=== PATIENT | female | born 1975 | race Caucasian/White ===

== ENCOUNTER 2019-08-05 13:04 | Outpatient (REF) | payer MEDICAID, SELFPAY ==
[2019-08-05 22:02] LABS: Abs Immature Grans 0.01 k/cumm (0.0-0.09); Absolute Basophil Count 0.03 k/cumm (0.0-0.2); Absolute Eosinophil Count 0.08 k/cumm (0.0-0.7); Absolute Lymphocyte Count 3.02 k/cumm (1.2-3.4); Absolute Monocyte Count 0.44 k/cumm (0.11-0.7); Absolute Neutrophil Count 3.52 k/cumm (1.2-6.7); Basophils % 0.4; Eosinophils % 1.1; HCT 37.8 % (36.0-46.0); HGB 12.7 g/dL (12.0-15.5); Immature Grans % 0.1; Lymphocytes % 42.5; Mean Corp. HGB Concentration 33.6 g/dL (32.0-36.0); Mean Corpuscular Hemoglobin 29.3 pg (27.0-33.0); Mean Corpuscular Volume 87.3 fL (80-95); Mean Platelet Volume 11.6 fL (8.0-11.0); Monocytes % 6.2; Neutrophils % 49.7; Platelet Count 279 x1000/uL (130-400); RBC 4.33 m/cumm (4.00-5.20); RBC Distribution Width 12.8 % (11.7-14.6)
[2019-08-05 22:22] LABS: Iron 58 ug/dL (50-175); Total Iron Binding Capacity 323 ug/dL (250-450); Transferrin Sat 18 % (15-50)
[2019-08-05 22:36] LABS: Hemoglobin A1C 5.9 % (4.5-6.2)
[2019-08-05 22:41] LABS: ALT 33 U/L (14-59); AST 15 U/L (15-37); Albumin 3.9 g/dL (3.4-5.0); Alkaline Phosphatase 77 U/L (46-116); Anion Gap 11.2 mmol/L (3-11); BUN 8 mg/dL (7-18); Bilirubin, Total 0.3 mg/dL (0.2-1.0); CO2 26.8 mmol/L (21.0-32.0); CREATININE 0.75 mg/dL (0.55-1.02); Calcium 8.8 mg/dL (8.5-10.1); Calculated LDL 95 mg/dL; Chloride 104 mmol/L (98-107); Cholesterol 178 mg/dL (50-200); Glucose 118 mg/dL (70-100); HDL Cholesterol 37 mg/dL (40-60); Magnesium 2.2 mg/dL (1.8-2.4); Potassium 4.2 mmol/L (3.5-5.1); Sodium 142 mmol/L (136-145); TSH 1.34 uIU/mL (0.36-3.74); Total Protein 7.6 g/dL (6.4-8.2); Triglyceride 230 mg/dL (30-150); Vitamin B12 258 pg/mL (193-986)
[2019-08-05 23:03] LABS: FREE T4 1.03 ng/dL (0.76-1.46)
[2019-08-06 22:05] LABS: T3,Free 3.4 pg/ml (2.8-5.3)
== END 2019-08-05 13:24 ==
LOC: NCHCN 13:04
PROVIDERS: PCP Nurse Practitioner Family; Visit Provider Nurse Practitioner Family
DX: R53.83 Other fatigue (principal); R11.2 Nausea with vomiting, unspecified; R06.09 Other forms of dyspnea; R19.8 Other specified symptoms and signs involving the digestive system and abdomen; G47.00 Insomnia, unspecified; G43.909 Migraine, unspecified, not intractable, without status migrainosus; M54.5 Low back pain; E04.1 Nontoxic single thyroid nodule
CPT/HCPCS: 80053; 80061; 82607; 83036; 83540; 83550; 83735; 84439; 84443; 84481; 85025

== ENCOUNTER 2019-08-06 02:05 | Outpatient (CLI) | payer MEDICAID, SELFPAY ==
--- NOTE | 2019-08-06 10:00 | DI.US_ITS ---
EXAM: US THYROID CLINICAL HISTORY: NODULE E04.1 TECHNIQUE: Ultrasound performed using standard protocol. COMPARISON: OB US 2-3 TRIMESTER TRANSABD*P from 07/28/2011 FINDINGS: Thyroid ultrasound was performed according to the usual protocol. Right thyroid lobe measures 44 x 1 0 x 15 millimeters and left thyroid lobe measures 46 x 11 x 19 millimeters. Thyroid parenchyma is fa irly homogeneous. There is a solid mass of the inferior pole of the right thyroid lobe measuring 10 x 11 x 10 millimeters in diameter. This shows increased intralesional vascularity and is of solid ec hogenicity. No additional nodule seen. IMPRESSION: Solitary 11 millimeter nodule lower pole right thyroid lobe. Findings are statistically most likely to represent benign disease but malignancy is not excluded on the basis of this examination. Close u ltrasound follow-up or tissue sampling advised.
== END 2019-08-06 02:25 ==
PROVIDERS: PCP Nurse Practitioner Family; Visit Provider Nurse Practitioner Family
DX: E04.1 Nontoxic single thyroid nodule (principal)
CPT/HCPCS: 76536

== ENCOUNTER 2019-08-07 03:10 | Outpatient (CLI) | payer MEDICAID, SELFPAY ==
--- NOTE | 2019-08-07 07:35 | DI.US_ITS ---
EXAM: US ABDOMEN CLINICAL HISTORY: LUQ ABD PAIN,R10.12, IRREGULAR BOWEL HABITS, R19.8 TECHNIQUE: Ultrasound performed using standard protocol. COMPARISON: ABDOMEN ULTRASOUND from 11/04/2008 OB US 2-3 TRIMESTER TRANSABD*P from 07/28/2011 US THYROID from 08/06/2019 FINDINGS: Patient has reportedly had a prior cholecystectomy. There is no biliary dilatation. Hepatic parenchyma is mildly echogenic and of coarse echotexture. The liver is incompletely seen. Q uestion mild hepatomegaly. There is a 15 millimeter in diameter, poorly visualized, low echogenicity lesion with question industrial design intern al echoes which is grossly well-circumscribed and avascular which lies adjacent to Prince's pouch a nd which may originate in liver or kidney. No other renal or hepatic lesion identified. Left kidney unremarkable. No hydronephrosis. Pancreas appears intact as visualized. Spleen is unremarkable. Aorta and IVC are of normal diameter . IMPRESSION: 1. Coarse hepatic echotexture and increased echogenicity, question hepatic steatosis. Liver incomple tely visualized. Liver may be enlarged. 2. 15 millimeter in diameter, indeterminate right renal or hepatic lesion as described above, renal M R recommended for correlation to determine origin and possible cystic versus solid nature of this les ion. If the patient is not MR compatible, contrast enhanced CT may alternatively be obtained.
== END 2019-08-07 03:30 ==
PROVIDERS: PCP Nurse Practitioner Family; Visit Provider Nurse Practitioner Family
DX: R10.12 Left upper quadrant pain (principal); R19.4 Change in bowel habit; Z90.49 Acquired absence of other specified parts of digestive tract; K76.89 Other specified diseases of liver; N28.89 Other specified disorders of kidney and ureter; R06.00 Dyspnea, unspecified
CPT/HCPCS: 94060; 94150; 94726; 94729; 95070; 76700; 94010; J7674

== ENCOUNTER 2019-08-07 03:30 | Outpatient (CLI) | payer MEDICAID, SELFPAY ==
--- NOTE | 2019-08-07 11:28 | PFT_ITS ---
PULMONARY FUNCTION TEST REPORT DATE OF SERVICE: August 07, 2019 REQUESTING PROVIDER: Yesica Goff APRN Spirometry shows no evidence of obstructive airways disease; no bronchodilator testing was carried out. Lung volumes show no evidence of restriction. Diffusion capacity is suboptimal patient effort, though it appears to be normal, it is hard to sand analyst based on poor effort. Airways resistance normal. IMPRESSION: Overall normal pulmonary function study. Poor effort for diffusion capacity maneuver. Clinical correlation recommended. /[facility] D/ +++++++++++++++++++++++++ METHACHOLINE CHALLENGE TEST DATE OF SERVICE: August 07, 2019 After normal spirometry, methacholine challenge testing was carried out up to a methacholine concentration of 16 mg/mL at which point the patient had a 22% drop in FEV1 and had good recovery after bronchodilator administration. IMPRESSION: Positive methacholine challenge test. Clinical correlation recommended. /[facility] D/
[2019-08-07] MEDS: Methacholine 100 MG VIAL IH (15:03)
[2019-08-07] MEDS: Albuterol HFA 18 GM 200 PUFF INH IH (15:03)
[2019-08-07] MEDS: Inhaler, Assist Device 1 EACH MC (15:03)
== END 2019-08-07 03:50 ==
PROVIDERS: PCP Nurse Practitioner Family; Visit Provider Nurse Practitioner Family
DX: R06.00 Dyspnea, unspecified (principal)
CPT/HCPCS: 94060; 94150; 94726; 94729; 95070; 94010; J7674

== ENCOUNTER 2019-08-14 01:19 | Outpatient (CLI) | payer MEDICAID, SELFPAY ==
[2019-08-14] MEDS: Normal Saline Flush 10 ML SYR IVP (14:22)
[2019-08-14] MEDS: Gadoterate meglumine 20 ML VIAL 16 ML IVP (14:23)
--- NOTE | 2019-08-14 14:40 | DI.MRI_ITS ---
EXAM: MR ABDOMEN WO/W CLINICAL HISTORY: RENAL MASS, N28.89. TECHNIQUE: Multiplanar multisequence MRI was performed. Post gadolinium fat-suppressed T1 axial seq uences were also performed. COMPARISON: ABDOMEN ULTRASOUND from 11/04/2008 US ABDOMEN from 08/07/2019 FINDINGS: The lesion on ultrasound corresponds to an ovoid purely cystic lesion that lies at the border of the liver capsule and measures 12 by 9 millimeters. There is no internal enhancement. The findings are co nsistent with a simple cyst. No additional liver cysts are seen. There is a 5 millimeter cyst at the lower pole of left kidney. The pancreas, adrenals and spleen appear normal. There is no biliary dila tation. IMPRESSION: 12 millimeter simple cyst at the liver capsule near the superior pole of the right kidney.
== END 2019-08-14 01:39 ==
PROVIDERS: PCP Nurse Practitioner Family; Visit Provider Nurse Practitioner Family
DX: N28.89 Other specified disorders of kidney and ureter (principal); K76.89 Other specified diseases of liver; N28.1 Cyst of kidney, acquired
CPT/HCPCS: 74183

== ENCOUNTER 2019-08-20 16:21 | Emergency (ER) | payer MEDICAID, SELFPAY ==
[2019-08-20 16:26] VITALS: BP 138/104; PULSE 91; RESP 16; TEMP 37.2; O2SAT 96
--- NOTE | 2019-08-20 16:47 | ED.GENADUL_ITS ---
Discharge Plan Disposition Patient Disposition: HOME Discharge Details Chief Complaint: Abd Prob Clinical Impression: Abdominal pain Primary Care Provider: Yesica Goff ED Provider: Herson Magdaleno Home Meds and New Rx's Prescriptions: Continued melatonin 5 mg capsule 5 mg PO HS PRNRF: 0 trazodone 50 mg tablet 50 mg PO QHS PRNRF: 0 sennosides [senna] 8.6 MG tablet 1 tab PO .QHS PRNRF: 0 acyclovir 400 MG tablet 400 mg PO BID RF: 0 Discharge Instructions Instructions: Abdominal Pain (ED) Additional Instructions: Please contact your primary care physician to arrange follow-up. Please follow- up tomorrow for repeat exam. Return to the ER for any worsening or new concerning symptoms. Referrals: Yesica Goff [Primary Care Provider] - Discharge Data Discharge Date/Time-TO BE ENTERED AT DEPARTURE: 08/20/19 18:20 Medical Decision Making 1650: 43-year-old female here with upper abdominal pain greater than left and tender in her right upper abdomen with no peritoneal findings. Patient concerned that cyst seen on recent MR of the abdomen is causing her pain. Abdominal ultrasound performed 08/07/2019 interpreted by radiology: IMPRESSION: 1. Coarse hepatic echotexture and increased echogenicity, question hepatic steatosis. Liver incompletely visualized. Liver may be enlarged. 2. 15 millimeter in diameter, indeterminate right renal or hepatic lesion as described above, renal MR recommended for correlation to determine origin and possible cystic versus solid nature of this lesion. If the patient is not MR compatible, contrast enhanced CT may alternatively be obtained. Abdominal MRI performed 08/14/2019 interpreted by radiology: IMPRESSION: 12 millimeter simple cyst at the liver capsule near the superior pole of the right kidney. -- Labs reviewed and nondiagnostic. Results reviewed with patient. Patient was reassured. Plan for outpatient followup with PCP. Disposition decision was made weighing the risks and benefits of hospitalization versus outpatient treatment, the risk for further decompensation, and the patient's wishes. The patient was stable and requested discharge. Prior to discharge, my usual and customary return precautions were reviewed with the patient - this included follow-up instructions and reason to return to the emergency department if condition worsens, does not improve as expected, or other new concerns arise. HPI General Mode of arrival: ambulatory . Date/Time Provider Initiated Documentation: 08/20/19 16:32 . Limitations to Documentation: no limitations . Information obtained by: patient . HPI Narrative: 43-year-old female here with upper abdominal pain, localized to upper abdomen, right greater than left. Pain has been persistent x months. Pain is moderate intensity. Tylenol not helping. No associated vomiting. No fever. Patient notes that she had recent MR of abdomen that revealed a cyst and she is concerned that this is causing her pain. Related Data Home Medications Medication Instructions Recorded Confirmed acyclovir 400 mg PO BID 01/01/18 09/02/19 sennosides [senna] 1 tab PO .QHS PRN 01/01/18 09/02/19 melatonin 5 mg capsule 5 mg PO HS PRN cap 08/18/19 09/02/19 trazodone 50 mg tablet 50 mg PO QHS PRN 08/18/19 09/02/19 Allergies Allergy/AdvReac Type Severity Reaction Status Date / Time No Known Drug Allergies Allergy Unverified 09/02/19 06:29 General Stated Complaint: Abd Prob WARD: 3 Review of Systems All systems reviewed & are unremarkable except as noted in HPI and below Constitutional Constitutional: Denies fever(s) Gastrointestinal Gastrointestinal: Reports as per HPI, Denies melena, Denies coffee ground emesis and Denies vomiting PFSH Medical History (Updated 09/02/19 @ 08:09 by Jacque Everett MD) Anxiety (Chronic) History of bladder stone (Acute) Hx of vaginal delivery (Acute) Migraine (Chronic) Steatosis of liver (Acute) pt. reports cyst in liver Surgical History (Updated 09/05/19 @ 06:45 by Deandra Prince RN) H/O esophagogastroduodenoscopy (Chronic ~08/2019) S/P laparoscopic cholecystectomy (Acute) pt. denies Social History Smoking/Tobacco Use Status: Never Alcohol Intake: never Drug use: Never Substance use type: does not use Do you feel safe at home: Yes Do you feel safe in your relationship?: Yes Exam Const General: cooperative and no acute distress HENMT Mouth: moist mucous membranes Eyes Conjunctivae: normal conjunctivae Sclera: normal sclerae Resp Auscultation: clear to auscultation bilaterally, no rales, no rhonchi and no wheezes Cardio Jugular venous pressure: no JVD Rate: regular rate and not tachycardic Rhythm: regular rhythm GI Palpation: soft, not firm, no guarding, no masses, not rigid and nontender Skin General skin exam: no rashes or lesions noted Neuro General: alert, awake and tone normal Extrem General: no edema Psych Appearance: grossly normal Mental Status: mental status grossly normal Course Vital Signs Vital signs: Vital Signs Temperature 37.2 C 08/20/19 16:26 Pulse 91 H 08/20/19 16:26 Respiratory Rate 16 08/20/19 16:26 Blood Pressure 138/104 H 08/20/19 16:26 Pulse Oximetry 96 08/20/19 16:26 Temperature 37.2 C 08/20/19 16:26 Temperature Source Skin 08/20/19 16:26 Pulse 91 H 08/20/19 16:26 Respiratory Rate 16 08/20/19 16:26 Respiratory Effort Non-Labored 08/20/19 16:26 Blood Pressure 138/104 H 08/20/19 16:26 Blood Pressure Position Sitting 08/20/19 16:26 Pulse Oximetry 96 08/20/19 16:26 Oxygen Delivery Method Room Air 08/20/19 16:26 Oxygen Flow Rate 0 08/20/19 16:26 Pain Level 10 08/20/19 16:26
[2019-08-20] MEDS: Normal Saline Flush 10 ML SYR IVP (16:59)
[2019-08-20 17:02] LABS: Abs Immature Grans 0.02 k/cumm (0.0-0.09); Absolute Basophil Count 0.03 k/cumm (0.0-0.2); Absolute Eosinophil Count 0.13 k/cumm (0.0-0.7); Absolute Lymphocyte Count 3.92 k/cumm (1.2-3.4); Absolute Monocyte Count 0.46 k/cumm (0.11-0.7); Basophils % 0.4; Eosinophils % 1.5; HCT 36.7 % (36.0-46.0); HGB 12.3 g/dL (12.0-15.5); Immature Grans % 0.2; Lymphocytes % 46.3; Mean Corp. HGB Concentration 33.5 g/dL (32.0-36.0); Mean Corpuscular Hemoglobin 28.9 pg (27.0-33.0); Mean Corpuscular Volume 86.4 fL (80-95); Monocytes % 5.4; Neutrophils % 46.2; Platelet Count 248 x1000/uL (130-400); RBC 4.25 m/cumm (4.00-5.20); RBC Distribution Width 12.3 % (11.7-14.6); White Blood Cell Count 8.46 k/cumm (4.4-10.8)
[2019-08-20 17:17] LABS: ALT 29 U/L (14-59); AST 16 U/L (15-37); Albumin 3.9 g/dL (3.4-5.0); Alkaline Phosphatase 69 U/L (46-116); Anion Gap 6.9 mmol/L (3-11); BUN 8 mg/dL (7-18); Bilirubin, Total 0.2 mg/dL (0.2-1.0); CO2 28.1 mmol/L (21.0-32.0); CREATININE 0.75 mg/dL (0.55-1.02); Calcium 8.7 mg/dL (8.5-10.1); Chloride 104 mmol/L (98-107); Glucose 121 mg/dL (74-106); Lipase 116 U/L (73-393); Potassium 3.6 mmol/L (3.5-5.1); Sodium 139 mmol/L (136-145); Total Protein 7.7 g/dL (6.4-8.2)
[2019-08-20 17:18] LABS: Troponin I < 0.05 ng/Ml (<0.06)
[2019-08-20] MEDS: Famotidine 20 MG TAB PO (18:11)
[2019-08-20 18:30] VITALS: BP 117/43; PULSE 85; RESP 20; TEMP 37; O2SAT 95
== END 2019-08-20 18:20 | disposition home or self-care (01) ==
PROVIDERS: Emergency Provider Student in an Organized Health Care Education/Training Program; PCP Nurse Practitioner Family
DX: R10.11 Right upper quadrant pain (principal); K76.89 Other specified diseases of liver
CPT/HCPCS: 36415; 80053; 83690; 99283; 84484; 85025

== ENCOUNTER 2019-08-26 00:26 | Outpatient (CLI) | payer MEDICAID, SELFPAY ==
--- NOTE | 2019-08-26 16:57 | DI.MAMMO_ITS ---
EXAM: MAMMO SCREENING CLINICAL HISTORY: SCREENING Z12.31, FAMILY HX Z80.3 TECHNIQUE: Mammograms were interpreted according to the usual protocol including computer analysis w [employer] system, tomosynthesis and C-view imaging. FINDINGS: The breasts are of moderate density with fairly symmetrical distribution of fibroglandular tissue. N o dominant mass or clumped microcalcification identified in either breast. There are a couple of sma ll umbilicated nodules in the right breast consistent with intramammary lymph nodes. Today's examina tion is a baseline examination. IMPRESSION: No specific evidence of malignancy at this time. Routine screening examinations are suggested at year ly intervals in this age group according to the ACS/ACR guidelines. Category 1, breast density catego ry B. BI-RADS Cat 1 - Negative Breast Density - Category B - Scattered areas of fibroglandular density
== END 2019-08-26 00:46 ==
PROVIDERS: PCP Nurse Practitioner Family; Visit Provider Nurse Practitioner Family
DX: Z12.31 Encounter for screening mammogram for malignant neoplasm of breast (principal); Z80.3 Family history of malignant neoplasm of breast
CPT/HCPCS: 77063; 77067

== ENCOUNTER 2019-09-02 06:08 | Day surgery (SDC) | payer MEDICAID, SELFPAY ==
[2019-09-02 06:33] VITALS: BP 141/103; PULSE 90; RESP 20; TEMP 36.8; O2SAT 97
[2019-09-02] MEDS: Lactated Ringers 1,000 ML 80 ML IV (06:45)
--- NOTE | 2019-09-02 07:37 | STOM_PTH ---
PATIENT: Jennifer Nunn LOC: [facility] U#:[id number] AGE/SX: 44/F ROOM: RE09/02/[address]: Jacque Everett MD : 1975 BED: DIS: 09/02/2019 SPEC #: [id number] RECD: 09/02/19 12:48 STATUS: JENNIFER RERose #: [id number] NATA: 09/02/19 07:[address]: Jacque Everett DEPT: Surgical Specimen RECD BY: Juani Antony ENTERED: 09/02/19 12:49 SP TYPE: STOMACH OTHR DR: Yesica Goff Tissues: 1 - BIOPSY BOWEL 2 - STOMACH BIOPSY Procedures: GROSS AND MICRO LEVEL 4 Comments: [id number]
--- NOTE | 2019-09-02 08:08 | W.PM.DSUDISC ---
Discharge Plan Disposition Patient Disposition: HOME Condition: Good Discharge Details Reason For Visit: RUQ PAIN, RECTAL BLEEDING Attending Provider: Jacque Everett Primary Care Provider: Yesica Goff Home Meds and New Rx's Prescriptions: Continued melatonin 5 mg capsule 5 mg PO HS PRNRF: 0 trazodone 50 mg tablet 50 mg PO QHS PRNRF: 0 sennosides [senna] 8.6 MG tablet 1 tab PO .QHS PRNRF: 0 acyclovir 400 MG tablet 400 mg PO BID RF: 0 Discharge Instructions Additional Instructions: Findings: Your upper endoscopy and colonoscopy were normal. Follow up: My office will contact you with routine biopsy results. Please call if you develop: fevers >101.5 Nausea or Vomiting Abdominal pain that is not transient DAY SURGERY UNIT POST COLONOSCOPY INSTRUCTIONS 1. Because there will be medication in your system for the next 24 hours, you may feel a little sleepy. Your coordination will be affected. Therefore: a. Do not drive or operate dangerous equipment for 24 hours. b. Do not drink alcohol beverages for 24 hours (not even beer). c. Plan to go home and rest for the day. 2. Generally there are no restrictions on your activity after a day or so has gone by, but you may feel a bit fatigued for a few days. 3 After you arrive home you may have a light meal and return to a normal diet as you can tolerate it without feeling sick to your stomach. 4. After surgery, you may feel pain or discomfort. This should be only transient, but if it persists please contact your doctor. 5. If there are any questions regarding the findings of your procedure, please feel free to contact your doctor. 6. If you are unable to contact your doctor with a problem, contact the hospital at [phone]. 7. Continue all your regular medications unless directed otherwise. I understand the above instructions and have no questions. Signature of Patient or Responsible Adult Escort Date/Time Name of Responsible Adult Escort Signature of Nurse Date/Time Activity:: Activity as Tolerated Diet:: As Tolerated Discharge Orders Discharge Orders: Discharge Order (Routine); Ordered 09/02/19 Ordered By: Jacque Everett DS: Diagnosis Discharge Diagnosis (1) Normal colonoscopy: Status: Acute
[2019-09-02 08:38] VITALS: BP 118/81; PULSE 78; RESP 18; TEMP 36.6; O2SAT 99
--- NOTE | 2019-09-02 12:24 | ENDO_ITS ---
DATE OF PROCEDURE: September 02, 2019 PREOPERATIVE DIAGNOSIS: 1. Right upper quadrant pain. 2. Rectal bleeding. POSTOPERATIVE DIAGNOSIS: 1. Normal EGD. 2. Normal colonoscopy. PROCEDURE: 1. EGD with duodenal biopsy and gastric antrum biopsy. 2. Colonoscopy. SURGEON: Jacque Everett M.D. ANESTHESIA: General. INDICATIONS: This is a 44-year-old woman who complains of abdominal pain for at least a month. This is present on a daily basis. The pain is generally in the right upper quadrant, although has been r eported in the left upper quadrant as well. Eating does not change her pain. She also had a few epi sodes of rectal bleeding. She tends to have constipation. The patient has had a cholecystectomy. S he had an abdominal ultrasound and MRI that showed a simple liver cyst. PROCEDURE: The patient was placed in the left lateral decubitus position. Propofol was titrated to sedation. The scope was advanced into her esophagus under direct visualization and down into the sto mach and duodenum. There was no duodenitis or ulcers noted. The mucosa had a normal appearance. Ro utine biopsies were performed to evaluate for celiac disease. The stomach itself appeared normal, in cluding on retroflex view of the fundus and lesser curvature. Biopsies were taken from the gastric a ntrum to evaluate for H. pylori. There was no inflammation or ulcers noted. The GE junction showed no masses, Franklin's, inflammation or strictures. The air was suctioned from the stomach and the sco pe withdrawn with no esophageal lesions found. The patient was repositioned. Digital rectal examination revealed no abnormalities. The colonoscop e was advanced to the cecum without difficulty. Her prep was excellent. The ileocecal valve and ap pendiceal orifice were clearly identified. The scope was slowly withdrawn with no abnormalities seen within the ascending, transverse, descending, sigmoid colon or rectum, including on retroflex view. She tolerated the procedure well and was stable to recovery. I will contact her with biopsy results. If normal, we could consider a CT scan of the abdomen and pe lvis and can also consider treatment for irritable bowel syndrome. cc: Yesica Goff N.P.
== END 2019-09-02 09:09 | disposition home or self-care (01) ==
PROVIDERS: PCP Nurse Practitioner Family; Visit Provider Surgery
PROC: (CPT 43239; principal; 2019-09-02 07:30)
DX: K62.5 Hemorrhage of anus and rectum (principal); R10.11 Right upper quadrant pain; K31.89 Other diseases of stomach and duodenum
CPT/HCPCS: 43239; 45378; 88305

== ENCOUNTER 2019-09-22 00:46 | Outpatient (CLI) | payer MEDICAID, SELFPAY ==
[2019-09-22] MEDS: Omnipaque 350 MG/ML 100 ML BTL IJ (15:37)
--- NOTE | 2019-09-22 15:38 | DI.CT_ITS ---
EXAM: CT ABDOMEN PELVIS W CLINICAL HISTORY: Generalized abdominal pain R10.9 TECHNIQUE: Imaging Protocol: Axial computed tomography images with coronal and sagittal reformatted images were created and reviewed CONTRAST MATERIAL: Intravenous: Omnipaque 350 Contrast volume:100 mL contrast route:IV - Oral: Yes COMPARISON: US ABDOMEN from 08/07/2019 FINDINGS: ABDOMEN: Lung Bases: Normal where visualized. Liver: Normal density. There is a 1 cm simple cyst in the posterior aspect of the right lobe of the l iver. No suspicious hepatic masses are seen. The portal, superior mesenteric and splenic veins are patent. Gallbladder and biliary tract: The patient is status post cholecystectomy. There is no biliary ducta l dilatation. Pancreas: Normal density, no abnormal calcifications or inflammatory process. Spleen: Normal. Incidental note is made of a 1.1 cm cyst in the superior aspect of the spleen. Kidneys: Normal size, contour and axis. There is a 2 mm nonobstructing stone in the midpole of the le ft kidney. There is a small cyst in the inferior pole of the left kidney. No suspicious solid elder s are seen. Adrenal glands: No masses seen. Abdominal Aorta: Abdominal portion non-dilated. PELVIS: Bladder: Symmetric distention, no gross wall thickening. Bowel: No obstruction or bowel wall thickening. The appendix is normal in size without evidence of ad jacent mesenteric fat stranding or adjacent fluid collection. Peritoneal cavity: No ascites, collection or mesenteric inflammatory response. Bones: Within normal limits. Reproductive organs: Within normal limits. Lymph nodes: Unremarkable. Impression: 1. No evidence of an acute abdomen or pelvis. 2. Left nephrolithiasis. No hydronephrosis. DATA REPOSITORY: All CT scans at this facility are submitted to the National Radiology Data Registry (NRDR) Dose Index Registry (DIR) with the [employer] (ACR). RADIATION OPTIMIZATION: All CT scans at this facility use at least one of these dose optimization te chniques: automated exposure control; mA and/or kV adjustment per patient size (includes targeted exa ms where dose is matched to clinical indication); or iterative reconstruction.
== END 2019-09-22 01:06 ==
PROVIDERS: PCP Nurse Practitioner Family; Visit Provider Surgery
DX: R10.9 Unspecified abdominal pain (principal); K68.9 Other disorders of retroperitoneum; D73.4 Cyst of spleen; N20.0 Calculus of kidney
CPT/HCPCS: 74177; J3490

== ENCOUNTER 2020-02-24 12:15 | Outpatient (REF) | payer MEDICAID, SELFPAY ==
[2020-02-24 21:35] LABS: FREE T4 1.04 ng/dL (0.76-1.46); TSH 3.04 uIU/mL (0.36-3.74)
[2020-02-25 17:05] LABS: T3,Free 3.8 pg/mL (2.8-5.3)
== END 2020-02-24 12:35 ==
LOC: NCHCN 12:15
PROVIDERS: PCP Nurse Practitioner Family; Visit Provider Nurse Practitioner Family
DX: C73 Malignant neoplasm of thyroid gland (principal)
CPT/HCPCS: 84439; 84443; 84481

== ENCOUNTER 2020-03-15 15:49 | Outpatient (REF) | payer MEDICAID, SELFPAY ==
[2020-03-15 23:12] LABS: FREE T4 1.06 ng/dL (0.76-1.46); TSH 2.53 uIU/mL (0.36-3.74)
== END 2020-03-15 16:09 ==
LOC: NCHCN 15:49
PROVIDERS: PCP Nurse Practitioner Family; Visit Provider Nurse Practitioner Family
DX: C73 Malignant neoplasm of thyroid gland (principal); R73.03 Prediabetes; R53.83 Other fatigue; R51 Headache; R19.8 Other specified symptoms and signs involving the digestive system and abdomen; K76.0 Fatty (change of) liver, not elsewhere classified; G47.00 Insomnia, unspecified; E66.9 Obesity, unspecified
CPT/HCPCS: 83036; 84439; 84443; 84481

== ENCOUNTER 2020-03-17 02:28 | Outpatient (CLI) | payer MEDICAID, SELFPAY ==
--- NOTE | 2020-03-17 | DI.US_ITS ---
EXAM: US THYROID CLINICAL HISTORY: THYROID CANCER C73. TECHNIQUE: Ultrasound thyroid performed using standard protocol. COMPARISON: US US THYROID from 08/06/2019 US US SOFT TISSUE HEAD OR NECK from 03/17/2020 FINDINGS: RIGHT LOBE: Status post right thyroidectomy. No mass or fluid collection in the thyroid bed. LEFT LOBE: Size: 4.1 x 1.3 x 1.7 cm Echogenicity: Normal. Vascularity: Normal. Nodules: None. OTHER FINDINGS: Bilateral anterior cervical lymph nodes. The largest on the right measuring 2 cm in length. The largest on the left measures 1.7 cm in length. No suspicious features are seen. IMPRESSION: Status post right thyroidectomy. Normal sonographic appearance of the left lobe of the thyroid. Sma ll bilateral cervical lymph nodes. DATA REPOSITORY:
== END 2020-03-17 02:48 ==
PROVIDERS: PCP Nurse Practitioner Family; Visit Provider Nurse Practitioner Family
DX: C73 Malignant neoplasm of thyroid gland (principal); R59.0 Localized enlarged lymph nodes; Z90.89 Acquired absence of other organs
CPT/HCPCS: 76536

== ENCOUNTER 2020-06-16 11:40 | Outpatient (REF) | payer MEDICAID, SELFPAY ==
--- NOTE | 2020-06-16 10:30 | PAPFT_PTH ---
PATIENT: Jennifer Nunn LOC: [facility]#:[id number] AGE/SX: 44/F ROOM: RE06/16/[address]: Dionna Gaston : 1975 BED: DIS: 06/16/2020 SPEC #: [id number] RECD: 06/17/20 13:15 STATUS: JENNIFER REQ #: [id number] NATA: 06/16/20 10:[address]: Dionna Gaston DEPT: [facility] Cytology RECD BY: Juani Antony ENTERED: 06/17/20 13:15 SP TYPE: PAPFT OTHR DR: Yesica Goff Tissues: 1 - CX/ENDOCX FOR PAP SMEARS Procedures: PAP THIN PREP/[facility] Screening HPV DNA PROBE Comments: [id number] (CHLAMYDIA/GC)
[2020-06-18 15:16] LABS: Chlamydia Result Negative (Negative); GC Result Negative (Negative)
== END 2020-06-16 12:00 ==
LOC: NCHCN 11:40
PROVIDERS: PCP Nurse Practitioner Family
DX: Z12.4 Encounter for screening for malignant neoplasm of cervix (principal); Z11.51 Encounter for screening for human papillomavirus (HPV); Z11.3 Encounter for screening for infections with a predominantly sexual mode of transmission; R87.5 Abnormal microbiological findings in specimens from female genital organs
CPT/HCPCS: 87491; 87591; 88142; 87624

== ENCOUNTER 2020-06-16 12:08 | Outpatient (REF) | payer MEDICAID, SELFPAY | END 2020-06-16 12:28 | LOC: NCHCN 12:08 | PROVIDERS: PCP Nurse Practitioner Family | DX: N76.0 Acute vaginitis (principal); R73.03 Prediabetes; K76.0 Fatty (change of) liver, not elsewhere classified | CPT/HCPCS: 87480; 87510; 87660 ==

== ENCOUNTER 2020-06-17 03:49 | Outpatient (CLI) | payer MEDICAID, SELFPAY ==
[2020-06-17 10:42] LABS: HCT 36.8 % (36.0-46.0); HGB 12.1 g/dL (11.2-15.7); MCHC 32.9 % (32.0-36.0); MCV 88.2 fL (80-95); MPV 10.8 fL (8.0-11.0); Platelet Count 212 10^3/uL (130-400); RBC 4.17 10^6/uL (3.93-5.22); RDW 11.9 % (11.7-14.6); RDW-SD 38.8 fL
[2020-06-17 11:50] LABS: Ferritin 20 ng/mL (8-252); TSH (W/Ref FT4) 0.09 uIU/mL (0.36-3.74)
[2020-06-17 12:08] LABS: FREE T4 1.65 ng/dL (0.76-1.46)
[2020-06-17 18:12] LABS: Estradiol 106 pg/mL (See Note)
[2020-06-17 18:16] LABS: FSH 4.9 mIU/mL (See Note)
== END 2020-06-17 04:09 ==
PROVIDERS: PCP Nurse Practitioner Family
DX: R73.03 Prediabetes (principal); N76.0 Acute vaginitis; N92.1 Excessive and frequent menstruation with irregular cycle; K76.0 Fatty (change of) liver, not elsewhere classified; R51 Headache
CPT/HCPCS: 36415; 85027; 82670; 82728; 83001; 84439; 84443

== ENCOUNTER 2020-10-14 11:24 | Outpatient (REF) | payer MEDICAID, SELFPAY ==
[2020-10-14 13:27] LABS: Abs Immature Grans 0.02 10^3/uL (0.0-0.06); Absolute Basophil Count 0.03 10^3/uL (0.0-0.2); Absolute Lymphocyte Count 3.37 10^3/uL (1.2-3.4); Absolute Monocyte Count 0.47 10^3/uL (0.1-0.8); Basophils % 0.4; Eosinophils % 1.3; HGB 11.9 g/dL (11.2-15.7); Immature Grans % 0.3; Lymphocytes % 42.7; MCH 28.5 pg (27.0-33.0); MCHC 33.1 % (32.0-36.0); MCV 86.3 fL (80-95); MPV 11.3 fL (8.0-11.0); Neutrophils % 49.3; Nucleated RBC 0 %; Platelet Count 195 10^3/uL (130-400); RBC 4.17 10^6/uL (3.93-5.22); RDW 12.5 % (11.7-14.6); RDW-SD 39.1 fL; WBC 7.89 10^3/uL (4.4-10.8)
[2020-10-14 13:57] LABS: Hemoglobin A1C 5.9 % (<5.7)
[2020-10-14 14:12] LABS: ALT 42 U/L (14-59); AST 19 U/L (15-37); Albumin 3.7 g/dL (3.4-5.0); Alkaline Phosphatase 58 U/L (46-116); BUN 10 mg/dL (7-18); Bilirubin, Total 0.3 mg/dL (0.2-1.0); CREATININE 0.86 mg/dL (0.55-1.02); Calcium 8.7 mg/dL (8.5-10.1); Chloride 102 mmol/L (98-107); Glucose 99 mg/dL (74-106); Potassium 3.8 mmol/L (3.5-5.1); Sodium 137 mmol/L (136-145); TSH (W/Ref FT4) 0.66 uIU/mL (0.36-3.74); Total Protein 7.4 g/dL (6.4-8.2); Vitamin B12 198 pg/mL (193-986)
== END 2020-10-14 11:44 ==
LOC: NCHCN 11:24
PROVIDERS: PCP Nurse Practitioner Family; Visit Provider Nurse Practitioner Family
DX: R42 Dizziness and giddiness (principal); R10.12 Left upper quadrant pain; R19.8 Other specified symptoms and signs involving the digestive system and abdomen; K76.0 Fatty (change of) liver, not elsewhere classified; C73 Malignant neoplasm of thyroid gland; G47.00 Insomnia, unspecified; R53.83 Other fatigue; E66.9 Obesity, unspecified
CPT/HCPCS: 80053; 82607; 83036; 83735; 84443; 85025

== ENCOUNTER 2020-10-19 01:08 | Outpatient (CLI) | payer MEDICAID, SELFPAY ==
--- NOTE | 2020-10-19 | DI.US_ITS ---
EXAM: US ABDOMEN CLINICAL HISTORY: LUQ ABD PAIN, R10.12, STEATOSIS OF LIVER, K76.0 TECHNIQUE: Ultrasound abdomen performed using standard protocol. COMPARISON: US US ABDOMEN from 08/07/[address] ABDOMEN PELVIS W from 09/22/2019 FINDINGS: ABDOMINAL AORTA AND IVC: Visualized portions normal caliber. PANCREAS: Normal where visualized. LIVER: There is diffuse increased echogenicity of the liver consistent with fatty infiltration. The liver measures 16.6 cm in length. Hepatopedal flow in the Portal Vein. GALLBLADDER: Status post cholecystectomy. BILIARY SYSTEM: Common bile duct measures < 7 mm. No intrahepatic biliary ductal dilation. KIDNEYS: Kidneys are symmetric in size. No evidence of renal calculi. No evidence of hydronephrosis. No renal mass or cyst identified. SPLEEN: Not enlarged. There is a in 0.8 x 0.6 cm simple cyst in the spleen. This is identified on th e CT scan of the abdomen and pelvis from 09/22/2019. ASCITES: None seen. IMPRESSION: Hepatic steatosis. DATA REPOSITORY:
== END 2020-10-19 01:28 ==
PROVIDERS: PCP Nurse Practitioner Family; Visit Provider Nurse Practitioner Family
DX: K76.0 Fatty (change of) liver, not elsewhere classified (principal); R10.12 Left upper quadrant pain
CPT/HCPCS: 76700

== ENCOUNTER 2020-10-29 02:30 | Outpatient (CLI) | payer MEDICAID, SELFPAY ==
--- NOTE | 2020-10-29 15:20 | DI.MAMMO_ITS ---
EXAM: MG MAMMO in the lateral diagnostic-left CLINICAL HISTORY: SCREENING, Z12.31, FAMILY H/O BREAST CA,C80.3. TECHNIQUE: Spot-compression 3D view of the area of concern as per screening mammogram 10/19/2020 COMPARISON: Prior mammograms dating back to 2019, the most recent being the recent screening mammogr am 10/19/2020. FINDINGS: The additional spot compression view of the area of concern medial of center in the left breast is so mewhat less concerning. Please note that ultrasound examination of the left breast performed following this mammogram today a lso did not reveal a significant focal ultrasound finding at this location. Scratch IMPRESSION: No radiographic evidence of malignancy. Also negative left breast ultrasound. Appropriate follow-up is keep this patient yearly mammogram schedule, with earlier imaging if a self detected breast changes noted. BI-RADS Category 2 - Benign Findings Breast Density - Category B - Scattered areas of fibroglandular density Breast density Category C or D implies that the patient has dense breast tissue. Dense breast tissue can make it harder to find cancer on a mammogram. Dense breast tissue is also associated with an incr eased risk of breast cancer. This information about the result of the mammogram report was provided to the patient to raise their awareness. Use this report when you speak with the patient about their risks for breast cancer, which includes their family history. At that time, you may recommend additional screening tests (Ultrasoun d or MRI) as these tests may add significant information. A negative radiographic report should not delay biopsy if a dominant or clinically suspicious mass is present. Up to ten percent of cancers are not identified on mammography. A negative report may reinforce clinical impression. Adenosis and dense breasts may obscure an underlying neoplasm. False positive reports average 6 to 10%. Patient will receive a letter notifying them of these results.
== END 2020-10-29 02:50 ==
PROVIDERS: PCP Nurse Practitioner Family; Visit Provider Nurse Practitioner Family
DX: Z12.31 Encounter for screening mammogram for malignant neoplasm of breast (principal); Z80.3 Family history of malignant neoplasm of breast
CPT/HCPCS: 77063; 77067

== ENCOUNTER 2021-01-21 08:44 | Outpatient (RCR) | payer MEDICAID, SELFPAY ==
--- OUTSIDE RECORDS SUMMARY | 2021-01-21 08:47 | XMS_ITS ---
:1975 Author Care Team Providers Name Role Phone MATY PRITCHETT Primary Care Provider [phone] TERESA BOO Referring Provider [phone] [facility] MEDICAL RECORDS OTHER [phone] Allergies Code Code System Name Reaction Severity Status Onset NKDA ? Medications Name Status Start Date Stop Date ? ? acyclovir 400 mg tablet Active ? Not avai lable amitriptyline 10 mg tablet Completed ? 05/22 benzonatate 100 mg capsule Completed ? 05/22 levothyroxine Active ? Not available 25 mcg 1x a day melatonin 5 mg tablet Active ? Not availa ble omeprazole 40 mg capsule,delayed Active ? Not available release ropinirole 1 mg tablet Active ? Not avail able take 2 hours before bedtime sertraline 50 mg tablet Active ? Not avai lable zolpidem 5 mg tablet Completed ? 12/29/2020 take 1-2 PO night of sleep study Problems Name Status Onset Date Source ? Herpesvirus Infection Active 05/22/2018 ? Obesity Active 05/22/2018 ? Hypersomnia Active 05/22/2018 ? Migraine Active 05/22/2018 ? External Hemorrhoids Active 05/22/2018 ? Indigestion Active 05/22/2018 ? Constipation Active 05/22/2018 ? Headache Active 05/22/2018 ? Chest Pain Active 05/22/2018 ? Family History of Breast Cancer Active 05/22/2018 ? Insomnia Active 05/23/2018 ? Snoring Active 05/23/2018 ? 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 Second Degree Atrioventricular Block Active 12/30/2020 ? Procedures Date Name Performed by ? 05/23/2018 Polysomnogram [facility] [address] [place] [address] [place] [address] (Work Place) Results Lab Results None recorded. Past Encounters 12/30/2020 Snoring; Second Degree Atrioventricular Block; Periodic Leg Movements of Sleep Hien Mckeon FOUNDRY MOLDER: [address] [place] [phone], Ph. 12/08/2020 Snoring; Insomnia; Periodic Leg Movement s of Sleep Hien Mckeon FOUNDRY MOLDER: [address] [place] [phone], Ph. Social History Tobacco Smoking Status Never Smoker Vaccine List None recorded. Plan of Care Reminders Provider Appointments None ? ? recorded. Lab None ? ? recorded. Referral None ? ? recorded. Procedures None ? ? recorded. Surgeries None ? ? recorded. Imaging None ? ? recorded. Vitals 12/30/2020 02:30PM Office 30 Height Weight BMI Blood Pressure 160.02 cm 87.91 kg 34.3 kg/m2 132/83 mm[Hg] 12/08/2020 02:30PM Office 30 Height Weight BMI 160.02 cm 76.2 kg 29.8 kg/m2 05/23/2018 01:45PM Office 15 Height Weight BMI Blood Pressure 160.02 cm 76.34 kg 29.8 kg/m2 120/82 mm[Hg]
--- OUTSIDE RECORDS SUMMARY | 2021-01-21 08:48 | XMS_ITS | Encounter Summary ---
:1975 Author Care Team Providers Name Role Phone Yesicanéstor Milesell Primary Care Provider [phone] Aundrea Rosales Referring Provider [phone] [facility] Medical Records OTHER [phone] Reason for Visit None recorded. Assessment and Plan 1. Snoring She has symptoms of loud snori ng and excessive daytime sleepiness. Her recent PSG was negative for any sleep disordered breathing. She had some PLMS as below. Treatment for simple snoring disc ussed to include weight loss, avoid supi ne sleep, elevate HOB, OTC device such as jesusita SnoreRx. I provided greater than 30 minutes in e care of this patient, more than half the time was spent in [id number] counseling. 2. Second degree atrioventricula r block Occasional dropped QRS complex after P-waves seen on recent PSG. Recommend further evaluation as needed by cardiolo gy. I will defer to PCP. Katiana tells me she is seeing Lolis Goff later this month and will address this finding with her. 3. Periodic leg movements of sle ep She is told that her legs and feet move in her sleep. PSG with PLMi 19.7/hr and PLMai 0.5/hr. Given this did not cau se significant arousals it is unlikely to explain her degree of daytime sleepiness (ESS 21/24 today). I did discuss the option or trying ropinirole to see if she notes improvement in her sleep quality and she was interested in this.. She is made aware s ertraline may cause or worsen this as will caffeine and chocolate. Ropinirole 1 mg taken 2 hours before bedtime is sent in. Side effect profile including risk of impulse control disorder was discussed. ? ropinirole 1 mg tablet Discussion Note: None recorded.Patient educational handouts: No information available. Plan of Care Reminders Provider Appointments Office 30 03/01/2021 Jacob Mckeon, 11:30AM MACHINE II ENGRAVER Lab None ? ? recorded. Referral None ? ? recorded. Procedures None ? ? recorded. Surgeries None ? ? recorded. Imaging None ? ? recorded. Medications Name Start Date ? ? acyclovir 400 mg tablet ? BID levothyroxine ? 25 mcg 1x a day melatonin 5 mg tablet ? omeprazole 40 mg capsule,delayed release ? ropinirole 1 mg tablet ? take 2 hours before bedtime sertraline 50 mg tablet ? Medications Administered None recorded. Vitals Height Weight BMI Blood Pressure 5 ft 3 in 193.8 lbs 34.3 kg/m2 132/83 mm[Hg] Results Lab Results None recorded. Allergies Code Code System Name Reaction Severity Onset NKDA ? ? ? Problems Name Status Onset Date Source ? [...] Degree Atrioventricular Block Active 12/30/2020 ? Procedures None recorded. Vaccine List None recorded. Social History Tobacco Smoking Status Never Smoker Alcohol intake None Live alone or with others? with others Animal exposure? Y Notes: 2 cats Are you currently employed? Y Blind or serious difficulty seeing Y Not es: corrective glasses Language Difficulties No Most Recent Tobacco Use Screening 05/23/2018 Hard of hearing or deaf in one or N both ears? Caffeine intake Occasional Notes: 1 soda a d ay Functional Status Blind or serious Yes difficulty seeing? Past Encounters 12/30/2020 Snoring; Second Degree Atrioventricular Block; Periodic Leg Movements of Sleep Hien Mckeon MACHINE II ENGRAVER: [address] [place] [address] [employer] [address] [phone], Ph. 12/08/2020 Snoring; Insomnia; Periodic Leg Movement s of Sleep Hien Mckeon MACHINE II ENGRAVER: [address] [place] [phone], Ph. History of Present Illness Note: <p>Jennifer Nunn has a visit for PSG results.</p><p>
</p><p>Jennifer was seen by me on 12/08/20. She has a history of obesity, insomnia and migraines.</ p><p>She noted symptoms of night sweats, headaches, nocturia, daytime sleepiness (ESS 15) and difficulty falling asleep (2-3 times a week) and maintaining sleep.</p><p>Polysomnogram was completed on {{DATE 12/19/2020}} (BMI 29.76) and I reviewed the results with {{her# him her}}in detail today. Sleep efficiency was {{91# 80}}%, AHI {{0.1# NUMBER}}/hr, RDI {{2.8# NUMBER}}/hr, REM AHI {{0.6# NUMBER}}/hr, REM RDI {{7.4# NUMBER}}/hr, supine AHI {{0# NUMBER}}/hr, right lateral AHI{{0# NUMBER}}/hr, left lateral AHI {{0# NUMBER}}/hr, sp02 slick {{73# NUMBER}}%, {{6# NUMBER}} minutes were spent at a saturation <88%, arousal index {{13# NUMBER}}/hr, PLMi {{19.7# NUMBER}}/hr,PLM arousal index {{0.5# NUMBER}}/hr. EKG showed possible second degree AV block. Recommend cardiology evaluation, consider treatment of PLMS.</p><p>
</p><p>Katiana bright slept all right for the study but had some twisting and turning. She still has above symptoms and no new sleep complaints. She has been working on getting into bed at 9:30 pm and gets up 5 am. Some days she sleeps until 6 am. She has not had as much difficulty falling asleep since getting intobed later. </p><p>
</p><p>
</p><p>ESS today </p><p>
</p>Review of Systems: ROS as noted in the HPI Review of Systems None recorded. Physical Exam ? Notes: <p>General: A&O, well groome d {{over weight obese * morbidly obese normal weight thin}}.
HEAD: no rmocephalic & atraumatic.
EYES: non icteric.
LUNGS: CTA all f ields. Good air movement.
CARDIO: RRR without murmur, gallop or thrill.
NEURO: A&O. Normal gait.
PSYCH: Normal mood and affect.
CUTANEOUS: no overt lesions or rashes</p>
--- OUTSIDE RECORDS SUMMARY | 2021-01-21 08:48 | XMS_ITS | Encounter Summary ---
:1975 Author Care Team Providers Name Role Phone Yesica Goff Primary Care Provider [phone] Aundrea Rosales Referring Provider [phone] [facility] Medical Records OTHER [phone] Reason for Visit Phone Call Visit Assessment and Plan 1. Snoring She has symptoms of loud snori ng, excessive daytime sleepiness (ESS 15), night sweats, morning headaches, nocturia and a Amite score of 2/3 indicating a high likelihood of sleep apnea. I orde red a PSG in 2018 but she never had this completed. I reminded her of the pathophysiology of obstructive sleep apnea and the potential consequences of untreated ARIEL including how it relates to her sympt oms. I ordered a polysomnogram and discu ssed what will take place the night of the sleep study. Dayday is prescribed to take the night of the study. She is made aware she should not drive for at least e ight hours after taking this. I will see her back to review the results as soon as they are available. I provided greater than 30 minutes in th e care of this patient, more than half the time was spent in [id number] counseling. ? sleep study, baseline diag nostic polysomnogram ? zolpidem 5 mg tablet 2. Insomnia Sleep onset and maintenance in somnia. This is likely a result of getting into poor habits and sleeping until as l ate as [id number]. I discussed with her getting to bed at the same time every ni ght and to remove herself from bed when not asleep in 20 minutes then return to bed when feeling sleepy. I recommended she avoid sleeping after her kids go to school and avoid napping because then she should be able to sleep much better at night. An i deal sleep schedule for her would be form about 2130 to 0530 and she will work on [employer]. 3. Periodic leg movements of sle ep She is told that her legs and feet move in her sleep. She may have PLMS contributing to her daytime sleepiness. Will get PSG for further evaluation. She denies any RLS symptoms. Discussion Note: None recorded.Patient educational handouts: No information available. Plan of Care Reminders Provider Appointments Office 30 03/01/2021 Jacob Mckeon, 11:30AM CLINICAL AIDE Lab None ? ? recorded. Referral None [...] Administered None recorded. Vitals Height Weight BMI 5 ft 3 in 168 lbs 29.8 kg/m2 Results Lab Results None recorded. Allergies Code [...] or serious Yes difficulty seeing? Past Encounters 12/08/2020 Snoring; Insomnia; Periodic Leg Movement s of Sleep Hien Mckeon, CLINICAL AIDE: [address] [place] [address] [phone], Ph. History of Present Illness Note: <p>Jennifer Nunn has a phone visit for evaluation of poor sleep. We attempted a Zoom visit but her audio was continuously cutting out to the point we could not hear most of what she said.& lt;/p><p>
</p><p>Jennifer was seen by me on 05/23/18. She has a history of obesity, insomnia and migraines.</p><p>She noted symptoms of night sweats, headaches, nocturia and difficulty falling asleep and maintaining sleep. She had caffeine up until 6 pm. She had recently been started on sertraline and was just starting to sleep better. I ordered a PSG and advised her not to have caffeine after 1 pm. She was lost to follow-up</p><p>
</p ><p>Jennifer tells me she did not have the study because of an insurance issue. She goes to bed between 2030 and 2200 most nights but occasionally as late as 0100 because she has trouble falling asleep so gets put of bed and plays pn her phone or watches a movie. About 2-3 nights a week she h as trouble getting to sleep. She wakes up 1/night to urinate and feels it takes a while to get while to get back to sleep so she watches a movie to try to get back to sleep. She gets up at 0530 to start her day. She then tends to fall asleep on the couch until [id number]. She is told she snores loudly, nocturia 0- 1/night, night sweats and morning headaches.</p><p>She denies nocturnal choking/gasping. </p><p>
</p><p>ESS today 1524</p><p>
</p><p>Amite score 2/3</p>Review of Systems: ROS as noted in the HPI Review of Systems None recorded. Physical Exam ? Notes: <p>N/A</p>
--- NOTE | 2021-01-21 10:30 | HOLTER_ITS ---
APPROVED REPORT Exam Type: HOLTER MONITOR APPLICATION Reason for Test: second degree HB Patient Location: O Conclusion This is a 48-hour monitor ordered for indication of second-degree heart block. Patient was in normal sinus rhythm for the majority of the recording with an average heart rate of 85 bpm. There were rare episodes of individual ectopic beats. There were no episodes of VT or SVT. There were no episodes of atrial fibrillation, no pauses greater than 3 seconds and no evidence of hi gh degree heart block. Patient triggered events were associated with sinus rhythm and sinus tachycardia.
== END 2021-01-28 23:59 | disposition home or self-care (01) ==
LOC: RT 08:44
PROVIDERS: PCP Nurse Practitioner Family; Visit Provider Nurse Practitioner Family
DX: I44.1 Atrioventricular block, second degree (principal)
CPT/HCPCS: 93225; 93226

== ENCOUNTER 2021-02-03 14:39 | Outpatient (CLI) | payer MEDICAID, SELFPAY ==
--- NOTE | 2021-02-03 14:30 | RT.EKG_ITS ---
APPROVED REPORT Exam: Resting ECG Reason for Exam: slow heart rate at night Patient Location: O HR:86 bpm ECG Measurements Heart Rate 86 AXIS MD 141 P 41 QRSd 79 QRS 25 QT 353 T 16 QTc 423 Conclusion Sinus rhythm...normal P axis, V-rate 50- 99 Normal Electrocardiogram
== END 2021-02-03 14:40 | disposition home or self-care (01) ==
LOC: DI.CARD 14:40
PROVIDERS: PCP Nurse Practitioner Family; Visit Provider Internal Medicine Cardiovascular Disease
DX: I44.30 Unspecified atrioventricular block (principal)
CPT/HCPCS: 93010

== ENCOUNTER 2021-04-19 15:57 | Outpatient (REF) | payer MEDICAID, SELFPAY ==
[2021-04-19 15:05] LABS: TSH (W/Ref FT4) 1.71 uIU/mL (0.36-3.74)
== END 2021-04-19 15:58 | disposition home or self-care (01) ==
LOC: NCHCN 15:57
PROVIDERS: PCP Nurse Practitioner Family; Visit Provider Nurse Practitioner Family
DX: C73 Malignant neoplasm of thyroid gland (principal)
CPT/HCPCS: 84443

== ENCOUNTER 2021-08-29 21:40 | Outpatient (REF) | payer MEDICAID, SELFPAY ==
[2021-08-29 22:19] LABS: Abs Immature Grans 0.02 10^3/uL (0.0-0.06); Absolute Basophil Count 0.03 10^3/uL (0.0-0.2); Absolute Eosinophil Count 0.09 10^3/uL (0.0-0.7); Absolute Lymphocyte Count 2.01 10^3/uL (1.2-3.4); Absolute Monocyte Count 0.41 10^3/uL (0.1-0.8); Absolute Neutrophil Count 4.45 10^3/uL (1.2-6.7); Basophils % 0.4; Eosinophils % 1.3; HCT 35.9 % (36.0-46.0); HGB 11.4 g/dL (11.2-15.7); Immature Grans % 0.3; Lymphocytes % 28.7; MCH 27.3 pg (27.0-33.0); MCHC 31.8 % (32.0-36.0); MCV 86.1 fL (80-95); MPV 11.1 fL (8.0-11.0); Monocytes % 5.8; Neutrophils % 63.5; Nucleated RBC 0 %; Platelet Count 213 10^3/uL (130-400); RBC 4.17 10^6/uL (3.93-5.22); RDW 12.6 % (11.7-14.6); RDW-SD 39.6 fL; WBC 7.01 10^3/uL (4.4-10.8)
[2021-08-29 22:31] LABS: Iron 38 ug/dL (50-170); Total Iron Binding Capacity 359 ug/dL (250-450); Transferrin Sat 11 % (15-50)
[2021-08-29 22:57] LABS: ALT 30 U/L (14-59); AST 18 U/L (15-37); Alkaline Phosphatase 72 U/L (46-116); Anion Gap 9.5 mmol/L (3-11); BUN 13 mg/dL (7-18); Bilirubin, Total 0.2 mg/dL (0.2-1.0); CO2 26.5 mmol/L (21.0-32.0); CREATININE 0.8 mg/dL (0.55-1.02); Calcium 8.8 mg/dL (8.5-10.1); Chloride 102 mmol/L (98-107); Ferritin 10 ng/mL (8-252); Glucose 99 mg/dL (74-106); Potassium 3.9 mmol/L (3.5-5.1); Sodium 138 mmol/L (136-145); TSH (W/Ref FT4) 1.62 uIU/mL (0.36-3.74); Total Protein 7.4 g/dL (6.4-8.2); Vitamin B12 687 pg/mL (193-986)
== END 2021-08-29 21:41 | disposition home or self-care (01) ==
LOC: NCHCN 21:40
PROVIDERS: PCP Nurse Practitioner Family; Visit Provider Nurse Practitioner Family
DX: C73 Malignant neoplasm of thyroid gland (principal); R73.03 Prediabetes; E66.9 Obesity, unspecified; K76.0 Fatty (change of) liver, not elsewhere classified
CPT/HCPCS: 80053; 82607; 82728; 83540; 83550; 83735; 84443; 85025

== ENCOUNTER 2021-09-12 08:30 | Outpatient (CLI) | payer MEDICAID, SELFPAY | END 2021-09-12 08:31 | disposition home or self-care (01) | LOC: DI.CARD 08:31 | PROVIDERS: PCP Nurse Practitioner Family; Visit Provider Internal Medicine Cardiovascular Disease | DX: R69 Illness, unspecified (principal) | CPT/HCPCS: 93010 ==

== ENCOUNTER 2021-09-29 15:22 | Outpatient (REF) | payer MEDICAID, SELFPAY ==
[2021-09-29 20:55] LABS: Abs Immature Grans 0.03 10^3/uL (0.0-0.06); Absolute Basophil Count 0.05 10^3/uL (0.0-0.2); Absolute Eosinophil Count 0.16 10^3/uL (0.0-0.7); Absolute Lymphocyte Count 3.81 10^3/uL (1.2-3.4); Absolute Monocyte Count 0.48 10^3/uL (0.1-0.8); Absolute Neutrophil Count 5.02 10^3/uL (1.2-6.7); Basophils % 0.5; Eosinophils % 1.7; HGB 12.7 g/dL (11.2-15.7); Immature Grans % 0.3; Lymphocytes % 39.9; MCH 27.5 pg (27.0-33.0); MCHC 31.8 % (32.0-36.0); MCV 86.8 fL (80-95); MPV 11.8 fL (8.0-11.0); Neutrophils % 52.6; Nucleated RBC 0 %; Platelet Count 270 10^3/uL (130-400); RBC 4.61 10^6/uL (3.93-5.22); RDW 12.9 % (11.7-14.6); RDW-SD 40.5 fL; WBC 9.55 10^3/uL (4.4-10.8)
[2021-09-29 21:20] LABS: ALT 37 U/L (14-59); AST 24 U/L (15-37); Albumin 3.9 g/dL (3.4-5.0); Alkaline Phosphatase 76 U/L (46-116); Anion Gap 9.6 mmol/L (3-11); BUN 12 mg/dL (7-18); Bilirubin, Total 0.3 mg/dL (0.2-1.0); CO2 26.4 mmol/L (21.0-32.0); CREATININE 0.8 mg/dL (0.55-1.02); Calcium 8.5 mg/dL (8.5-10.1); Chloride 102 mmol/L (98-107); Glucose 127 mg/dL (74-106); Potassium 3.9 mmol/L (3.5-5.1); Sodium 138 mmol/L (136-145); Total Protein 7.7 g/dL (6.4-8.2)
== END 2021-09-29 15:23 | disposition home or self-care (01) ==
LOC: NCHCN 15:22
PROVIDERS: PCP Nurse Practitioner Family; Visit Provider Nurse Practitioner Family
DX: R10.84 Generalized abdominal pain (principal)
CPT/HCPCS: 80053; 85025

== ENCOUNTER 2021-10-04 00:57 | Outpatient (CLI) | payer MEDICAID, SELFPAY | END 2021-10-04 01:17 | PROVIDERS: PCP Nurse Practitioner Family; Visit Provider Nurse Practitioner Family ==

== ENCOUNTER 2021-12-22 02:28 | Outpatient (CLI) | payer MEDICAID, SELFPAY ==
--- NOTE | 2021-12-22 | DI.US_ITS ---
Exam(s) US ABDOMEN EXAM: US ABDOMEN CLINICAL HISTORY: LT UPPER QUAD ABD PAIN, R10.12 TECHNIQUE: Ultrasound abdomen performed using standard protocol. COMPARISON: US US ABDOMEN from 10/19/2020 FINDINGS: ABDOMINAL AORTA AND IVC: Visualized portions normal caliber. PANCREAS: Normal where visualized. LIVER: There is diffuse increased echogenicity of the liver. The liver measures 18.4 cm in length. Hepatopedal flow in the Portal Vein. GALLBLADDER:Status post cholecystectomy. BILIARY SYSTEM: Common bile duct measures 8.5 mm. This likely reflects the post cholecystectomy stat e. KIDNEYS: Kidneys are symmetric in size. No evidence of renal calculi. No evidence of hydronephrosis. No renal mass or cyst identified. SPLEEN: Not enlarged. ASCITES: None seen. IMPRESSION: 1. Hepatomegaly and hepatic steatosis. 2. Status post cholecystectomy. DATA REPOSITORY:
== END 2021-12-22 02:48 ==
PROVIDERS: PCP Nurse Practitioner Family; Visit Provider Nurse Practitioner Family
DX: R10.12 Left upper quadrant pain (principal); K76.0 Fatty (change of) liver, not elsewhere classified; R16.0 Hepatomegaly, not elsewhere classified
CPT/HCPCS: 76700

== ENCOUNTER 2022-01-10 02:23 | Outpatient (CLI) | payer MEDICAID, SELFPAY ==
--- NOTE | 2022-01-10 08:00 | DI.MAMMO_ITS ---
Exam(s) MAMMO SCREENING EXAM: MAMMO SCREENING CLINICAL HISTORY: SCREENING, Z12.31; TECHNIQUE: Bilateral full field digital CC and MLO mammographic images were obtained with 3D tomosyn thesis and utilizing computer aided detection (CAD). COMPARISON: Available for comparison. FINDINGS: Masses/Architectural Distortion: The nodule in the upper outer quadrant of the right breast appears s table. No suspicious masses are seen. Microcalcifications: No suspicious pleomorphic-type are seen. Skin Thickening/Nipple Retraction: None. IMPRESSION: 1. No significant interval change with no specific features of malignancy noted. 2. Unless there is more urgent need, screening mammography is recommended, as per [employer] guidelines. BI-RADS Category 1 - Negative Breast Density - Category B - Scattered areas of fibroglandular density Breast density category C or D implies that the patient has dense breast tissue. Dense breast tissue is very common and is not abnormal but dense breast tissue can make it harder to find cancer on a ma mmogram. Also, dense breast tissue may increase their breast cancer risk. This information about the result of the mammogram report was provided to the patient to raise their awareness. Use this report when you speak with the patient about their risks for breast cancer, which includes their family hist ory. At that time, you may recommend for more screening tests (Ultrasound or MRI) as they might be us eful based on their risk. A negative radiographic report should not delay biopsy if a dominant or clinically suspicious mass is present. Up to ten percent of cancers are not identified on mammography. A negative report may reinforce clinical impression. Adenosis and dense breasts may obscure an underlying neoplasm. False positive reports average 6 to 10%. Patient will receive a letter notifying them of these results.
== END 2022-01-10 02:43 ==
PROVIDERS: PCP Nurse Practitioner Family; Visit Provider Nurse Practitioner Family
DX: Z12.31 Encounter for screening mammogram for malignant neoplasm of breast (principal); Z80.3 Family history of malignant neoplasm of breast
CPT/HCPCS: 77063; 77067

== ENCOUNTER 2022-05-29 16:43 | Outpatient (REF) | payer BC, MEDICAID, SELFPAY ==
[2022-05-29 17:51] LABS: Abs Immature Grans 0.03 10^3/uL (0.0-0.06); Absolute Basophil Count 0.05 10^3/uL (0.0-0.2); Absolute Eosinophil Count 0.09 10^3/uL (0.0-0.7); Absolute Lymphocyte Count 3.05 10^3/uL (1.2-3.4); Absolute Monocyte Count 0.43 10^3/uL (0.1-0.8); Absolute Neutrophil Count 4.52 10^3/uL (1.2-6.7); Basophils % 0.6; Eosinophils % 1.1; HCT 38.6 % (36.0-46.0); HGB 12.7 g/dL (11.2-15.7); Immature Grans % 0.4; Lymphocytes % 37.3; MCH 29.3 pg (27.0-33.0); MCHC 32.9 % (32.0-36.0); MCV 89 fL (80-95); Monocytes % 5.3; Neutrophils % 55.3; Platelet Count 212 10^3/uL (130-400); RBC 4.34 10^6/uL (3.93-5.22); RDW 11.9 % (11.7-14.6); RDW-SD 38.7 fL; WBC 8.17 10^3/uL (4.4-10.8)
[2022-05-29 18:09] LABS: Iron 79 ug/dL (50-170); Total Iron Binding Capacity 259 ug/dL (250-450); Transferrin Sat 31 % (15-50)
[2022-05-29 18:31] LABS: ALT 37 U/L (14-59); AST 23 U/L (15-37); Albumin 3.8 g/dL (3.4-5.0); Alkaline Phosphatase 53 U/L (46-116); Anion Gap 10.4 mmol/L (3-11); BUN 11 mg/dL (7-18); Bilirubin, Total 0.3 mg/dL (0.2-1.0); CO2 27.6 mmol/L (21.0-32.0); CREATININE 0.8 mg/dL (0.55-1.02); Calcium 8.9 mg/dL (8.5-10.1); Chloride 103 mmol/L (98-107); Estimated GFR 93.12 (mL/min/1.73m2); Ferritin 55 ng/mL (8-252); Glucose 113 mg/dL (74-106); Magnesium 1.9 mg/dL (1.8-2.4); Sodium 141 mmol/L (136-145); TSH (W/Ref FT4) 0.53 uIU/mL (0.36-3.74); Total Protein 7.5 g/dL (6.4-8.2); Vitamin B12 1062 pg/mL (193-986)
== END 2022-05-29 16:44 | disposition home or self-care (01) ==
LOC: NCHCN 16:43
PROVIDERS: PCP Nurse Practitioner Family; Visit Provider Nurse Practitioner Family
DX: E61.1 Iron deficiency (principal); J31.0 Chronic rhinitis; R73.03 Prediabetes; K76.0 Fatty (change of) liver, not elsewhere classified; R19.8 Other specified symptoms and signs involving the digestive system and abdomen
CPT/HCPCS: 80053; 82607; 82728; 83540; 83550; 83735; 84443; 85025

== ENCOUNTER 2022-11-27 09:24 | Outpatient (REF) | payer BC, MEDICAID, SELFPAY ==
[2022-11-27 14:45] LABS: Abs Immature Grans 0.02 10^3/uL (0.0-0.06); Absolute Basophil Count 0.06 10^3/uL (0.0-0.2); Absolute Eosinophil Count 0.15 10^3/uL (0.0-0.7); Absolute Lymphocyte Count 2.85 10^3/uL (1.2-3.4); Absolute Monocyte Count 0.36 10^3/uL (0.1-0.8); Absolute Neutrophil Count 3.88 10^3/uL (1.2-6.7); Basophils % 0.8; HCT 36.7 % (36.0-46.0); HGB 12.4 g/dL (11.2-15.7); Immature Grans % 0.3; Lymphocytes % 38.9; MCH 29.6 pg (27.0-33.0); MCHC 33.8 % (32.0-36.0); MCV 88 fL (80-95); MPV 11.4 fL (8.0-11.0); Monocytes % 4.9; Neutrophils % 53.1; Platelet Count 247 10^3/uL (130-400); RBC 4.19 10^6/uL (3.93-5.22); RDW-SD 38.5 fL; WBC 7.32 10^3/uL (4.4-10.8)
[2022-11-27 15:03] LABS: Iron 66 ug/dL (50-170); Total Iron Binding Capacity 252 ug/dL (250-450); Transferrin Sat 26 % (15-50)
[2022-11-27 15:09] LABS: Ferritin 65 ng/mL (8-252)
== END 2022-11-27 09:25 | disposition home or self-care (01) ==
LOC: NCHCN 09:24
PROVIDERS: PCP Nurse Practitioner Family; Visit Provider Nurse Practitioner Family
DX: E61.1 Iron deficiency (principal); R73.03 Prediabetes; K76.0 Fatty (change of) liver, not elsewhere classified; R51.9 Headache, unspecified
CPT/HCPCS: 82728; 83540; 83550; 85025

== ENCOUNTER 2023-01-26 00:05 | Outpatient (CLI) | payer BC, MEDICAID, SELFPAY ==
--- NOTE | 2023-01-26 | DI.MAMMO_ITS ---
Exam(s) MAMMO SCREENING EXAM: MAMMO SCREENING CLINICAL HISTORY: SCREENING, Z12.31 TECHNIQUE: Mammograms were interpreted according to the usual protocol including computer analysis w [employer] CAD system, tomosynthesis and C-view imaging. COMPARISON: 2018 through 2021 FINDINGS: The breasts are composed of scattered fibroglandular densities, Breast Density category B. No suspicious masses or suspicious microcalcifications are seen. No skin thickening or abnormal axillary lymph nodes are seen. There has been no significant change from prior exams. IMPRESSION: BI-RADS Category 1, Negative mammogram Yearly screening mammography is recommended. Breast Density - Category B, scattered fibroglandular densities. A negative radiographic report should not delay biopsy if a dominant or clinically suspicious mass is present. Up to ten percent of cancers are not identified on mammography. A negative report may reinforce clinical impression. Adenosis and dense breasts may obscure an underlying neoplasm. False positive reports average 6 to 10%. Patient will receive a letter notifying them of these results.
== END 2023-01-26 00:25 ==
PROVIDERS: PCP Nurse Practitioner Family; Visit Provider Nurse Practitioner Family
DX: Z12.31 Encounter for screening mammogram for malignant neoplasm of breast (principal)
CPT/HCPCS: 77063; 77067

== ENCOUNTER 2023-06-26 17:56 | Outpatient (REF) | payer BC, MEDICAID, SELFPAY ==
[2023-06-26 15:50] LABS: Abs Immature Grans 0.01 10^3/uL (0.0-0.06); Absolute Basophil Count 0.05 10^3/uL (0.0-0.2); Absolute Eosinophil Count 0.22 10^3/uL (0.0-0.7); Absolute Lymphocyte Count 2.56 10^3/uL (1.2-3.4); Absolute Monocyte Count 0.34 10^3/uL (0.1-0.8); Absolute Neutrophil Count 3.32 10^3/uL (1.2-6.7); Basophils % 0.8; Eosinophils % 3.4; HCT 37.2 % (36.0-46.0); HGB 12.6 g/dL (11.2-15.7); Immature Grans % 0.2; Lymphocytes % 39.4; MCH 29.1 pg (27.0-33.0); MCHC 33.9 % (32.0-36.0); MCV 86 fL (80-95); MPV 10.9 fL (8.0-11.0); Monocytes % 5.2; Platelet Count 232 10^3/uL (130-400); RBC 4.33 10^6/uL (3.93-5.22); RDW 11.9 % (11.7-14.6); RDW-SD 37.6 fL
[2023-06-26 16:25] LABS: ALT 20 U/L (14-59); AST 14 U/L (15-37); Albumin 3.8 g/dL (3.4-5.0); Alkaline Phosphatase 55 U/L (46-116); Anion Gap 9.6 mmol/L (3-11); BUN 9 mg/dL (7-18); Bilirubin, Total 0.4 mg/dL (0.2-1.0); CO2 26.4 mmol/L (21.0-32.0); CREATININE 0.8 mg/dL (0.55-1.02); Calcium 9.3 mg/dL (8.5-10.1); Chloride 101 mmol/L (98-107); Estimated GFR 92.54 (mL/min/1.73m2); Glucose 140 mg/dL (74-106); Potassium 4.2 mmol/L (3.5-5.1); Sodium 137 mmol/L (136-145); TSH (W/Ref FT4) 0.02 uIU/mL (0.36-3.74); Total Protein 7.3 g/dL (6.4-8.2); Vitamin B12 674 pg/mL (193-986)
[2023-06-26 16:32] LABS: Hemoglobin A1C 5.8 % (<5.7)
[2023-06-26 16:42] LABS: FREE T4 1.48 ng/dL (0.76-1.46)
== END 2023-06-26 17:57 | disposition home or self-care (01) ==
LOC: NCHCN 17:56
PROVIDERS: PCP Nurse Practitioner Family; Visit Provider Nurse Practitioner Family
DX: R73.03 Prediabetes (principal); R51.9 Headache, unspecified; K30 Functional dyspepsia; K76.0 Fatty (change of) liver, not elsewhere classified; R19.8 Other specified symptoms and signs involving the digestive system and abdomen; E66.9 Obesity, unspecified; C73 Malignant neoplasm of thyroid gland; G47.61 Periodic limb movement disorder; Z79.899 Other long term (current) drug therapy
CPT/HCPCS: 80053; 82607; 83036; 83735; 84439; 84443; 85025

== ENCOUNTER 2023-08-13 18:51 | Outpatient (REF) | payer BC, MEDICAID, SELFPAY ==
[2023-08-13 21:38] LABS: TSH (W/Ref FT4) 0.15 uIU/mL (0.36-3.74)
[2023-08-13 21:57] LABS: FREE T4 1.26 ng/dL (0.76-1.46)
== END 2023-08-13 18:52 | disposition home or self-care (01) ==
LOC: NCHCN 18:51
PROVIDERS: PCP Nurse Practitioner Family; Visit Provider Nurse Practitioner Family
DX: E03.9 Hypothyroidism, unspecified (principal)
CPT/HCPCS: 84439; 84443

== ENCOUNTER → 2024-01-29 04:23 | Outpatient (CLI) | payer BC, MEDICAID, SELFPAY ==
--- NOTE | 2024-01-29 | DI.US_ITS ---
Exam(s) US ABDOMEN LIMITED EXAM: US ABDOMEN LIMITED CLINICAL HISTORY: FATTY LIVER K76.0 STEATOSIS OF LIVER TECHNIQUE: Ultrasound abdomen performed using standard protocol. COMPARISON: No exams were available for comparison FINDINGS: LIVER: Normal size. Normalechogenicity. No focal liver lesions are seen.. GALLBLADDER: Status post cholecystectomy. BILIARY SYSTEM: No intrahepatic or extrahepatic biliary ductal dilation . RIGHT KIDNEY: Normal size. No evidence of renal calculi. No evidence of hydronephrosis. No suspicious renal mass. No cyst identified. PANCREAS: Normal where visualized. ABDOMINAL AORTA AND IVC: Visualized portions normal caliber. ASCITES: None seen. IMPRESSION: Normal sonographic appearance of the right upper quadrant. DATA REPOSITORY:
--- NOTE | 2024-01-29 08:00 | DI.MAMMO_ITS ---
Exam(s) MAMMO SCREENING EXAM: MAMMO SCREENING CLINICAL HISTORY: SCREENING MAMMO FOR BREAST CANCER Z12.31 FAM HX BREAST CANCER Z80.3 TECHNIQUE: Mammograms were interpreted according to the usual protocol including computer analysis w [employer] CAD system, tomosynthesis and C-view imaging. COMPARISON: 2018 through 2022 FINDINGS: The breasts are composed of scattered fibroglandular densities, Breast Density category B. No suspicious masses or suspicious microcalcifications are seen. No skin thickening or abnormal axillary lymph nodes are seen. There has been no significant change from prior exams. IMPRESSION: BI-RADS Category 1, Negative mammogram Yearly screening mammography is recommended. Breast Density - Category B, scattered fibroglandular densities. A negative radiographic report should not delay biopsy if a dominant or clinically suspicious mass is present. Up to ten percent of cancers are not identified on mammography. A negative report may reinforce clinical impression. Adenosis and dense breasts may obscure an underlying neoplasm. False positive reports average 6 to 10%. Patient will receive a letter notifying them of these results.
== END ==
PROVIDERS: PCP Nurse Practitioner Family; Visit Provider Nurse Practitioner Family
DX: Z12.31 Encounter for screening mammogram for malignant neoplasm of breast (principal); Z80.3 Family history of malignant neoplasm of breast
CPT/HCPCS: 77063; 77067; 76705

== ENCOUNTER 2024-07-14 19:36 | Outpatient (REF) | payer MEDICAID, SELFPAY ==
[2024-07-14 17:00] LABS: Abs Immature Grans 0.04 10^3/uL (0.0-0.06); Absolute Basophil Count 0.05 10^3/uL (0.0-0.2); Absolute Eosinophil Count 0.17 10^3/uL (0.0-0.7); Absolute Lymphocyte Count 3.13 10^3/uL (1.2-3.4); Absolute Monocyte Count 0.47 10^3/uL (0.1-0.8); Absolute Neutrophil Count 4.66 10^3/uL (1.2-6.7); Basophils % 0.6 %; HCT 38.5 % (36.0-46.0); HGB 12.6 g/dL (11.2-15.7); Immature Grans % 0.5 %; Lymphocytes % 36.7 %; MCH 29.2 pg (27.0-33.0); MCHC 32.7 % (32.0-36.0); MCV 89 fL (80-95); MPV 11.3 fL (8.0-11.0); Monocytes % 5.5 %; Neutrophils % 54.7 %; Platelet Count 214 10^3/uL (130-400); RBC 4.32 10^6/uL (3.93-5.22); RDW 12.2 % (11.7-14.6); RDW-SD 40.4 fL; WBC 8.52 10^3/uL (4.4-10.8)
[2024-07-14 17:37] LABS: ALT 21 U/L (14-59); AST 15 U/L (15-37); Albumin 3.8 g/dL (3.4-5.0); Alkaline Phosphatase 66 U/L (46-116); Anion Gap 8.9 mmol/L (3-11); BUN 11 mg/dL (7-18); CO2 28.1 mmol/L (21.0-32.0); CREATININE 0.9 mg/dL (0.55-1.02); Calcium 9.1 mg/dL (8.5-10.1); Chloride 105 mmol/L (98-107); Estimated GFR 79.85 (mL/min/1.73m2); Glucose 105 mg/dL (74-106); Magnesium 1.8 mg/dL (1.8-2.4); Sodium 142 mmol/L (136-145); Total Protein 7.4 g/dL (6.4-8.2)
[2024-07-14 17:54] LABS: FREE T4 1.29 ng/dL (0.76-1.46)
[2024-07-14 18:42] LABS: Calculated LDL 92 mg/dL (<100); Cholesterol 179 mg/dL (<200); HDL Cholesterol 51 mg/dL (40-60); Triglyceride 181 mg/dL (<150); Vitamin B12 764 pg/mL (193-986)
[2024-07-14 18:43] LABS: Hemoglobin A1C 5.3 % (<5.7)
--- OUTSIDE RECORDS SUMMARY | 2024-07-14 19:38 | XMS_ITS | Encounter Summary ---
Author Organization [facility] [place] [address] Care Team Providers Care Summer Babysitter Name Role Phone Yesica Goff APRN Primary Care Provider [phone] Reason for Visit * Diagnostic Test (Routine) - Closed Specialty Diagnoses / Procedures Referred By Contlaura t Referred To Contact Radiology Diagnoses Nausea without vomiting LUQ abdominal pain Procedures NM Gastric Emptying Scan Josiah Nickerson MEDICINE AIDE [facility] [place] [address] [place] [address] Referral ID Status Reason Start Date Expiration Date V isits Requested Visits Authorized [id number] Closed Specialty Service Requested 02/11/2021 09/30/2021 1 1 Encounter Details Date Type Department Care Team (Latest Contact Info) Description 02/11/2021 9:05 AM EDT - 02/11/2021 11:59 PM EDT Hospital Encounter [place] [address] Josiah Nickerson MEDICINE AIDE [facility] [place] [address] Discharge Disposition: Home Social History Tobacco Use Types Packs/Day Years Used Date Smoking Tobacco: Never Smokeless Tobacco: Never Alcohol Use Standard Drinks/Week Comments No 0 (1 standard drink = 0.6 oz pur e alcohol) Sex and Gender Information Value Date Recorded Sex Assigned at Female 12/31/2020 10:58 AM EDT Gender Identity Female 12/31/2020 10:58 AM EDT Sexual Orientation Straight 12/31/2020 10 :58 AM EDT documented as of this encounter Medications at Time of Discharge Medication Sig Dispensed Refills Start Date End Date calcium citrate-vitamin D (Calcium Citrate +) 315 mg-5 mcg (200 unit) Tablet Take 2 tablets by mouth 3 times daily (with meals). 04/30/2020 acetaminophen (Tylenol) 325 mg Tablet Take 2 tablets by mouth every 6 hours as needed for Pain. 30 tablet 1 11/07/2019 ibuprofen (Advil;Motrin) 600 mg Tablet Take 1 tablet by mouth every 6 hours as needed for Pain. 30 tablet 12 11/07/2019 famotidine (Pepcid) 20 mg Tablet TAKE ONE TABLET BY MOUTH EVERY DAY 09/23/2019 melatonin 5 mg Tablet TAKE ONE TO TWO TABLETS BY MOUTH AT BEDTIME NEEDED 07/10/2019 omeprazole (PriLOSEC) 40 mg Capsule, Delayed Release(E.C.) TAKE ONE CAPSULE BY MOUTH EVERY DAY 10/07/2019 acyclovir (Zovirax) 400 mg Tablet TAKE ONE TABLET BY MOUTH TWICE A DAY 10/08/2019 traZODone (Desyrel) 50 mg Tablet TAKE 1/2 1 TABLET BY MOUTH AT BEDTIME FOR SLEEP 10/07/2019 sucralfate (Carafate) 1 gram Tablet TAKE ONE TABLET BY MOUTH 30 MINUTES BEFORE EACH MEAL AND AT BEDTIME 08/25/2019 levothyroxine (Synthroid) 137 mcg Tablet Take 1 tablet by mouth daily. 90 tablet 3 04/30/2020 06/21/2021 documented as of this encounter Plan of Treatment Not on file documented as of this encounter Procedures Procedure Name Priority Date/Time Associated Diagnosis Comments NM GASTRIC EMPTYING SCAN Routine 02/11/2021 1:51 PM EDT Nausea without vomiting LUQ abdominal pain documented in this encounter Results * NM Gastric Emptying Scan (02/11/2021 1:51 PM EDT) Anatomical Region Laterality Modality Nuclear Medicine Impressions 02/11/2021 2:09 PM EDT Normal gastric emptying. Thank you for letting us participate in the care of this patient. ??If you are a health care provider and have any questions regarding this report, please contact the number below. ??For patients who have questions please contact the health day care assistant that requested your imaging first. ? Electronically signed by: Arsh Blackmon MD, [facility] ([phone]), at 02/11/2021 2:09 PM Narrative 02/11/2021 2:09 PM EDT EXAMINATION: NM GASTRIC EMPTYING SCAN CLINICAL HISTORY: nausea TECHNIQUE: A standard meal was labeled with 0.5 mCi of Technetium-99m sulfur colloid and ingested. Images of the stomach were obtained in the anterior and posterior projections immediately thereafter and 1, 2, 3 and 4 hours later. COMPARISON: None FINDINGS: Activity fills the stomach on the initial images obtained immediately after ingesting the meal. Small bowel is visible at one hour. There is minimal activity present in the stomach at 4 hours. Quantitative analysis: 2 hours: 42 percent remains in the stomach (normal less than 60%) 4 hours: 9 percent remains in the stomach (normal less than 10% at four hours) Procedure Note Arsh Blackmon MD - 02/11/2021 EXAMINATION: NM GASTRIC EMPTYING SCAN CLINICAL HISTORY: nausea TECHNIQUE: A standard meal was labeled with 0.5 mCi of Technetium-99msulfur colloid and ingested. Images of the stomach were obtained in the anteriorand posterior projections immediately thereafter and 1, 2, 3 and 4 hourslater. COMPARISON: None FINDINGS: Activity fills the stomach on the initial images obtained immediatelyafter ingesting the meal. Small bowel is visible at one hour. There is minimal activity present in the stomach at 4 hours. Quantitative analysis: 2 hours: 42 percent remains in the stomach (normal less than 60%) 4 hours: 9 percent remains in the stomach (normal less than 10% at fourhours) IMPRESSION Normal gastric emptying. Thank you for letting us participate in the care of this patient. If youare a health care provider and have any questions regarding this report,please contact the number below. For patients who have questions please contactthe health day care assistant that requested your imaging first. Electronically signed by: Arsh Blackmon MD, [facility]([phone]), at 02/11/2021 2:09 PM Josiah Nickerson APRN IMG NM ORDERABLES documented in this encounter Visit Diagnoses Not on filedocumented in this encounter Care Teams Summer Babysitter Relationship Specialty Start Date End Date Yesica Goff APRN [address] [place] [address] PCP - General Family Medicine 09/19/19 documented as of this encounter
--- OUTSIDE RECORDS SUMMARY | 2024-07-14 19:38 | XMS_ITS | Encounter Summary ---
Author Organization [facility] [place] [address] Care Team Providers Care Clinical Rehabilitation Specialist Name Role Phone Yesica Goff APRN Primary Care Provider [phone] Reason for Referral * Diagnostic Test (Routine) - Closed Specialty Diagnoses / Procedures Referred By Contac t Referred To Contact Radiology Diagnoses Chronic abdominal pain Constipation, unspecified constipation type Abdominal bloating Abdominal distention Nausea without vomiting Hepatic steatosis LUQ abdominal pain Procedures CT Abdomen & Pelvis w Contrast Josiah Nickerson APRN [facility] [place] [address] [facility] [place] [address] Referral ID Status Reason Start Date Expiration Date V isits Requested Visits Authorized [id number] Closed Specialty Service Requested 12/15/2020 06/17/2022 1 1 Reason for Visit * Diagnostic Test (Routine) - Closed Specialty Diagnoses / Procedures Referred By Contac t Referred To Contact Radiology Diagnoses Chronic abdominal pain Constipation, unspecified constipation type Abdominal bloating Abdominal distention Nausea without vomiting Hepatic steatosis LUQ abdominal pain Procedures CT Abdomen & Pelvis w Contrast Josiah Nickerson APRN [facility] [place] [address] [facility] [place] [address] Referral ID Status Reason Start Date Expiration Date V isits Requested Visits Authorized [id number] Closed Specialty Service Requested 12/15/2020 06/17/2022 1 1 Encounter Details Date Type Department Care Team (Latest Contact Info) Description 01/26/2021 9:10 AM EDT - 01/26/2021 11:59 PM EDT Hospital Encounter CT Scan at [facility] [place] [address] Josiah Nickerson, BAND BIAS MACHINE OPERATOR [facility] DR [place] [address] Chronic abdominal pain; Constipation, unspecified constipation type; Abdominal bloating; Abdominal distention; Nausea without vomiting; Hepatic steatosis; LUQ abdominal pain Discharge Disposition: Home Social History Tobacco Use [...] Procedure Name Priority Date/Time Associated Diagnosis Comments CT ABDOMEN AND PELVIS W CONTRAST Routine 01/26/2021 11:56 AM EDT Chronic abdominal pain Constipation, unspecified constipation type Abdominal bloating Abdominal distention Nausea without vomiting Hepatic steatosis LUQ abdominal pain documented in this encounter Results * CT Abdomen & Pelvis w Contrast (01/26/2021 11:56 AM EDT) Anatomical Region Laterality Modality Abdomen, Pelvis Computed Tomogra phy Impressions 01/26/2021 12:29 PM EDT 1. ??No acute abdominopelvic pathology detected. 2. ??Liver steatosis. Thank you for letting us participate in the care of this patient. ??If you are a health care provider and have any questions regarding this report, please contact the number below. ??For patients who have questions please contact the health patient care director that requested your imaging first. ? Electronically signed by: Jerardo Barrera MD, [facility] ([phone]), at 01/26/2021 12:29 PM Narrative 01/26/2021 12:29 PM EDT EXAMINATION: CT ABDOMEN AND PELVIS W CONTRAST CLINICAL HISTORY: Abdominal distension; Nausea/vomiting; LUQ abdominal pain TECHNIQUE: Helical CT of the abdomen and pelvis was performed following the intravenous administration of contrast. . Oral contrast was administered. COMPARISON: None FINDINGS: Lower chest: Normal. Liver: Diffusely decreased attenuation consistent with steatosis. No focal observations. Bile ducts: Nondilated. Gallbladder: Removed. Pancreas: Normal attenuation without ductal dilatation. Spleen: Normal. Adrenals: Normal. Kidneys: Normal. Urinary Bladder: Normal. Vasculature: No aneurysm. Lymph Nodes: No enlarged lymph nodes. Bowel: Nondilated, no wall thickening. Normal appendix. Peritoneum and mesentery: No ascites, free air, or loculated fluid collection. No mesenteric inflammation. Abdominal wall: Normal. Reproductive organs: Normal. Osseous structures: No suspicious lesions. Procedure Note Jerardo Barrera MD - 01/26/2021 EXAMINATION: CT ABDOMEN AND PELVIS W CONTRAST CLINICAL HISTORY: Abdominal distension; Nausea/vomiting; LUQ abdominalpain TECHNIQUE: Helical CT of the abdomen and pelvis was performed followingthe intravenous administration of contrast. . Oral contrast wasadministered. COMPARISON: None FINDINGS: Lower chest: Normal. Liver: Diffusely decreased attenuation consistent with steatosis. Nofocal observations. Bile ducts: Nondilated. Gallbladder: Removed. Pancreas: Normal attenuation without ductal dilatation. Spleen: Normal. Adrenals: Normal. Kidneys: Normal. Urinary Bladder: Normal. Vasculature: No aneurysm. Lymph Nodes: No enlarged lymph nodes. Bowel: Nondilated, no wall thickening. Normal appendix. Peritoneum and mesentery: No ascites, free air, or loculated fluidcollection. No mesenteric inflammation. Abdominal wall: Normal. Reproductive organs: Normal. Osseous structures: No suspicious lesions. IMPRESSION 1. No acute abdominopelvic pathology detected. 2. Liver steatosis. Thank you for letting us participate in the care of this patient. If youare a health care provider and have any questions regarding this report,please contact the number below. For patients who have questions please contactthe health patient care director that requested your imaging first. Electronically signed by: Jerardo Barrera MD, [facility]([phone]), at 01/26/2021 12:29 PM Josiah Nickerson APRN [facility] CT ORDERABLES documented in this encounter Visit Diagnoses Diagnosis Chronic abdominal pain Abdominal pain, unspecified site Constipation, unspecified constipation type Abdominal bloating Flatulence, eructation, and gas pain Abdominal distention Flatulence, eructation, and gas pain Nausea without vomiting Hepatic steatosis Other chronic nonalcoholic liver disease LUQ abdominal pain Abdominal pain, left upper quadrant documented in this encounter Administered Medications Inactive Administered Medications - up to 3 most recent administrations Medication Order MAR Action Action Date Dose Rate Site iohexoL (Omnipaque) (350 mg/mL) injection solution 0-200 mL 0-200 mL, Intravenous, ONCE PRN, 1 dose, Starting on Sun01/26/21 at 1150, Until Sun01/26/21 at 1151, Per Protocol, Warning Vesicant/Irritant Medication , Radiology Contrast, Routine Given 01/26/2021 11:51 AM EDT 110 mLs iohexoL (Omnipaque) (350 mg/mL) injection solution 0-50 mL 0-50 mL, Oral, ONCE PRN, 1 dose, Starting on Sun01/26/21 at 1150, Until Sun01/26/21 at 1151, Per Protocol, Warning Vesicant/Irritant Medication , Radiology Contrast, Routine Given 01/26/2021 11:51 AM EDT 50 mLs documented in this encounter Care Teams Clinical Rehabilitation Specialist Relationship Specialty Start Date End Date Yesica Goff APRN [address] [place] [address] PCP - General Family Medicine 09/19/19 documented as of this encounter
--- OUTSIDE RECORDS SUMMARY | 2024-07-14 19:38 | XMS_ITS | Encounter Summary ---
[place] [address] Care Team Providers Care Cord Maker Name Role Phone Yesica Goff APRN Primary Care Provider [phone] Encounter Details Date Type Department Care Team (Late st Contact Info) Description 01/15/2021 Telephone [place] [address] Lis Rosas Social History Tobacco Use Types Packs/Day Years [...] AM EDT documented as of this encounter Miscellaneous Notes * Telephone Encounter - Lis Rosas - 01/15/2021 9:07 AM EDT ANORECTAL MANOMETRY CLINICAL SAFETY CHECKLIST 01/15/2021 [facility] [address] [place] [id number] : 1975 REFERRING PROVIDER: Susie REAGAN PRIMARY CARE PROVIDER: Yesica Goff APRN PRIMARY SYMPTOM (PROCEDURE INDICATION): constipation SAFETY QUESTIONS ANAL OR RECTAL SURGERY WITHIN SIX MONTHS? no *SEVERE ACTIVE* ULCERATIVE COLITIS OR CROHN'S DISEASE DETERMINED BY THE RMD? no IF YES TO ANY OF THE ABOVE PRE-PROCEDURE QUESTIONS, please inform the patient that the test cannot be scheduled due to safety concerns about testing, and the patient should speak with their provider to consider alternative testing. The utility mechanic should also contact the provider's office directly tonotify them that we are unable to schedule due to a contraindication to testing. Then, delete the remainder of this checklist and close out the referral. QUESTIONS FOR THE PATIENT BLOOD THINNERS SUCH PLAVIX, COUMADIN, PRADAXA? no (pt does not have to stop any blood thinners for this procedure) DOES THE PATIENT USE A WHEELCHAIR? no VERBAL PATIENT INSTRUCTIONS The written instructions are very important for the patient to review and contain specific dietary and medication instructions prior to testing. These instructions will give the patient the most accurate test result. The patient should speak with their referring provider or our office if they have any questions. APPOINTMENT NOTES TEMPLATE ARM, symptom: constipation, RMD: MERARY Alves, PCP: Yesica Goff APRN, wheelchair: No (At exit, the RMD for appointment notes is the GI provider who saw the patient) documented in this encounter Plan of Treatment Not on file documented as of this encounter Visit Diagnoses Not on filedocumented in this encounter Care Teams Cord Maker Relationship Specialty Start Date End Date Yesica Goff APRN [address] [place] [address] PCP - General Family Medicine 09/19/19 documented as of this encounter
--- OUTSIDE RECORDS SUMMARY | 2024-07-14 19:38 | XMS_ITS | Encounter Summary ---
Author Organization [facility] [place] [address] Care Team Providers Care Die Holder Name Role Phone Yesica Goff APRN Primary Care Provider [phone] Reason for Visit * Diagnostic Test (Routine) - Closed Specialty Diagnoses / Procedures Referred By Boyd t Referred To Contact Radiology Diagnoses Nausea without vomiting LUQ abdominal pain Procedures NM Gastric Emptying Scan Josiah Nickerson TOOL AND EQUIPMENT RENTAL CLERK [facility] [place] [address] [place] [address] Referral ID Status Reason Start Date Expiration Date V isits Requested Visits Authorized [id number] Closed Specialty Service Requested 02/11/2021 09/30/2021 1 1 Encounter Details Date Type Department Care Team (Latest Contact Info) Description 02/11/2021 9:04 AM EDT Hospital Encounter [place] [address] Josiah Nickerson [facility] [place] [address] Discharge Disposition: Home Social History [...] who have questions please contact the health complex care nurse that requested your imaging first. ? Electronically signed by: Arsh Blackmon MD, [facility] ([phone]), at 02/11/2021 2:09 PM Narrative 02/11/2021 2:09 [...] patients who have questions please contactthe health complex care nurse that requested your imaging first. Josiah Nickerson APRN IMG NM ORDERABLES documented in this encounter Visit Diagnoses Not on filedocumented in this encounter Care Teams Die Holder Relationship Specialty Start Date End Date Yesica Goff APRN [address] [place] [address] PCP - General Family Medicine 09/19/19 documented as of this encounter
--- OUTSIDE RECORDS SUMMARY | 2024-07-14 19:38 | XMS_ITS | Encounter Summary ---
[place] [address] Care Team Providers Care Power Marketer Name Role Phone Yesica Goff APRN Primary Care Provider [phone] Encounter Details Date Type Department Care Team (Latest Contact Info) Description 01/26/2021 8:55 AM EDT Laboratory Appointment Lab [address] [place] [id number] Chronic abdominal pain; Constipation, unspecified constipation type; Abdominal bloating; Abdominal distention; Nausea without vomiting; Hepatic steatosis; LUQ abdominal pain Social History Tobacco Use Types Packs/Day Years [...] AM EDT documented as of this encounter Plan of Treatment Not on file documented as of this encounter Procedures Procedure Name Priority Date/Time Associated Diagnosis Comments HC THYROID STIMULATING HORMONE, SERUM Routine 01/26/2021 9:00 AM EDT Chronic abdominal pain Constipation, unspecified constipation type Abdominal bloating Abdominal distention Nausea without vomiting Hepatic steatosis LUQ abdominal pain HC TISSUE TRANSGLUTAMINASE AB Routine 01/26/2021 9:00 AM EDT Chronic abdominal pain Constipation, unspecified constipation type Abdominal bloating Abdominal distention Nausea without vomiting Hepatic steatosis LUQ abdominal pain HC IGA, SERUM Routine 01/26/2021 9:00 AM EDT Chronic abdominal pain Constipation, unspecified constipation type Abdominal bloating Abdominal distention Nausea without vomiting Hepatic steatosis LUQ abdominal pain HC IGG, SERUM Routine 01/26/2021 9:00 AM EDT Chronic abdominal pain Constipation, unspecified constipation type Abdominal bloating Abdominal distention Nausea without vomiting Hepatic steatosis LUQ abdominal pain HC CORTISOL, BLOOD Routine 01/26/2021 9: 00 AM EDT Chronic abdominal pain Constipation, unspecified constipation type Abdominal bloating Abdominal distention Nausea without vomiting Hepatic steatosis LUQ abdominal pain COMPREHENSIVE METABOLIC PANEL Routine 01/26/2021 9:00 AM EDT Chronic abdominal pain Constipation, unspecified constipation type Abdominal bloating Abdominal distention Nausea without vomiting Hepatic steatosis LUQ abdominal pain documented in this encounter Results * IgA (01/26/2021 9:00 AM EDT) IgA 242 70 - 400 mg/dL [facility] Blood specimen (specimen) 01/26/2021 9:00 AM EDT 01/26/2021 9:06 AM EDT Narrative Resulting Agency Comment Spec In Lab Josiah Nickerson APRN CHEMISTRY ORDERABLE S [facility] [place] [address] * IgG (01/26/2021 9:00 AM EDT) Immunoglobulin G 1,227 700 - 1,600 mg/dL [facility] Comment: Pediatric Reference Intervals obtained from the Caliper Reference Interval project. http://www.sickkids.ca/caliperproject/index.html Blood specimen (specimen) 01/26/2021 9:00 AM EDT 01/26/2021 9:06 AM EDT Narrative Resulting Agency Comment Spec In Lab Josiah D Krishan DIAMOND SETTER CHEMISTRY ORDERABLE S Performing Organization Address [facility]/ZIP Co de Phone Number [facility] [place] [address] * Tissue transglutaminase, IgA (01/26/2021 9:00 AM EDT) Pathologist [facility] TTG IgA Ab 0.4 0.1 - 10.0 u/ml [facility] Comment: Negative = <7 U/mL Equivocal = 7-10 U/mL Positive = >10 U/mL Blood specimen (specimen) 01/26/2021 9:00 AM EDT 01/26/2021 2:59 PM EDT Narrative Resulting Agency Comment Spec In Lab Josiah Nickerson APRN IMMUNOLOGY ORDERABL ES Performing Organization Address [facility] Co de Phone Number [facility] [place] [address] * TSH [place] (01/26/2021 9:00 AM EDT) [facility] Thyroid Stimulating Hormone 3.80 0.27 - 4.20 mcIU/mL [facility] Blood specimen (specimen) 01/26/2021 9:00 AM EDT 01/26/2021 9:06 AM EDT Narrative Resulting Agency Comment Spec In Lab Josiah Nickerson APRN CHEMISTRY ORDERABLE S Performing Organization Address [facility] Co de Phone Number [facility] [place] [address] * (ABNORMAL) Comprehensive metabolic panel (non-fasting) (01/26/2021 9:00 AM EDT) Pathologist [facility] Glucose 121 65 - 199 mg/dL [facility] Comment:Diabetes: >=200 mg/d L plus symptoms Blood Urea Nitrogen 11 8 - 18 mg/dL [facility] Creatinine 0.82 0.70 - 1.20 mg/dL [facility] Sodium 138 135 - 145 mmol/L [facility] Potassium 4.1 3.5 - 5.0 mmol/L [facility] Comment: Please note: ??Patients with WBC >100,000 may have falsely elevated Potassium levels. ??For accurate Potassium quantification in these patients send serum separator tube (gold top) for subsequent determinations. ??Contact the Clinical Chemistry Laboratory if there are any questions. Chloride 103 98 - 107 mmol/L [facility] Carbon Dioxide 26 22 - 31 mmol/L [facility] Anion Gap 9 5 - 15 mmol/L [facility] Calcium 8.9 8.5 - 10.5 mg/dL [facility] Protein, Total 7.0 6.1 - 8.0 gm/dL [facility] Albumin 4.2 3.2 - 5.2 gm/dL [facility] Aspartate Aminotransferase 26 0 - 30 unit/L [facility] Alanine Aminotransferase 34(H) 0 - 30 unit/L [facility] Alkaline Phosphatase 79 35 - 105 unit/L [facility] Bilirubin, Total 0.2 0.2 - 1.3 mg/dL [facility] Est Glomerular Filtration Rate 88 >=60 mL/min/1. 73 m?? [facility] Comment: This patient? s estimated glomerular filtration rate (eGFR) is between 88 mL/min/1.73 m2 (patients with less muscle mass) and 102 mL/min/1.73 m2 (patients with more muscle mass) as determined by the CKD-EPI equation. Assessment of eGFR is not appropriate when creatinine concentrations are rapidly changing. For clinical decisions where creatinine clearance will affect therapy, a 24-hour urine creatinine clearance may be advised. Assignment of CKD stage 1 - 5 for patients with an eGFR near the transition point between stages may be based on clinical assessment of muscle mass and symptoms in addition to eGFR. Blood specimen (specimen) 01/26/2021 9:00 AM EDT 01/26/2021 9:06 AM EDT Narrative Resulting Agency Comment Spec In Lab Josiah Nickerson APRN CHEMISTRY ORDERABLE S [facility] [place] [address] * Cortisol (01/26/2021 9:00 AM EDT) Cortisol 9.8 mcg/dL [facility] Comment: Reference ranges: ??AM (6-10am): ??4.8-19.5 mcg/dL ??PM (4-8pm) : ??2.5-11.9 mcg/dL Blood specimen (specimen) 01/26/2021 9:00 AM EDT 01/26/2021 9:06 AM EDT Narrative Resulting Agency Comment Spec In Lab Josiah Nickerson APRN CHEMISTRY ORDERABLE S Performing Organization Address City/State/[facility] Co de Phone Number [facility] [place] [address] documented in this encounter Visit Diagnoses Diagnosis Chronic abdominal pain Abdominal pain, unspecified site Constipation, unspecified constipation type Abdominal bloating Flatulence, eructation, and gas pain Abdominal distention Flatulence, eructation, and gas pain Nausea without vomiting Hepatic steatosis Other chronic nonalcoholic liver disease LUQ abdominal pain Abdominal pain, left upper quadrant documented in this encounter Care Teams Power Marketer Relationship Specialty Start Date End Date Yesica Goff APRN [address] [place] [address] PCP - General Family Medicine 09/19/19 documented as of this encounter
--- OUTSIDE RECORDS SUMMARY | 2024-07-14 19:38 | XMS_ITS | Encounter Summary ---
Author Organization [facility] Address [facility] [place] [address] Care Team Providers Care Mds Rn Name Role Phone Yesica Goff APRN Primary Care Provider [phone] Encounter Details Date Type Department Care Team (Late st Contact Info) Description 01/05/2021 4:00 PM EDT - 01/05/2021 5:15 PM EDT Surgery [place] [address] Rashawn Springer MD [facility] [place] [address] COLONOSCOPY, DIAGNOSTIC (WRVU 3.26) Social History Tobacco Use Types Packs/Day Years [...] AM EDT documented as of this encounter Last Filed Vital Signs Vital Sign Reading Time Taken Comments Blood Pressure 128/79 01/05/2021 4:31 PM EDT Pulse 72 01/05/2021 4:29 PM EDT Temperature 36.9 ??C (98.4 ??F) 01/05/2021 2:54 PM ED T Respiratory Rate 16 01/05/2021 4:31 PM EDT Oxygen Saturation 96% 01/05/2021 4:31 PM EDT Inhaled Oxygen Concentration - - Weight - - Height - - Body Mass Index - - documented in this encounter Medications at Time of Discharge [...] 04/30/2020 06/21/2021 documented as of this encounter H&P Notes * Rashawn Springer MD - 01/05/2021 3:22 PM EDT Patient Name: Jennifer Nunn Patient Age: 45 y.o. Birthdate: 1975 Admit date: 01/05/2021 Attending Physician: Can Nicholson MD Gastroenterology and Hepatology Pre-Procedure History and Physical Exam Procedure: Colonoscopy: and EGD Indication: Abdominal pain Patient Active Problem List Diagnosis Code ??? Risk of chromosome anomaly affecting care of mother, antepartum Z36.0 ??? HSV (herpes simplex virus) anogenital infection A60.9 ??? Bladder stones N21.0 ??? Thyroid cancer C73 ??? Chronic abdominal pain R10.9, G89.29 ??? Constipation K59.00 ??? Abdominal bloating R14.0 ??? Abdominal distention R14.0 ??? Nausea without vomiting R11.0 ??? Hepatic steatosis K76.0 ??? LUQ abdominal pain R10.12 EXAM: HEENT: Airway examined, oropharynx clear Mallampati Score: II (soft palate, uvula, fauces visible) LUNGS: Clear to auscultation HEART: Regular rate and rhythm, normal S1, S2 ABDOMEN: Normal bowel sounds, soft, non tender, non distended, A/P Proceed with the planned endoscopic procedure. ASA 2 - Patient with mild systemic disease with no functional limitations Sedation Plan: moderate (conscious sedation) Risks and benefits of the procedure explained to the patient. Consent signed. documented in this encounter Plan of Treatment Not on file documented as of this encounter Procedures Procedure Name Priority Date/Time Associated Diagnosis Comments SPECIMEN TO PATHOLOGY Routine 01/05/2021 4:25 PM EDT SPECIMEN TO PATHOLOGY Routine 01/05/2021 4:25 PM EDT SURGICAL PATHOLOGY REPORT Routine 01/05/2021 3:58 PM EDT Upper Gi Endoscopy, Biopsy ([id number]) 01/05/2021 3:35 PM EDT Chronic abdominal pain Constipation, unspecified constipation type Abdominal bloating Abdominal distention Nausea without vomiting Hepatic steatosis LUQ abdominal pain Colonoscopy, Diagnostic (39976) 01/05/2021 3:35 PM EDT Chronic abdominal pain Constipation, unspecified constipation type Abdominal bloating Abdominal distention Nausea without vomiting Hepatic steatosis LUQ abdominal pain COLONOSCOPY Routine 01/05/2021 3:24 PM EDT UPPER GI ENDOSCOPY Routine 01/05/2021 3: 23 PM EDT documented in this encounter Results * Specimen to Pathology (01/05/2021 4:25 PM EDT) AP Specimen 01/05/2021 4:25 PM EDT 01/05/2021 4:25 PM EDT Narrative [facility] - 01/05/2021 4:25 PM EDT Specimen requisition ordered. ??Separate Pathology report to follow Can Nicholson MD PATHOLOGY/CYTOLOGY O KANU Performing Organization Address [facility] [place] [address] * Specimen to Pathology (01/05/2021 4:25 PM EDT) AP Specimen 01/05/2021 4:25 PM EDT 01/05/2021 4:25 PM EDT Narrative [facility] - 01/05/2021 4:25 PM EDT Specimen requisition ordered. ??Separate Pathology report to follow Can Nicholson MD PATHOLOGY/CYTOLOGY Nathaniel BOBBY Performing Organization Address [facility] [place] [address] * Surgical Pathology Report (01/05/2021 3:58 PM EDT) Pathologist [facility] Final Diagnosis [id number] ? Location: 4T; [facility]; A The signing pathologist has (i) examined the relevant preparation(s) for the specimen(s) and (ii) rendered or confirmed the diagnosis(es). . ?Surgical Pathology DIAGNOSIS A - Duodenum, ??biopsy: - ??Duodenal mucosa, negative for diagnostic abnormality ??. B - Stomach, ??biopsy: - ??Gastric antrum-type and body/fundic-typ e mucosa, negative for diagnostic abnormality. Electronically signed by: ?Marcello Rocha MD Verified: ??01/10/2021 16:35 ??Pathologist Performed at: ??[place] [place], [place], [place] SPECIMEN(S) SUBMITTED A - duodenum biopsies r/o celiac, biopsy (Multiple) B - gastric biopsies r/o H.Pylori, biopsy (Multiple) CLINICAL INFORMATION 45-year-old female history of abdominal pain SPECIMEN PROCESSING A - Labeled/Fixativ e: Duodenum biopsies rule out celiac, formalin. Quantity/Size: Multiple, 0.2-0.3 cm. Tissue Description: Soft, rizo-pink tissues. Sections/Proces sing: Submitted en toto ??in 1 cassette labeled A1. B - Labeled/Fixativ e: Gastric biopsies rule out H. pylori, formalin. Quantity/Size: Four, 0.3 cm. Tissue Description: Soft, rizo-pink tissues. Sections/Proces sing: Submitted en toto ??in 1 cassette labeled B1. ??pps 01/10/2021 4:35 PM EDT [facility] GI Biopsy 01/05/2021 3:58 PM EDT 01/05/2021 3:58 PM EDT GI Biopsy 01/05/2021 3:58 PM EDT 01/05/2021 3:58 PM EDT Rashawn Springer MD PATHOLOGY/CYTOLOGY O RDERABLES [facility] [place] [address] * COLONOSCOPY (01/05/2021 3:24 PM EDT) COLONOSCOPY [facility] Procedure Date: 01/05/2021 3:24 PM ? Patient Name: Jennifer Nunn ? Date of : 1975 ? Age: 45 ? Order #: [id number] ? Instrument Name: [id number] ? Procedure: ? Colonoscopy Indications: ? Generalized abdominal pain Providers: ? Rashawn Springer, Yordan Santos, ? Merline Ibrahim, Portable Canteen Operator Referring MD: ?Yesica Goff Medicines: ? Midazolam 2 mg IV, Fentanyl 100 ? micrograms IV Complications: ? No immediate complications. Procedure: ? Pre-Anesthesia Assessment: ? - See the other procedure note for ? documentation of the pre-procedure ? assessment. ? The procedure, indications, benefits, ? risks and alternatives were explained ? to the patient. Specifically ? discussed were potential ? complications including, but not ? limited to, bleeding, perforation, ? infection, missing a cancer, and ? adverse medication reactions. The ? patient was placed in the left ? lateral decubitus position, and a ? digital rectal exam was performed. ? The Colonoscope was inserted in the ? anus and under direct visualization, ? advanced to the terminal ileum, with ? identification of the appendiceal ? orifice and IC valve. Careful ? inspection was made as the ? colonoscope was withdrawn. The ? quality of the bowel preparation was ? evaluated using the BBPS ([place] ? Bowel Preparation Scale) with scores ? of: Right Colon = 1 (portion of ? mucosa seen, but other areas not well ? seen due to staining, residual stool ? and/or opaque liquid), Transverse ? Colon = 1 (portion of mucosa seen, ? but other areas not well seen due to ? staining, residual stool and/or ? opaque liquid) and Left Colon = 2 ? (minor amount of residual staining, ? small fragments of stool and/or ? opaque liquid, but mucosa seen well). ? The total BBPS score equals 4. ? Withdrawal time was 6 minutes. ? Findings: ? The terminal ileum appeared normal. ? The colon (entire examined portion) appeared normal. ? Unable to retroflex due to narrow rectal vault - ? careful forward views. ? Moderate Sedation: ? I was present during the intraservice time as ? documented by the sedation RN. Impression: ?- The examined portion of the ileum ? was normal. ? - The entire examined colon is normal. ? - Suboptimal prep - this procedure ? was inadequate for polyp detection ? but no evidence of lesion that would ? cause pain such as large cancer or ? colitis. ? - No specimens collected. Recommendation: ?- Discharge patient to home. ? - Patient has a contact number ? available for emergencies. The signs ? and symptoms of potential delayed ? complications were discussed with the ? patient. Return to normal activities ? tomorrow. Written discharge ? instructions were provided to the ? patient. ? - Consider repeat colonoscopy with ? extended prep for polyp detection ? versus alternate colon cancer ? screening modality if clinically ? warranted ? - Follow-up with Josiah Nickerson APRN ? Attending Participation: ? I personally performed the entire procedure. ? Rashawn Springer Rashawn Springer, 01/05/2021 4:29:15 PM Number of Addenda: 0 Note Initiated On: 01/05/2021 3:24 PM PROVATION 01/05/2021 3:24 PM EDT Yesica Goff APRN GENERAL SURGICAL ORDERABLES [employer]OVATION * UPPER GI ENDOSCOPY (01/05/2021 3:23 PM EDT) [facility] UPPER GI ENDOSCOPY [facility] Endoscopy ___ Procedure Date: 01/05/2021 3:23 PM ? Patient Name: Jennifer Nunn ? N: [id number] ? Date of : 1975 ? Age: 45 ? Order #: [id number] ? Instrument Name: [id number] ? ___ Procedure: ? Upper GI endoscopy Indications: ? nausea Providers: ? Rashawn Springer, Yordan Santos, ? Merline Ibrahim, Portable Canteen Operator Referring MD: ?Yesica Goff Medicines: ? Fentanyl 150 micrograms IV, Midazolam ? 4 mg IV Complications: ? No immediate complications. ___ Procedure: ? Pre-Anesthesia Assessment: ? - See the other procedure note for ? documentation of the pre-procedure ? assessment. ? The procedure, indications, benefits, ? risks and alternatives were explained ? to the patient. Specifically ? discussed were potential ? complications including, but not ? limited to, bleeding, perforation, ? infection, missing a cancer, and ? adverse medication reactions. The ? Endoscope was introduced through the ? and advanced to the. The patient ? tolerated the procedure well. The ? upper GI endoscopy was accomplished ? without difficulty. The patient ? tolerated the procedure well. ? Findings: ? Esophagogastric landmarks were identified: the Z-line ? was found at 35 cm and the gastroesophageal junction ? was found at 35 cm from the incisors. ? The examined esophagus was normal. ? The entire examined stomach was normal. Biopsies were ? taken with a cold forceps for histology. ? The examined duodenum was normal. Biopsies were taken ? with a cold forceps for histology. ? Moderate Sedation: ? I was present during the intraservice time as ? documented by the sedation RN. Impression: ?- Esophagogastric landmarks ? identified. ? - Normal esophagus. ? - Normal stomach. Biopsied. ? - Normal examined duodenum. Biopsied. Recommendation: ?Colonoscopy next ? Attending Participation: ? I personally performed the entire procedure. ? Rashawn Springer Rashawn Springer, 01/05/2021 3:58:12 PM Number of Addenda: 0 Note Initiated On: 01/05/2021 3:23 PM PROVATION 01/05/2021 3:23 PM EDT Yesica Goff APRN GENERAL SURGICAL ORDERABLES Performing Organization Address City/State/[facility] Co de Phone Number PROVATION documented in this encounter Visit Diagnoses Diagnosis Chronic abdominal pain Abdominal pain, unspecified site Constipation Unspecified constipation Abdominal bloating Flatulence, eructation, and gas pain Abdominal distention Flatulence, eructation, and gas pain Nausea without vomiting Hepatic steatosis Other chronic nonalcoholic liver disease LUQ abdominal pain Abdominal pain, left upper quadrant Chronic abdominal pain Abdominal pain, unspecified site Constipation, unspecified constipation type Abdominal bloating Flatulence, eructation, and gas pain Abdominal distention Flatulence, eructation, and gas pain Nausea without vomiting Hepatic steatosis Other chronic nonalcoholic liver disease LUQ abdominal pain Abdominal pain, left upper quadrant documented in this encounter Admitting Diagnoses Diagnosis Chronic abdominal pain Abdominal pain, unspecified site Constipation Unspecified constipation Abdominal bloating Flatulence, eructation, and gas pain Abdominal distention Flatulence, eructation, and gas pain Nausea without vomiting Hepatic steatosis Other chronic nonalcoholic liver disease LUQ abdominal pain Abdominal pain, left upper quadrant documented in this encounter Administered Medications Inactive Administered Medications - up to 3 most recent administrations Medication Order MAR Action Action Date Dose Rate Site fentaNYL (pf) (50 mcg/mL) multi-dose injection ONCE PRN, Starting on Sun01/05/21 at 1539, Until Sun01/05/21 at 191, Intra-Operative (Intra-Procedure), Routine Given 01/05/2021 4:14 PM EDT 50 mcg Given 01/05/2021 4:01 PM EDT 50 mcg Given 01/05/2021 3:48 PM EDT 25 mcg lactated ringers infusion 100 mL/hr, Intravenous, CONTINUOUS, Starting on Sun01/05/21 at 1515, Until Sun01/05/21 at 191, Endoscopy (Day of Procedure) midazolam (pf) (Versed) (1 mg/mL) multi-dose injection ONCE PRN, Starting on Sun01/05/21 at 1539, Until Sun01/05/21 at 191, Intra-Operative (Intra-Procedure), Routine Given 01/05/2021 4:14 PM EDT 1 mg Given 01/05/2021 4:00 PM EDT 1 mg Given 01/05/2021 3:53 PM EDT 0.5 mg documented in this encounter Active and Recently Administered Medications Times are shown in EDT. Continuous Medication Order 01/03/2021 01/04/2021 01/05/2021 lactated ringers infusion 100 mL/hr, Intravenous, CONTINUOUS, Starting on Sun01/05/21 at 1515, Until Sun01/05/21 at 191, Endoscopy (Day of Procedure) 1515 (Due) PRN Medication Order 01/03/2021 01/04/2021 01/05/2021 fentaNYL (pf) (50 mcg/mL) multi-dose injection (CANCELED) ONCE PRN, Starting on Sun01/05/21 at 1539, Until Sun01/05/21 at 191, Intra-Operative (Intra-Procedure), Routine 1539 (Given - Provid er: Yordan Santos RN)1542 (Given - Provider: Yordan aSntos RN)1547 (Given - Provider: Yordan Santos RN)1548 (Given - Provider: Yordan Santos RN)1601 (Given - Provider: Yordan Santos RN)1614 (Given - Provider: Yordan Santos RN) midazolam (pf) (Versed) (1 mg/mL) multi-dose injection (CANCELED) ONCE PRN, Starting on Sun01/05/21 at 1539, Until Sun01/05/21 at 1919, Intra-Operative (Intra-Procedure), Routine 1539 (Given - Provid er: Yordan Santos RN)1541 (Given - Provider: Yordan Santos RN)1547 (Given - Provider: Yordan Santos RN)1550 (Given - Provider: Yordan Santos RN)1553 (Given - Provider: Yordan Santos RN)1600 (Given - Provider: Yordan Santos RN)1614 (Given - Provider: Yordan Santos RN) documented in this encounter Care Teams Mds Rn Relationship Specialty Start Date End Date Yesica Goff APRN [address] [place] [address] PCP - General Family Medicine 09/19/19 documented as of this encounter
--- OUTSIDE RECORDS SUMMARY | 2024-07-14 19:38 | XMS_ITS | Encounter Summary ---
Author Organization [facility] [place] [address] Care Team Providers Care Application Software Developer Name Role Phone Yesica Goff APRN Primary Care Provider [phone] [phone] Reason for Visit * Diagnostic Test (Routine) - Closed Specialty Diagnoses / Procedures Referred By Contlaura t Referred To Contact Radiology Diagnoses Nausea without vomiting LUQ abdominal pain Procedures NM Gastric Emptying Scan Josiah Nickerson [facility] [place] [address] [place] [address] Referral ID Status Reason Start Date Expiration Date V isits Requested Visits Authorized [id number] Closed Specialty Service Requested 02/11/2021 09/30/2021 1 1 Encounter Details Date Type Department Care Team (Latest Contact Info) Description 02/11/2021 9:05 AM EDT - 02/11/2021 11:59 PM EDT Hospital Encounter [place] [address] Josiah Nickerson [facility] [address] [place] [address] Discharge Disposition: Home Social History [...] who have questions please contact the health assisted living care manager that requested your imaging first. ? Narrative 02/11/2021 2:09 PM EDT EXAMINATION: NM [...] patients who have questions please contactthe health assisted living care manager that requested your imaging first. Josiah Nickerson APRN IMG NM ORDERABLES documented in this encounter Visit Diagnoses Not on filedocumented in this encounter Care Teams Application Software Developer Relationship Specialty Start Date End Date Yesica Goff APRN [address] [place] [address] PCP - General Family Medicine 09/19/19 documented as of this encounter
--- OUTSIDE RECORDS SUMMARY | 2024-07-14 19:38 | XMS_ITS | Encounter Summary ---
Author Organization [facility] [place] [address] Care Team Providers Care Rough Planer Tender Name Role Phone Yesica Goff APRN Primary Care Provider [phone] [phone] Encounter Details Date Type Department Care Team (Late st Contact Info) Description 09/12/2021 Telephone [place] [phone] Sury Salazar Social History Tobacco Use Types Packs/Day Years [...] encounter Miscellaneous Notes * Telephone Encounter - Sury Salazar - 09/26/2021 3:01 PM EST Left third message for patient to contact the office for scheduling. The patient is due for a 6 mo (overdue) gif with TOOL DESIGN DRAFTSPERSON Krishan following testing. GI will schedule the patient for a gif if she contacts the office. * Telephone Encounter - Sury Salazar - 09/14/2021 11:52 AM EST Left second message for patient to contact the office for scheduling. The patient is due for a 6 mo(overdue) gif with MODE Nickerson following testing. * Telephone Encounter - Sury Salazar - 09/12/2021 1:36 PM EST Left message for patient to contact the office for scheduling. The patient is due for a 6 mo (overdue) gif with MODE Nickerson following testing. documented in this encounter Plan of Treatment Not on file documented as of this encounter Visit Diagnoses Not on filedocumented in this encounter Care Teams Rough Planer Tender Relationship Specialty Start Date End Date Yesica Goff APRN [address] [place] [address] PCP - General Family Medicine 09/19/19 documented as of this encounter
--- OUTSIDE RECORDS SUMMARY | 2024-07-14 19:38 | XMS_ITS | Encounter Summary ---
[facility] [place] [address] Care Team Providers Care Bag Valver Name Role Phone Yesica Goff APRN Primary Care Provider [phone] [phone] Reason for Visit * Diagnostic Test (Routine) - Closed Specialty Diagnoses / Procedures Referred By Boyd t Referred To Contact Radiology Diagnoses Nausea without vomiting LUQ abdominal pain Procedures NM Gastric Emptying Scan Josiah Nickerson AIRPORT RAMP ATTENDANT [facility] [place] [address] [place] [address] Referral ID Status Reason Start Date Expiration Date V isits Requested Visits Authorized [id number] Closed Specialty Service Requested 02/11/2021 09/30/2021 1 1 Encounter Details Date Type Department Care Team (Latest Contact Info) Description 02/11/2021 9:04 AM EDT Hospital En[place] [address] Josiah Nickerson [facility] [place] [address] Discharge Disposition: Home Social History [...] who have questions please contact the health careers counsellor that requested your imaging first. ? Narrative [...] patients who have questions please contactthe health careers counsellor that requested your imaging first. Josiah Nickerson APRN IMG NM ORDERABLES documented in this encounter Visit Diagnoses Not on filedocumented in this encounter Care Teams Bag Valver Relationship Specialty Start Date End Date Yesica Goff APRN [address] [place] [address] PCP - General Family Medicine 09/19/19 documented as of this encounter
--- OUTSIDE RECORDS SUMMARY | 2024-07-14 19:38 | XMS_ITS | Encounter Summary ---
Author Organization [facility] [place] [address] Care Team Providers Care Online Content Coordinator Name Role Phone Yesica Goff APRN Primary Care Provider [phone] [phone] Reason for Visit * Reason Onset Date Comments Reminder Appointment 12/15/2020 Encounter Details Date Type Department Care Team (Late st Contact Info) Description 12/15/2020 Telephone [place] [phone] Jade Coker MD [facility] [place] [address] Reminder Appointment Social History Tobacco Use Types Packs/Day Years [...] encounter Miscellaneous Notes * Telephone Encounter - Lesly Ruelas CMA - 12/15/2020 8:29 AM EDT Called patient to review medications and allergies for their upcoming gastroenterology Type of Appointment: Telehealth appointment. Reach Patient during MA Check: Yes Notes for the provider: Notes for the nurse: documented in this encounter Plan of Treatment Not on file documented as of this encounter Visit Diagnoses Not on filedocumented in this encounter Care Teams Online Content Coordinator Relationship Specialty Start Date End Date Yesica Goff APRN [address] [place] [address] PCP - General Family Medicine 09/19/19 documented as of this encounter
--- OUTSIDE RECORDS SUMMARY | 2024-07-14 19:38 | XMS_ITS | Encounter Summary ---
Author Organization [facility] [place] [address] Care Team Providers Care School Bus Driver Name Role Phone Yesica Goff APRN Primary Care Provider [phone] [phone] Reason for Referral * Diagnostic Test (Routine) - Closed Specialty Diagnoses / Procedures Referred By Contlaura t Referred To Contact Radiology Diagnoses Nausea without vomiting LUQ abdominal pain Procedures NM Gastric Emptying Scan Josiah Nickerson APRN [facility] [place] [address] [place] [address] Referral ID Status Reason Start Date Expiration Date V isits Requested Visits Authorized [id number] Closed Specialty Service Requested 02/11/2021 09/30/2021 1 1 Encounter Details Date Type Department Care Team (Late st Contact Info) Description 12/31/2020 Orders Only [place] [phone] Josiah Nickerson APRN [facility] [place] [address] Nausea without vomiting; LUQ abdominal pain Social History Tobacco Use [...] on file documented as of this encounter Results * XR Fluoro Small Bowel Only (03/25/2021 10:39 AM EDT) Anatomical Region Laterality Modality Abdomen N/A Radio Fluoroscop y Impressions 03/25/2021 10:44 AM EDT Normal small bowel follow through. I have personally reviewed the image(s) and the resident's interpretation and agree with the findings, Jerardo Barrera MD at 03/25/2021 10:44 AM Thank you for letting us participate in the care of this patient. ??If you are a health care provider and have any questions regarding this report, please contact the number below. ??For patients who have questions please contact the health caretaker resort that requested your imaging first. ? Electronically signed by: Jerardo Barrera MD, [facility] ([phone]), at 03/25/2021 10:44 AM Narrative 03/25/2021 10:44 AM EDT EXAMINATION: XR FLUORO SMALL BOWEL ONLY CLINICAL HISTORY: nausea. SBFT ordered specifically to evaluate small intestinal transit time to cecum TECHNIQUE: Single contrast small bowel follow through was performed and overhead and fluoroscopic spot films were obtained. Fluoro time: 0 COMPARISON: None FINDINGS: The small bowel is normal in course and caliber, and the terminal ileum was well visualized in the right lower quadrant. Normal small bowel fold pattern. Normal peristalsis. No stricture was identified. Transit time to the colon was 50 minutes. Procedure Note Jerardo Barrera MD - 03/25/2021 EXAMINATION: XR FLUORO SMALL BOWEL ONLY CLINICAL HISTORY: nausea. SBFT ordered specifically to evaluate smallintestinal transit time to cecum TECHNIQUE: Single contrast small bowel follow through was performed and overheadand fluoroscopic spot films were obtained. Fluoro time: 0 COMPARISON: None FINDINGS: The small bowel is normal in course and caliber, and the terminal ileumwas well visualized in the right lower quadrant. Normal small bowel fold pattern. Normal peristalsis. No stricture was identified. Transit time to the colon was 50 minutes. IMPRESSION Normal small bowel follow through. I have personally reviewed the image(s) and the resident's interpretationand agree with the findings, Jerardo Barrera MD at 03/25/2021 10:44 AM Thank you for letting us participate in the care of this patient. If youare a health care provider and have any questions regarding this report,please contact the number below. For patients who have questions please contactthe health caretaker resort that requested your imaging first. Electronically signed by: Jerardo Barrera MD, [facility]([phone]), at 03/25/2021 10:44 AM Josiah Nickerson RECYCLING COLLECTIONS DRIVER IMG FLUORO ORDERABL ES * NM Gastric Emptying Scan (02/11/2021 1:51 PM EDT) Anatomical Region Laterality Modality Nuclear Medicine Impressions 02/11/2021 2:09 PM EDT Normal gastric emptying. Thank you for letting us participate in the care of this patient. ??If you are a health care provider and have any questions regarding this report, please contact the number below. ??For patients who have questions please contact the health caretaker resort that requested your imaging first. ? Electronically signed by: Arsh Blackmon MD, [facility] ([phone]), at 02/11/2021 2:09 PM Narrative 02/11/2021 2:09 [...] patients who have questions please contactthe health caretaker resort that requested your imaging first. Electronically signed by: Arsh Blackmon MD, [facility]([phone]), at 02/11/2021 2:09 PM Josiah Nickerson APRN [facility] ORDERABLES documented in this encounter Visit Diagnoses Diagnosis Nausea without vomiting LUQ abdominal pain Abdominal pain, left upper quadrant Nausea without vomiting LUQ abdominal pain Abdominal pain, left upper quadrant Nausea without vomiting LUQ abdominal pain Abdominal pain, left upper quadrant documented in this encounter Care Teams School Bus Driver Relationship Specialty Start Date End Date Yesica Goff, LEONARD [address] [place] [address] PCP - General Family Medicine 09/19/19 documented as of this encounter
--- OUTSIDE RECORDS SUMMARY | 2024-07-14 19:38 | XMS_ITS | Encounter Summary ---
Author Organization [facility] Address [facility] [place] [address] Care Team Providers Care Manager Of Marketing Name Role Phone Yesica Goff APRN Primary Care Provider [phone] [phone] Encounter Details Date Type Department Care Team (Latest Contact Info) Description 03/25/2021 9:27 AM EDT - 03/25/2021 11:59 PM EDT Hospital Encounter XRay at [address] [place] [address] Josiah Nickerson APRN [facility] [place] [address] Nausea without vomiting; LUQ abdominal pain Discharge Disposition: Home Social [...] Procedure Name Priority Date/Time Associated Diagnosis Comments XR FLUORO SMALL BOWEL ONLY Routine 03/25/2021 10:39 AM EDT Nausea without vomiting LUQ abdominal pain documented in this encounter Results * XR Fluoro Small [...] who have questions please contact the health care assistant that requested your imaging first. ? Electronically signed by: Jerardo Barrera MD, [facility] ([phone]), at 03/25/2021 10:44 AM Narrative 03/25/2021 10:44 [...] patients who have questions please contactthe health care assistant that requested your imaging first. Electronically signed by: Jerardo Barrera MD, [facility]([phone]), at 03/25/2021 10:44 AM Josiah Nickerson APRN IMG FLUORO ORDERABL ES documented in this encounter Visit Diagnoses Diagnosis Nausea without vomiting LUQ abdominal pain Abdominal pain, left upper quadrant documented in this encounter Administered Medications Inactive Administered Medications - up to 3 most recent administrations Medication Order MAR Action Action Date Dose Rate Site barium sulfate (Ezpaque) 60% (w/v) oral liquid 355 mL 355 mL, Oral, ONCE, 1 dose, On Sun03/25/21 at 1000, Routine Given 03/25/2021 10:00 AM EDT 355 mLs documented in this encounter Care Teams Manager Of Marketing Relationship Specialty Start Date End Date Yesica Goff APRN [address] [place] [address] PCP - General Family Medicine 09/19/19 documented as of this encounter
--- OUTSIDE RECORDS SUMMARY | 2024-07-14 19:38 | XMS_ITS | Encounter Summary ---
[facility] [place] [address] Care Team Providers Care Inclusion Special Education Teacher Name Role Phone Yesica Goff APRN Primary Care Provider [phone] [phone] Reason for Referral * Diagnostic Test (Routine) - Closed Specialty Diagnoses / Procedures Referred By Contac t Referred To Contact Radiology Diagnoses Nausea without vomiting LUQ abdominal pain Procedures NM Gastric Emptying Scan Josiah Nickerson APRN [facility] [place] [address] [place] [address] Referral ID Status Reason Start Date Expiration Date V isits Requested Visits Authorized [id number] Closed Specialty Service Requested 02/11/2021 09/30/2021 1 1 Reason for Visit * Diagnostic Test (Routine) - Closed Specialty Diagnoses / Procedures Referred By Contac t Referred To Contact Radiology Diagnoses Nausea without vomiting LUQ abdominal pain Procedures NM Gastric Emptying Scan Josiah Nickerson APRN [facility] [place] [address] [place] [address] Referral ID Status Reason Start Date Expiration Date V isits Requested Visits Authorized [id number] Closed Specialty Service Requested 02/11/2021 09/30/2021 1 1 Encounter Details Date Type Department Care Team (Latest Contact Info) Description 02/11/2021 9:03 AM EDT Hospital Encounter [facility] [place] [address] [facility] [place] [address] Nausea without vomiting; LUQ abdominal pain Discharge [...] who have questions please contact the health wound care specialist that requested your imaging first. ? Narrative [...] patients who have questions please contactthe health wound care specialist that requested your imaging first. Josiah Nickerson RESIDENT SERVICES SUPERVISOR IMG NM ORDERABLES documented in this encounter Visit Diagnoses Diagnosis Nausea without vomiting LUQ abdominal pain Abdominal pain, left upper quadrant documented in this encounter Administered Medications Inactive Administered Medications - up to 3 most recent administrations Medication Order MAR Action Action Date Dose Rate Site technetium (Tc-99m) sulfur colloid injection 0-18 mCi 0-18 mCi, Oral, ONCE PRN, 1 dose, Starting on Sun02/11/21 at 0933, Until Sun02/11/21 at 0933, Per Protocol, Radiology Contrast, Routine Given 02/11/2021 9:33 AM EDT 0.5 mCi documented in this encounter Care Teams Inclusion Special Education Teacher Relationship Specialty Start Date End Date Yesica Goff APRN [address] [place] [address] PCP - General Family Medicine 09/19/19 documented as of this encounter
--- OUTSIDE RECORDS SUMMARY | 2024-07-14 19:38 | XMS_ITS | Encounter Summary ---
[place] [address] Care Team Providers Care Manufacturing Worker Name Role Phone Yesica Goff APRN Primary Care Provider [phone] [phone] Encounter Details Date Type Department Care Team (Late st Contact Info) Description 12/31/2020 Telephone [place] [address] Radha Ascencio, CCMA Social History Tobacco Use Types Packs/Day Years [...] encounter Miscellaneous Notes * Telephone Encounter - Radha Ascencio - 12/31/2020 10:51 AM EDT Jennifer Nunn [id number] Diagnosis/Indication: abdominal pain, nausea, constipation, bloating/distention 1. Do you take any blood thinners or have you been diagnosed with a bleeding disorder that increases your risk of bleeding with procedures? No 2. Do you have a Pacemaker or Defibrillator device? No 3. Are you a diabetic? No 4. Do you have any Allergies to Eggs, Latex or Medications? No 5. Do you take any Oral Iron Supplements (Including multi-vitamins)? Yes (Multivitamin) 6. Do you have a history of three or more abdominal surgeries? No 7. Have you had a problem with sedation or anesthesia? No 8. Do you use a c-pap machine or oxygen tank? Neither 9. Do you take prescription narcotic pain medications, including suboxone or methodone? No 10. Do you have a preference regarding the gender of your provider? No Preference 11. Is there any other information you would like to us to note for the provider and nursing team who will perform your case? No 12. Say to patient: You must have a responsible democrat who will drive you to your procedure, stay oncampus for the entire duration of your procedure, and drive you home from your procedure? *Please Verify the height and weight, and adjust if height and/or weight have changed* Estimated body mass index is 33.29 kg/m?? as calculated from the following: Height as of 12/22/20: 157.5 cm (5' 2). Weight as of 12/22/20: 82.6 kg (182 lb). *Delete if not needed* Height: 5'2 Weight: 182 BMI: 33.29 Age:45 y.o. documented in this encounter Plan of Treatment Not on file documented as of this encounter Visit Diagnoses Not on filedocumented in this encounter Care Teams Manufacturing Worker Relationship Specialty Start Date End Date Yesica Goff APRN [address] [place] [address] PCP - General Family Medicine 09/19/19 documented as of this encounter
--- OUTSIDE RECORDS SUMMARY | 2024-07-14 19:38 | XMS_ITS | Encounter Summary ---
Author Organization [facility] Address [facility] [place] [address] Care Team Providers Care Patient Services Assistant Name Role Phone Yesica Goff APRN Primary Care Provider +1 -[phone] Reason for Visit * Reason Comments Medication Refill Encounter Details Date Type Department Care Team (Late st Contact Info) Description 06/21/2021 Refill [place] [address] Blair Thornton MD [facility] [place] [address] Hypothyroidism, unspecified type; History of thyroid cancer Social History Tobacco Use Types Packs/Day Years [...] encounter Miscellaneous Notes * Telephone Encounter - Asad Song MD - 06/21/2021 8:11 AM EDT Mckenna Patient had TSH above target in December. Unclear if dose of levothyroxine was adjusted, it doesn't look like it was. Please check with her on this. If not, she will need dose increase to 150 mcg, I ordered this. She will then need TSH and Thyroglobulin drawn about 2-3 months later (ordered). She should call to arrange a followup visit. thanks documented in this encounter Plan of Treatment Not on file documented as of this encounter Visit Diagnoses Diagnosis Hypothyroidism, unspecified type History of thyroid cancer Personal history of malignant neoplasm of thyroid documented in this encounter Care Teams Patient Services Assistant Relationship Specialty Start Date End Date Yesica Goff APRN [address] [place] [address] PCP - General Family Medicine 09/19/19 documented as of this encounter
--- OUTSIDE RECORDS SUMMARY | 2024-07-14 19:38 | XMS_ITS | Clinical Summary ---
Author Organization [facility] Address [facility] [place] [address] Care Team Providers Care Priming Mixture Carrier Name Role Phone Yesica Goff APRN Primary Care Provider [phone] [phone] Allergies No known active allergies Medications Medication Sig Dispensed Refills Start Date End Date Status famotidine (Pepcid) 20 mg Tablet TAKE ONE TABLET BY MOUTH EVERY DAY 09/23/2019 Active melatonin 5 mg Tablet TAKE ONE TO TWO TABLETS BY MOUTH AT BEDTIME NEEDED 07/10/2019 Active omeprazole (PriLOSEC) 40 mg Capsule, Delayed Release(E.C.) TAKE ONE CAPSULE BY MOUTH EVERY DAY 10/07/2019 Active acyclovir (Zovirax) 400 mg Tablet TAKE ONE TABLET BY MOUTH TWICE A DAY 10/08/2019 Active traZODone (Desyrel) 50 mg Tablet TAKE 1/2 1 TABLET BY MOUTH AT BEDTIME FOR SLEEP 10/07/2019 Active sucralfate (Carafate) 1 gram Tablet TAKE ONE TABLET BY MOUTH 30 MINUTES BEFORE EACH MEAL AND AT BEDTIME 08/25/2019 Active acetaminophen (Tylenol) 325 mg Tablet Take 2 tablets by mouth every 6 hours as needed for Pain. 30 tablet 1 11/07/2019 Active Additional Information Patient not taking.Reported on 07/29/2020 ibuprofen (Advil;Motrin) 600 mg Tablet Take 1 tablet by mouth every 6 hours as needed for Pain. 30 tablet 12 11/07/2019 Active Additional Information Patient not taking.Reported on 07/29/2020 calcium citrate-vitamin D (Calcium Citrate +) 315 mg-5 mcg (200 unit) Tablet Take 2 tablets by mouth 3 times daily (with meals). 04/30/2020 Active levothyroxine (Synthroid) 150 mcg Tablet Take 1 tablet by mouth daily. 90 tablet 1 06/21/2021 Active Active Problems Problem Noted Date Diagnosed Date Chronic abdominal pain 12/15/2020 Overview (12/15/2020): Added automatically from request for surgery [id number] Constipation 12/15/2020 Overview (12/15/2020): Added automatically from request for surgery [id number] Abdominal bloating 12/15/2020 Overview (12/15/2020): Added automatically from request for surgery [id number] Abdominal distention 12/15/2020 Overview (12/15/2020): Added automatically from request for surgery [id number] Nausea without vomiting 12/15/2020 Overview (12/15/2020): Added automatically from request for surgery [id number] Hepatic steatosis 12/15/2020 Overview (12/15/2020): Added automatically from request for surgery [id number] LUQ abdominal pain 12/15/2020 Overview (12/15/2020): Added automatically from request for surgery [id number] Thyroid cancer 12/18/2019 Risk of chromosome ano kwan affecting care of mother, antepartum 03/08/2011 Overview (06/30/2012): Serum screening risk 1:204. Assessment & Plan (03/08/2011 1:34 PM EDT): Abnormal serum screening for aneuploidy increased the patient's age related risk from 1:405 to 1:204. The patient was counseled as to her risk of aneuploidy and the possibility of definitive diagnosis by amniocentesis. The limitations of serum screening and ultrasound in predicting aneuploidy, and risk of loss due to amniocentesis were also discussed. Given the normal morphology scan today, the patient's risk of carrying a trisomic fetus may be reduced by 50%. The couple has chosen to defer amniocentesis. No follow-up examinations are indicated. HSV (herpes simplex virus) anogenital infection 03/08/2011 Overview (06/30/2012): Last [id number] Bladder stones 03/08/2011 Overview (06/30/2012): Required surgical removal. Assessment & Plan (03/08/2011 1:32 PM EDT): Required surgical removal. Family History Medical History Relation Comments Celiac Disease Neg Hx Colorectal Cancer Neg Hx Esophageal Cancer Neg Hx Inflammatory Bowel Disease Neg Hx Social History Tobacco Use Types Packs/Day Years Used Date Smoking Tobacco: Never Smokeless Tobacco: Never Alcohol Use Standard Drinks/Week Comments No 0 (1 standard drink = 0.6 oz pur e alcohol) Sex and Gender Information Value Date Recorded Sex Assigned at Female 12/31/2020 10:58 AM EDT Gender Identity Female 12/31/2020 10:58 AM EDT Sexual Orientation Straight 12/31/2020 10 :58 AM EDT Last Filed Vital Signs Vital Sign Reading Time Taken Comments Blood Pressure 128/79 01/05/2021 4:31 PM EDT Pulse 72 01/05/2021 4:29 PM EDT Temperature 36.9 ??C (98.4 ??F) 01/05/2021 2:54 PM ED T Respiratory Rate 16 01/05/2021 4:31 PM EDT Oxygen Saturation 96% 01/05/2021 4:31 PM EDT Inhaled Oxygen Concentration - - Weight 82.6 kg (182 lb) 12/22/2020 10:54 AM EDT Height 157.5 cm (5' 2) 12/22/2020 10:54 AM EDT Body Mass Index 33.29 12/22/2020 10:54 AM EDT Plan of Treatment Health Maintenance Due Date Last Done Comments CT Colonography 1977 FIT DNA 1977 FIT 1975 Sigmoidoscopy 1975 HIV screen 1995 Hepatitis C Screening 1995 Hepatitis B vaccine (0-59 yrs) (1) 1996 Tetanus/Diphtheria/Pertussis Vaccines (1 - Tdap) 1996 HPV test 2007 PAP Smear 2007 Breast Cancer Share Decision Needed 2017 Breast Cancer screening 2017 Covid-19 Vaccine ( season) 2024 Influenza (Flu) vaccine (1 o f 1 - Influenza standard series) 06/01/2024 Colonoscopy 01/05/2031 01/05/2021, 01/05/2021 Colorectal Cancer Screening 01/05/2031 Sigmoidoscopy (10 year) with FIT yearly 01/05/2031 0 01/05/2021, 01/05/2021 Diabetes Screening (HgbA1C or Glucose) Discontinued Procedures Procedure Name Priority Date/Time Associated Diagnosis Comments COMPREHENSIVE METABOLIC PANEL Routine 01/26/2021 9:00 AM EDT Chronic abdominal pain Constipation, unspecified constipation type Abdominal bloating Abdominal distention Nausea without vomiting Hepatic steatosis LUQ abdominal pain COLONOSCOPY Routine 01/05/2021 3:24 PM EDT from Last 3 Months or Most Recently Relevant to Health Maintenance Results * (ABNORMAL) Comprehensive metabolic panel (non-fasting) (01/26/2021 9:00 AM EDT) Glucose 121 65 - 199 mg/dL [facility] Comment:Diabetes: >=200 mg/d L plus symptoms Blood Urea Nitrogen 11 8 - 18 mg/dL [facility] Creatinine 0.82 0.70 - 1.20 mg/dL [facility] Sodium 138 135 - 145 mmol/L [facility] Potassium 4.1 3.5 - 5.0 mmol/L [facility] Comment: Please note: ??Patients with WBC >100,000 may have falsely elevated Potassium levels. ??For accurate Potassium quantification in these patients send serum separator tube (gold top) for subsequent determinations. ??Contact the Clinical Chemistry Laboratory if there are any questions. Chloride 103 98 - 107 mmol/L [facility] Carbon Dioxide 26 22 - 31 mmol/L [facility] Anion Gap 9 5 - 15 mmol/L [facility] Calcium 8.9 8.5 - 10.5 mg/dL [facility] Protein, Total 7.0 6.1 - 8.0 gm/dL [facility] Albumin 4.2 3.2 - 5.2 gm/dL [facility] Aspartate Aminotransferase 26 0 - 30 unit/L [facility] Alanine Aminotransferase 34(H) 0 - 30 unit/L [facility] Alkaline Phosphatase 79 35 - 105 unit/L [facility] Bilirubin, Total 0.2 0.2 - 1.3 mg/dL [facility] Est Glomerular Filtration Rate 88 >=60 mL/min/1. 73 m?? [facility] Comment: This patient? s [...] APRN CHEMISTRY ORDERABLE S Performing Organization Address City/State/[facility] Co de Phone Number [facility] [place] [address] * COLONOSCOPY (01/05/2021 3:24 PM EDT) COLONOSCOPY [facility] Endoscopy Procedure Date: 01/05/2021 3:24 PM ? Patient Name: Jennifer Nunn ? Date of : 1975 ? Age: 45 ? Order #: [id number] ? Instrument Name: [id number] ? Procedure: ? Colonoscopy Indications: ? Generalized abdominal pain Providers: ? Rashawn Springer, Yordan Santos, ? Merline Ibrahim, Technical Operations Specialist Referring MD: ?Yesica Goff Medicines: ? Midazolam [...] preparation was ? evaluated using the BBPS ([place] ? Bowel Preparation Scale) with scores ? [...] the entire procedure. ? Rashawn Springer Rashawn Ramirez Gian, 01/05/2021 4:29:15 PM Number of Addenda: 0 Note Initiated On: 01/05/2021 3:24 PM PROVATION 01/05/2021 3:24 PM EDT Yesica Goff APRN GENERAL SURGICAL ORDERABLES PROVATION from Last 3 Months or Most Recently Relevant to Health Maintenance Advance Directives Documents on File Type Date Recorded Patient Camera Technician Expl anation Advance Directives and Livin g Will 11/07/2019 1:16 PM * Attempt Cardiopulmonary Resuscitation - Inpatient (Latest Code Status on File) Date Activated Date Inactivated Comments 04/30/2020 12:37 PM 04/30/2020 5:58 PM Question Answer Comments Code Status decision made by: Patient Care Teams Priming Mixture Carrier Relationship Specialty Start Date End Date Yesica Goff APRN [address] [place] [address] PCP - General Family Medicine 09/19/19
--- OUTSIDE RECORDS SUMMARY | 2024-07-14 19:38 | XMS_ITS | Encounter Summary ---
Author Organization [facility] [place] [address] Care Team Providers Care Circular Head Saw Operator Name Role Phone Yesica Goff APRN Primary Care Provider [phone] Encounter Details Date Type Department Care Team (Late st Contact Info) Description 12/31/2020 [place] [address] Romero Gao Social History Tobacco Use Types Packs/Day Years [...] encounter Miscellaneous Notes * Telephone Encounter - Romero Gao - 12/31/2020 10:30 AM EDT [facility] 12/31/[address] [place] [id number] : 1975 REFERRING PROVIDER: Josiah Nickerson PRIMARY CARE PROVIDER: Yesica Goff APRN PRIMARY SYMPTOM (PROCEDURE INDICATION): nausea/vomiting SAFETY QUESTIONS FOR THE PATIENT IS THE PATIENT'S PRIMARY INSURANCE CARRIER [place] MEDICAID, [employer], CIGNA, AETNA, OR [place]? YES (if so, test is not covered; notify RMD and cancel referral) documented in this encounter Plan of Treatment Not on file documented as of this encounter Visit Diagnoses Not on filedocumented in this encounter Care Teams Circular Head Saw Operator Relationship Specialty Start Date End Date Yesica Goff APRN [address] [place] [address] PCP - General Family Medicine 09/19/19 documented as of this encounter
--- OUTSIDE RECORDS SUMMARY | 2024-07-14 19:38 | XMS_ITS | Encounter Summary ---
Author Organization [facility] Address [facility] [place] [address] Care Team Providers Care Supervisor Gelatin Plant Name Role Phone Yesica Goff APRN Primary Care Provider [phone] Encounter Details Date Type Department Care Team (Latest Contact Info) Description 01/05/2021 2:04 PM EDT - 01/05/2021 5:19 PM EDT Hospital Encounter [place] [address] Can Nicholson MD [facility] [place] [address] Chronic abdominal pain; Constipation; Abdominal bloating; Abdominal distention; Nausea without vomiting; [...] 3:58 PM EDT Upper Gi Endoscopy, Biopsy ([id number]) 01/05/2021 3:35 PM EDT Chronic abdominal pain Constipation, unspecified constipation type Abdominal bloating Abdominal distention Nausea without vomiting Hepatic steatosis LUQ abdominal pain Colonoscopy, Diagnostic ([id number]) 01/05/2021 3:35 PM EDT Chronic abdominal pain Constipation, unspecified constipation type Abdominal bloating Abdominal distention Nausea without vomiting Hepatic steatosis LUQ abdominal pain COLONOSCOPY Routine 01/05/2021 3:24 PM EDT UPPER GI ENDOSCOPY Routine 01/05/2021 3: 23 PM EDT documented in this encounter Results * Specimen to Pathology (01/05/2021 4:25 PM EDT) AP Specimen 01/05/2021 4:25 PM EDT 01/05/2021 4:25 PM EDT Narrative [facility] - 01/05/2021 4:25 PM EDT Specimen requisition ordered. ??Separate Pathology report to follow Can Nicholson MD PATHOLOGY/CYTOLOGY O KANU Performing Organization Address [facility] [place] [address] * Specimen to Pathology (01/05/2021 4:25 PM EDT) AP Specimen 01/05/2021 4:25 PM EDT 01/05/2021 4:25 PM EDT Narrative [facility] - 01/05/2021 4:25 PM EDT Specimen requisition ordered. ??Separate Pathology report to follow Can Nicholson MD PATHOLOGY/CYTOLOGY Nathaniel BOBBY Performing Organization Address [facility] de Phone Number [facility] [place] [place] [address] * Surgical Pathology Report (01/05/2021 3:58 PM EDT) Pathologist [facility] Final Diagnosis [id number] ? Location: 4; [facility]; The signing pathologist has (i) examined the relevant preparation(s) for the specimen(s) and (ii) rendered or confirmed the diagnosis(es). . ?Surgical Pathology DIAGNOSIS A - Duodenum, ??biopsy: - ??Duodenal mucosa, negative for diagnostic abnormality ??. B - Stomach, ??biopsy: - ??Gastric antrum-type and body/fundic-typ e mucosa, negative for diagnostic abnormality. Electronically signed by: ?Marcello Rocha MD Verified: ??01/10/2021 16:35 ??Pathologist Performed at: ??-[facility] [place], [place], [place] SPECIMEN(S) SUBMITTED A - duodenum biopsies [...] labeled B1. ??pps 01/10/2021 4:35 PM EDT [facility] GI Biopsy 01/05/2021 3:58 PM EDT 01/05/2021 3:58 PM EDT GI Biopsy 01/05/2021 3:58 PM EDT 01/05/2021 3:58 PM EDT Rashawn Springer MD PATHOLOGY/CYTOLOGY O RDERABLES [facility] [place] [address] * COLONOSCOPY (01/05/2021 3:24 PM EDT) COLONOSCOPY [facility] Endoscopy Procedure Date: 01/05/2021 3:24 PM ? Patient Name: Jennifer Nunn ? Date of : 1975 ? Age: 45 ? Order #: [id number] ? Instrument Name: [id number] ? Procedure: ? Colonoscopy Indications: ? Generalized abdominal pain Providers: ? Yordan Riggins, ? Merline Ibrahim, Global Regulatory Affairs Manager Referring MD: ?Yesica Goff Medicines: ? Midazolam [...] preparation was ? evaluated using the BBPS ([place] ? Bowel Preparation Scale) with scores ? [...] UPPER GI ENDOSCOPY (01/05/2021 3:23 PM EDT) UPPER GI ENDOSCOPY [facility] Endoscopy ___ Procedure Date: 01/05/2021 3:23 PM ? Patient Name: Jennifer Nunn ? N: [id number] ? Date of : 1975 ? Age: 45 ? Order #: [id number] ? Instrument Name: [id number] ? ___ Procedure: ? Upper GI endoscopy Indications: ? nausea Providers: ? Rashawn Springer, Yordan Santos, ? Merline Ibrahim, Global Regulatory Affairs Manager Referring MD: ?Yesica Goff Medicines: ? Fentanyl [...] PROVATION 01/05/2021 3:23 PM EDT Yesica Goff MICA MACHINE OPERATOR GENERAL SURGICAL ORDERABLES PROVATION documented in this encounter Visit Diagnoses [...] MAR Action Action Date Dose Rate Site lactated ringers infusion 100 mL/hr, Intravenous, CONTINUOUS, Starting on Sun01/05/21 at 1515, Until Sun01/05/21 at 191, Endoscopy (Day of Procedure) documented in this encounter Active and Recently Administered Medications Times are shown in EDT. Continuous Medication Order 01/03/2021 01/04/2021 01/05/2021 lactated ringers infusion 100 mL/hr, Intravenous, CONTINUOUS, Starting on Sun01/05/21 at 1515, Until Sun01/05/21 at 1919, Endoscopy (Day of Procedure) 1515 (Due) PRN Medication Order 01/03/2021 01/04/2021 01/05/2021 fentaNYL (pf) (50 mcg/mL) multi-dose injection (CANCELED) ONCE PRN, Starting on Sun01/05/21 at 1539, Until Sun01/05/21 at 1919, Intra-Operative (Intra-Procedure), Routine 1539 (Given - Provid er: Yordan Santos RN)1542 (Given - Provider: Yordan Santos RN)1547 (Given - Provider: Yordan Santos RN)1548 [...] RN) documented in this encounter Care Teams Supervisor Gelatin Plant Relationship Specialty Start Date End Date Yesica Goff APRN [address] [place] [address] PCP - General Family Medicine 09/19/19 documented as of this encounter
--- OUTSIDE RECORDS SUMMARY | 2024-07-14 19:38 | XMS_ITS | Encounter Summary ---
Author Organization [facility] Address [facility] [place] [address] Care Team Providers Care Bead Filler Name Role Phone Yesica Goff APRN Primary Care Provider [phone] Reason for Visit * Consultation (Routine) - Closed Specialty Diagnoses / Procedures Referred By Boyd t Referred To Contact Gastroenterology Diagnoses Chronic abdominal pain Constipation, unspecified constipation type Abdominal bloating Abdominal distention Nausea without vomiting Hepatic steatosis LUQ abdominal pain ARM/smartpill for constipation and nausea Procedures ANORECTAL MANOMETRY PRG GI TRANSIT & PRESSURE MEASUREMENT WIRELESS CAPSULE W/INTERP ARM/smartpill for constipation and nausea Josiah Nickerson, [facility] [place] [address] [facility] [address] [place] [address] Referral ID Status Reason Start Date Expiration Date V isits Requested Visits Authorized [id number] Closed Consult, Test & Treat 12/15/2020 12/15/2021 1 1 Encounter Details Date Type Department Care Team (Latest Contact Info) Description 01/17/2021 2:00 PM EDT Procedure [place] [address] Constipation, unspecified constipation type Social History Tobacco Use Types Packs/Day Years [...] AM EDT documented as of this encounter Progress Notes * Katie Mensah RN - 01/17/2021 2:00 PM EDT A description of the anal manometry procedure was provided to the patient. All questions were answered and the patient verbalized understanding. After performing a digital rectal exam, the HRAM probe was placed in the rectum without difficulty and the procedure was performed. After removal of the probe, an anorectal balloon expulsion catheterwas placed in the rectum for continuation of the study and then removed. The patient tolerated the procedure well. * Junior Dennis MD - 01/17/2021 2:00 PM EDT Re: Jennifer Huynh Contract Attorney Reg No:[id number] : 1975 Date of Service: 01/17/21 ANORECTAL MANOMETRY w/BALLOON EXPULSION Referring provider:Josiah Nickerson Dear: Dr. Nickerson We had the pleasure of performing a high resolution anorectal manometry on your patient in the GI Motility Laboratory at [facility]. CLINICAL HISTORY AND INDICATION As you know, she is a 45 y.o. female with complaints of constipation RESULTS Resting sphincter length (>=25mmHg high pressure zone): 4.1 cm Resting sphincter pressure (NL Value: Males 70-100, Females 70-90) : 78 mmHg Max squeeze pressure (NL Value: Males 240-300, Females 160-200) : 133 mmHg Squeeze duration: poor (sustaining at least 50% of the difference between maximum squeeze and resting pressures for fewer than 5 seconds). Rectoanal inhibitory reflex: present at 60 ccs balloon distention Response to coughing: normal (cough elicits a pressure greater than or equal to double the resting pressure). Response to simulated defecation on push #1: normal Type of Dyssynergia: none Response to simulated defecation on push #2: normal Type of Dyssynergia: none Response to simulated defecation on push #3: normal Type of Dyssynergia: none Response to simulated defecation with 30 cc of air into the balloon: normal Type of Dyssynergia: none Summary Type of Dyssynergia by Manometry: none Percent of Sphincter Relaxation on Best Attempt: 37% Rectal Sensation: Threshold (NL Value: 30-70): 140mL Urgency (NL Value: 80-130): 160mL Maximum tolerated (NL Value: 130-200): 200mL Balloon expulsion test: 60 seconds in seated position IMPRESSION Consider MRI defecography to clarify whether dyssynergic defecation is present, if symptoms suggestthis diagnosis. If dyssynergia is confirmed on MRI defecography, then would consider a referral to physical therapy for biofeedback. Signed: Junior Dennis MD, [facility], [facility] [place] [address] V: [phone] F: [phone] CC/EC: Yesica Goff APRN [address] [place] [address] documented in this encounter Plan of Treatment Scheduled Referrals Name Type Priority Associated Diagnoses Order Schedule Referral to Gastroenterology Outpatient Referral Routine Chronic abdominal pain Constipation, unspecified constipation type Abdominal bloating Abdominal distention Nausea without vomiting Hepatic steatosis LUQ abdominal pain Ordered: 12/15/2020 documented as of this encounter Visit Diagnoses Diagnosis Constipation, unspecified constipation type documented in this encounter Care Teams Bead Filler Relationship Specialty Start Date End Date Yesica Goff APRN [address] [place] [address] PCP - General Family Medicine 09/19/19 documented as of this encounter
--- OUTSIDE RECORDS SUMMARY | 2024-07-14 19:38 | XMS_ITS | Encounter Summary ---
[place] [address] Care Team Providers Care Dry Color Tester Name Role Phone Yesica Goff APRN Primary Care Provider +1 [phone] Encounter Details Date Type Department Care Team (Latest Contact Info) Description 02/01/2021 9:30 AM EDT Procedure visit [place] [address] Jay Krause PA [address] [place] [id number] Chronic abdominal pain; Constipation, unspecified constipation type; [...] AM EDT documented as of this encounter Procedure Notes * Jay Krause PA - 02/01/2021 9:30 AM EDTAssociated Order(s): FIBROSCAN Procedure(s): FIBROSCAN Pre-Procedure Diagnose(s): Chronic abdominal pain; Constipation, unspecified constipation type; Abdominal bloating; Abdominal distention; Nausea without vomiting; Hepatic steatosis; LUQ abdominal pain [facility] Liver Fibrosis Assessment Report Indication: Fatty liver Performed by: MERARY Encarnacion Procedure: Vibration Controlled Transient Elastography (VCTE) or Fibroscan [place] Protocol: Patient's identity, procedure and site were verified, confirmatory pause performed. Discussed procedure including risks and potential complications. Questions answered. Patient verbalizes understanding and wishes to proceed with Fibroscan assessment. Patient was placed in the supine position with right arm in maximum abduction to allow optimal exposure of right lateral abdomen. Patient was briefly assessed. Testing was performed in the mid-axillary location. 50Hz Shear Wave pulses were applied and the resulting Shear Wave and Propagation Speed was detected with a 3.5MHz ultrasonic signal, using the Fibroscan probe. Skin to liver capsule distance and liver parenchyma were accessed during the entire examination with the Fibroscan probe. Patient was instructed to breathe normally and abstain from sudden movements during the procedure. At least ten Sheer Waves were produced; individual measurements of each Shear Wave were calculated. Patient tolerated the procedure well with no complications. Fibroscan Results: Median kPa: 4.5 Mean IQR: 11% (goal is <30 %) Number of valid measurements: 10 (at least 10 required) Number of invalid measurements: 0 Predicted fibrosis stage: F0-F1 CAP (dB/m): 367 Estimated steatosis grade: 3/3 % hepatocytes affected: > 66% Interpretation: Based on this Fibroscan result, history, clinical examination and review of laboratory and radiological data, this patient likely has stage 0-1 liver fibrosis and grade 3 steatosis affecting greater than 66% of hepatocytes. documented in this encounter Plan of Treatment Not on file documented as of this encounter Procedures Procedure Name Priority Date/Time Associated Diagnosis Comments [id number] Routine 02/01/2021 9:30 AM EDT Chronic abdominal pain Constipation, unspecified constipation type Abdominal bloating Abdominal distention Nausea without vomiting Hepatic steatosis LUQ abdominal pain documented in this encounter Results * [id number] (02/01/2021 9:30 AM EDT) Narrative Jay Krause PA - 02/01/2021 9:30 AM EDT Jay Krause PA ? 02/01/2021 ??9:47 AM [facility] Liver Fibrosis Assessment Report Indication: ?? Fatty liver Performed by: ??MERARY Encarnacion Procedure: Vibration Controlled Transient Elastography (VCTE) or Fibroscan [place] Protocol: Patient's identity, procedure and site were verified, confirmatory pause performed. Discussed procedure including risks and potential complications. Questions answered. Patient verbalizes understanding and wishes to proceed with Fibroscan assessment. Patient was placed in the supine position with right arm in maximum abduction to allow optimal exposure of right lateral abdomen. Patient was briefly assessed. Testing was performed in the mid-axillary location. 50Hz Shear Wave pulses were applied and the resulting Shear Wave and Propagation Speed was detected with a 3.5MHz ultrasonic signal, using the Fibroscan probe. Skin to liver capsule distance and liver parenchyma were accessed during the entire examination with the Fibroscan probe. Patient was instructed to breathe normally and abstain from sudden movements during the procedure. At least ten Sheer Waves were produced; individual measurements of each Shear Wave were calculated. Patient tolerated the procedure well with no complications. Fibroscan Results: Median kPa: 4.5 Mean IQR: 11% (goal is <30 %) Number of valid measurements: 10 (at least 10 required) Number of invalid measurements: 0 Predicted fibrosis stage: F0-F1 CAP (dB/m): 367 Estimated steatosis grade: 3/3 % hepatocytes affected: > 66% Interpretation: Based on this Fibroscan result, history, clinical examination and review of laboratory and radiological data, this patient likely has stage 0-1 liver fibrosis and grade 3 steatosis affecting greater than 66% of hepatocytes. Josiah Nickerson APRN PROCEDURE/MINOR KALPESH GICAL ORDERABLES documented in this encounter Visit Diagnoses Diagnosis Chronic abdominal pain Abdominal pain, unspecified site Constipation, unspecified constipation type Abdominal bloating Flatulence, eructation, and gas pain Abdominal distention Flatulence, eructation, and gas pain Nausea without vomiting Hepatic steatosis Other chronic nonalcoholic liver disease LUQ abdominal pain Abdominal pain, left upper quadrant documented in this encounter Care Teams Dry Color Tester Relationship Specialty Start Date End Date Yesica Goff APRN [address] [place] [address] PCP - General Family Medicine 09/19/19 documented as of this encounter
--- OUTSIDE RECORDS SUMMARY | 2024-07-14 19:39 | XMS_ITS | Encounter Summary ---
[facility] [place] [place] [address] Care Team Providers Care Unit Director Name Role Phone Yesica Goff APRN Primary Care Provider [phone] [phone] Encounter Details Date Type Department Care Team (Late st Contact Info) Description 03/16/2020 Telephone [place] [id number] Cristal Luke RN Social History Tobacco Use Types Packs/Day Years [...] encounter Miscellaneous Notes * Telephone Encounter - Cristal Purcell RN - 03/16/2020 10:26 AM EDT Images from the original note were not included. I received a call from Jennifer. She reports she has two lumps at her surgical site on the right and now on the left side as well. She reports she has two new lumps down below. She reports it is painful to turn her head sided to side. She is experiencing difficulty with swallowing- she needs to take little bites and drink with swallowing to get food to pass. She saw her primary care provider yesterday who noted her swollen neck and lumps. Jennifer said her PCP is going to get an ultrasound of her neck and will send the results to Dr. Baldwin. She als advised Jennifer to contact Dr. Baldwin's office to share this information. I let Jennifer know that I would share this with Dr. Baldwin and with Lona Snowden. Below is the last phone note from Dr. Baldwin to Jennifer. Amina Baldwin MD Physician General Surgery Telephone Encounter Signed Encounter Date: 11/26/2019 I called Ms. eJnnifer Huynh today to discuss the results of her pathology. Specifically, this demonstrated ?? Specimen ?Procedure: ??Right lobectomy Tumor ?Tumor Focality: ?? Unifocal ?Tumor Site: ?? 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 1.3 cm ?Extrathyroidal Extension: ?? Not identified ?Angioinvasion (vascular invasion): ?Not identified ?Lymphatic Invasion: ?? Not identified ?Perineural Invasion: ?? Not identified ?Margins: ??Involved by carcinoma ? Site(s) of Involvement: ?? One inked-cauterized margin (A8, A9) Lymph Nodes ?Number of Lymph Nodes Involved: ?? 0 ?Number of Lymph Nodes Examined: ?1 ?Jada Levels Examined:? Level Pathologic Stage Classification (pTNM, AJCC 8th Edition) ?Primary Tumor (pT): ?? pT1b ?Regional Lymph Nodes (pN): ?? She is doing well. Her voice sounds normal. We discussed the positive margin and the fact that tumor board may ultimately recommend a completion thyroidectomy because of this. I also referred her to endocrinology in hopes of coordinating her follow up on 12/17. ??1:43 PM documented in this encounter Plan of Treatment Not on file documented as of this encounter Visit Diagnoses Not on filedocumented in this encounter Care Teams Unit Director Relationship Specialty Start Date End Date Yesica Goff APRN [address] [place] [address] PCP - General Family Medicine 09/19/19 documented as of this encounter
--- OUTSIDE RECORDS SUMMARY | 2024-07-14 19:39 | XMS_ITS | Encounter Summary ---
Author Organization [facility] Address [facility] [place] [address] Care Team Providers Care Video Tape Duplicator Name Role Phone Unknown Primary Care Provider Unavailabl e Reason for Visit * Reason Comments Positive Screen For Down Syndrome Encounter Details Date Type Department Care Team (Late st Contact Info) Description 03/08/2011 10:30 AM EDT Office Visit [address] [address] Erica Edmonds MD [facility] DR OBSTETRICS & [place] [address] Risk of chromosome anomaly affecting care of mother, antepartum; HSV (herpes simplex virus) anogenital infection; Bladder stones Discharge Disposition: Home Social History Tobacco Use Types Packs/Day Years Used Date Smoking Tobacco: Never Alcohol Use Standard Drinks/Week Comments No 0 (1 standard drink = 0.6 oz pur e alcohol) Comments Yes Sex and Gender Information Value Date Recorded Sex Assigned at Female 12/31/2020 10:58 AM EDT Gender Identity Female 12/31/2020 10:58 AM EDT Sexual Orientation Straight 12/31/2020 10 :58 AM EDT documented as of this encounter Progress Notes * Erica Edmonds MD - 03/08/2011 1:34 PM EDT Diagnosis/Maternal Medicine Consult Note Jennifer Nunn is a 35 y.o. year old female with an Estimated Date of Delivery: 08/08/11who is at 18w1d weeks gestation. She is referred at the request of Ale Arcos CNM for consultationsecondary to abnormal screening for Down Syndrome. She was seen today for maternal- medicine consultation, ultrasound evaluation and genetic counseling with Noman Elmore MS. Review of Systems Constitutional:feels well Movement: normal Contractions: none Leaking: None Patient Active Problem List Diagnoses Date Noted ??? Risk of chromosome anomaly affecting care of mother, antepartum [V28.89AC] 03/08/2011 ??? HSV (herpes simplex virus) anogenital infection [054.9BH] 03/08/2011 ??? Bladder stones [594.1G] 03/08/2011 No past medical history on file. No past surgical history on file. No family history on file. Social History Occupational History ??? Not on file. Social History Main Topics ??? Smoking status: Never Smoker ??? Smokeless tobacco: Not on file ??? Alcohol Use: No ??? Drug Use: No ??? Sexually Active: OB History Grav Para Term Abortions TAB SAB Ect Mult Living 4 3 3 3 # Outc Date GA Lbr Jorge L/2nd Wgt Sex Del Anes PTL Lv 1 TRM 09/02 41w0d M Yes 2 TRM 10/06 40w6d M Yes 3 TRM 08/08 40w3d M Yes 4 CUR Current outpatient prescriptions Medication Sig Dispense Refill ? ? vitamin 27 & [id number] 60 mg (Iron)-1 mg tablet Take 1 tablet by mouth daily. No Known Allergies Record Review Regular Care Ultrasound from Today Growth appropriate for gestational age Amniotic fluid volume normal Placenta anterior Presentation other Transverse Additional findings: No structural anomalies found. Physical Exam Last Set of Vitals: LMP 11/01/2010 General: alert, well appearing, in no apparent distress Abdomen: abdomen is soft without significant tenderness, masses, organomegaly or guarding. Neurologic:alert, oriented, normal speech, no focal findings or movement disorder noted Psychiatric: Affect is Appropriate. Uterine Size: S=D Assessment and Recommendations: 35 y.o. year old female at 18w1d weeks gestation referred for evaluation secondary to abnormal serum screening for Down syndrome. Please refer to my problem list below which describes the counseling performed today. Bladder stones - ERICA EDMONDS MD 03/08/11 01:32 PM Signed Required surgical removal. Risk of chromosome anomaly affecting care of mother, antepartum - ERICA EDMONDS MD 03/08/1101:34 PM Signed Abnormal serum screening for aneuploidy increased the [...] defer amniocentesis. No follow-up examinations are indicated. I appreciate the opportunity to be involved in this patients care, and am available if further questions should arise. ERICA EDMONDS MD, MS Professor Obstetrics & Gynecology and [facility]iology [facility] 03/08/2011 documented in this encounter Miscellaneous Notes * Miscellaneous - Radha Hartley - 05/15/2011 2:12 PM EDT * Assessment & Plan Note - Erica Edmonds MD - 03/08/2011 1:34 PM EDT Associated Problem(s): Risk of chromosome anomaly affecting care of mother, antepartum Abnormal serum screening for aneuploidy increased the [...] defer amniocentesis. No follow-up examinations are indicated. * Assessment & Plan Note - Erica Edmonds MD - 03/08/2011 1:32 PM EDT Associated Problem(s): Bladder stones Required surgical removal. documented in this encounter Plan of Treatment Not on file documented as of this encounter Visit Diagnoses Diagnosis Risk of chromosome anomaly affecting care of mother, antepartum Other specified screening HSV (herpes simplex virus) anogenital infection Herpes simplex without mention of complication Bladder stones Other calculus in bladder documented in this encounter Care Teams Video Tape Duplicator Relationship Specialty Start Date End Date Unknown None PCP - General 08/23/10 03/15/11 documented as of this encounter
--- OUTSIDE RECORDS SUMMARY | 2024-07-14 19:39 | XMS_ITS | Encounter Summary ---
Author Organization [facility] [place] [address] Care Team Providers Care Computer Discovery Teacher Name Role Phone Yesica Goff APRN Primary Care Provider +1 [phone] Encounter Details Date Type Department Care Team (Late st Contact Info) Description 12/16/2019 Telephone [place] [phone] Leeann Mcghee Social History Tobacco Use Types Packs/Day Years [...] encounter Miscellaneous Notes * Telephone Encounter - Leeann Mcghee - 12/16/2019 10:[address] Baldwin and MODE Snowden contacted patient regarding her post-operative check scheduled for November due to COVID-19. Patient did not answer her phone. A voicemail was left advising her that we were canceling our clinic. Asked that patient call our office if she is having any post-surgical complications or issues. Noted patient is scheduled to see Dr. Song on and asked that she complete labs for MODE Snowden/Dr. Baldwin. If there are any concerns with her lab values she would be called. documented in this encounter Plan of Treatment Not on file documented as of this encounter Visit Diagnoses Not on filedocumented in this encounter Care Teams Computer Discovery Teacher Relationship Specialty Start Date End Date Yesica Goff APRN [address] [place] [address] PCP - General Family Medicine 09/19/19 documented as of this encounter
--- OUTSIDE RECORDS SUMMARY | 2024-07-14 19:39 | XMS_ITS | Encounter Summary ---
Author Organization [facility] [address] Care Team Providers Care Amphibian Crewmember Name Role Phone Yesica Goff APRN Primary Care Provider +1 [phone] Encounter Details Date Type Department Care Team (Latest Contact Info) Description 09/23/2019 9:15 AM EST - 09/23/2019 11:59 PM EST [place] [phone] Discharge Disposition: Home Social History Tobacco Use [...] Sig Dispensed Refills Start Date End Date famotidine (Pepcid) 20 mg Tablet TAKE ONE TABLET BY MOUTH EVERY DAY 09/23/2019 melatonin 5 mg Tablet TAKE ONE TO TWO TABLETS BY MOUTH AT BEDTIME NEEDED 07/10/2019 sucralfate (Carafate) 1 gram Tablet TAKE ONE TABLET BY MOUTH 30 MINUTES BEFORE EACH MEAL AND AT BEDTIME 08/25/2019 vitamin 27 & [id number] 60 mg (Iron)-1 mg tablet Take 1 tablet by mouth daily. 10/30/2019 documented as of this encounter Plan of Treatment Not on file documented as of this encounter Procedures Procedure Name Priority Date/Time Associated Diagnosis Comments NON-RESPIRATORY TECH FINAL REPORT Routine 09/23/2019 9:15 AM EST documented in this encounter Results * [facility] Final Report (09/23/2019 9:15 AM EST) [facility] Final Report [id number] ? Location: [facility] The signing pathologist has (i) examined the relevant preparation(s) for the specimen(s) and (ii) rendered or confirmed the diagnosis(es). . ? [facility] Final DIAGNOSIS Positive for Malignancy Electronically signed by: ??Medhat CARSON, Aristides Tyler Verified: ??09/23/2019 ?Pathologist Performed at: ??-[facility] Dept. of Pathology, [place], [place] DISCUSSION Thyroid, right lobe (FNA): Papillary thyroid carcinoma. Cellular aspirate comprised of atypical follicular epithelial cells arranged in sheets, crowded groups, and papillae. Nuclear grooves, nuclear hypochromasia, and numerous intranuclear pseudoinclusions are present. Reference: Rosey SANTA, [place]. The [place] System for Reporting Thyroid Cytopathology. [place]: Fong; 2018. CLINICAL INFORMATION CONSULTATION CASE Source: ??Thyroid, right (FNA) Clinical History: ??Right thyroid nodule Received 1 slide(s) labeled [id number] Received 0 block(s). Specimen collection date: ??09/10/2019. For the full text of the [facility] report(s), please refer to eD - Chart Review scanned documents tab. [facility] Tracking #: ??[id number]. Report to: [facility] Surgical Pathology Department [facility], [facility], 2nd Floor [address] [place], [place] ??[address] [facility] 09/23/2019 9:15 AM EST Amina Baldwin MD PATHOLOGY/CYTOLOG Y ORDERABLES [facility] [place] [address] documented in this encounter Visit Diagnoses Not on filedocumented in this encounter Care Teams Amphibian Crewmember Relationship Specialty Start Date End Date Yesica Goff APRN [address] [place] [address] PCP - General Family Medicine 09/19/19 documented as of this encounter
--- OUTSIDE RECORDS SUMMARY | 2024-07-14 19:39 | XMS_ITS | Encounter Summary ---
[place] [address] Care Team Providers Care Central Communications Specialist Name Role Phone Yesica Goff APRN Primary Care Provider [phone] [phone] Encounter Details Date Type Department Care Team (Latest Contact Info) Description 12/18/2019 12:45 PM EDT Laboratory Appointment Lab [address] [place] [phone] History of thyroid cancer Social History Tobacco [...] Name Priority Date/Time Associated Diagnosis Comments HC THYROGLOBULIN Routine 12/18/2019 12:3 6 PM EDT History of thyroid cancer HC THYROID STIMULATING HORMONE, SERUM Routine 12/18/2019 12:36 PM EDT History of thyroid cancer HC CALCIUM, SERUM Routine 12/18/2019 12: 36 PM EDT History of thyroid cancer documented in this encounter Results * TSH (12/18/2019 12:36 PM EDT) Thyroid Stimulating Hormone 1.97 0.27 - 4.20 mcIU/mL [facility] Blood specimen (specimen) 12/18/2019 12:36 PM EDT 12/18/2019 12:42 PM EDT Narrative Resulting Agency Comment Spec In Lab Asad Song MD CHEMISTRY ORDERABLE S [facility] [place] [address] * Thyroglobulin (12/18/2019 12:36 PM EDT) Thyroglobulin 17.2 <=54.9 ng/mL [facility] Thyroglob Ab <20.0 0.0 - 40.0 IU/mL [facility] Blood specimen (specimen) 12/18/2019 12:36 PM EDT 12/18/2019 1:44 PM EDT Narrative Resulting Agency Comment Spec In Lab Asad Song MD LAB SEND OUT ORDERA BLES [facility] [place] [address] * Calcium (12/18/2019 12:36 PM EDT) Calcium 9.1 8.5 - 10.5 mg/dL [facility] Blood specimen (specimen) 12/18/2019 12:36 PM EDT 12/18/2019 12:42 PM EDT Narrative Resulting Agency Comment Spec In Lab Asad Song MD CHEMISTRY ORDERABLE S [facility] [place] [address] documented in this encounter Visit Diagnoses Diagnosis History of thyroid cancer Personal history of malignant neoplasm of thyroid documented in this encounter Care Teams Central Communications Specialist Relationship Specialty Start Date End Date Yesica Goff APRN [address] [place] [id number] PCP - General Family Medicine 09/19/19 documented as of this encounter
--- OUTSIDE RECORDS SUMMARY | 2024-07-14 19:39 | XMS_ITS | Encounter Summary ---
Author Organization [place] [address] Care Team Providers Care Market Basket Maker Name Role Phone Yesica Goff APRN Primary Care Provider [phone] [phone] Encounter Details Date Type Department Care Team (Late st Contact Info) Description 11/26/2019 Telephone [place] [address] Amina Baldwin MD [facility] [place] [address] Social History Tobacco Use Types Packs/Day Years [...] encounter Miscellaneous Notes * Telephone Encounter - Amina Baldwin MD - 11/26/2019 12:59 PM EST Left patient a VM asking her to call back to discuss her pathology and to be sure she is scheduled for a follow up visit, as I do not see it displayed on her encounter list. documented in this encounter Plan of Treatment Not on file documented as of this encounter Visit Diagnoses Not on filedocumented in this encounter Care Teams Market Basket Maker Relationship Specialty Start Date End Date Yesica Goff APRN [address] [place] [address] PCP - General Family Medicine 09/19/19 documented as of this encounter
--- OUTSIDE RECORDS SUMMARY | 2024-07-14 19:39 | XMS_ITS | Encounter Summary ---
Author Organization Formerly [facility] [place] [address] Care Team Providers Care Refuse Driver Name Role Phone Yesica Goff APRN Primary Care Provider [phone] Reason for Visit * Reason Comments Establish Care * Consultation (Routine) - Specialty Diagnoses / Procedures Referred By Contac t Referred To Contact General Surgery Procedures Papillary thyroid cancer; right thyroid nodule Jd Levine MD [address] [place] [address] [place] [address] Amina Baldwin MD [facility] [place] [address] Referral ID Status Reason Start Date Expiration Date V isits Requested Visits Authorized [id number] 09/19/2019 09/18/2020 1 1 Encounter Details Date Type Department Care Team (Late st Contact Info) Description 10/30/2019 11:00 AM EST Office [place] [address] Amina Baldwin MD [facility] [place] [address] Primary thyroid cancer Social History Tobacco Use Types [...] Sign Reading Time Taken Comments Blood Pressure 127/69 10/30/2019 11:09 AM EST Pulse 76 10/30/2019 11:09 AM EST Temperature 36.7 ??C (98 ??F) 10/30/2019 11:09 AM EST Respiratory Rate 14 10/30/2019 11:09 AM EST Oxygen Saturation 100% 10/30/2019 11:09 AM EST Inhaled Oxygen Concentration - - Weight 77 kg (169 lb 11.2 oz) 10/30/2019 11:09 A M EST Height 157.5 cm (5' 2) 10/30/2019 11:09 AM EST Body Mass Index 31.04 10/30/2019 11:09 AM EST documented in this encounter Progress Notes * Amina Baldwin MD - 10/30/2019 11:00 AM EST Endocrine Surgery Initial Consultation HPI: Ms. Jennifer Nunn is a 44 y.o. year old female referred by Dr. Levine who presents for evaluation of a right-sided thyroid nodule. This was initially noted on physical exam. She denies compressive symptoms including dysphagia, dyspnea, globus sensation, positional discomfort and voice changes. She denies symptoms of hyperthyroidism or hypothyroidism, and recent thyroid function tests have been normal. There is not personal history of radiation exposure, and the patient has not had prior anterior neck surgery. There is not family history of endocrine tumors or malignancy. Her mother did have a partial thyroidectomy in the past for what sounds like a benign nodule. Imaging studies to date include thyroid ultrasound performed in [place] which demonstrated a 1 x 1 x 1.2cm right-sided thyroid nodule. There is not a reported substernal component. Fine needle aspiration biopsy has been performed by Dr. Levine and cytology was malignant ([place]6). Molecular testing was not indicated. She is now referred to me for consideration of surgical management of her thyroid disease. Past Medical History: Diagnosis Date ??? Indigestion ??? Migraine Past Surgical History: Procedure Laterality Date ??? LITHOTRIPSY ??? TUBAL LIGATION Current Outpatient Medications on File Prior to Visit Medication Sig Dispense Refill ??? famotidine (Pepcid) 20 mg Tablet TAKE ONE TABLET BY MOUTH EVERY DAY ??? melatonin 5 mg Tablet TAKE ONE TO TWO TABLETS BY MOUTH AT BEDTIME NEEDED ??? omeprazole (PriLOSEC) 40 mg Capsule, Delayed Release(E.C.) TAKE ONE CAPSULE BY MOUTH EVERY DAY ??? acyclovir (Zovirax) 400 mg Tablet TAKE ONE TABLET BY MOUTH TWICE A DAY ??? traZODone (Desyrel) 50 mg Tablet TAKE 1/2 1 TABLET BY MOUTH AT BEDTIME FOR SLEEP ??? sucralfate (Carafate) 1 gram Tablet TAKE ONE TABLET BY MOUTH 30 MINUTES BEFORE EACH MEAL AND ATBEDTIME No current facility-administered medications on file prior to visit. No Known Allergies Family History: No thyroid cancer. Her mother did have a partial thyroidectomy in the past and doesnot require thyroid hormone replacement (remembers it being benign pathology). No pituitary, pancreas or adrenal tumors. No parathyroid disease. Social History: nonsmoker. 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 Lives with her mother, brother, and her 4 children ranging in age from 8 to 16. She does not do any professional public speaking or singing. Review of Systems - 10 of 14 systems were reviewed with the patient and were negative except as perHPI Most Recent Vitals: 10/30/19 1109 BP: 127/69 Pulse: 76 Resp: 14 Temp: 36.7 ??C (98 ??F) SpO2: 100% PainSc: 2 Body mass index is 31.04 kg/m??. Physical Exam: General: well-appearing, NAD Neuro: Alert and oriented x 3. Cranial nerves II-XII grossly intact. Eyes: no lid lag or proptosis ENT: Moist mucus membranes. Trachea midline Thyroid: small (~1cm) hard right-sided thyroid nodule. Mobile with swallowing. Lymph: No palpable cervical lymphadenopathy CV: RRR Respiratory: Normal respiratory effort. Lungs clear bilaterally. Extremities well-perfused without edema Skin: warm and dry. No rashes Psych: appropriate affect Labs: TSH not available Imaging: Thyroid, Parathyroid and Cervical Ultrasound I performed a thyroid, parathyroid and cervical ultrasound at the time of the clinic visit today using the 12 mHz linear ultrasound transducer. The thyroid, parathyroid and central and bilateral lateral neck lymph node basins were evaluated. Thyroid Isthmus: Thickness: 0.30 cm Nodules: none Right lobe: Lobe: 4.71 x 1.20 x 1.82 cm Nodules: There is a hypoechoic nodule measuring 1.14 x 0.76 x0.92 cm. It has well-defined borders. There may be a few scattered microcalcifications. There is no/low vascularity. It is situated just lateral to the isthmus and directly adjacent to the trachea Left lobe: Lobe: 4.55 x 1.13 x 1.93 cm Nodules: none Cervical lymph nodes Central neck: Normal ultrasonographic appearing lymph nodes. Right lateral neck: Normal ultrasonographic appearing lymph nodes. Left lateral neck: Normal ultrasonographic appearing lymph nodes. A/P: Ms. Jennifer Nunn is a 44 y.o. year old female with a right-sided thyroid nodule and FNA demonstrating malignant (Herreid 6) cytology. We had a long discussion about the pros and cons of total vs hemithyroidectomy in this situation. Her cancer is very small and her contralateral lobe is pristine. There is no sonographic evidence of jeyson involvement. I therefore recommended right thyroid lobectomy, and she agrees with this approach. We discussed the fact that should the final pathology report contain any high risk features, she would require a completion thyroidectomy. We also discussed the fact that up to 70% of thyroid cancer patients will require some thyroid hormone supplementation after hemithyroidectomy to achieve goal TSH suppression, and we will determine whether she needs this by checking a TSH 6 weeks post-operatively. She will also be referred to endocrinology to be followed post-operatively. I discussed the risks of thyroid surgery including, but not limited to,laryngeal nerve injury resulting in voice changes or hoarseness, low calcium due to damage or removal of one or more parathyroid glands, bleeding which may require return to the operating room, post-operative infection and other complications related to anesthesia. The patient's questions were answered, and consent was obtained today. We will schedule surgery for the next mutually convenient date. CESQIP Data Body mass index is 31.04 kg/m??. Race: Patient Ethnicity & Race Ethnic Group Patient Race Not nor White Prior neck irradiation: no Prior anterior neck surgery: no Pre-operative laryngoscopy: no Anti-coagulation meds (aspirin, warfarin, clopidogrel, heparin, oral thrombin or factor Xa inhibitors): no Substernal component: no Symptoms of compression: no FNA: yes FNA Classification: Herreid 6 documented in this encounter Plan of Treatment Not on file documented as of this encounter Visit Diagnoses Diagnosis Primary thyroid cancer Malignant neoplasm of thyroid gland documented in this encounter Care Teams Refuse Driver Relationship Specialty Start Date End Date Yesica Goff APRN [address] [place] [address] PCP - General Family Medicine 09/19/19 documented as of this encounter
--- OUTSIDE RECORDS SUMMARY | 2024-07-14 19:39 | XMS_ITS | Encounter Summary ---
[place] [address] Care Team Providers Care Oracle Specialist Name Role Phone Yesica Goff APRN Primary Care Provider [phone] Encounter Details Date Type Department Care Team (Latest Contact Info) Description 04/09/2020 10:20 AM EDT Laboratory Appointment Lab [address] [place] [id number] Thyroid nodule Social History Tobacco Use Types Packs/Day Years [...] Name Priority Date/Time Associated Diagnosis Comments HC VENIPUNCTURE Routine 04/09/2020 8:50 AM EDT Thyroid nodule documented in this encounter Results * (ABNORMAL) TSH (04/09/2020 8:50 AM EDT) Thyroid Stimulating Hormone 4.37(H) 0.27 - 4.20 mcIU/mL [facility] Blood specimen (specimen) 04/09/2020 8:50 AM EDT 04/09/2020 8:55 AM EDT Narrative Resulting Agency Comment Spec In Lab Amina Baldwin MD CHEMISTRY ORDERAB LES [facility] [place] [address] documented in this encounter Visit Diagnoses Diagnosis Thyroid nodule Nontoxic uninodular goiter documented in this encounter Care Teams Oracle Specialist Relationship Specialty Start Date End Date Yesica Goff APRN [address] [place] [address] PCP - General Family Medicine 09/19/19 documented as of this encounter
--- OUTSIDE RECORDS SUMMARY | 2024-07-14 19:39 | XMS_ITS | Encounter Summary ---
Author Organization [facility] Address [facility] [place] [address] Care Team Providers Care Source Inspector Name Role Phone Dionna Gaston MD Primary Care Provider Encounter Details Date Type Department Care Team (Late st Contact Info) Description 09/10/2019 Ancillary Procedure Radiology Library at [facility] [address] Dionna Gaston MD [address] [place] [address] Social History Tobacco Use Types Packs/Day Years [...] Procedure Name Priority Date/Time Associated Diagnosis Comments FILM LIBRARY STORAGE ONLY ULTRASOUND STUDY Routine 09/10/2019 12:00 AM EST documented in this encounter Results * Film Library- Storage Only Ultrasound Study (09/10/2019 12:00 AM EST) Narrative [facility] - 09/17/2019 4:39 PM EST This exam is auto-finalizing. It's purpose is for storage only. Dionna Gaston MD IMG FILM LIBRARY ORD ERABLES [facility] [place], [place] documented in this encounter Visit Diagnoses Not on filedocumented in this encounter Care Teams Source Inspector Relationship Specialty Start Date End Date Dionna Gaston MD [address] [place] [address] PCP - General 03/16/11 09/18/19 documented as of this encounter
--- OUTSIDE RECORDS SUMMARY | 2024-07-14 19:39 | XMS_ITS | Encounter Summary ---
Author Organization [facility] Address [place] [place] [address] Care Team Providers Care Network Control Operators Supervisor Name Role Phone Yesica Goff APRN Primary Care Provider [phone] Reason for Visit * Consultation (Routine) - Closed Specialty Diagnoses / Procedures Referred By Boyd ren Referred To Contact Otolaryngology Diagnoses Painful swallowing Lona Snowden BIOFUELS TECHNOLOGY DEVELOPMENT MANAGER [facility] [place] [address] [facility] Otolaryngology [address] [place] [id number] Referral ID Status Reason Start Date Expiration Date V isits Requested Visits Authorized [id number] Closed Consult, Test & Treat 04/09/2020 04/09/2021 1 1 Encounter Details Date Type Department Care Team (Late st Contact Info) Description 07/29/2020 4:30 PM EDT Office Visit [place] [address] Dionna Bhardwaj BIOFUELS TECHNOLOGY DEVELOPMENT MANAGER [facility] [place] [address] Hoarseness Social History Tobacco Use Types Packs/Day Years [...] Sign Reading Time Taken Comments Blood Pressure - - Pulse - - Temperature - - Respiratory Rate - - Oxygen Saturation - - Inhaled Oxygen Concentration - - Weight 79.6 kg (175 lb 6.4 oz) 07/29/2020 3:18 P M EDT Height 157.5 cm (5' 2) 07/29/2020 3:18 PM EDT Body Mass Index 32.08 07/29/2020 3:18 PM EDT documented in this encounter Progress Notes * Dionna Bhardwaj APRN - 07/29/2020 4:30 PM EDT Otolaryngology Outpatient Consultation Note Date of Visit: 07/29/2020 Location of Visit: Otolaryngology Clinic, [facility] Patient: Jennifer Nunn ([id number] ; 1975 Primary Care Provider: Yesica Goff APRN Referring Provider: Lona Snowden Reason for Visit: Jennifer is a 44 y.o. female with a hx of papillary carcinoma with total thyroidectomy performed on 04/30/2020 with . She is here for a vocal cord evaluation with a hx ofbeing hoarse after surgery. Here for an evaluation of her vocal cords. History of Present Illness: Jennifer presents with the above history here for an evaluation of hervocal cords. She did have a total thyroidectomy on 04/30/2020 with papillary carcinoma. She noticed for a month she was hoarse. She now has a normal sounding voice. No swallowing issues or SOB. No cough. She has been seen by Endocrinology. She does have a hx of reflux. Past Medical History: Past Medical History: Diagnosis Date ??? Indigestion ??? Migraine ??? Thyroid cancer 12/18/2019 Past Surgical History: Past Surgical History: Procedure Laterality Date ??? LITHOTRIPSY ??? PRG EMG, LARYNX N/A 11/07/2019 FACIAL NERVE MONITORING, SETUP LARYNGEAL (WRVU 1.57) performed by Amina Baldwin MD at [facility] MAIN OR ??? PRG EMG, LARYNX N/A 04/30/2020 FACIAL NERVE MONITORING, SETUP LARYNGEAL (WRVU 1.57) performed by Amina Baldwin MD at [facility] OSC ??? PRO THYROID LOBECTOMY, UNILAT Right 11/07/2019 THYROIDECTOMY, LOBECTOMY, TOTAL, UNILATERAL (WRVU 11.19) performed by Amina Baldwin MD at [facility] MAIN OR ??? PRO THYROIDECTOMY POST PREV THYR SURG Left 04/30/2020 THYROIDECTOMY, REMOVE REMAINING TISSUE (WRVU 18.26) performed by Amina Baldwin MD at [facility] OSC ??? TUBAL LIGATION Medications: Current Outpatient Medications on File Prior to Visit Medication Sig Dispense Refill ??? calcium citrate-vitamin D (Calcium Citrate +) 315 mg-5 mcg (200 unit) Tablet Take 2 tablets by mouth 3 times daily (with meals). ??? levothyroxine (Synthroid) 137 mcg Tablet Take 1 tablet by mouth daily. 90 tablet 3 ??? acetaminophen (Tylenol) 325 mg Tablet Take 2 tablets by mouth every 6 hours as needed for Pain.30 tablet 1 ??? ibuprofen (Advil;Motrin) 600 mg Tablet Take 1 tablet by mouth every 6 hours as needed for Pain.30 tablet 12 ??? famotidine (Pepcid) 20 mg Tablet TAKE [...] facility-administered medications on file prior to visit. Allergies: Patient has no known allergies. Social History: Jennifer Nunn lives in [place] [address], Review of Systems: Pertinent positive findings discussed above. No other findings on review of constitutional, visual, cardiovascular, respiratory, gastrointestinal, genitourinary, musculoskeletal, dermatologic, neurological, psychiatric, endocrine, hematologic or immunologic systems. Physical Examination: Vitals: unknown if currently . General: A pleasant 44 y.o. In no acute distress with a clear voice. Face: Full and symmetric facial movement. No dysmorphic facial features. Ears: Auricles symmetric without lesions. External auditoy canals with non occluding cerumen. Righttympanic membrane clear. right middle ear no obvious pathology. Left tympanic membrane clear. left middle ear no obvious pathology. Nose: Patent anteriorly with adequate airflow, healthy pink mucosa. Septum is midline without significant deviation. Inferior turbinates wno Mouth: Lips and gingiva pink, moist, without lesions. Age-appropriate dentition healthy. Tongue andfloor of mouth soft without lesions or masses. Hard palate without lesions. Pharynx: Soft palate without lesions. Uvula is intact without evidence of submucus cleft palate. Oropharynx symmetric. Neck: Soft, supple, without significant lymphadenopathy. Incision along the anterior aspect is clean, dry and intact. No masses Trachea midline without deviation. Neurologic: Cranial nerves II-XII intact and symmetric. Procedure - Flexible Fiberoptic Laryngoscopy: Topical anesthetic applied to the nasal cavity. Patient tolerated the procedure well without complication. Findings: Nasal Cavity: Septal spur on the right with no masses. Nasopharynx: clear mucus Oropharynx: wnl Larynx: Vocal cords mobile and symmetric. Arytenoid folds wnl. No masses Hypopharynx: wnl Impression: 1) Hx of papillary carcinoma with total thyroidectomy. Hx of hoarseness now resolved. Recommendations: Doing well. No c/o of dysphagia. Voice is clear. RTC prn. Dionna ALDANA [place], [place] [address] Office documented in this encounter Plan of Treatment Scheduled Referrals Name Type Priority Associated Diagnoses Orde r Schedule Referral to ENT Outpatient Referral Routine Painful swallowing Ordered: 04/09/2020 documented as of this encounter Visit Diagnoses Diagnosis Hoarseness Dysphonia documented in this encounter Care Teams Network Control Operators Supervisor Relationship Specialty Start Date End Date Yesica Goff APRN [address] [place] [address] PCP - General Family Medicine 09/19/19 documented as of this encounter
--- OUTSIDE RECORDS SUMMARY | 2024-07-14 19:39 | XMS_ITS | Encounter Summary ---
[place] [address] Care Team Providers Care Cooking Show Host Name Role Phone Yesica Goff APRN Primary Care Provider [phone] Reason for Referral * Consultation (Routine) - Closed Specialty Diagnoses / Procedures Referred By Boyd ren Referred To Contact Otolaryngology Diagnoses Painful swallowing Lona Snowden APRN [facility] [place] [address] [facility] Otolaryngology [address] [place] [phone] Referral ID Status Reason Start Date Expiration Date V isits Requested Visits Authorized [id number] Closed Consult, Test & Treat 04/09/2020 04/09/2021 1 1 Encounter Details Date Type Department Care Team (Latest Contact Info) Description 04/09/2020 11:20 AM EDT Office Visit [place] [id number] Lona Snowden APRN [facility] [place] [address] Painful swallowing; S/P partial thyroidectomy Social History Tobacco Use Types Packs/Day Years [...] as of this encounter Progress Notes * Lona Snowden, NATIONAL ACCOUNT REPRESENTATIVE - 04/09/2020 11:20 AM EDT Thyroid Lobectomy Follow Up Subjective: Ms. Jennifer Nunn is a very pleasant 44 y.o. year old female who is 5 months s/p right thyroidlobectomy for papillary thyroid carcinoma. Her initial follow up was canceled due to the pandemic. She is doing well. She does complain of neck swelling. She has had an ultrasound with Dr. Song in endocrinology in November and she had a repeat ultrasound in March at [facility]. Both ultrasounds do not show any gross abnormality. She also states she has pain over the central part of her neck. She finds that food gets stuck, she sticks with a soft diet. Her children have commented on her voice being squeaky at times. Exam: There were no vitals filed for this visit. Healing anterior neck incision with underlying healing ridge. No hematoma or seroma. Voice appears normal. Pathology: Specimen ?Procedure: ??Right lobectomy Tumor ?Tumor Focality: [...] (pT): ?? pT1b ?Regional Lymph Nodes (pN): Labs: Lab Results Component Value Date TSH 4.37 (H) 04/09/2020 Assessment and Plan: Ms. Jennifer Nunn is a very pleasant 44 y.o. year old female s/p right thyroid lobectomy who is okay post-operatively without evidence of complications. I discussed the pathology results with the patient and recommended she discuss completion surgery due to positive margins TSH today was high,so she will require thyroid hormone supplementation. I have sent a prescription for 25 mcg to her pharmacy given that we would like her to be more on the suppressed side. I discussed scar massage with vitamin E to aid in incisional appearance and discussed the importance of UV light protection on sc ar healing. She is agreeable to doing a phone consent for completion surgery and I will ask Dr. Baldwin to call her. She is due to see Dr. Song in June and I will ask him to check a TSH at that time ifshe has not had surgery. I have placed a referral to ENT for laryngoscopy to evaluate painful swallowing. Lona Snowden APRN documented in this encounter Plan of Treatment Scheduled Referrals Name Type Priority Associated Diagnoses Orde r Schedule Referral to ENT Outpatient Referral Routine Painful swallowing Ordered: 04/09/2020 documented as of this encounter Visit Diagnoses Diagnosis Painful swallowing Dysphagia, unspecified S/P partial thyroidectomy Other postprocedural status documented in this encounter Care Teams Cooking Show Host Relationship Specialty Start Date End Date Yesica Goff APRN [address] [place] [address] PCP - General Family Medicine 09/19/19 documented as of this encounter
--- OUTSIDE RECORDS SUMMARY | 2024-07-14 19:39 | XMS_ITS | Encounter Summary ---
Author Organization [place] [address] Care Team Providers Care Car Construction Superintendent Name Role Phone Unknown Primary Care Provider Unavailabl e Reason for Visit * Reason Comments Positive Screen For Down Syndrome Encounter Details Date Type Department Care Team (Late st Contact Info) Description 03/08/2011 9:00 AM EDT Office Visit [address] [address] Noman [place], [facility] DR [facility] [place] [address] Abnormal findings on screening (Primary Dx); Genetic counseling Social History Tobacco Use Types Packs/Day Years [...] as of this encounter Progress Notes * Noman [place], [place] - 03/10/2011 11:22 AM EDT Jennifermaria isabel Nunn was referred to the Diagnosis Program by Ale Key CNM due to a at increased risk for Down syndrome based on quad marker screening. I met with Jennifer for a30 minute genetic counseling visit prior to her ultrasound and maternal- medicine consultation. She was accompanied to the visit by her mother, Tammie Nunn. history Jennifer is a 35 y.o. currently at 18w1d by menstrual dating (GERSON 08/08/2011). Her dating was confirmed by an eight week ultrasound. She had a quad marker screen, which was screen positive for Down syndrome (risk 1:204) and screen negative for open spina bifida (risk 1:93347) and trisomy 18(risk 1:51062). Family history Jennifer's family history was unremarkable for any individuals with mental retardation, defects, recurrent loss, or known genetic conditions. Assessment at increased risk for Down syndrome Discussion We addressed the implications of a positive quad marker screen for Down syndrome. The risk for Downsyndrome in this was increased from Jennifer's age-related risk of 1:405 (0.2%) to 1:204(0.4%). We discussed the options available to Jennifer, including ultrasound and amniocentesis, and the risks, benefits, and limitations of each test. After our discussion, Jennifer declined amniocentesis. She would not consider terminating the if the fetus has Down syndrome, and she isclear that she would not want to place the at increased risk for miscarriage for a definitive result. Jennifer and her mother would be very accepting of a child with Down syndrome. Plan Jennifer is scheduled for a morphology ultrasound following our visit today. She declines amniocentesis. documented in this encounter Plan of Treatment Not on file documented as of this encounter Visit Diagnoses Diagnosis Abnormal findings on screening- Primary Genetic counseling documented in this encounter Care Teams Car Construction Superintendent Relationship Specialty Start Date End Date Unknown None PCP - General 08/23/10 03/15/11 documented as of this encounter
--- OUTSIDE RECORDS SUMMARY | 2024-07-14 19:39 | XMS_ITS | Encounter Summary ---
[place] [address] Care Team Providers Care Forging Die Sinker Name Role Phone Yesica Goff APRN Primary Care Provider [phone] Reason for Visit * Auth/Cert Specialty Diagnoses / Procedures Referred By Boyd t Referred To Contact Diagnoses THYROID CANCER Procedures PRO THYROID LOBECTOMY, UNILAT PRG EMG, LARYNX THYROIDECTOMY, LOBECTOMY, TOTAL, UNILATERAL (WRVU 11.19) FACIAL NERVE MONITORING, SETUP LARYNGEAL (WRVU 1.57) Referral ID Status Reason Start Date Expiration Date Visits Re quested Visits Authorized [id number] 1 1 Encounter Details Date Type Department Care Team (Late st Contact Info) Description 11/07/2019 1:51 PM EST Anesthesia Event [place] [address] Elena Baum MD [facility] [place] [address] Anesthesia Record Procedure Summary Procedure Name Responsible Anesthesiologist Anesthesia Start Time Anesthesia Stop Time THYROIDECTOMY, LOBECTOMY, TOTAL, UNILATERAL (WRVU 11.19) (Right: Neck) Elena Baum MD 11/07/19 1351 11/07/19 1550 Events Date Time Event Comment 11/07/2019 1258 1351 AN Verify 1351 Start 1355 An Start Data 1400 An Induction 1401 An Intubation 1402 Anesthesia Ready 1421 Procedure Start Time out com plete 1542 Extubation/LMA Out 1544 an stop data 1549 Recovery or ICU Handoff Kacie ent care was transferred to the destination unit staff after review of the patient's medical history, current anesthetic/surgical status and plan, according to the Provider Handoff Checklist. 1550 Stop Meds Name Total Midazolam 2 mg fentaNYL 100 mcg IV Lidocaine 50 mg Propofol 200 mg PHENYLephrine 160 mcg Ondansetron 8 mg Dexamethasone 8 mg Succinylcholine 100 mg HYDROmorphone 0.4 mg Dexmedetomidine 12 mcg Ketorolac 30 mg Propofol INF 361.95 mg lactated ringers infusion 500 mL * Agents Name O2 Air N2O Sevoflurane (et) * Blood No blood administrations on file. Lines, Drains, and Airways Type Details Placement Removal (RETIRED) Peripheral IV Line - Single Lumen 11/07/19; 1247; metacarpal vein (top of hand), left; [id number] catheter system; 20 gauge, 1 in length; Gosia Zeng RN ; distraction, intradermal injection; no longer indicated, catheter/device intact; 11/07/19; 18111/07/19 1247 by Gosia Zeng RN 11/07/19 181 by Rayo Bravo RN ETT Mask Ventilation: Ea sy (1); ETT Type: Cuffed, Oral, NIM; ETT Size: 6 mm; Mac Blade: 3; Notes: Asleep, Pre-O2, Stylette; Attempts: 1; Laryngoscopy Grade: 1; ETT Placement Verified By: Auscultation, Capnometry, Visual; Inserted by: Trey HERR; Removal Date: 11/07/19; Removal Time: 1542 11/07/19 1401 by Larisa Yang CRNA 11/07/19 1542 by Carlos Carballo MD Incision 11/07/19; 1421; neck ; horizontal; 05/29/22 (LDA cleanup utility RA#[id number]); 1715 (LDA cleanup utility RA#[id number]) 11/07/19 1421 by Ana Maria Patel RN 05/29/22 1715 by Tru Winchester documented in this encounter Social History Tobacco Use Types Packs/Day Years [...] AM EDT documented as of this encounter OR Notes * Anesthesia Postprocedure Evaluation - Elena Baum MD - 11/07/2019 4:02 PM EST Department of Anesthesiology Post-procedure Note Patient: Jennifer Nunn Procedure Summary Date: 11/07/19 Room / Location: [address] MAIN OR Anesthesia Start: 1351 Anesthesia Stop: 1550 Procedures: THYROIDECTOMY, LOBECTOMY, TOTAL, UNILATERAL (WRVU 11.19) (Right Neck) FACIAL NERVE MONITORING, SETUP LARYNGEAL (WRVU 1.57) (N/A Neck) Diagnosis: (THYROID CANCER) Surgeon: Amina Baldwin MD Responsible Provider: Elena Baum MD Anesthesia Type: general ASA Status: 2 All Anesthesia Providers: Anesthesiologist: Elena Baum MD BOTTOM BRUSHER: Larisa Yang CRNA Activity Aid: Carlos Carballo MD Vitals Value Taken Time BP 110/67 11/07/2019 4:00 PM Temp 36 ??C (96.8 ??F) 11/07/2019 3:47 PM Pulse 66 11/07/2019 3:47 PM Resp 18 11/07/2019 3:47 PM SpO2 96 % 11/07/2019 3:47 PM Pain Level 0 11/07/2019 3:47 PM Vitals shown include unvalidated device data. Patient Location: PACU/[facility] Level of Consciousness: Conscious but Sleepy Pain Management: Satisfactory Analgesia PONV: None Cardiovascular Status: At Baseline Respiratory Status: At Baseline Postoperative Fluid Status: Intravascular EUvolemia Possible Anesthetic Complications: NONE apparent at time of evaluation Final Primary Anesthesia Type: General (The anesthetic type performed was the same as planned.) Comments: * Anesthesia Preprocedure Evaluation - Elena Baum MD - 11/07/2019 12:57 PM EST Pre-Anesthesia Evaluation for: Jennifer Nunn a 44 y.o. female. Procedure(s): THYROIDECTOMY, LOBECTOMY, TOTAL, UNILATERAL (WRVU 11.19) FACIAL NERVE MONITORING, SETUP LARYNGEAL (WRVU 1.57) Patient Active Problem List Diagnosis ??? Risk of chromosome anomaly affecting care of mother, antepartum Serum screening risk 1:204. ??? HSV (herpes simplex virus) anogenital infection Last ??? Bladder stones Required surgical removal. Past Medical History: Diagnosis Date ??? Indigestion ??? Migraine Past Surgical History: Procedure Laterality Date ??? LITHOTRIPSY ??? TUBAL LIGATION Social History Tobacco Use ??? Smoking status: Never Smoker ??? Smokeless tobacco: Never Used Substance Use Topics ??? Alcohol use: No Social History Substance and Sexual Activity Drug Use No No Known Allergies Medications: MAR and/or home medications have been reviewed. Physical Exam: Most Recent Vitals: 11/07/19 1236 BP: 121/82 Pulse: 72 Resp: 18 SpO2: 98% Body mass index is 30.73 kg/m??. Height: 157.5 cm (5' 2) Weight: 76.2 kg (168 lb) Airway Assessment: Mallampati: I TM distance: >3 FB Neck ROM: full Cardiovascular Assessment: Rhythm: regular Rate: normal cardiovascular exam normal Pulmonary Assessment: (-) decreased breath sounds pulmonary exam normal Dental Assessment: Misc Assessment: IV access: Peripheral line Other exam findings: S/p tubal ligation Anesthesia Plan: ASA 2 general, with a(n) intravenous induction Thyroid CA - removing right lobe of thyroid No symptoms of breathing difficulty, though does on occasion notice soreness with swallowing GETA, NIM tube Region - Other Informed Consent: Anesthetic plan and risks discussed with patient. Plan discussed with BOTTOM BRUSHER and attending. PAT Clinic Note documented in this encounter Plan of Treatment Not on file documented as of this encounter Visit Diagnoses Not on filedocumented in this encounter Administered Medications Inactive Administered Medications - up to 3 most recent administrations Medication Order MAR Action Action Date Dose Rate Site dexamethasone (DECADRON) injection PRN, Starting on Sun11/07/19 at 1413, Until Sun11/07/19 at 1601, Anesthesia Intra-op, Routine Given 11/07/2019 2:13 PM EST 8 mg dexmedetomidine (PRECEDEX) injection PRN, Starting on Sun11/07/19 at 1411, Until Sun11/07/19 at 1601, Anesthesia Intra-op, Routine Given 11/07/2019 2:19 PM EST 4 mcg Given 11/07/2019 2:11 PM EST 4 mcg Given 11/07/2019 2:07 PM EST 4 mcg fentaNYL 50 mcg/mL multi-dose injection PRN, Starting on Sun11/07/19 at 1359, Until Sun11/07/19 at 1601, Anesthesia Intra-op, Routine Given 11/07/2019 1:59 PM EST 100 mcg HYDROmorphone (DILAUDID) injection PRN, Starting on Sun11/07/19 at 1411, Until Sun11/07/19 at 1601, Anesthesia Intra-op, Routine Given 11/07/2019 2:11 PM EST 0.4 mg ketorolac (TORADOL) injection PRN, Starting on Sun11/07/19 at 1513, Until Sun11/07/19 at 1601, Anesthesia Intra-op, Routine Given 11/07/2019 3:13 PM EST 30 mg lidocaine (PF) (XYLOCAINE) 100 mg/5 mL (2 %) injection PRN, Starting on Sun11/07/19 at 1359, Until Sun11/07/19 at 1601, Anesthesia Intra-op, Routine Given 11/07/2019 1:59 PM EST 50 mg midazolam (PF) (VERSED) multi-dose injection PRN, Starting on Sun11/07/19 at 1351, Until Sun11/07/19 at 1601, Anesthesia Intra-op, Routine Given 11/07/2019 1:51 PM EST 2 mg ondansetron (ZOFRAN) injection PRN, Starting on Sun11/07/19 at 1512, Until Sun11/07/19 at 1601, Anesthesia Intra-op, Routine Given 11/07/2019 3:12 PM EST 8 mg PHENYLephrine in NS (PF) (SENAIT-SYNEPHRINE) 0.8 mg/10 mL (80 mcg/mL) multi-dose injection Syrg PRN, Starting on Sun11/07/19 at 1440, Until Sun11/07/19 at 1601, Anesthesia Intra-op, Routine Given 11/07/2019 2:40 PM EST 160 mcg propofol (DIPRIVAN) 10 mg/mL bolus injection (Anesthesia) PRN, Starting on Sun11/07/19 at 1400, Until Sun11/07/19 at 1601, Anesthesia Intra-op Given 11/07/2019 2:00 PM EST 200 mg propofol (DIPRIVAN) infusion CONTINUOUS PRN, Starting on Sun11/07/19 at 1422, Until Sun11/07/19 at 1601, Anesthesia Intra-op, Routine Rate/Dose Change 11/07/2019 3:14 PM EST 50 mcg/kg/min 22.9 mL/hr New Bag 11/07/2019 2:22 PM EST 75 mcg/kg/min 34.3 mL/hr succinylcholine chloride (Quelicin) injection PRN, Starting on Sun11/07/19 at 1400, Until Sun11/07/19 at 1601, Anesthesia Intra-op, Routine Given 11/07/2019 2:00 PM EST 100 mg documented in this encounter Care Teams Forging Die Sinker Relationship Specialty Start Date End Date Yesica Goff APRN [address] [place] [address] PCP - General Family Medicine 09/19/19 documented as of this encounter
--- OUTSIDE RECORDS SUMMARY | 2024-07-14 19:39 | XMS_ITS | Encounter Summary ---
Author Organization [facility] [place] [address] Care Team Providers Care Business Services Tech Name Role Phone Yesica Goff APRN Primary Care Provider [phone] Reason for Visit * Auth/Cert Specialty Diagnoses / Procedures Referred By Boyd ren Referred To Contact Diagnoses THYROID CANCER Procedures PRO THYROID LOBECTOMY, UNILAT PRG EMG, LARYNX THYROIDECTOMY, LOBECTOMY, TOTAL, UNILATERAL (WRVU 11.19) FACIAL NERVE MONITORING, SETUP LARYNGEAL (WRVU 1.57) Referral ID Status Reason Start Date Expiration Date Visits Re quested Visits Authorized [id number] 1 1 Encounter Details Date Type Department Care Team (Late st Contact Info) Description 11/07/2019 12:56 PM EST - 11/07/2019 2:54 PM EST [place] [address] Maria Mcghee MD [facility] [place] [address] THYROIDECTOMY, LOBECTOMY, TOTAL, UNILATERAL (WRVU 11.19) Social History Tobacco Use Types Packs/Day Years [...] Sign Reading Time Taken Comments Blood Pressure 121/82 11/07/2019 12:36 PM EST Pulse 72 11/07/2019 12:36 PM EST Temperature - - Respiratory Rate 18 11/07/2019 12:36 PM EST Oxygen Saturation 98% 11/07/2019 12:36 PM EST Inhaled Oxygen Concentration - - Weight 76.2 kg (168 lb) 11/07/2019 12:36 PM EST Height 157.5 cm (5' 2) 11/07/2019 12:36 PM EST Body Mass Index 30.73 11/07/2019 12:36 PM EST documented in this encounter Discharge Instructions * Discharge Instructions* Rayo Bravo RN - 11/07/2019 5:23 PM EST POST ANESTHESIA INSTRUCTIONS Go home, rest, use caution on stairs. Change positions slowly. Do not smoke if you are alone. Diet light to regular as tolerated today. If nausea occurs start with clear liquids and progress slowly. No driving, operating machinery, alcoholic beverages and no important decisions for 24 hours. Monitor IV site for signs and symptoms of infection: increasing redness, swelling, foul drainage, if occurs contact M.D. Patients who have had endotrachial tubes (this tube, used by anesthesia department, is passed down your throat after you are asleep, to ensure safe air passage during your operation). A sore throat is normal due to the tube. Cold liquids or soothing lozenges will help ease the discomfort. The generalized muscle aches are due to the medication given to you just before the tube is inserted. As the medication wears off, you may develop muscle soreness, which usually goes away in 12-24 hours. * Patient Instructions* Radhames Mcfarland - 11/07/2019 1:21 PM EST THYROID LOBECTOMY (HEMITHYROIDECTOMY) PATIENT DISCHARGE INSTRUCTIONS What to Expect Following Surgery: Swelling and/or bruising under and around the incision is normal. It is usually greatest on the second or third day following surgery. You may also feel the sensation of swelling or firmness that canlast for a month or more Your scar will be most visible for 1-2 months following your operation and will gradually fade overthe next 6-8 months. As it heals, a scar often looks more pink or red than the skin around it. You may feel a ???healing ridge?? directly under the incision. This is completely normal and is the result of swelling, healing, and scar formation. Usually, this will go away when healing is complete in 3-6 months. The skin just above and below your incision will feel numb. This will improve over several months but some patients may have a long-term decrease in sensation over these areas. You may notice minor difficulty in swallowing which will improve over time. Your voice may be hoarse or weak at first--this is normal and does not mean there was damage done to the nerves that make the vocal cords move. Your voice will usually go back to normal after severaldays to a few weeks. Incision Care: Neck incisions heal rapidly--usually within a week or two. The incision can get wet in the shower 24 hours after surgery. However, do not submerge the incision underwater (i.e. bath tub, swimming pool, hot tub, etc.) for at least 2 weeks after your operation. Pat the incision dry immediately following your shower. Do not scrub the area vigorously for the next 2 weeks. You have a skin glue closure, and you may notice tiny pieces of yellow/white/hughes material on your washcloth or there may be a thin clear or purplish/hughes crust around the edges of the incision. Thisis normal. The glue will start to come off about a week after surgery. Do not pull off the skin glue in order to allow time for the incision to heal completely. If there is still some glue on your skin 2 weeks after surgery, you may gently wash it away. Do not use any ointments/salves/Vitamin E on the incision for 2 weeks as these may impair early wound healing. After 2 weeks (and after the skin glue is gone), you may apply vitamin E oil or scar creams to the incision. Gentle massage may help soften your scar tissue. Incisions are sensitive to sunlight. For at least 1 year after surgery you should use sunscreen when outdoors for long periods of time to prevent permanent darkening of the scar. This includes tanning booths. Pain Management: You may apply ice or cold packs to the incision for 15-20 minutes several times a day for the first2-3 days following surgery to help with discomfort. You may feel some stiffness/soreness in your shoulders, back, and neck. This may take a few days orweeks to go away completely. You may use moist warm heat, a heating pad, or massage to these areas for 15-20 minutes several times a day. Do not be afraid to move your neck - gently flexing and stretching your neck muscles and light massage will help prevent stiffness NSAIDs (non-steroidal anti-inflammatory drugs) such as ibuprofen (Motrin, Advil) and naproxen (Naprosyn, Aleve) or acetaminophen (Tylenol) are most helpful for the pain experienced after surgery. Generally, these are even more effective than the stronger pain medications (narcotics or opioids) after thyroid surgery. Take NSAIDS or Tylenol every 6 hours [id number] for the first 3-5 days following surgery to help minimize pain. It is unusual to require opioid pain medications after thyroid surgery. If you were prescribed oxycodone, use only for severe pain, and never take with alcohol. Opioid medications typically cause constipation, so we suggest using a stool softener in addition (metamucil, colace...etc.). Diet & Activity: No restrictions in your diet are necessary. Activity as tolerated by your comfort level. You may return to work as soon as you would like. However, if your job requires heavy lifting or strenuous physical activity, your surgeon may ask you to wait to return to work for two weeks. NO DRIVING for 24 hours after general anesthesia and for at least 8 hours following any dose of an opioid pain medication if one was prescribed for you. Thyroid Hormone: About 25% of patients will require thyroid hormone supplementation after a hemithyroidectomy. A blood test will performed in approximately 6 weeks to determine whether you need this. This lab test will be coordinated with your follow-up appointment. Pathology Report: All specimens removed at surgery are analyzed by a pathologist. This report usually takes approximately 5-7 business days to be ready. Dr. Mcghee will call you with this report as soon as it is available. Follow-up Appointment: Will be scheduled with Dr. Mcghee in approximately 6 weeks. Future Appointments Date Time Provider Department [place] 12/18/2019 12:45 PM LAB, THREE L Lab 3L [facility] 12/18/2019 2:00 PM Lona Snowden APRN [facility] SUR[facility] Please call [phone] to confirm the date and time of your appointment if you do not hear from us in the next 2 weeks or if you need to reschedule. Call Doctor for: Call if you have trouble talking or breathing (call 911 if this is severe) Call if you develop numbness or tingling around your mouth/lips or on the tips of your fingers or your hands, as this may mean your calcium is low. This may also be related to pain medication, where the breathing tube was positioned against your lips, the positioning of your arms and hands in the operating room, or how you were positioned when sleeping. If the sensation does not go away within a half hour, or if it worsens prior to that, call us immediately so we can discuss increasing your calcium if we think you need it. Call if your incision becomes red or begins to drain fluid. Call if you have fevers greater than 101 degrees F Call if you have persistent nausea or vomiting (this may be related to opioid pain medications). Call if you begin feeling worse, rather than better, several days after surgery. Phone number for questions: [phone] before 5 PM on weekdays [phone] after 5 PM and on weekends/holidays. Ask for the general surgery resident heating and refrigeration inspector. documented in this encounter Medications at Time of Discharge Medication Sig Dispensed Refills Start Date End Date acetaminophen (Tylenol) 325 mg Tablet Take 2 [...] BEFORE EACH MEAL AND AT BEDTIME 08/25/2019 documented as of this encounter Progress Notes * Rayo Bravo RN - 11/07/2019 5:06 PM EST 1706- Pt c/o neck pain, medicated with dilaudid with some effect, ice applied as well 1715- Pt reports relief from pain since receiving dilaudid documented in this encounter H&P Notes * Radhames Mcfarland - 11/07/2019 12:28 PM EST Pre-operative Interval H&P Planned Procedure: right hemithyroidectomy A 30 day history and physical was reviewed and updated. Briefly, Jennifer Nunn is a 44 y.o. female with a right-sided nodule with FNA demonstrating malignant ([place] Star 6) cytology. She reports no interval change in her overall health since last seeing Dr. Croft in clinic on 10/30/19 - please see clinic note for further details. VITALS: pending EXAM: Gen:NAD Neck: small right-sided thyroid nodule, mobile with swallowing CV: regular rate Pulm: unlabored respirations on RA Consent signed in clinic; all questions answered. Proceed with planned operation and plan for discharge home post-op. Radhames Mcfarland MD [id number] 11/07/2019 12:29 PM documented in this encounter Miscellaneous Notes * Op Note - Maria Mcghee MD - 11/07/2019 3:15 PM EST [facility] Operative Note Patient Name: Jennifer Nunn : [id number] MR#: [id number] Case Date: 11/07/2019 Surgeon: Surgeon(s) and Role: * Maria Mcghee MD - Primary * Radhames Mcfarland MD - Resident Preoperative diagnosis: THYROID CANCER Postoperative diagnosis: same Procedure(s) (LRB): THYROIDECTOMY, LOBECTOMY, TOTAL, UNILATERAL (WRVU 11.19) (Right) FACIAL NERVE MONITORING, SETUP LARYNGEAL (WRVU 1.57) (N/A) Anesthesia: General Estimated Blood Loss: 11 mL Specimens removed during surgery: Order Name Source Comment Collection Info Order Time SPECIMEN TO PATHOLOGY Right thyroid lobe- stitch on upper pole THYROID CANCER Right thyroid lobe - stitch on upper pole excision No 11/07/2019 3:11 PM Time specimen removed from patient: 3:06 PM Drains: * No LDAs found * Surgical Closure: Primary Closure - skin incision is completely closed without any wires, odalys, drains or other devices Disposition: awakened from anesthesia, extubated and taken to the recovery room in a stable condition, having suffered no apparent untoward event. Condition: doing well without problems (Please see the Surgical Encounter Summary for any Implant and Specimen details pertinent to this patient.) HPI/Surgical Indications: Ms. Jennifer Nunn is a 44 y.o. year old female with a right-sided thyroid nodule and FNA demonstrating malignant ([place] Star 6) cytology. We had a long discussion about the pros and cons of total vs hemithyroidectomy in this situation. Her cancer is very small and her co ntralateral lobe is pristine. There is no sonographic [...] referred to endocrinology to be followed post-operatively. Procedure Description: The patient was correctly identified in the preoperative holding area. The risks, benefits, and indications of a thyroidectomy were reviewed with the patient. She was then taken to the operating room and placed on the operating table in the supine position and an identification procedure was performed. Adequate general anesthesia was achieved by anesthesiology with the Sympoztronic recurrent laryngeal nerve monitoring system. A natural crease in the anterior neck was marked with a marking pen. This area was infiltrated with 0.25% Sensorcaine with epinephrine. The patient'santerior neck was then prepped and draped in sterile fashion. A timeout procedure was done and all members of the OR team were in agreement. We made a curvilinear incision along the previously marked crease with a scalpel. The incision was carried down through the subcutaneous tissue and platysma muscle using electrocautery. Subplatysmal flaps were created in the cranial and caudal directions. The median raphe of the strap muscles was id entified and this was divided in vertical fashion using electrocautery. This exposed the thyroid gland, which was from its lateral attachments to the strap muscles on the right side using electrocautery. The middle thyroidal veins were ligated with 3-0 silk sutures and Harmonic scalpel. The inferior thyroid vessels were identified and divided using a combination of hand ties and harmonic scalpel. We then identified the recurrent laryngeal nerve as it ran in the tracheoesophageal groove and followed this up to ligament of Salazar, ligating vessels to expose the nerve's anterior surface. We then took down the upper pole thyroid vessels with a combination of 2-0 and 3-0 silk sutures and Harmonic scalpel. The parathyroid glands were not definitively seen. We then divided the attachments of the ligament of Salazar with sharp dissection and 3-0 silk sutures and divided the attachments of the thyroid off the pretracheal fascia past the midline with electrocautery. The pea-sized tumor was located directly anterior to the trachea, but there was no evidence of gross invasion, and there was a clear plane through which to cauterize between the tumor and the trachea. We divided the thyroid through its isthmus approximately 5-10mm laterally to the left of the tumor using the Harmonic scalpel. We marked the right hemithyroid with a stitch in the upper pole, and sent the specimen to pathology. The recurrent laryngeal nerve remained intact throughout. The central neck was examined visually and by palpation, and there was no gross evidence of adenopathy, so we did not sample any lymph nodes. We then closed the strap muscles using running 3-0 Vicryl suture, the platysma with interrupted 3-0Vicryl suture, and the skin with running 5-0 Prolene subcuticular suture, followed by placement of Dermabond and removal of the Prolene suture. The patient tolerated the procedure well. Sponge and needle counts were correct upon completion of the procedure. Infection Bundle used? N/A Attestation: Case Date: 11/07/2019 I was present and I participated during the entire procedure (does not need to include opening and closing). MARIA MCGHEE MD 11/07/2019 * Brief Op Note - Maria Mcghee MD - 11/07/2019 3:13 PM EST Brief Operative Note Patient Name: Jennifer Nunn : [id number] MR#: [id number] Case Date: 11/07/2019 Surgeon: Surgeon(s) and Role: * Maria Mcghee MD - Primary * Radhames Mcfarland MD - Resident Preoperative diagnosis: THYROID CANCER Postoperative diagnosis: same Procedure(s) (LRB): THYROIDECTOMY, LOBECTOMY, TOTAL, UNILATERAL (WRVU 11.19) (Right) FACIAL NERVE MONITORING, SETUP LARYNGEAL (WRVU 1.57) (N/A) Anesthesia: General Findings: pea-sized tumor in the right side of the isthmus adjacent to the trachea. No gross invasion and clean plane to cauterize between the tumor and the trachea, but close. No gross central lymphadenopathy. No parathyroid glands definitively seen. Right RLN intact throughout. Complications: none apparent Intake: Intraprocedure Crystalloid Total Anesthesia Output Blood Loss 11 mL lactated ringers infusion Volume (mL) 300 mL Transfusion No data found in the last 1 encounters. Output: Estimated Blood Loss: 11 mL Urine Output:: (no urine output recorded) Other Output: (no other output recorded) Drains: none Specimens removed during surgery: Order Name Source Comment Collection Info Order Time SPECIMEN TO PATHOLOGY Right thyroid lobe- stitch on upper pole THYROID CANCER Right thyroid lobe - stitch on upper pole excision No 11/07/2019 3:11 PM Time specimen removed from patient: 3:06 PM Disposition: awakened from anesthesia, extubated and taken to the recovery room in a stable condition, having suffered no apparent untoward event. Condition: doing well without problems Attestation: Case Date: 11/07/2019 I was present and I participated during the entire procedure (does not need to include opening and closing). (Please see the Surgical Encounter Summary for any Implant and Specimen details pertinent to this patient.) documented in this encounter Plan of Treatment Not on file documented as of this encounter Procedures Procedure Name Priority Date/Time Associated Diagnosis Comments SPECIMEN TO PATHOLOGY Routine 11/07/2019 3:12 PM EST SURGICAL PATHOLOGY REPORT Routine 11/07/2019 3:06 PM EST Needle Electromyography, Larynx Global ([id number]) 11/07/2019 1:53 PM EST THYROID CANCER Total Thyroid Lobectomy Unilateral W/Wo Isthmusectomy ([id number]) 11/07/2019 1:53 PM EST THYROID CANCER documented in this encounter Results * (ABNORMAL) TSH (04/09/2020 8:50 AM EDT) Thyroid Stimulating Hormone 4.37(H) 0.27 - 4.20 mcIU/mL [facility] Blood specimen (specimen) 04/09/2020 8:50 AM EDT 04/09/2020 8:55 AM EDT Narrative Resulting Agency Comment Spec In Lab Maria Mcghee MD CHEMISTRY ORDERAB LES [facility] [place] [address] * Specimen to Pathology (11/07/2019 3:12 PM EST) AP Specimen 11/07/2019 3:12 PM EST 11/07/2019 3:12 PM EST Narrative [facility] - 11/07/2019 3:12 PM EST Specimen requisition ordered. ??Separate Pathology report to follow Maria Mcghee MD PATHOLOGY/CYTOLOG Y ORDERABLES [facility] [place] [address] * Surgical Pathology Report (11/07/2019 3:06 PM EST) Final Diagnosis [id number] ? Location: SDP; SD38; A The signing pathologist has (i) examined the relevant preparation(s) for the specimen(s) and (ii) rendered or confirmed the diagnosis(es). . ?Surgical Pathology DIAGNOSIS Specimen ? Procedure: ??Right lobectomy Tumor ? Tumor Focality: ?? Unifocal ? Tumor Site: ?? Right lobe ? 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 Tumor Size: ?? 1.3 cm ? Extrathyroidal Extension: ?? Not identified ? Angioinvasion (vascular invasion): ?Not identified ? Lymphatic Invasion: ?? Not identified ? Perineural Invasion: ?? Not identified ? Margins: ??Involved by carcinoma ?Site(s) of Involvement: ?? One inked-cauterized margin (A8, A9) Lymph Nodes ? Number of Lymph Nodes Involved: ?? 0 ? Number of Lymph Nodes Examined: ?1 ? Jeyson Levels Examined: ?? Level Pathologic Stage Classification (pTNM, AJCC 8th Edition) ? Primary Tumor (pT): ?? pT1b ? Regional Lymph Nodes (pN): Tumor Block(s): ?? A8 Normal Block(s): ?? A4 Prior Cytology Specimen: ?[id number] [facility] November 2018 Annual Release Electronically signed by: ??David CARSON, Tiny Flores Verified: ??11/15/2019 ?Pathologist Performed at: ??-[facility] Dept. of Pathology, [place], [place] CLINICAL INFORMATION Specimen Submitted: A - Right thyroid lobe - stitch on upper pole Clinical History and Diagnosis: Thyroid cancer SPECIMEN PROCESSING A - Labeled/Fixative: Right thyroid lobe, fresh. Quantity/Size/Wilder ght: Single, 4.3 x 3.0 x 2.5 cm, 9.76 g. SPECIMEN DESCRIPTION: Resection Specimen: Intact, lam-thyroidectom y, consisting of right thyroid lobe. External Surface: Dark brown, glistening with hughes ?? -translucent fibrous covering, and irregular contour. Possible extruding nodule just lateral to the isthmus that is light pink (correlates with lesion location described below). ??LESION ?Location: Medial, mid-lobe. ?Description: Boggs-white, smooth, homogenous appearing nodule. ?Size: 1.3 x 1.0 x 0.6 cm. ?Contour/capsule : Well delineated, abutting the capsule posteriorly and within 1 mm anteriorly. Parenchyma: Dark brown, glistening, unremarkable. Inking: The thyroid capsule is inked black. The isthmic margin is inked red. . SPECIMEN PROCESSING Animal Care Giver sections in 10 cassettes as follows: ?A1-A5: ??Thyroid parenchyma, small business sales representative sections (every other slice, superior ? to inferior) ?A6-A10: ??Thyroid lesion, entirely submitted, superior to inferior ??AJD 11/15/2019 1:54 PM EST [facility] THYROID STRUCTURE / Unknown 11/07/2019 3:06 PM EST 11/07/2019 3:06 PM EST Maria Mcghee MD PATHOLOGY/CYTOLOG Y ORDERABLES [facility] [place] [address] documented in this encounter Visit Diagnoses Not on filedocumented in this encounter Administered Medications Inactive Administered Medications - up to 3 most recent administrations Medication Order MAR Action Action Date Dose Rate Site acetaminophen (Tylenol) tablet 650 mg 650 mg, Oral, EVERY 6 HOURS PRN, Starting on Sun11/07/19 at 1528, Until Sun11/07/19 at 2112, Pain, Maximum dose of acetaminophen is 4000 mg from all sources in 24 hours., Routine Given 11/07/2019 5:27 PM EST 650 mg BUpivacaine-EPINEPHrine 0.25 %-1:200,000 injection ONCE PRN, Starting on Sun11/07/19 at 1420, Until Sun11/07/19 at 2112, Intra-Operative (Intra-Procedure), Routine Given 11/07/2019 2:20 PM EST 10 mLs 19- Surgical Site HYDROmorphone (DILAUDID) injection 0.2-0.4 mg 0.2-0.4 mg, Intravenous, EVERY 5 MIN PRN, Starting on Sun11/07/19 at 1606, Until Sun11/07/19 at 1817, Pain, Give 0.2 mg every 5 minutes PRN for mild to moderate pain (1-5) Give 0.4 mg every 5 minutes PRN for moderate to severe pain (6-10). Hold for respiratory rate less than 10 per minute. Maximum dose 4 mg over one hour. If multiple pain medications are ordered, start with hydromorphone or morphine and use fentanyl for breakthrough pain., PACU Recovery, Routine Given 11/07/2019 5:04 PM EST 0.4 mg Given 11/07/2019 4:56 PM EST 0.4 mg lactated ringers infusion 1,000 mL, at 100 mL/hr, Intravenous, CONTINUOUS, Starting on Sun11/07/19 at 1245, Until Sun11/07/19 at 1817, Day of Surgery (Day of Procedure) New Bag 11/07/2019 12:49 PM EST 1,000 mLs 100 mL/hr documented in this encounter Active and Recently Administered Medications Times are shown in EST. Continuous Medication Order 11/05/2019 11/06/2019 11/07/2019 lactated ringers infusion (CANCELED) 1,000 mL, at 100 mL/hr, Intravenous, CONTINUOUS, Starting on Sun11/07/19 at 1245, Until Sun11/07/19 at 1817, Day of Surgery (Day of Procedure) 1249 (New Bag - Prov ider: Gosia Zeng RN)1419 (Anesthesia Volume Adjustment - Provider: Larisa Yang CRNA)1514 (Anesthesia Volume Adjustment - Provider: Carlos Carballo) PRN Medication Order 11/05/2019 11/06/2019 11/07/2019 acetaminophen (Tylenol) tablet 650 mg 650 mg, Oral, EVERY 6 HOURS PRN, Starting on Sun11/07/19 at 1528, Until Sun11/07/19 at 2112, Pain, Maximum dose of acetaminophen is 4000 mg from all sources in 24 hours., Routine 1727 (Given - Provid er: Rayo Brvao RN) BUpivacaine-EPINEPHrine 0.25 %-1:200,000 injection (CANCELED) ONCE PRN, Starting on Sun11/07/19 at 1420, Until Sun11/07/19 at 2112, Intra-Operative (Intra-Procedure), Routine 1420 (Given - Provid er: Radhames Mcfarland - Comment: Injected off the field before prep and drape.) HYDROmorphone (DILAUDID) injection 0.2-0.4 mg (CANCELED) 0.2-0.4 mg, Intravenous, EVERY 5 MIN PRN, Starting on Sun11/07/19 at 1606, Until Sun11/07/19 at 1817, Pain, Give 0.2 mg every 5 minutes PRN for mild to moderate pain (1-5) Give 0.4 mg every 5 minutes PRN for moderate to severe pain (6-10). Hold for respiratory rate less than 10 per minute. Maximum dose 4 mg over one hour. If multiple pain medications are ordered, start with hydromorphone or morphine and use fentanyl for breakthrough pain., PACU Recovery, Routine 1656 (Given - Provid er: Rayo Bravo RN)1704 (Given - Provider: Rayo Barvo RN) documented in this encounter Care Teams Business Services Tech Relationship Specialty Start Date End Date Yesica Goff, ANIMAL CARE SUPERVISOR [address] [place] [address] PCP - General Family Medicine 09/19/19 documented as of this encounter
--- OUTSIDE RECORDS SUMMARY | 2024-07-14 19:39 | XMS_ITS | Encounter Summary ---
Author Organization [facility] [place] [address] Care Team Providers Care Marker Machine Attendant Name Role Phone Unknown Primary Care Provider Unavailabl e Encounter Details Date Type Department Care Team (Late st Contact Info) Description 03/08/2011 8:24 AM EDT - 03/08/2011 11:59 PM EDT Hospital En[place] [id number] Social History Tobacco Use Types Packs/Day Years [...] Sig Dispensed Refills Start Date End Date vitamin 27 & [id number]-[id number] 60 mg (Iron)-1 mg tablet Take 1 tablet by mouth daily. 10/30/2019 documented as of this encounter Plan of Treatment Not on file documented as of this encounter Procedures Procedure Name Priority Date/Time Associated Diagnosis Comments US OB DETAILED MORPHOLOGY Routine 03/08/2011 11:08 AM EDT documented in this encounter Results * US OB TARGETED MORPHOLOGY (03/08/2011 11:08 AM EDT) Anatomical Region Laterality Modality Pelvis, Abdomen Ultrasound 03/08/2011 11:0 8 AM EDT Narrative 03/08/2011 1:17 PM EDT ? OBSTETRICS REPORT ? (Signed Final 03/08/2011 01:17 pm) Patient Info ID: ?[id number] ?: ??[birth year] (35 yrs) Name: ?JENNIFER NUNN ? Visit Date: 03/08/2011 10:55 am Performed By Performed By: ?? Miley Murillo RDMS Attending: ?Radha CARSON, Ignacio Cha Referred By: ?MIKE HERNANDEZ [facility] Accession#: ? [id number] OB History : ??4 Living: ? 3 Procedures [facility] - Targeted Morphology - Genetics - ? [id number] Indications Abnormal Quad Screen Evaluation Heart Rate: ??138 ? bpm Cardiac Activity: ??Observed, normal rhythm Presentation: ?Transverse, head to ?maternal right Placenta: ?Anterior P. Cord ?Within Normal Limits Insertion: Amniotic Fluid ALESSANDRO FV: ?Normal -------- Biometry -------- BPD: ?35.4 ??mm ?G. Age: ?? 16w 6d OFD: ?46.5 ??mm HC: ? 132 ?? mm ?G. Age: ?? 16w 6d AC: ?110.5 ??mm ?G. Age: ?? 16w 6d FL: ? 24.5 ??mm ?G. Age: ?? 17w 3d HUM: ?23.1 ??mm ?G. Age: ?? 17w 1d CER: ?16.3 ??mm ?G. Age: ?? 16w 2d NFT: ? 3.2 ??mm NB: ? 5.10 ??mm CI: ?76.1 ??% ? 70 - 86 FL/HC: ? 18.6 ??% ? 15.8 - 18 HC/AC: ? 1.19 ?1.07 - 1.29 FL/BPD: ?69.2 ??% FL/AC: ? 22.2 ??% ? 20 - 24 Est. FW: ? 181 ??gm ?0 lb 6 oz Gestational Age LMP: ? 18w 1d ?Date: ??11/01/10 ? GERSON: ?? 08/08/11 U/S Today: ? 17w 0d ?GERSON: ?? 08/16/11 Best: ?18w 1d ?? Det. By: ??LMP ??(11/01/10) ?GERSON: ?? 08/08/11 Targeted Anatomy Central Nervous System Calvarium: ?Within Normal Limits Intracranial: ? Within Normal Limits Lat. Ventricles: ?Within Normal Limits Cerebellum: ? Within Normal Limits Choroid Plexus: ? Within Normal Limits Cisterna Magna: ? Within Normal Limits Spine Cervical: ? Visualized Thoracic: ? Visualized Lumbar: ? Visualized Sacral: ? Visualized Head/Neck Face: ? Within Normal Limits Nuchal Fold: ?Within Normal Limits Thorax Four Chamber: ? Within Normal Limits Cardiac Motion: ? Normal Rhythm R Outflow Tract: ?Visualized L Outflow Tract: ?Visualized Cardiac Beverly: ? Visualized Diaphragm: ?Visualized Abdomen Ventral Wall: ? Visualized Stomach: ?Visualized Lt Kidney: ?Visualized Rt Kidney: ?Visualized Bladder: ?Visualized Extremities Lt Humerus: ? Within Nomal Limits Rt Humerus: ? Within Normal Limits Lt Forearm: ? Within Normal Limits Rt Forearm: ? Within Normal Limits Lt Hand: ?Within Normal Limits Rt Hand: ?Within Normal Limits Lt Femur: ? Within Normal Limits Rt Femur: ? Within Normal Limits Lt Lower Leg: ? Within Normal Limits Rt Lower Leg: ? Within Normal Limits Lt Foot: ?Visualized Rt Foot: ?Visualized Other Umbilical Cord: ? 3 vessel cord Genitalia: ?Female Cord Insertion: ? WIthin Normal Limits Cervix Uterus Adnexa Left Ovary: ?? Visualized Right Ovary: ??Visualized Impression 2nd Trimester - Targeted Morphology- Summary Single intrauterine with a gestational age of 18w 1d based on LMP. Composite age based on the current ultrasound alone is 17w 0d. Amniotic fluid volume is normal. Current growth parameters are consistent indicating normal growth. Detailed anatomic evaluation was performed and no structural abnormalities are noted. I ??viewed the images and agree with the above interpretation. Thank you for allowing us to participate in the care of JENNIFER NUNN. Please do not hesitate to call if you have any questions. ? Ignacio Garcia MD Electronically Signed Final Report ?? 03/08/2011 01:17 pm Procedure Note Ignacio Garcia MD - 03/08/2011 OBSTETRICS REPORT (Signed Final 03/08/2011 01:17 pm) Patient Info ID: [id number] : [birth year] (35 yrs) Name: JENNIFER NUNN Visit Date: 03/08/2011 10:55 am Performed By Performed By: Miley Murillo RDMS Attending: Ignacio Garcia MD Referred By: MIKE HERNANDEZ [facility] OB History : 4 Livin Procedures [facility] - Targeted Morphology - Genetics - [id number] Indications Abnormal Quad Screen Evaluation Heart Rate: 138 bpm Cardiac Activity: Observed, normal rhythm Presentation: Transverse, head to maternal right Placenta: Anterior P. Cord Within Normal Limits Insertion: Amniotic Fluid ALESSANDRO FV: Normal -------- Biometry -------- BPD: 35.4 mm G. Age: 16w 6d OFD: 46.5 mm HC: 132 mm G. Age: 16w 6d AC: 110.5 mm G. Age: 16w 6d FL: 24.5 mm G. Age: 17w 3d HUM: 23.1 mm G. Age: 17w 1d CER: 16.3 mm G. Age: 16w 2d NFT: 3.2 mm NB: 5.10 mm CI: 76.1 % 70 - 86 FL/HC: 18.6 % 15.8 - 18 HC/AC: 1.19 1.07 - 1.29 FL/BPD: 69.2 % FL/AC: 22.2 % 20 - 24 Est. FW: 181 gm 0 lb 6 oz Gestational Age LMP: 18w 1d Date: 11/01/10 GERSON: 08/08/11 U/S Today: 17w 0d GERSON: 08/16/11 Best: 18w 1d Det. By: LMP (11/01/10) GERSON: 08/08/11 Targeted Anatomy Central Nervous System Calvarium: Within Normal Limits Intracranial: Within Normal Limits Lat. Ventricles: Within Normal Limits Cerebellum: Within Normal Limits Choroid Plexus: Within Normal Limits Cisterna Magna: Within Normal Limits Spine Cervical: Visualized Thoracic: Visualized Lumbar: Visualized Sacral: Visualized Head/Neck Face: Within Normal Limits Nuchal Fold: Within Normal Limits Thorax Four Chamber: Within Normal Limits Cardiac Motion: Normal Rhythm R Outflow Tract: Visualized L Outflow Tract: Visualized Cardiac Beverly: Visualized Diaphragm: Visualized Abdomen Ventral Wall: Visualized Stomach: Visualized Lt Kidney: Visualized Rt Kidney: Visualized Bladder: Visualized Extremities Lt Humerus: Within Nomal Limits Rt Humerus: Within Normal Limits Lt Forearm: Within Normal Limits Rt Forearm: Within Normal Limits Lt Hand: Within Normal Limits Rt Hand: Within Normal Limits Lt Femur: Within Normal Limits Rt Femur: Within Normal Limits Lt Lower Leg: Within Normal Limits Rt Lower Leg: Within Normal Limits Lt Foot: Visualized Rt Foot: Visualized Other Umbilical Cord: 3 vessel cord Genitalia: Female Cord Insertion: WIthin Normal Limits Cervix Uterus Adnexa Left Ovary: Visualized Right Ovary: Visualized Impression 2nd Trimester - Targeted Morphology- Summary Single intrauterine with a gestational age of 18w 1d based on LMP. Composite age based on the current ultrasound alone is 17w 0d. Amniotic fluid volume is normal. Current growth parameters are consistent indicating normal growth. Detailed anatomic evaluation was performed and no structural abnormalities are noted. I viewed the images and agree with the above interpretation. Thank you for allowing us to participate in the care of JENNIFER NUNN. Please do not hesitate to call if you have any questions. Ignacio Garcia MD Electronically Signed Final Report 03/08/2011 01:17 pm Ale Key CNM IMG US OB ORDERABLES documented in this encounter Visit Diagnoses Not on filedocumented in this encounter Care Teams Marker Machine Attendant Relationship Specialty Start Date End Date Unknown None PCP - General 08/23/10 03/15/11 documented as of this encounter
--- OUTSIDE RECORDS SUMMARY | 2024-07-14 19:39 | XMS_ITS | Encounter Summary ---
Author Organization [facility] [place] [address] Care Team Providers Care Cloth Dyeing Range Tender Name Role Phone Yesica Goff APRN Primary Care Provider [phone] Reason for Referral * Consultation (Routine) - Closed Specialty Diagnoses / Procedures Referred By Boyd ren Referred To Contact Endocrinology Diagnoses Primary thyroid cancer Amina Baldwin MD [facility] [place] [address] [facility] Endocr[facility]ology [address] [place] [address] Referral ID Status Reason Start Date Expiration Date V isits Requested Visits Authorized [id number] Closed Specialty Service Requested 11/26/2019 11/25/2020 1 1 Encounter Details Date Type Department Care Team (Late st Contact Info) Description 11/26/2019 Telephone [place] [phone] Amina Baldwin MD [facility] [place] [address] Social History Tobacco Use Types Packs/Day Years [...] Encounter - Amina Baldwin MD - 11/26/2019 1:42 PM EST I called Ms. Jennifer Nunn today to discuss the results of her pathology. Specifically, this demonstrated Specimen ?Procedure: ??Right lobectomy Tumor ?Tumor Focality: [...] (pT): ?? pT1b ?Regional Lymph Nodes (pN): She is doing well. Her voice sounds normal. We discussed the positive margin and the fact that tumor board may ultimately recommend a completion thyroidectomy because of this. I also referred her to endocrinology in hopes of coordinating her follow up on 12/17. documented in this encounter Plan of Treatment Scheduled Referrals Name Type Priority Associated Diagnoses Order Schedule Referral to Endocrinology Outpatient Referral Routine Primary thyroid cancer Ordered: 11/26/2019 documented as of this encounter Visit Diagnoses Diagnosis Primary thyroid cancer Malignant neoplasm of thyroid gland documented in this encounter Care Teams Cloth Dyeing Range Tender Relationship Specialty Start Date End Date Yesica Goff APRN [address] [place] [address] PCP - General Family Medicine 09/19/19 documented as of this encounter
--- OUTSIDE RECORDS SUMMARY | 2024-07-14 19:39 | XMS_ITS | Encounter Summary ---
Author Organization [facility] [place] [address] Care Team Providers Care Checker Product Design Name Role Phone Yesica Goff APRN Primary Care Provider [phone] Reason for Visit * Auth/Cert Specialty Diagnoses / Procedures Referred By Boyd ren Referred To Contact Diagnoses THYROID CANCER Procedures PRO THYROID LOBECTOMY, UNILAT PRG EMG, LARYNX THYROIDECTOMY, LOBECTOMY, TOTAL, UNILATERAL (WRVU 11.19) FACIAL NERVE MONITORING, SETUP LARYNGEAL (WRVU 1.57) Referral ID Status Reason Start Date Expiration Date Visits Re quested Visits Authorized [id number] 1 1 Encounter Details Date Type Department Care Team (Latest Contact Info) Description 11/07/2019 11:21 AM EST - 11/07/2019 6:16 PM [facility] Hospital Encounter [place] [address] Maria Mcghee MD [facility] [place] [address] Thyroid nodule Discharge Disposition: Home Social History Tobacco Use [...] Sign Reading Time Taken Comments Blood Pressure 130/84 11/07/2019 5:15 PM EST Pulse 71 11/07/2019 4:30 PM EST Temperature 36 ??C (96.8 ??F) 11/07/2019 3:47 PM EST Respiratory Rate 18 11/07/2019 5:15 PM EST Oxygen Saturation 90% 11/07/2019 5:15 PM EST Inhaled Oxygen Concentration - - [...] Take NSAIDS or Tylenol every 6 hours [id number] for the first 3-5 days following surgery [...] approximately 6 weeks. Future Appointments Date Time [facility] [place] 12/18/2019 12:45 PM LAB, THREE L Lab 3L [facility] 12/18/2019 2:00 PM Lona Snowden APRN [facility] SURG [facility] Please call [phone] to confirm the date and time of [...] days after surgery. Phone number for questions: [phone] before 5 PM on weekdays [phone] after 5 PM and on weekends/holidays. Ask for the general surgery resident regional sales director. documented in this encounter Medications at Time [...] a right-sided nodule with FNA demonstrating malignant ([place] 6) cytology. She reports no interval change [...] Mcghee MD - 11/07/2019 3:15 PM EST [facility] Operative Note Patient Name: Jennifer Nunn : [id number] MR#: [id number] Case Date: 11/07/2019 Surgeon: Surgeon(s) and Role: [...] right-sided thyroid nodule and FNA demonstrating malignant ([place] 6) cytology. We had a long discussion [...] anesthesia was achieved by anesthesiology with the [employer] System[employer] recurrent laryngeal nerve monitoring system. A natural [...] Operative Note Patient Name: Jennifer Nunn : [id number] MR#: [id number] Case Date: 11/07/2019 Surgeon: Surgeon(s) and Role: [...] 3:06 PM EST Needle Electromyography, Larynx Global ([id number]) 11/07/2019 1:53 PM EST THYROID CANCER Total Thyroid Lobectomy Unilateral W/Wo Isthmusectomy ([id number]) 11/07/2019 1:53 PM EST THYROID CANCER documented in this encounter Results * (ABNORMAL) TSH (04/09/2020 8:50 AM EDT) Thyroid Stimulating Hormone 4.37(H) 0.27 - 4.20 mcIU/mL [facility] Blood specimen (specimen) 04/09/2020 8:50 AM EDT 04/09/2020 8:55 AM EDT Narrative Resulting Agency Comment Spec In Lab Maria Mcghee MD CHEMISTRY ORDERAB LES [facility] [place] [address] * Specimen to Pathology (11/07/2019 3:12 PM EST) AP Specimen 11/07/2019 3:12 PM EST 11/07/2019 3:12 PM EST Narrative [facility] - 11/07/2019 3:12 PM EST Specimen requisition ordered. ??Separate Pathology report to follow Maria Mcghee MD PATHOLOGY/CYTOLOG Y ORDERABLES [facility] [place] [address] * Surgical Pathology Report (11/07/2019 3:06 PM EST) Final Diagnosis [id number] ? Location: [facility]; SD38; A The signing pathologist has (i) [...] Normal Block(s): ?? A4 Prior Cytology Specimen: ?[id number] CAP [facility] November 2018 Annual Release Electronically signed by: ??David CARSON, Tiny Flores Verified: ??11/15/2019 ?Pathologist Performed at: ??-[facility] Dept. of Pathology, [place], [place] CLINICAL INFORMATION Specimen Submitted: A - [...] margin is inked red. . SPECIMEN PROCESSING Taker Away sections in 10 cassettes as follows: ?A1-A5: ??Thyroid parenchyma, financial services representative sections (every other slice, superior ? to inferior) ?A6-A10: ??Thyroid lesion, entirely submitted, superior to inferior ??AJD 11/15/2019 1:54 PM EST [facility] THYROID STRUCTURE / Unknown 11/07/2019 3:06 PM EST 11/07/2019 3:06 PM EST Maria Mcghee MD PATHOLOGY/CYTOLOG Y ORDERABLES [facility] [place] [address] documented in this encounter Visit Diagnoses Diagnosis Thyroid nodule Nontoxic uninodular goiter documented in this encounter Administered Medications Inactive [...] Given 11/07/2019 5:27 PM EST 650 mg HYDROmorphone (DILAUDID) injection 0.2-0.4 mg 0.2-0.4 mg, [...] Routine 1727 (Given - Provid er: Rayo Bravo RN) BUpivacaine-EPINEPHrine 0.25 %-1:200,000 injection (CANCELED) ONCE [...] Rayo Bravo RN)1704 (Given - Provider: Rayo Bravo RN) documented in this encounter Care Teams Checker Product Design Relationship Specialty Start Date End Date Yesica Goff APRN [address] [place] [address] PCP - General Family Medicine 09/19/19 documented as of this encounter
--- OUTSIDE RECORDS SUMMARY | 2024-07-14 19:39 | XMS_ITS | Encounter Summary ---
Author Organization [facility] Address [facility] [place] [address] Care Team Providers Care Burner Shaft Name Role Phone Yesica Goff APRN Primary Care Provider [phone] Reason for Visit * Auth/Cert Specialty Diagnoses / Procedures Referred By Boyd ren Referred To Contact Diagnoses papillary carcinoma Procedures PRO THYROIDECTOMY POST PREV THYR SURG PRG EMG, LARYNX THYROIDECTOMY, REMOVE REMAINING TISSUE (WRVU 18.26) FACIAL NERVE MONITORING, SETUP LARYNGEAL (WRVU 1.57) Referral ID Status Reason Start Date Expiration Date Visits Re quested Visits Authorized [id number] 1 1 Encounter Details Date Type Department Care Team (Latest Contact Info) Description 04/30/2020 11:57 AM EDT - 04/30/2020 3:49 PM EDT Hospital Encounter [place] [address] Maria Mcghee MD [facility] [place] [address] Thyroid cancer Discharge Disposition: Home Social History Tobacco Use [...] Sign Reading Time Taken Comments Blood Pressure 148/62 04/30/2020 3:45 PM EDT Pulse 68 04/30/2020 3:45 PM EDT Temperature 36.1 ??C (97 ??F) 04/30/2020 2:49 PM EDT Respiratory Rate 20 04/30/2020 3:45 PM EDT Oxygen Saturation 98% 04/30/2020 3:45 PM EDT Inhaled Oxygen Concentration - - Weight 83.5 kg (184 lb) 04/30/2020 12:20 PM EDT Height 157.5 cm (5' 2) 04/30/2020 12:20 PM EDT Body Mass Index 33.65 04/30/2020 12:20 PM EDT documented in this encounter Discharge Instructions * Discharge Instructions* Sameer Mai RN - 04/30/2020 12:22 PM EDT At 12 pm you received 1000 mg of acetaminophen- Your next dose should not be taken before 8 hours have passed. Next dose not before- 8 pm You should not take more than a total of 3000 mg of acetaminophen in a 24 hour period. General Anesthesia Discharge Instructions Go home and rest. You may be sleepy for several hours. Take it easy as sudden position changes may cause nausea and/or dizziness. Use caution on stairs. Do not smoke if you are alone. Follow a light to regular diet as tolerated today. If nausea occurs, start with clear liquids, and progress slowly to a regular diet. Do not drive, operate machinery, drink alcoholic beverages or make any legal decisions after havinggeneral anesthesia. The medications given change your reaction time and alter your judgement. IV site -- slight redness is normal, you can use warm compresses. If tenderness and redness increases or foul drainage occurs, please contact your M.D. Patients who have had endotracheal tubes/LMA (tubes used by the anesthesia staff to ensure a safe airway during your operation) may have a sore throat. This is normal and cold liquids or soothing lozenges will help ease this discomfort. Narcotic pain medications can cause constipation, please ask the surgeons office what they recommend for prevention of this. Some non-pharmaceutical means of constipation prevention include increasing intake of fluids, eating more fruits and vegetables as well as fruit juices. If you are uncomfortable and/or unable to urinate within 8 hours of discharge and it is before 5 pm, call your physician. If it is after 5pm go to the closest emergency room or call the hospital optical lathe operator at [phone] and ask for physician oncology consultant covering for your physician. Questions or problems after 5pm or on a weekend: Call the [facility] optical lathe operator at and ask for the physician oncology consultant covering for your doctor. * Patient Instructions* Blair Thornton - 04/30/2020 2:52 PM EDT THYROIDECTOMY PATIENT DISCHARGE INSTRUCTIONS What to Expect Following [...] and you may notice tiny pieces of yellow/white/thornton material on your washcloth or there may be a thin clear or purplish/thornton crust around the edges of the incision. [...] or opioids) after thyroid surgery. Take NSAIDS and/or Tylenol every 6 hours [id number] for the first 3-5 days following surgery [...] work for two weeks. NO DRIVING for at least 8 hours following any dose of an opioid pain medication if one was prescribed for you. Thyroid Hormone: You are being prescribed a higher dose of thyroid hormone replacement (levothyroxine, synthroid, levothroid) to take daily. Take this at the same time each day. You should take your thyroid hormone on an empty stomach and by itself. If possible, avoid taking your calcium supplementation or any other medication within one hour of taking your thyroid hormone pill. A blood test will performed in approximately 6 weeks (the same day as your follow-up visit) to ensure dosing is correct for you. Pathology Report: All specimens removed at surgery are analyzed by a pathologist. This report usually takes approximately 5-7 business days to be ready. Dr. Mcghee will call you with this report as soon as it is available. Follow-up Appointment: Will be scheduled with Dr. Mcghee in 6 weeks Date and time as well as any required labs will be mailed to you Please call [phone] to confirm the date and time of your appointment if you do not hear from us in the next 2 weeks Call Doctor for: Call if you have trouble talking or breathing (call [phone] if this is severe) Call if you [...] rather than better, several days after surgery. Information about Calcium Supplementation WHAT IS THE EFFECT OF SURGERY ON MY CALCIUM LEVELS? The parathyroid glands are responsible for controlling the body???s calcium levels, and they frequently do not work perfectly after surgery on the thyroid. This can result in a decrease in blood calcium levels. This is usually temporary and the parathyroid glands almost always make a full recovery. ??? WHAT ARE THE SYMPTOMS OF LOW CALCIUM? If the calcium level in the blood stream decreases after surgery, you may experience symptoms of numbness, tingling, or cramps in the fingers, toes, legs, or around the mouth. ??? WHAT ARE CALCIUM SUPPLEMENTS? Each over the counter calcium supplement tablet is approximately 500-600 mg. ??? There are several different types of calcium sold over the counter. Some of the more common brands you will see include: Tums, Viactiv, Citracal, Caltrate. ??? The two main forms of calcium in supplements are carbonate and citrate. Calcium carbonate (Tums, Viactiv) is absorbed most efficiently when taken with food, whereas calcium citrate (Citracal) is absorbed equally well when taken with or without food. ??? HOW MUCH CALCIUM SHOULD I TAKE AFTER SURGERY? The exact dose of calcium that is right for you after surgery depends on several factors including the type and extent of surgery. ??? After a total thyroidectomy, most patients will temporarily require some extra calcium as the parathyroid glands recover. ??? You probably already purchased calcium supplements after reviewing your preoperative handout. ??? A good guideline is to start with 600-1200 mg (1-2 over the counter supplements) twice a day. If you notice symptoms of numbness/tingling, you may need to take it more frequently (up to 3-4 timesper day). If you have no symptoms, the dose can be gradually decreased and the extra calcium stopped altogether within a few days of surgery. ??? WHAT ABOUT VITAMIN D? Vitamin D can be very helpful with calcium levels, as adequate vitamin D stores in the body help your body absorb calcium. ??? If you were on Vitamin D prior to surgery, this can be resumed post-operatively. ??? Additional Vitamin D may be included in your calcium supplement, this is fine as well. ??? If you are not on Vitamin D and would like to start after surgery, an over the counter supplement of 400-800 IU is the usual recommended dosage, however, if you are on other medications or have other health issues, you will want to discuss this with your PCP. ??? If your surgeon is concerned about your calcium levels, (s)he may prescribe a different form ofvitamin D called Rocaltrol (Calcitriol). This should be taken as instructed. Note that this is not a replacement for calcium, it should be taken in addition to the recommended calcium supplements to help with absorption. COMMONLY ASKED QUESTIONS: ??? Are there side effects to calcium supplements? The most common side effect is constipation and stomach upset. If you are taking high doses of calcium after surgery, be sure to include a stool softener or laxative as needed. Minimize narcotics, as these can also cause constipation. Finally, decrease your calcium supplements if you note no symptoms of low calcium as noted above. Do I need a blood test after surgery to check my calcium levels? No, not usually. Your body will signal you that the calcium level is low with the symptoms noted above. If you do not have these symptoms, then most likely your calcium level is just fine. Phone number for questions: [phone] before 5 PM on weekdays [phone] after 5 PM and on weekends/holidays. Ask for the general surgery resident oncology consultant. documented in this encounter Medications at Time [...] 04/30/2020 06/21/2021 documented as of this encounter Progress Notes * Valente Duenas RN - 04/30/2020 3:31 PM EDT 1531--IV cathlon removed intact from left AC area. Site free from any signs of infiltration. dischage instructions reviewed with Pt and Mother, along with RX instructions, verbalized understanding (has previous surgery 5 months ago and is aware of instructions) Mother is aware of getting RX at homepharmacy 1535-- pt ambulated to the bathroom then back to stretcher, assisted by x2 nursing staff 1549-- pt ambulated out to private car, assisted by x2 nursing staff, pt is alert and oriented x4, no c/o pain or nausea. Transverse anterior neck incision remains dry, redness and bruising noted. * Brie Venegas RN - 04/21/2020 4:27 PM EDT During this call the patient was questioned regarding travel, fever, cough, SOB or other illness inthe last 14 days. Patient also questioned regarding any exposure to a COVID positive person, a person awaiting results from testing or a person in quarantine. Patient denies any positive responses to the above questions for themselves or their escort for theday of procedure. Patient informed of procedure to be followed upon arrival to the [facility]. That being, COVID questions will be asked again, temperature will be taken, patient and caregiver/laborer driver will be given a mask to wear the entire time they are in the [facility] building. documented in this encounter H&P Notes * Blair Thornton - 04/30/2020 12:22 PM EDT Surgery Preop H&P NAME: Jennifer Nunn DATE: 04/30/20 SURGEON: MARIA MCGHEE PROCEDURE: Completion thyroidectomy BRIEF HISTORY: Jennifer Nunn is a 44 y.o. female who underwent right thyroid lobectomy 11/07/19 for papillary thyroid carcinoma with final pathology results below, including one positive margin. She presents today for completion thyroidectomy. The patient reports no interval change. There has been no interval medical illness or hospitalizations. Questions have been addressed. Smoking HX: Social History Tobacco Use Smoking Status Never Smoker Smokeless Tobacco Never Used PMH: Patient Active Problem List Diagnosis Date Noted ??? Thyroid cancer 12/18/2019 ??? Risk of chromosome anomaly affecting care of mother, antepartum 03/08/2011 ??? HSV (herpes simplex virus) anogenital infection 03/08/2011 ??? Bladder stones 03/08/2011 PSH: Past Surgical History: Procedure Laterality Date ??? LITHOTRIPSY ??? PRG EMG, LARYNX N/A 11/07/2019 FACIAL NERVE MONITORING, SETUP LARYNGEAL (WRVU 1.57) performed by Maria Mgchee MD at [facility] MAIN OR ??? PRO THYROID LOBECTOMY, UNILAT Right 11/07/2019 THYROIDECTOMY, LOBECTOMY, TOTAL, UNILATERAL (WRVU 11.19) performed by Maria Mcghee MD at [facility] MAIN OR ??? TUBAL LIGATION MEDS: No current facility-administered medications on file prior to encounter. Current Outpatient Medications on File Prior to Encounter Medication Sig Dispense Refill ??? levothyroxine (Synthroid) 25 mcg Tablet Take 1 tablet by mouth daily. 30 tablet 11 ??? famotidine (Pepcid) 20 mg Tablet TAKE [...] 30 MINUTES BEFORE EACH MEAL AND ATBEDTIME ??? acetaminophen (Tylenol) 325 mg Tablet Take 2 tablets by mouth every 6 hours as needed for Pain.30 tablet 1 ??? ibuprofen (Advil;Motrin) 600 mg Tablet Take 1 tablet by mouth every 6 hours as needed for Pain.30 tablet 12 ALL: No Known Allergies Physical Exam Patient Vitals for the past 24 hrs: Temp Pulse Resp BP SpO2 04/30/20 1220 35.8 ??C (96.5 ??F) 62 16 131/83 100 % Gen: NAD, pleasant, sitting comfortably in bed HEENT: normocephalic, atraumatic, EOMI, sclerae anicteric Neck: supple, trachea midline Card: RRR, Pulm: Non-labored breathing on room air Abd: soft, NT, BS+ Ext: warm, dry, no edema Neuro: A&Ox3, CN II-XII grossly intact, nonfocal, conversant LABS: ?? No results found for: NA, K, CL, CO2, BUN, CREATININE Surgical Pathology 11/07/19 DIAGNOSIS Specimen ?Procedure: ??Right lobectomy Tumor ?Tumor Focality: [...] (pT): ?? pT1b ?Regional Lymph Nodes (pN): Tumor Block(s): ?? A8 Normal Block(s): ?? A4 Prior Cytology Specimen: ?[id number] [facility] November 2018 Annual Release Electronically signed by: ??David CARSON, Tiny Flores Verified: ??11/15/2019 ?Pathologist Performed at: ??-[facility] Dept. of Pathology, [place], [place] CLINICAL INFORMATION Specimen Submitted: A - Right thyroid lobe - stitch on upper pole Clinical History and Diagnosis: Thyroid cancer Assessment/Plan: Jennifer Nunn is a 44 y.o. female presenting today for planned completion thyroidectomy due to positive margin after right hemithyroidectomy for papillary thyroid carcinoma on 11/07/19. Consent signed and confirmed in chart. Questions addressed. Will proceed with planned surgery. Blair Thornton MD 04/30/2020 documented in this encounter Miscellaneous Notes * Op Note - Maria Mcghee MD - 04/30/2020 2:27 PM EDT [facility] Operative Note Patient Name: Jennifer Nunn : [id number] MR#: [id number] Case Date: 04/30/2020 Surgeon: Surgeon(s) and Role: * Maria Mcghee MD - Primary * Blair Thornton MD - Resident Preoperative diagnosis: papillary carcinoma Postoperative diagnosis: papillary carcinoma Procedure(s) (LRB): THYROIDECTOMY, REMOVE REMAINING TISSUE (WRVU 18.26) (Left) FACIAL NERVE MONITORING, SETUP LARYNGEAL (WRVU 1.57) (N/A) Anesthesia: General Estimated Blood Loss: 27cc Specimens removed during surgery: Order Name Source Comment Collection Info Order Time SPECIMEN TO PATHOLOGY papillary carcinoma left thyroid lobe excision 04/30/2020 2:10 PM Time specimen removed from patient: 2:09 PM Number of tissue samples (in container) 1 Drains: * No LDAs found * Surgical [...] HPI/Surgical Indications: Ms. Jennifer Nunn is a very pleasant 44 y.o. year old female s/p right thyroid lobectomy for a 1.3cm PTC with positive margins. She presents today for completion thyroidectomy. Procedure Description: The patient was correctly identified in the preoperative holding area. The risks, benefits, and indications of a thyroidectomy were reviewed with the patient. She was then taken to the operating room and placed on the operating table in the supine position and an identification procedure was performed. Adequate general anesthesia was achieved by anesthesiology with the [employer] recurrent laryngeal nerve monitoring system. Her prior incision in the anterior neck was marked with a marking pen. This area was infiltrated with 0.25% Sensorcaine with epinephrine. The patient's anterior neck was then prepped and draped in sterile fashion. A timeout procedure was done and all members of the OR team were in agreement. We made a curvilinear incision along the previously marked crease with a scalpel. The incision was carried down through the subcutaneous tissue and platysma muscle using electrocautery. Subplatysmal flaps were recreated in the cranial and caudal directions. The previously reapproximated median raphe of the strap muscles was identified and this was divided in vertical fashion using electrocautery.This exposed the thyroid gland, which was from its lateral attachments to the strap muscles on the left side using electrocautery. The middle thyroidal veins [...] 3-0 silk sutures and Harmonic scalpel. The left upper parathyroid gland was seen and preserved on its vascular pedicle. We then divided the attachments of the ligament of Salazar with sharp dissection and 3-0 silk sutures and small clips. During this process, we lost the audible NIM signal. With careful inspection, we identified a clip near the nerve's insertion that appeared to be across the nerve. We carefully removed this, and got immediate return of NIM signal between that point and the insertion, but not proximal to it. Stimulation did produce a palpable twitch in the laryngeal muscle. We divided the attachments of the thyroid off the pretracheal fascia and scar tissue anterior tothe trachea with electrocautery. We sent the specimen to pathology. We then irrigated the operative field. A Valsalva to 30 millimeters of mercury was accomplished by Anesthesia. Hemostasis was assured. Surgicel was placed in the paratracheal space. We then closed the strap muscles using running 3-0 Vicryl suture, the platysma with interrupted 3-0Vicryl suture, and the skin with running 5-0 Prolene subcuticular suture, followed by placement of Dermabond and removal of the Prolene suture. The patient tolerated the procedure well. Sponge and needle counts were correct upon completion of the procedure. Infection Bundle used? N/A Attestation: Case Date: 04/30/2020 I was present and I participated during the entire procedure (does not need to include opening and closing). MARIA MCGHEE MD 04/30/2020 * Brief Op Note - Maria Mcghee MD - 04/30/2020 2:23 PM EDT Brief Operative Note Patient Name: Jennifer Nunn : [id number] MR#: [id number] Case Date: 04/30/2020 Surgeon: Surgeon(s) and Role: * Maria Mcghee MD - Primary * Blair Thornton MD - Resident Preoperative diagnosis: papillary carcinoma Postoperative diagnosis: papillary carcinoma Procedure(s) (LRB): THYROIDECTOMY, REMOVE REMAINING TISSUE (WRVU 18.26) (Left) FACIAL NERVE MONITORING, SETUP LARYNGEAL (WRVU 1.57) (N/A) Anesthesia: General Findings: normal-appearing left thyroid lobe, with minimal amount of scar tissue related to prior surgery. Left upper parathyroid clearly preserved, left lower parathyroid not definitively visualized. Left RLN anatomically intact throughout, but we lost audible NIM signal during dissection of the thyroid lobe off the ligament of Salazar. A clip that had been placed immediately adjacent to the nervewas removed, and NIM signal returned between that site and the nerve insertion, but not more proximally. Stimulation did produce laryngeal twitch. Complications: transient clip on recurrent laryngeal nerve with return of NIM signal when removed, as described above Intake: Intraprocedure Crystalloid Total Intake lactated ringers infusion 400.00 mL Total Intake 400 mL Transfusion No data found in the last 1 encounters. Output: Estimated Blood Loss: 27cc Urine Output:: (no urine output recorded) Other Output: (no other output recorded) Drains: none Specimens removed during surgery: Order Name Source Comment Collection Info Order Time SPECIMEN TO PATHOLOGY papillary carcinoma left thyroid lobe excision 04/30/2020 2:10 PM Time specimen removed from patient: 2:09 PM Number of tissue samples (in container) 1 Disposition: awakened from anesthesia, extubated and taken to the recovery room in a stable condition, having suffered no apparent untoward event. Condition: doing well without problems Attestation: Case Date: 04/30/2020 I was present and I participated during the entire procedure (does not need to include opening and closing). (Please see the Surgical Encounter Summary for any Implant and Specimen details pertinent to this patient.) Infection Bundle used? N/A documented in this encounter Plan of Treatment Not on file documented as of this encounter Procedures Procedure Name Priority Date/Time Associated Diagnosis Comments SPECIMEN TO PATHOLOGY Routine 04/30/2020 2:11 PM EDT SURGICAL PATHOLOGY REPORT Routine 04/30/2020 2:09 PM EDT Needle Electromyography, Larynx Global ([id number]) Yes 04/30/2020 12:45 PM EDT papillary carcinoma Thyroidectomy Post Prev Thyr Surg ([id number]) Yes 04/30/2020 12:45 PM EDT papillary carcinoma documented in this encounter Results * Specimen to Pathology (04/30/2020 2:11 PM EDT) AP Specimen 04/30/2020 2:11 PM EDT 04/30/2020 2:[address] [facility] - 04/30/2020 2:11 PM EDT Specimen requisition ordered. ??Separate Pathology report to follow Maria Mcghee MD PATHOLOGY/CYTOLOG Y ORDERABLES [facility] [place] [address] * Surgical Pathology Report (04/30/2020 2:09 PM EDT) Final Diagnosis [id number] ? Location: [facility] The signing pathologist has (i) examined the relevant preparation(s) for the specimen(s) and (ii) rendered or confirmed the diagnosis(es). . ?Surgical Pathology DIAGNOSIS A - Left thyroid lobe, excision: ?? - Benign thyroid parenchyma. Electronically signed by: ??MD Reynold, Champ Cha Verified: ??05/05/2020 ?Pathologist Performed at: ??-[facility] Dept. of Pathology, [place], [place] SPECIMEN(S) SUBMITTED A - left thyroid lobe, excision (1) CLINICAL INFORMATION Papillary carcinoma SPECIMEN PROCESSING A - Labeled/Fixativ e: Left thyroid lobe, fresh. Quantity/Size/W eight: Single, 4.6 x 2.9 x 1.5 cm, 6.51 g. SPECIMEN DESCRIPTION: Resection Specimen: Intact, not oriented, lam-thyroidect lilliana, consisting of isthmus, left thyroid lobe. External Surface: Smooth, glistening, purple. Isthmus: 2 x 0.9 x 0.3 cm. Parenchyma: Brown, spongy, no lesion identified grossly. Inking: The thyroid capsule is inked black. The isthmic margin is inked blue. Entirely submitted in 8 cassettes as follows: ?A1-A2: ??Entire upper pole ?A3-A5: ??Entire middle pole ?A6-A8: ??Entire lower pole ??AJ 05/05/2020 9:[address] [facility] THYROID STRUCTURE / Unknown 04/30/2020 2:09 PM EDT 04/30/2020 2:09 PM EDT Maria Mcghee MD PATHOLOGY/CYTOLOG Y ORDERABLES [facility] [place] [address] documented in this encounter Visit Diagnoses Diagnosis Thyroid cancer Malignant neoplasm of thyroid gland documented in this encounter Administered Medications Inactive Administered Medications - up to 3 most recent administrations Medication Order MAR Action Action Date Dose Rate Site acetaminophen (Tylenol) tablet 1,000 mg 1,000 mg, Oral, ONCE, 1 dose, On Sun04/30/20 at 1230, Administer with SIP of H2O only., Day of Surgery (Day of Procedure), Routine Given 04/30/2020 12:12 PM EDT 1,000 mg fentaNYL 50 mcg/mL multi-dose injection 12.5-25 mcg, Intravenous, EVERY 5 MIN PRN, Starting on Sun04/30/20 at 1312, Until Sun04/30/20 at 1753, Pain, Give 12.5 mcg every 5 minutes PRN for mild to moderate pain (1-5) Give 25 mcg every 5 minutes PRN for moderate to severe pain (6-10). Hold for respiratory rate less than 10 per minute. Maximum dose 250 mcg over one hour. If ordered with hydromorphone or morphine, give hydromorphone or morphine first and use fentanyl for breakthrough pain., Routine documented in this encounter Active and Recently Administered Medications Times are shown in EDT. Scheduled Medication Order 04/28/2020 04/29/2020 04/30/2020 acetaminophen (Tylenol) tablet 1,000 mg (COMPLETED) 1,000 mg, Oral, ONCE, 1 dose, On Sun04/30/20 at 1230, Administer with SIP of H2O only., Day of Surgery (Day of Procedure), Routine 1212 (Given - Provid er: Sameer Mai RN) Continuous Medication Order 04/28/2020 04/29/2020 04/30/2020 lactated ringers infusion (CANCELED) 1,000 mL, at 100 mL/hr, Intravenous, CONTINUOUS, Starting on Sun04/30/20 at 1230, Until Sun04/30/20 at 1552, Day of Surgery (Day of Procedure) 1230 (New Bag - Prov ider: Carlos Carballo)1318 (Anesthesia Volume Adjustment - Provider: Carlos Carballo)1329 (Anesthesia Volume Adjustment - Provider: Carlos Carballo)1453 (Anesthesia Volume Adjustment - Provider: Martita Braun CRNA) PRN Medication Order 04/28/2020 04/29/2020 04/30/2020 BUpivacaine-EPINEPHrine 0.25 %-1:200,000 injection (CANCELED) ONCE PRN, Starting on Sun04/30/20 at 1332, Until Sun04/30/20 at 1753, Intra-Operative (Intra-Procedure), Routine 1332 (Given - Provid er: Maria Mcghee MD) fentaNYL 50 mcg/mL multi-dose injection 12.5-25 mcg, Intravenous, EVERY 5 MIN PRN, Starting on Sun04/30/20 at 1312, Until Sun04/30/20 at 1753, Pain, Give 12.5 mcg every 5 minutes PRN for mild to moderate pain (1-5) Give 25 mcg every 5 minutes PRN for moderate to severe pain (6-10). Hold for respiratory rate less than 10 per minute. Maximum dose 250 mcg over one hour. If ordered with hydromorphone or morphine, give hydromorphone or morphine first and use fentanyl for breakthrough pain., Routine documented in this encounter Care Teams Burner Shaft Relationship Specialty Start Date End Date Yesica Goff APRN [address] [place] [address] PCP - General Family Medicine 09/19/19 documented as of this encounter
--- OUTSIDE RECORDS SUMMARY | 2024-07-14 19:39 | XMS_ITS | Encounter Summary ---
[facility] Organization [facility] [place] [address] Care Team Providers Care Char Filter Operator Name Role Phone Yesica Goff APRN Primary Care Provider [phone] Encounter Details Date Type Department Care Team (Late st Contact Info) Description 05/07/2020 Telephone [place] [id number] Lona Snowden APRN [facility] [place] [address] Social History Tobacco Use Types Packs/Day Years [...] encounter Miscellaneous Notes * Telephone Encounter - Lona Snowden APRN - 05/07/2020 4:26 PM EDT I called Ms. Jennifer Nunn today to discuss the results of her pathology. Specifically, this demonstrated: A - Left thyroid lobe, excision: ?- Benign thyroid parenchyma. She is doing well. Her voice sounds normal. She is not complaining of perioral numbness/tingling, numbness/tingling in the hands, or muscle spasms. She will taper off her calcium supplementation. I answered her questions, and we will discuss further at her regularly-scheduled postoperative follow up appointment. Lona Snowden APRN documented in this encounter Plan of Treatment Not on file documented as of this encounter Visit Diagnoses Not on filedocumented in this encounter Care Teams Char Filter Operator Relationship Specialty Start Date End Date Yesica Goff APRN [address] [place] [address] PCP - General Family Medicine 09/19/19 documented as of this encounter
--- OUTSIDE RECORDS SUMMARY | 2024-07-14 19:39 | XMS_ITS | Encounter Summary ---
[facility] Organization [facility] [address] Care Team Providers Care Ecommerce Merchandising Manager Name Role Phone Yesica Goff APRN Primary Care Provider [phone] [phone] Reason for Visit * Auth/Cert Specialty Diagnoses / Procedures Referred By Boyd ren Referred To Contact Diagnoses papillary carcinoma Procedures PRO THYROIDECTOMY POST PREV THYR SURG PRG EMG, LARYNX THYROIDECTOMY, REMOVE REMAINING TISSUE (WRVU 18.26) FACIAL NERVE MONITORING, SETUP LARYNGEAL (WRVU 1.57) Referral ID Status Reason Start Date Expiration Date Visits Re quested Visits Authorized [id number] 1 1 Encounter Details Date Type Department Care Team (Late st Contact Info) Description 04/30/2020 1:40 PM EDT - 04/30/2020 3:59 PM EDT Surgery [facility] [place] [address] Maria Mcghee MD [facility] [place] [address] THYROIDECTOMY, REMOVE REMAINING TISSUE (WRVU 18.26) Social History Tobacco Use Types Packs/Day Years [...] closest emergency room or call the hospital oven operator automatic at [phone] and ask for physician consumer safety officer covering for your physician. Questions or problems after 5pm or on a weekend: Call the [facility] oven operator automatic at and ask for the physician consumer safety officer covering for your doctor. * Patient Instructions* [...] Take NSAIDS and/or Tylenol every 6 hours [id number] for the first 3-5 days following surgery [...] will be mailed to you Please call [phone] to confirm the date and time of your appointment if you do not hear from us in the next 2 weeks Call Doctor for: Call if you have trouble talking or breathing (call [phone] if this is severe) Call if you [...] is just fine. Phone number for questions: [phone] before 5 PM on weekdays [phone] after 5 PM and on weekends/holidays. Ask for the general surgery resident consumer safety officer. documented in this encounter Medications at Time [...] remains dry, redness and bruising noted. * Bire Venegas RN - 04/21/2020 4:27 PM EDT [...] again, temperature will be taken, patient and caregiver/courtesy bus driver will be given a mask to [...] SETUP LARYNGEAL (WRVU 1.57) performed by Maria Mcghee MD at [facility] MAIN OR ??? PRO THYROID LOBECTOMY, UNILAT Right 11/07/2019 THYROIDECTOMY, LOBECTOMY, TOTAL, UNILATERAL (WRVU 11.19) performed by Maria Mcghee MD at [facility] MAIN OR ??? TUBAL LIGATION MEDS: No [...] Normal Block(s): ?? A4 Prior Cytology Specimen: ?[id number] [facility] November 2018 Annual Release Electronically signed by: ??David CARSON, Tiny Flores Verified: ??11/15/2019 ?Pathologist Performed at: ??-[facility] Dept. of Pathology, [place], [place] CLINICAL INFORMATION Specimen Submitted: A - [...] Mcghee MD - 04/30/2020 2:[address] [facility] Operative Note Patient Name: Jennifer Nunn : [id number] MR#: [id number] Case Date: 04/30/2020 Surgeon: Surgeon(s) and Role: [...] anesthesia was achieved by anesthesiology with the [email or web address] recurrent laryngeal nerve monitoring system. Her prior [...] tracheoesophageal groove and followed this up to yanira of Martin, ligating vessels to expose the nerve's anterior [...] Operative Note Patient Name: Jennifer Nunn : [id number] MR#: [id number] Case Date: 04/30/2020 Surgeon: Surgeon(s) and Role: [...] the thyroid lobe off the ligament of Saalzar. A clip that had been placed immediately [...] 2:09 PM EDT Needle Electromyography, Larynx Global ([id number]) Yes 04/30/2020 12:45 PM EDT papillary carcinoma Thyroidectomy Post Prev Thyr Surg ([id number]) Yes 04/30/2020 12:45 PM EDT papillary carcinoma documented in this encounter Results * Specimen to Pathology (04/30/2020 2:11 PM EDT) AP Specimen 04/30/2020 2:11 PM EDT 04/30/2020 2:11 PM EDT Narrative [facility] - 04/30/2020 2:11 PM EDT Specimen requisition ordered. ??Separate Pathology report to follow Maria Mcghee MD PATHOLOGY/CYTOLOG Y ORDERABLES [facility] [place] [address] * Surgical Pathology Report (04/30/2020 2:09 PM EDT) Final Diagnosis [id number] ? Location: [facility] The signing pathologist has (i) examined the relevant preparation(s) for the specimen(s) and (ii) rendered or confirmed the diagnosis(es). . ?Surgical Pathology DIAGNOSIS A - Left thyroid lobe, excision: ?? - Benign thyroid parenchyma. Electronically signed by: ??MD Reynold, Champ Cha Verified: ??05/05/2020 ?Pathologist Performed at: ??-[facility] Dept. of Pathology, [place], [place] SPECIMEN(S) SUBMITTED A - left thyroid [...] lower pole ??AJ 05/05/2020 9:21 AM EDT [facility] THYROID STRUCTURE / Unknown 04/30/2020 2:09 PM EDT 04/30/2020 2:09 PM EDT Maria Mcghee MD PATHOLOGY/CYTOLOG Y ORDERABLES [facility] [place] [address] documented in this encounter Visit Diagnoses Not [...] Given 04/30/2020 12:12 PM EDT 1,000 mg BUpivacaine-EPINEPHrine 0.25 %-1:200,000 injection ONCE PRN, Starting on Sun04/30/20 at 1332, Until Sun04/30/20 at 1753, Intra-Operative (Intra-Procedure), Routine Given 04/30/2020 1:32 PM EDT 10 mLs 19- Surgical Site fentaNYL 50 mcg/mL multi-dose injection 12.5-25 mcg, [...] Routine documented in this encounter Care Teams Ecommerce Merchandising Manager Relationship Specialty Start Date End Date Yesica Goff APRN [address] [place] [address] PCP - General Family Medicine 09/19/19 documented as of this encounter
--- OUTSIDE RECORDS SUMMARY | 2024-07-14 19:39 | XMS_ITS | Encounter Summary ---
Author Organization [facility] [place] [address] Care Team Providers Care Toll Repairer Central Office Name Role Phone Yesica Goff APRN Primary Care Provider [phone] [phone] Reason for Visit * Consultation (Routine) - Closed Specialty Diagnoses / Procedures Referred By Boyd ren Referred To Contact Endocrinology Diagnoses Primary thyroid cancer Amina Baldwin MD [facility] [place] [address] [facility] Endocrinology [address] [place] [phone] Referral ID Status Reason Start Date Expiration Date V isits Requested Visits Authorized [id number] Closed Specialty Service Requested 11/26/2019 11/25/2020 1 1 Encounter Details Date Type Department Care Team (Late st Contact Info) Description 12/18/2019 8:00 AM EDT Office [place] [address] Priscilla Nuno MD [facility] [place] [address] History of thyroid cancer Social History Tobacco [...] Sign Reading Time Taken Comments Blood Pressure 140/96 12/18/2019 8:15 AM EDT Pulse 86 12/18/2019 8:15 AM EDT Temperature - - Respiratory Rate - - Oxygen Saturation - - Inhaled Oxygen Concentration - - Weight 76.3 kg (168 lb 3.2 oz) 12/18/2019 8:15 A M EDT Height 157.5 cm (5' 2) 12/18/2019 8:15 AM EDT Body Mass Index 30.76 12/18/2019 8:15 AM EDT documented in this encounter Progress Notes * Priscilla Nuno MD - 12/18/2019 8:00 AM EDT Ms. Jennifer Nunn is an 44 y.o. female who presents in consultation for chief complaint of thyroid cancer Referred by:Amina Baldwin MD Acquisition, Review and Summation of Old Medical Records: I reviewed prior operative notes and clinic notes from Dr Baldwin. On my review, I saw that patient underwent right thyroid lobectomy with diagnosis of papillary thyroid cancer, path notable for positive margin. In the operative note, therewas no mention of gross residual disease or a difficult dissection Patient presents with her mother today. She tells me that a right thyroid nodule was discovered on exam by her primary care provider. There is no personal history of head/neck irradiation. Since her right thyroid lobectomy performed by Dr Baldwin in Nov 2019, she has some occasional swallowing discomfort. She has only mild pain in the neck area of the surgery. No hoarseness of her voice. She tapered to only one calcium tablet, but takes it intermittently. Denies any numbness/tingling Past Medical History: Diagnosis Date ??? Indigestion ??? Migraine ??? Thyroid cancer 12/18/2019 Past Surgical History: Procedure Laterality Date ??? LITHOTRIPSY ??? PRG EMG, LARYNX N/A 11/07/2019 FACIAL NERVE MONITORING, SETUP LARYNGEAL (WRVU 1.57) performed by Amina Baldwin MD at [facility] MAIN OR ??? PRO THYROID LOBECTOMY, UNILAT Right 11/07/2019 THYROIDECTOMY, LOBECTOMY, TOTAL, UNILATERAL (WRVU 11.19) performed by Amina Baldwin MD at [facility] MAIN OR ??? TUBAL LIGATION [facility]: mother--thyroid lobectomy for benign nodule Social history: Works at [employer] No smoking No EtOH Review of Systems: As described above, otherwise it is negative Current Outpatient Medications: ??? acetaminophen (Tylenol) 325 mg Tablet, Take 2 tablets by mouth every 6 hours as needed for Pain., Disp: 30 tablet, Rfl: 1 ??? ibuprofen (Advil;Motrin) 600 mg Tablet, Take 1 tablet by mouth every 6 hours as needed for Pain., Disp: 30 tablet, Rfl: 12 ??? famotidine (Pepcid) 20 mg Tablet, TAKE ONE TABLET BY MOUTH EVERY DAY, Disp: , Rfl: ??? melatonin 5 mg Tablet, TAKE ONE TO TWO TABLETS BY MOUTH AT BEDTIME NEEDED, Disp: , Rfl: ??? omeprazole (PriLOSEC) 40 mg Capsule, Delayed Release(E.C.), TAKE ONE CAPSULE BY MOUTH EVERY DAY, Disp: , Rfl: ??? acyclovir (Zovirax) 400 mg Tablet, TAKE ONE TABLET BY MOUTH TWICE A DAY, Disp: , Rfl: ??? traZODone (Desyrel) 50 mg Tablet, TAKE 1/2 1 TABLET BY MOUTH AT BEDTIME FOR SLEEP, Disp: , Rfl: ??? sucralfate (Carafate) 1 gram Tablet, TAKE ONE TABLET BY MOUTH 30 MINUTES BEFORE EACH MEAL AND AT BEDTIME, Disp: , Rfl: Physical Exam: Patient Vitals for the past 24 hrs: Pulse BP 12/18/19 0815 86 (!) 140/96 Wt & BMI By Encounter Date Office Visit from 12/18/2019 in Endocrinology at [facility] Admission (Discharged) from 11/07/2019 in Same Day Program at [facility] Weight 76.3 kg (168 lb 3.2 oz) 1 12/18/2019 0815 76.2 kg (168 lb) 1 11/07/2019 1236 BMI 30.76 1 12/18/2019 0815 30.72 1 11/07/2019 1236 General: no acute distress, pleasant, sitting comfortably Face: not round or red Eyes: no lid lag; normal eye movements Nose/mouth: Nose not enlarged, mucous membranes moist Neck: no supraclavicular fat pads; no palpable right thyroid tissue, no palpable left thyroid nodules Lymphatic: no palpable cervical lymph nodes, no palpable supraclavicular lymph nodes Respiratory: symmetrical chest expansion, breathing comfortably on room air without audible wheeze/stridor Cardiovascular: no JVD Musculoskeletal: moving all 4 extremities normally; normal female musculature Skin: normal temperature/texture, well healing thyroidectomy scar Neurological: no tremors, normal gait, absent Chvostek sign Psychological: alert/oriented to person, place, time; normal affect; memory intact; normal judgement/insight Radiology Studies: Laboratory Data: Thyroid pathology Specimen ?Procedure: ??Right lobectomy Tumor ?Tumor Focality: [...] Lymph Nodes (pN): Tumor Block(s): ?? A8 THYROID CANCER FLOW Date TSH TG TGAb Ca 25D Old New 09/10/19 Right nodule FNA: PTC 10/30/19 US (Dr Baldwin) Right hypoechoic nodule [id number] 11/07/19 Dr Baldwin Right lobectomy: 1.3 cm PTC, (-) LVSI, (-) ETE. +positive margin Assessment / Plan: 1) Papillary thyroid cancer PT1b, NX, MX Intermediate risk given positive margin margins No evidence of residual right sided thyroid cancer or irregular lymph nodes. Completion thyroidectomy would give best chance of alf remission. I will contact Dr Baldwin to discuss the utility of this. The patient would feel comfortable, especially for the next 4-6 months while elective surgeries are limited in the face of the Covid-19 pandemic, monitoring only and then revisiting the option of completion thyroidectomy at a 6 month followup visit Establish post operative baseline Tg now and monitor again in 6 months. Because she is not having any hypocalcemic symptoms and is only occasionally taking a calcium supplement (not for symptoms), I don't see any need for her to take an additional Ca supplement but I'll check a postoperative calcium today She describes some swallowing discomfort since surgery. I did not see any evidence of a postoperative fluid collection or infection, but I advised her that if symptoms worsen she should contact Dr Baldwin's office for an in person evaluation A note will be sent to the referring provider Return to clinic in 6 months Orders Placed This Encounter Procedures ??? TSH ??? Thyroglobulin ??? Calcium It was a pleasure to be involved in the care of Jennifer Nunn. If you have any questions aboutthe management and treatment plan as outlined above, or if I can be of further assistance, please do not hesitate to contact me. Sincerely, Priscilla Nuno MD Landscape Specialistpatient care coordinator Endocrinology Section [facility] * Priscilla Nuno MD - 12/18/2019 8:00 AM EDT ENDOCRINOLOGY THYROID ULTRASOUND REPORT Patient:Jennifer Nunn, [id number] Date of exam: 12/13/2019 Indication: history of thyroid cancer Comparison: 10/30/19 preop ultrasound Performed by: Priscilla Nuno MD Real time images of the thyroid gland were obtained using a BK US machine. All measurements are given as Longitudinal/Sagittal x AP x Transverse. Right Neck: Thyroid is surgically absent Left Neck: Scattered tiny sub-cm cysts which are benign appearing Lymph nodes: No abnormal lymph nodes Impression: No evidence of thyroid cancer recurrence documented in this encounter Miscellaneous Notes * Addendum Note - Priscilla Nuno MD - 12/18/2019 8:00 AM EDTAddended by: PRISCILLA NUNO on: 05/04/2020 08:07 AM Modules accepted: Orders documented in this encounter Plan of Treatment Not on file documented as of this encounter Results * Calcium (12/18/2019 12:36 PM EDT) Calcium 9.1 8.5 - 10.5 mg/dL [facility] Blood specimen (specimen) 12/18/2019 12:36 PM EDT 12/18/2019 12:42 PM EDT Narrative Resulting Agency Comment Spec In Lab Priscilla Nuno MD CHEMISTRY ORDERABLE S Performing Organization Address [facility]/ZIP Co de Phone Number [facility] [place] [address] * Thyroglobulin (12/18/2019 12:36 PM EDT) Thyroglobulin 17.2 <=54.9 ng/mL [facility] Thyroglob Ab <20.0 0.0 - 40.0 IU/mL [facility] Blood specimen (specimen) 12/18/2019 12:36 PM EDT 12/18/2019 1:44 PM EDT Narrative Resulting Agency Comment Spec In Lab Priscilla Nuno MD LAB SEND OUT ORDERA BLES Performing Organization Address City/[facility]/ZIP Co de Phone Number [facility] [place] [address] * TSH (12/18/2019 12:36 PM EDT) Thyroid Stimulating Hormone 1.97 0.27 - 4.20 mcIU/mL [facility] Blood specimen (specimen) 12/18/2019 12:36 PM EDT 12/18/2019 12:42 PM EDT Narrative Resulting Agency Comment Spec In Lab Priscilla Nuno MD CHEMISTRY ORDERABLE S [facility] [place] [address] documented in this encounter Visit Diagnoses Diagnosis History of thyroid cancer Personal history of malignant neoplasm of thyroid documented in this encounter Care Teams Toll Repairer Central Office Relationship Specialty Start Date End Date Yesica Goff APRN [address] [place] [address] PCP - General Family Medicine 09/19/19 documented as of this encounter
--- OUTSIDE RECORDS SUMMARY | 2024-07-14 19:39 | XMS_ITS | Encounter Summary ---
Author Organization [facility] [place] [address] Care Team Providers Care Spray Drier Name Role Phone [place] Yesica Henson APRN Primary Care Provider [phone] Reason for Visit * Auth/Cert Specialty Diagnoses / Procedures Referred By Boyd ren Referred To Contact Diagnoses papillary carcinoma Procedures PRO THYROIDECTOMY POST PREV THYR SURG PRG EMG, LARYNX THYROIDECTOMY, REMOVE REMAINING TISSUE (WRVU 18.26) FACIAL NERVE MONITORING, SETUP LARYNGEAL (WRVU 1.57) Referral ID Status Reason Start Date Expiration Date Visits Re quested Visits Authorized [id number] 1 1 Encounter Details Date Type Department Care Team (Late st Contact Info) Description 04/30/2020 12:46 PM EDT Anesthesia Event [place] [address] Romero Holbrook MD [facility] [place] [address] Rashawn Benitez MD [facility] [address] Anesthesia Record Procedure Summary Procedure Name Responsible Anesthesiologist Anesthesia Start Time Anesthesia Stop Time THYROIDECTOMY, REMOVE REMAINING TISSUE (WRVU 18.26) (Left: Neck) Romero Holbrook MD 04/30/20 1246 04/30/20 1456 Events Date Time Event Comment 04/30/2020 1233 1246 AN Verify 1246 Start 1246 An Start Data 1252 An Induction 1256 An Intubation 1259 Anesthesia Ready 1316 Procedure Start 1404 Handoff Intra-procedure anesthesia care was transferred after review of the patient's history, current anesthetic/surgical status and procedural plan, anticipated issues and expected post-operative course (including disposition.) MARTITA BRAUN CRNA 1408 an orquidea now Pulse oximeter moved to left ear. 1443 Extubation/LMA Out 1447 an stop data 1456 Recovery or ICU Handoff Kacie ent care was transferred to the destination unit staff after review of the patient's medical history, current anesthetic/surgical status and plan, according to the Provider Handoff Checklist. 1456 Stop Meds Name Total Midazolam 2 mg fentaNYL 125 mcg IV Lidocaine 80 mg Propofol 200 mg Rocuronium 50 mg Ondansetron 8 mg Dexamethasone 10 mg Neostigmine 4 mg Glycopyrrolate 0.4 mg Propofol INF 407.48 mg Ketorolac 30 mg lactated ringers infusion 800 mL * Agents Name O2 Air N2O Sevoflurane (et) * Blood No blood administrations on file. Lines, Drains, and Airways Type Details Placement Removal Incision 11/07/19; 1421; neck ; horizontal; 05/29/22 (LDA cleanup utility RA#[id number]); 171 (LDA cleanup utility RA#[id number]) 11/07/19 1421 by Ana Maria Patel RN 05/29/22 1715 by Tru Winchester ETT Mask Ventilation: Ad junct (2); ETT Type: Cuffed, Oral, NIM; ETT Size: 6 mm; Mac Blade: 3; Notes: Asleep, Pre-O2, Stylette; Attempts: 1; Laryngoscopy Grade: 1; ETT Placement Verified By: Auscultation, Capnometry, Visual; Secured at Teeth: 21 cm; Inserted by: Dr. Carballo; Removal Date: 04/30/20; Removal Time: 1443 04/30/20 1301 by Carlos Carballo MD 04/30/20 1443 by Martita Braun CRNA Incision 04/30/20; 1315; neck ; 05/29/22 (LDA cleanup utility RA#[id number]); 1715 (LDA cleanup utility RA#[id number]) 04/30/20 1315 by Vianey Medina RN 05/29/22 1715 by Tru Winchester documented [...] OR Notes * Anesthesia Postprocedure Evaluation - Romero Holbrook MD - 04/30/2020 3:19 PM EDT Department of Anesthesiology Post-procedure Note Patient: Jennifer Nunn Procedure Summary Date: 04/30/20 Room / Location: [address] Anesthesia Start: 1246 Anesthesia Stop: 1456 Procedures: THYROIDECTOMY, REMOVE REMAINING TISSUE (WRVU 18.26) (Left Neck) FACIAL NERVE MONITORING, SETUP LARYNGEAL (WRVU 1.57) (N/A Neck) Diagnosis: (papillary carcinoma) Surgeon: Amina Baldwin MD Responsible Provider: Romero Holbrook MD Anesthesia Type: general ASA Status: 2 All Anesthesia Providers: Anesthesiologist: Romero Holbrook MD PORCELAIN FINISHER: Martita Braun CRNA Regional Service Manager: Carlos Carballo MD Vitals Value Taken Time BP 142/81 04/30/20 1516 Temp 36.1 ??C (97 ??F) 04/30/20 1449 Pulse 64 04/30/20 1516 Resp 16 04/30/20 1516 SpO2 99 % 04/30/20 1516 Pain Level Patient Location: PACU/[facility] Level of Consciousness: Awake and Alert Pain Management: Satisfactory Analgesia PONV: None Cardiovascular Status: At Baseline and Hemodynamically Stable Respiratory Status: At Baseline and Room Air Postoperative Fluid Status: Intravascular EUvolemia Possible Anesthetic Complications: NONE apparent at time of evaluation Final Primary Anesthesia Type: General (The anesthetic type performed was the same as planned.) Comments: Romero Holbrook MD * Anesthesia Preprocedure Evaluation - Romero Holbrook MD - 04/29/2020 7:53 PM EDT Pre-Anesthesia Evaluation for: Jennifer Nunn a 44 y.o. female. Procedure(s): THYROIDECTOMY, REMOVE REMAINING TISSUE (WRVU 18.26) FACIAL NERVE MONITORING, SETUP LARYNGEAL (WRVU 1.57) Patient Active Problem List Diagnosis ??? Thyroid cancer ??? Risk of chromosome anomaly affecting care [...] 1.57) performed by Amina Baldwin MD at [facility] MAIN OR ??? PRO THYROID LOBECTOMY, UNILAT Right 11/07/2019 THYROIDECTOMY, LOBECTOMY, TOTAL, UNILATERAL (WRVU 11.19) performed by Amina Baldwin MD at [facility] MAIN OR ??? TUBAL LIGATION Social History Tobacco Use ??? Smoking status: Never Smoker ??? Smokeless tobacco: Never Used Substance Use Topics ??? Alcohol use: No Social History Substance and Sexual Activity Drug Use No No Known Allergies Medications: MAR and/or home medications have been reviewed. Physical Exam: No data found. There is no height or weight on file to calculate BMI. Airway Assessment: Mallampati: II TM distance: >3 FB Neck ROM: full Cardiovascular Assessment: Pulmonary Assessment: Dental Assessment: Misc Assessment: Anesthesia Plan: ASA 2 general, with a(n) intravenous induction 44 yo, 76 kg (BMI 30), female, with a PMHx of 5 months s/p right thyroid lobectomy for papillary thyroid carcinoma, complicated by dysphagia and voice hoarseness, who presents for thyroidectomy and removal of tissue on her left side of her neck. Allergies: NKDA Anesthesia history: MAC 3 Grade 1 view 6 mm ETT Anesthesia Plan: GA with NIM ETT Standard ASA monitors Carlos Carballo MD Anesthesiology CA-2 Pager [phone] Attending Add: No issues with prior anesthetics Appropriately npo Plan for GET[facility] Region - Other Informed Consent: Anesthetic plan and risks discussed with patient. Plan discussed with PORCELAIN FINISHER. PAT Clinic Note documented in this encounter Plan of Treatment Not on file documented as of this encounter Visit Diagnoses Not on filedocumented in this encounter Administered Medications Inactive Administered Medications - up to 3 most recent administrations Medication Order MAR Action Action Date Dose Rate Site dexamethasone (Decadron) injection PRN, Starting on Sun04/30/20 at 1313, Until Sun04/30/20 at 1456, Anesthesia Intra-op, Routine Given 04/30/2020 2:40 PM EDT 2 mg Given 04/30/2020 1:13 PM EDT 8 mg fentaNYL 50 mcg/mL multi-dose injection PRN, Starting on Sun04/30/20 at 1253, Until Sun04/30/20 at 1456, Anesthesia Intra-op, Routine Given 04/30/2020 2:10 PM EDT 25 mcg Given 04/30/2020 1:31 PM EDT 25 mcg Given 04/30/2020 1:21 PM EDT 25 mcg glycopyrrolate (ROBINUL) multi-dose injection PRN, Starting on Sun04/30/20 at 1420, Until Sun04/30/20 at 1456, Anesthesia Intra-op, Routine Given 04/30/2020 2:20 PM EDT 0.4 mg ketorolac (TORADOL) injection PRN, Starting on Sun04/30/20 at 1420, Until Sun04/30/20 at 1456, Anesthesia Intra-op, Routine Given 04/30/2020 2:20 PM EDT 30 mg lactated ringers infusion 1,000 mL, at 100 mL/hr, Intravenous, CONTINUOUS, Starting on Sun04/30/20 at 1230, Until Sun04/30/20 at 1552, Day of Surgery (Day of Procedure) New Bag 04/30/2020 12:30 PM EDT lidocaine (PF) (XYLOCAINE) 100 mg/5 mL (2 %) injection PRN, Starting on Sun04/30/20 at 1253, Until Sun04/30/20 at 1456, Anesthesia Intra-op, Routine Given 04/30/2020 12:53 PM EDT 80 mg midazolam (PF) (VERSED) multi-dose injection PRN, Starting on Sun04/30/20 at 1240, Until Sun04/30/20 at 1456, Anesthesia Intra-op, Routine Given 04/30/2020 12:40 PM EDT 2 mg neostigmine (BLOXIVERZ) injection PRN, Starting on Sun04/30/20 at 1420, Until Sun04/30/20 at 1456, Anesthesia Intra-op, Routine Given 04/30/2020 2:20 PM EDT 4 mg ondansetron (ZOFRAN) injection PRN, Starting on Sun04/30/20 at 1409, Until Sun04/30/20 at 1456, Anesthesia Intra-op, Routine Given 04/30/2020 2:20 PM EDT 4 mg Given 04/30/2020 2:09 PM EDT 4 mg propofol (DIPRIVAN) 10 mg/mL bolus injection (Anesthesia) PRN, Starting on Sun04/30/20 at 1254, Until Sun04/30/20 at 1456, Anesthesia Intra-op Given 04/30/2020 12:55 PM EDT 50 mg Given 04/30/2020 12:54 PM EDT 150 mg propofol (DIPRIVAN) infusion CONTINUOUS PRN, Starting on Sun04/30/20 at 1259, Until Sun04/30/20 at 1456, Anesthesia Intra-op, Routine Rate/Dose Change 04/30/2020 2:32 PM EDT 50 mcg/kg/min 25.1 mL/hr Rate/Dose Change 04/30/2020 2:21 PM EDT 100 mcg/kg/min 50. 1 mL/hr Rate/Dose Change 04/30/2020 1:55 PM EDT 30 mcg/kg/min 15 m L/hr rocuronium (ZEMURON) multi-dose injection PRN, Starting on Sun04/30/20 at 1255, Until Sun04/30/20 at 1456, Anesthesia Intra-op, Routine Given 04/30/2020 12:55 PM EDT 50 mg documented in this encounter Care Teams Spray Drier Relationship Specialty Start Date End Date Yesica Goff APRN [address] [place] [address] PCP - General Family Medicine 09/19/19 documented as of this encounter
--- OUTSIDE RECORDS SUMMARY | 2024-07-14 19:39 | XMS_ITS | Encounter Summary ---
Author Organization [facility] [place] [address] Care Team Providers Care Systems Navigator Name Role Phone Yesica Goff APRN Primary Care Provider [phone] Reason for Referral * Diagnostic Test (Routine) - Closed Specialty Diagnoses / Procedures Referred By Contac t Referred To Contact Radiology Diagnoses Chronic abdominal pain Constipation, unspecified constipation type Abdominal bloating Abdominal distention Nausea without vomiting Hepatic steatosis LUQ abdominal pain Procedures CT Abdomen & Pelvis w Contrast Josiah Nickerson APRN [facility] [place] [address] [facility] [place] [address] Referral ID Status Reason Start Date Expiration Date V isits Requested Visits Authorized [id number] Closed Specialty Service Requested 12/15/2020 06/17/2022 1 1 * Consultation (Routine) - Closed Specialty Diagnoses / Procedures Referred By Contac t Referred To Contact Gastroenterology Diagnoses Chronic abdominal pain Constipation, unspecified constipation type Abdominal bloating Abdominal distention Nausea without vomiting Hepatic steatosis LUQ abdominal pain ARM/smartpill for constipation and nausea Procedures ANORECTAL MANOMETRY PRG GI TRANSIT & PRESSURE MEASUREMENT WIRELESS CAPSULE W/INTERP ARM/smartpill for constipation and nausea Josiah Nickerson APRN [facility] [place] [address] [facility] [address] [place] [address] Referral ID Status Reason Start Date Expiration Date V isits Requested Visits Authorized [id number] Closed Consult, Test & Treat 12/15/2020 12/15/2021 1 1 Reason for Visit * Consultation (Routine) - Closed Specialty Diagnoses / Procedures Referred By Boyd ren Referred To Contact Gastroenterology Diagnoses Left upper quadrant pain Other specified symptoms and signs involving the digestive system and abdomen Fatty (change of) liver, not elsewhere classified Yesica Goff APRN [address] [place] [address] [facility] [address] [place] [address] Referral ID Status Reason Start Date Expiration Date V isits Requested Visits Authorized [id number] Closed Consult, Test & Treat [facility] PCP Updated and/or Approved 10/21/2020 10/21/2021 6 6 Encounter Details Date Type Department Care Team (Latest Contact Info) Description 12/15/2020 8:30 AM EDT TH Visit (TeleHealth) [place] [address] Josiah Nickerson APRN [facility] [place] [address] Chronic abdominal pain; Constipation, unspecified constipation type; [...] - Inhaled Oxygen Concentration - - Weight 83.9 kg (185 lb) 12/15/2020 8:51 AM EDT Height 157.5 cm (5' 2) 12/15/2020 8:51 AM EDT Body Mass Index 33.84 12/15/2020 8:51 AM EDT documented in this encounter Patient Instructions * Patient Instructions* Josiah Nickerson, BUSINESS QUALITY ASSURANCE ANALYST - 12/15/2020 8:30 AM EDT Dear Jennifer, It was nice to meet you today. I have listed the recommendations we discussed below. Please call the Radiology department to schedule imaging test at [phone] (option 2). -Upper Endoscopy and Colonoscopy -CT abdomen and pelvis -Anorectal manometry -Smart pill -FibroScan -Labs (3L at [facility] or [facility]). One of the labs will need to be completed before 8am -Follow up with me in 6 months or sooner when testing is complete Therapeutics: -Please seek emergency medical care if you experience severe abdominal pain, nausea, vomiting, fever and have a CT scan performed. -Work with PCP on glycemic control -One time bowel Cleanse with Miralax: 14 capfuls of miralax in 2L of Gatorade. You will set aside afull day at home to do the bowel cleanse. Start drinking the fluid in the morning. One glass about every 10-15 minutes. Continue drinking until you are no longer p assing solid chunks of stool, but just liquid. You'll want to feel as though you are cleared out. At this point you can stop drinking the solution (you don't necessarily have to drink all of it). Drink plenty of clear liquids while you're cleaning out. It's fine to eat lightly that evening. -After one time bowel cleanse begin Miralax daily: Begin with 1 capful daily at night. You will titrate the dosage according to the consistency and frequency of stool. If you experience loose stools decrease dosage to half a capful daily. If you experience diarrhea stop MiraLAX and restart when stool is formed again. May increase to up to 2 capfuls daily, as tolerated. -Constipation Rescue Regimen CONSTIPATION RESCUE REGIMEN Do not start a new laxative regimen. If you already use stimulant laxatives (like senna or dulcolax), try to use these agents no more than twice per week, and try a warm water enema instead. - Rescue regimen Step 1 if 2 days without a bowel movement) Use a glycerin suppository at night then try to have a bowel movement in 10-15 minutes Step 2 if 3 days without a bowel movement) If the glycerin does not work, use a warm (not hot) tap water enema Step 3 if 4 days without a bowel movement) Try taking senna (up to four tabs), two dulcolax 5mg oral tabs or a dulcolax suppository 30 minutes later depending on what works best for you. Healthy Bowel Habits 1. Eat all of your meals (breakfast, lunch, and dinner) at a predictable time each day. The bowel functions best when food is introduced at the same regular intervals. 2. Eat foods in similar amounts. The bowel functions best when food is in similar quantity. The size of different meals taken through the day may vary, but the amount of food eaten at a given meal (breakfast, lunch, or dinner) should be about the same quantity from day to day. 3. Breakfast is the most important meal involved in bowel stimulation. Make sure you eat breakfast every day. 4. Eat a high fiber diet that includes both soluble and insoluble fiber. 5. Keep caffeine to a minimum. Caffeine is a diuretic drawing fluid from your colon and leaving your stools hard. 6. Drink plenty of decaffeinated fluids. Ideally a person should drink 64 ounces a day or 8 glassesof water, especially if you are eating a fiber-rich diet. This may not be possible for people suffering from kidney disease, heart disease or urinary problems. 7. Exercise daily. Exercise increases colonic transit time. Bowel function is helped most when exercise is at a consistent daily time. Bowel Movement Technique Find your best time of day to have a bowel movement. Usually the best time of day for a bowel movement will be a half hour to an hour after breakfast. For some people a half hour to an hour after lunch will work better. These times are best because the body uses the gastro-colic reflex, a stimulation of bowel motion that occurs with eating, to help produce a bowel movement. Make sure that you arenot rushed and have convenient access to a bathroom at this time. ??? Sit on toilet and lean forward, resting forearms on thighs. Lift heels or place feet on stool. ??? Alternate position-may try leaning forward and grasping ankles. ??? Relax rectum, feeling it slightly bulge outward. ??? Keeping lips, jaw and mouth open will facilitate relaxation of the pelvic floor during your bowel movement. ??? Breathe in through nose and exhale through mouth or perform gentle hissing through the teeth. Gently direct the air down and back to the rectum, keeping your abdomen firm. ??? Post- patients or patients with perineal descent should place fingers externally on the perineum (area between vagina and rectum). ??? When finished -contract pelvic floor muscles to restore normal pelvic floor tone. Repeat 3-4 times. If still unsuccessful, contract the pelvic floor and get off the toilet. Avoid straining documented in this encounter Progress Notes * Josiah Nickerson APRN - 12/15/2020 8:30 AM EDT Images from the original note were not included. [facility] TELEMEDICINE PROGRAM Chief Complaint: Jennifer Nunn is a 45 y.o. patient referred for consultation by Dr. Goff for LUQ abdominal pain and fatty liver. History of Present Illness: 45 y.o. female with past medical history significant for bladder stones, thyroid cancer, HSV, menometorrhagia, prediabetes, migraines. Cholecystectomy Jennifer states she experiences whole abdominal pain, stabbing/twisting pain 07/10. Began 08/2019.Can be daily and last all day. Having a BM improves 50% of the time. Sometimes pain starts in the morning. Pressure on to abdomen improves the pain. Nausea occurs when pain is severe. This pain wakesher from sleep frequently. Has BM once a week. Has gone 3-5 weeks without a BM. Last BM 3 days ago. [place] type 1-2. Denies bloody stool and melena. Abdominal pain with BM, especially LUQ. Denies fecal urgency, fecal incontinence. Endorses straining. Occasional inability to evacuate and rectal tenesmus. Endorses bloating and distention, constantly. Denies weight loss Denies heartburn, dysphagia, odynophagia, early satiety, post prandial fullness. States she started omeprazole and pepcid to help her sleep. 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 Medications: Outpatient Medications Prior to Visit Medication Sig Dispense Refill ??? calcium citrate-vitamin D (Calcium Citrate +) 315 mg-5 mcg (200 unit) Tablet Take 2 tablets by mouth 3 times daily (with meals). ??? levothyroxine (Synthroid) 137 mcg Tablet Take 1 tablet by mouth daily. 90 tablet 3 ??? acetaminophen (Tylenol) 325 mg Tablet Take 2 tablets by mouth every 6 hours as needed for Pain.(Patient not taking: Reported on 07/29/2020) 30 tablet 1 ??? ibuprofen (Advil;Motrin) 600 mg Tablet Take 1 tablet by mouth every 6 hours as needed for Pain.(Patient not taking: Reported on 07/29/2020) 30 tablet 12 ??? famotidine (Pepcid) 20 mg [...] MINUTES BEFORE EACH MEAL AND ATBEDTIME No facility-administered medications prior to visit. Allergies: has No Known Allergies. Past Medical History: has a past medical history of Indigestion, Migraine, and Thyroid cancer (12/18/2019). Past Surgical History: has a past surgical history that includes Lithotripsy; Tubal ligation; Thyroid Lobectomy, Unilat (71839) (Right, 11/07/2019); Needle Electromyography, Larynx Global (44513) (N/A,11/07/2019); Thyroidectomy Post Prev Thyr Surg ([id number]) (Left, 04/30/2020); and Needle Electromyography, Larynx Global ([id number]) (N/A, 04/30/2020). Family History: family history is not on file. denies family history of colon cancer, IBD, or celiac disease in mother father or other family members Social History: reports that she has never smoked. She has never used smokeless tobacco. She reports that she does not drink alcohol and does not use drugs. Physical exam: No Physical Examination performed during this telemedicine visit Questionnaire: No flowsheet data found. Laboratory studies, imaging, and procedures (in summary of my review of prior records): -10/2020 hemoglobin A1c 5.9 abnormal -10/19/2020 abdominal ultrasound: Abdominal aorta and IVC are normal. Pancreas is normal where visualized. Liver, diffuse increased echogenicity of the liver consistent with fatty infiltration. Liver measures 16.6 cm in length. Hepatopetal flow in the portal vein. Status post Aye. Common bile ductmeasures less than 7 mm, no intrahepatic hepatic biliary ductal dilation. Kidneys are symmetric in size, no evidence of stones or hydronephrosis. No renal mass or cyst identified. Spleen is not enlarged, small simple cyst on the spleen. No ascites. Assessment/Plan: Ms. Nunn is a 45 y.o. patient with past medical history significant for bladder stones, thyroid cancer, HSV, menometorrhagia, prediabetes, migraines. Cholecystectomy #Abdominal pain #LUQ abdominal pain #Constipation #Abdominal bloating/distention #Nausea without vomiting #Hepatic Steatosis #Abdominal pain: Jennifer states she has whole abdominal pain, stabbing/twisting can increase to a10/10. This began 09/19/2019, no changes at onset, stable in frequency and severity. Can be daily and last all day. Sometimes the pain starts in the morning and persists. Nausea occurs when the pain is severe. This pain is wakes her from sleep frequently. Having a bowel movement improves the pain 50% of the time, also pressure on the abdomen improves the pain. Jennifer denies ever having heartburn but she is on omeprazole and Pepcid daily. Currently taking Colace twice a day but this has not been improving her symptoms. Endorses having 4 children, C-sections. Denies heartburn, dysphagia, odynophagia, early satiety, postprandial fullness, weight loss, fever. #Constipation/IBS-C/LUQ abdominal pain: Jennifer tends to have a bowel movement once a week but has gone 3-5 weeks without a bowel movement before. This has been her BM pattern for years. Last BM 3 days ago. [place] type I-2. Endorses abdominal pain worsening with BM, especially LUQ. Also endorsesstraining and occasional rectal tenesmus with inability to evacuate. Denies bloody stool, melena, fecal urgency, fecal incontinence. #Bloating/distention: This occurs constantly daily We will investigate for structural causes of abdominal pain, constipation, bloating/distention withcolonoscopy and CT abdomen and pelvis. Will investigate for slow transit constipation with smart pill and pelvic floor dysfunction with anorectal manometry. #Hepatic steatosis: We discussed fatty liver disease today we discussed that the treatment for fatty liver disease is weight loss that can be achieved by diet and exercise. Will investigate with FibroScan. We discussed that complete symptom relief may not be a fully achievable goal for this chronic condition, but that improvement in quality of life, healthy days at work and family functions, and also general symptom improvement may be more reasonable goals. We discussed that treatments should be tried individually and for periods of at least 4-8 weeks to truly assess symptom response. I did my bestto answer questions to the fullest ability. We discussed that recommended treatments should be tried individually for at least three months at a time to truly assess for a meaningful response, or as long as tolerated, before changing therapy. Recommendations: Diagnostics: EGD/Colonoscopy with IVCS for abdominal pain, nausea, constipation, bloating/distention. FibroScan ARM/smartpill CT abdomen and pelvis for abdominal pain, nausea, constipation, bloating/distention. Celiac panel, TSH, 8am cortisol, CMP Send AVS in the mail Therapeutics: -Please seek emergency medical care if you experience severe abdominal pain, nausea, vomiting, fever and have a CT scan performed. -Work with PCP on improving glycemic control -One time bowel Cleanse with Miralax: 14 capfuls of miralax in 2L of Gatorade. You will set aside afull day at home to do the bowel cleanse. Start drinking the fluid in the morning. One glass about every 10-15 minutes. Continue drinking until you are no longer p assing solid chunks of stool, but just liquid. You'll want to feel as though you are cleared out. At this point you can stop drinking the solution (you don't necessarily have to drink all of it). Drink plenty of clear liquids while you're cleaning out. It's fine to eat lightly that evening. -After one time bowel cleanse begin Miralax daily: Begin with 1 capful daily at night. You will titrate the dosage according to the consistency and frequency of stool. If you experience loose stools decrease dosage to half a capful daily. If you experience diarrhea stop MiraLAX and restart when stool is formed again. May increase to up to 2 capfuls daily, as tolerated. -Constipation Rescue Regimen RTC in 6 months or sooner with me when testing is complete to further consolidate the GI care plan for the patient's local team. Due to the consultative nature of our practice, the patient should continue to work with Yesica Goff APRN as the primary point of contact for urgent issues, medication refills and adjustments as needed for continuity of care purposes in between visits to our centerbased on the recommendations above. Per their discretion, it may be beneficial for the patient to establish with a local electronic service technician for continuity of care, so that we can co-manage on a consul tative basis more effectively. TIME SPENT WITH PATIENT Time spent reviewing records prior to this encounter on day of appointment: 2 minutes Time spent during encounter with patient including counselin minutes Time spent documenting encounter after office visit: 10 minutes Approximate total time devoted to this single encounter: 68 minutes Josiah Nickerson [place] [facility] [place] [id number] documented in this encounter Plan of Treatment Scheduled Orders Name Type Priority Associated Diagnoses Orde r Schedule ENDOSCOPY CASE REQUEST: COLONOSCOPY, DIAGNOSTIC, EGD, UPPER GI ENDOSCOPY Procedures Routine Chronic abdominal pain Constipation, unspecified constipation type Abdominal bloating Abdominal distention Nausea without vomiting Hepatic steatosis LUQ abdominal pain Ordered: 12/15/2020 Scheduled Referrals Name Type Priority Associated Diagnoses Order Schedule Referral to Gastroenterology Outpatient Referral Routine Chronic abdominal pain Constipation, unspecified constipation type Abdominal bloating Abdominal distention Nausea without vomiting Hepatic steatosis LUQ abdominal pain Ordered: 12/15/2020 documented as of this encounter Results * [id number] (02/01/2021 9:30 AM EDT) Narrative Jay Krause PA - 02/01/2021 9:30 AM EDT Jay Krause PA ? 02/01/2021 ??9:47 AM [facility] Liver Fibrosis Assessment Report Indication: ?? Fatty liver Performed by: ??MERARY Encarnacion Procedure: Vibration Controlled Transient Elastography (VCTE) or Fibroscan [place] Protocol: Patient's identity, procedure and site were [...] affecting greater than 66% of hepatocytes. Josiah Jayson Nickerson APRN PROCEDURE/MINOR [place] GICAL ORDERABLES * CT Abdomen & Pelvis w Contrast [...] who have questions please contact the health medicare coordinator that requested your imaging first. ? Electronically signed by: Jerardo Barrera MD, [facility] ([phone]), at 01/26/2021 12:29 PM Narrative 01/26/2021 12:29 [...] patients who have questions please contactthe health medicare coordinator that requested your imaging first. Josiah Nickerson APRN IMG CT ORDERABLES * Cortisol (01/26/2021 9:00 AM EDT) Cortisol 9.8 mcg/dL [facility] Comment: Reference ranges: ??AM (6-10am): ??4.8-19.5 mcg/dL ??PM (4-8pm) : ??2.5-11.9 mcg/dL Blood specimen (specimen) 01/26/2021 9:00 AM EDT 01/26/2021 9:06 AM EDT Narrative Resulting Agency Comment Spec In Lab Josiah Nickerson APRN CHEMISTRY ORDERABLE S [facility] [place] [address] * (ABNORMAL) Comprehensive metabolic panel (non-fasting) (01/26/2021 9:00 AM EDT) Glucose 121 65 - 199 mg/dL [facility] Comment:Diabetes: >=200 mg/d L plus symptoms Blood Urea Nitrogen 11 8 - 18 mg/dL [facility] Creatinine 0.82 0.70 - 1.20 mg/dL [facility] Sodium 138 135 - 145 mmol/L [facility] Potassium 4.1 3.5 - 5.0 mmol/L [facility] Comment: Please note: ??Patients with WBC >100,000 may have falsely elevated Potassium levels. ??For accurate Potassium quantification in these patients send serum separator tube (gold top) for subsequent determinations. ??Contact the Clinical Chemistry Laboratory if there are any questions. Chloride 103 98 - 107 mmol/L [facility] Carbon Dioxide 26 22 - 31 mmol/L [facility] Anion Gap 9 5 - 15 mmol/L [facility] Calcium 8.9 8.5 - 10.5 mg/dL [facility] Protein, Total 7.0 6.1 - 8.0 gm/dL [facility] Albumin 4.2 3.2 - 5.2 gm/dL [facility] Aspartate Aminotransferase 26 0 - 30 unit/L [facility] Alanine Aminotransferase 34(H) 0 - 30 unit/L [facility] Alkaline Phosphatase 79 35 - 105 unit/L [facility] Bilirubin, Total 0.2 0.2 - 1.3 mg/dL [facility] Est Glomerular Filtration Rate 88 >=60 mL/min/1. 73 m?? [facility] Comment: This patient? s [...] APRN CHEMISTRY ORDERABLE S Performing Organization Address [facility]/ZIP Co de Phone Number [facility] [place] [address] * TSH [place] (01/26/2021 9:00 AM EDT) Thyroid Stimulating Hormone 3.80 0.27 - 4.20 mcIU/mL [facility] Blood specimen (specimen) 01/26/2021 9:00 AM EDT 01/26/2021 9:06 AM EDT Narrative Resulting Agency Comment Spec In Lab Josiah Nickerson APRN CHEMISTRY ORDERABLE S Performing Organization Address [facility] Co de Phone Number [facility] [place] [address] * Tissue transglutaminase, IgA (01/26/2021 9:00 AM EDT) TTG IgA Ab 0.4 0.1 - 10.0 u/ml [facility] Comment: Negative = <7 U/mL Equivocal = 7-10 U/mL Positive = >10 U/mL Blood specimen (specimen) 01/26/2021 9:00 AM EDT 01/26/2021 2:59 PM EDT Narrative Resulting Agency Comment Spec In Lab Josiah Nickerson APRN IMMUNOLOGY ORDERABL ES Performing Organization Address [facility] Co de Phone Number [facility] [place] [address] * IgG (01/26/2021 9:00 AM EDT) Immunoglobulin G 1,227 700 - 1,600 mg/dL [facility] Comment: Pediatric Reference Intervals obtained from the [employer] Reference Interval project. http://www.[place].ca/caliperproject/index.html Blood specimen (specimen) 01/26/2021 9:00 AM EDT 01/26/2021 9:06 AM EDT Narrative Resulting Agency Comment Spec In Lab Josiah Nickerson BUSINESS QUALITY ASSURANCE ANALYST CHEMISTRY ORDERABLE S [facility] [place] [address] * IgA (01/26/2021 9:00 AM EDT) IgA 242 70 - 400 mg/dL [facility] Blood specimen (specimen) 01/26/2021 9:00 AM EDT 01/26/2021 9:06 AM EDT Narrative Resulting Agency Comment Spec In Lab Josiah Nickerson BUSINESS QUALITY ASSURANCE ANALYST CHEMISTRY ORDERABLE S Performing Organization Address City/[facility]/ZIP Co de Phone Number [facility] [place] [address] documented in this encounter Visit Diagnoses Diagnosis [...] quadrant documented in this encounter Care Teams Systems Navigator Relationship Specialty Start Date End Date Yesica Goff APRN [address] [place] [address] PCP - General Family Medicine 09/19/19 documented as of this encounter
--- OUTSIDE RECORDS SUMMARY | 2024-07-14 19:39 | XMS_ITS | Encounter Summary ---
Author Organization [facility] Address [facility] [place] [address] Care Team Providers Care Animal Care Taker Name Role Phone Yesica Goff APRN Primary Care Provider +1 [phone] Encounter Details Date Type Department Care Team (Late st Contact Info) Description 06/10/2020 Notes [place] [address] Asad Song MD [facility] [place] [place] [address] Social History Tobacco Use Types Packs/Day Years [...] as of this encounter Progress Notes * Asad Song MD - 06/10/2020 4:51 PM EDT Images from the original note were not included. Thyroid Tumor Board Note 06/10/2020 44 yr old woman status posted staged thyroidectomy, with path significant for PTC Initial right thyroidectomy path notable for +margin Reason for Presentation: To review pathology and imaging studies, and discuss treatment options. Pathology: 1. 11/07/19 right thyroidectomy DIAGNOSIS Specimen ?Procedure: ??Right lobectomy Tumor ?Tumor [...] (pT): ?? pT1b ?Regional Lymph Nodes (pN): PT1b, N0, MX 2. 04/30/20 completion left thyroidectomy A - Left thyroid lobe, excision: ?- Benign thyroid parenchyma. 1. Standard followup with US and thyroglobulin monitoring 2. No indication at this time for I-131 ablation Will plan for endocrine followup November 2020 with US, sooner if Tg concerning *These are recommended next steps based on past studies and the information available here. Specific treatment to be undertaken must ultimately be determined on an individual basis by the patient's attending physician. documented in this encounter Plan of Treatment Not on file documented as of this encounter Visit Diagnoses Not on filedocumented in this encounter Care Teams Animal Care Taker Relationship Specialty Start Date End Date Yesica Goff, STAMP CLERK [address] [place] [address] PCP - General Family Medicine 09/19/19 documented as of this encounter
== END 2024-07-14 19:37 | disposition home or self-care (01) ==
LOC: NCHCN 19:36
PROVIDERS: PCP Nurse Practitioner Family; Visit Provider Nurse Practitioner Family
DX: R73.03 Prediabetes (principal); K30 Functional dyspepsia; C73 Malignant neoplasm of thyroid gland; K76.0 Fatty (change of) liver, not elsewhere classified
CPT/HCPCS: 80053; 80061; 82607; 83036; 83735; 84439; 84443; 85025

== ENCOUNTER 2024-07-21 01:48 | Outpatient (CLI) | payer MEDICAID, SELFPAY ==
--- NOTE | 2024-07-21 | DI.MAMMO_ITS ---
Exam(s) MAMMO SCREENING EXAM: MAMMO SCREENING CLINICAL HISTORY: SCREENING, Z12.31,FAMILY H/O BREAST CA,Z80.3. TECHNIQUE: Bilateral full field digital CC and MLO mammographic images were obtained with 3D tomosyn thesis and utilizing computer aided detection (CAD). COMPARISON: Prior mammograms were reviewed. This patient's last mammogram was 01/29/2024. FINDINGS: A single CC view was obtained. At this point the technologist's learned that this patient had a norm al BI-RADS 1 screening mammogram less than 1 year ago on 01/29/2024 and therefore the present examina tion was not continued. There are no significant focal findings in the single left breast cc view. IMPRESSION: Incomplete exam. Cannot be interpreted Category: None assigned as this is a noncompleted study Breast Density - Category A - Almost entirely fatty Breast density Category C or D implies that the patient has dense breast tissue. Dense breast tissue can make it harder to find cancer on a mammogram. Dense breast tissue is also associated with an incr eased risk of breast cancer. This information about the result of the mammogram report was provided to the patient to raise their awareness. Use this report when you speak with the patient about their risks for breast cancer, which includes their family history. At that time, you may recommend additional screening tests (Ultrasoun d or MRI) as these tests may add significant information. A negative radiographic report should not delay biopsy if a dominant or clinically suspicious mass is present. Up to ten percent of cancers are not identified on mammography. A negative report may reinforce clinical impression. Adenosis and dense breasts may obscure an underlying neoplasm. False positive reports average 6 to 10%. Patient will receive a letter notifying them of these results.
== END 2024-07-21 02:08 ==
LOC: DI 01:48
PROVIDERS: PCP Nurse Practitioner Family; Visit Provider Nurse Practitioner Family
DX: Z12.31 Encounter for screening mammogram for malignant neoplasm of breast (principal); Z80.3 Family history of malignant neoplasm of breast
CPT/HCPCS: 77063; 77067

== ENCOUNTER 2024-09-22 14:59 | Outpatient (REF) | payer MEDICAID, SELFPAY ==
--- OUTSIDE RECORDS SUMMARY | 2024-09-22 15:03 | XMS_ITS | Encounter Summary ---
Author Organization [facility] [place] [address] Care Team Providers Care Renal Case Manager Name Role Phone Yesica Goff APRN Primary Care Provider [phone] [phone] Reason for Referral * Diagnostic Test (Routine) - Closed Specialty Diagnoses / Procedures Referred By Contlaura t Referred To Contact Radiology Diagnoses Nausea without vomiting LUQ abdominal pain Procedures NM Gastric Emptying Scan Josiah Nickerson APRN [facility] [place] [address] [place] [address] Referral ID Status Reason Start Date Expiration Date V isits Requested Visits Authorized [id number] Closed Specialty Service Requested 02/11/2021 09/30/2021 1 1 Encounter Details Date Type Department Care Team (Late st Contact Info) Description 12/31/2020 Orders [place] [address] [facility] [place] [address] Nausea without vomiting; LUQ abdominal [...] have questions please contact the health care mgr that requested your imaging first. ? Electronically signed by: Jerardo Barrera MD, [facility] ([phone]), at 03/25/2021 10:44 AM Narrative 03/25/2021 10:44 [...] who have questions please contactthe health care mgr that requested your imaging first. Electronically signed by: Jerardo Barrera MD, [facility]([phone]), at 03/25/2021 10:44 AM Josiah Nickerson PSYCHIATRIC REGISTERED NURSE IMG FLUORO ORDERABL ES * NM Gastric [...] have questions please contact the health care mgr that requested your imaging first. ? Electronically signed by: Arsh Blackmon MD, [facility] ([phone]), at 02/11/2021 2:09 PM Narrative 02/11/2021 2:09 [...] who have questions please contactthe health care mgr that requested your imaging first. Electronically signed by: Arsh Blackmon MD, [facility]([phone]), at 02/11/2021 2:09 PM Josiah Nickerson APRN [facility] ORDERABLES documented in this encounter Visit Diagnoses Diagnosis Nausea without vomiting LUQ abdominal pain Abdominal pain, left upper quadrant Nausea without vomiting LUQ abdominal pain Abdominal pain, left upper quadrant Nausea without vomiting LUQ abdominal pain Abdominal pain, left upper quadrant documented in this encounter Care Teams Renal Case Manager Relationship Specialty Start Date End Date Yesica Goff, LEONARD [address] [place] [address] PCP - General Family Medicine 09/19/19 documented as of this encounter
--- OUTSIDE RECORDS SUMMARY | 2024-09-22 15:03 | XMS_ITS | Encounter Summary ---
Author Organization [facility] [place] [address] Care Team Providers Care Phy Therapist Name Role Phone Yesica Goff APRN Primary Care Provider [phone] [phone] Reason for Referral * Diagnostic Test (Routine) - Closed Specialty Diagnoses / Procedures Referred By Contac t Referred To Contact Radiology Diagnoses Chronic abdominal pain Constipation, unspecified constipation type Abdominal bloating Abdominal distention Nausea without vomiting Hepatic steatosis LUQ abdominal pain Procedures CT Abdomen & Pelvis w Contrast Josiah Nickerson APRN [facility] [place] [address] [facility] [place] [address] Referral ID Status Reason Start Date Expiration Date V isits Requested Visits Authorized [id number] Closed Specialty Service Requested 12/15/2020 06/17/2022 1 [...] for constipation and nausea Josiah Nickerson APRN [facility] [place] [address] [facility] [address] [address] [place] [address] Referral ID Status Reason Start Date Expiration Date V isits Requested Visits Authorized [id number] Closed Consult, Test & Treat 12/15/2020 12/15/2021 1 1 Reason for Visit * Consultation (Routine) - Closed Specialty Diagnoses / Procedures Referred By Boyd ren Referred To Contact Gastroenterology Diagnoses Left upper quadrant pain Other specified symptoms and signs involving the digestive system and abdomen Fatty (change of) liver, not elsewhere classified Yesica Goff APRN [address] [place] [address] [facility] [place] [address] [address] Referral ID Status Reason Start Date Expiration Date V isits Requested Visits Authorized [id number] Closed Consult, Test & Treat [facility] PCP Updated and/or Approved 10/21/2020 10/21/2021 6 6 Encounter Details Date Type Department Care Team (Latest Contact Info) Description 12/15/2020 8:30 AM EDT TH Visit (TeleHealth) [place] [address] Josiah Nickerson APRN [facility] [place] [address] Chronic abdominal pain; Constipation, unspecified [...] Patient Instructions * Patient Instructions* Josiah Nickerson, RETAIL COVERAGE MERCHANDISER LEAD - 12/15/2020 8:30 AM EDT Dear Jennifer, It was nice to meet you today. I have listed the recommendations we discussed below. Please call the Radiology department to schedule imaging test at [phone] (option 2). -Upper Endoscopy and Colonoscopy -CT abdomen and pelvis -Anorectal manometry -Smart pill -FibroScan -Labs (3L at [facility] or [facility]). One of the labs will need [...] documented in this encounter Progress Notes * Joisah Nickerson APRN - 12/15/2020 8:30 AM EDT [...] a BM. Last BM 3 days ago. Le Roy type 1-2. Denies bloody stool and melena. [...] includes Lithotripsy; Tubal ligation; Thyroid Lobectomy, Unilat (48956) (Right, 11/07/2019); Needle Electromyography, Larynx Global (80661) (N/A,11/07/2019); Thyroidectomy Post Prev Thyr Surg (93128) (Left, 04/30/2020); and Needle Electromyography, Larynx Global (23249) (N/A, 04/30/2020). Family History: family history is [...] for years. Last BM 3 days ago. Le Roy type I-2. Endorses abdominal pain worsening with [...] the patient to establish with a local manager steel for continuity of care, so that we [...] single encounter: 68 minutes Josiah Nickerson APRN [facility] [place] [address] documented in this encounter Plan of Treatment [...] documented as of this encounter Results * TPP131 (02/01/2021 9:30 AM EDT) Narrative Jay Krause PA - 02/01/2021 9:30 AM EDT Jay Krause PA ? 02/01/2021 ??9:47 AM [facility] Liver Fibrosis Assessment Report Indication: ?? Fatty liver Performed by: ??MERARY Encarnacion Procedure: Vibration Controlled Transient Elastography (VCTE) or Fibroscan Vancleave Protocol: Patient's identity, procedure and site were [...] have questions please contact the health care transition coordinator that requested your imaging first. ? Narrative 01/26/2021 12:29 PM EDT EXAMINATION: CT [...] who have questions please contactthe health care transition coordinator that requested your imaging first. Josiah Nickerson APRN IMG CT ORDERABLES * Cortisol (01/26/2021 9:00 AM EDT) Cortisol 9.8 mcg/dL [facility] Comment: Reference ranges: ??AM (6-10am): ??4.8-19.5 mcg/dL ??PM (4-8pm) : ??2.5-11.9 mcg/dL Blood specimen (specimen) 01/26/2021 9:00 AM EDT 01/26/2021 9:06 AM EDT Narrative Resulting Agency Comment Spec In Lab Josiah Nickerson APRN CHEMISTRY ORDERABLE S [facility] [place] [address] * (ABNORMAL) Comprehensive metabolic panel (non-fasting) (01/26/2021 [...] APRN CHEMISTRY ORDERABLE S Performing Organization Address [facility]/ZIP Co de Phone Number [facility] [place] [address] * TSH [place] (01/26/2021 9:00 AM EDT) Thyroid Stimulating Hormone 3.80 0.27 - 4.20 mcIU/mL [facility] Blood specimen (specimen) 01/26/2021 9:00 AM EDT 01/26/2021 9:06 AM EDT Narrative Resulting Agency Comment Spec In Lab Josiah Nickerson APRN CHEMISTRY ORDERABLE S Performing Organization Address [facility] Co de Phone Number [facility] [place] [address] * Tissue transglutaminase, IgA (01/26/2021 9:00 AM EDT) TTG IgA Ab 0.4 0.1 - 10.0 u/ml [facility] Comment: Negative = <7 U/mL Equivocal = 7-10 U/mL Positive = >10 U/mL Blood specimen (specimen) 01/26/2021 9:00 AM EDT 01/26/2021 2:59 PM EDT Narrative Resulting Agency Comment Spec In Lab Josiah Nickerson APRN IMMUNOLOGY ORDERABL ES Performing Organization Address [facility] Co de Phone Number [facility] [place] [address] * IgG (01/26/2021 9:00 AM EDT) Immunoglobulin G 1,227 700 - 1,600 mg/dL [facility] Comment: Pediatric Reference Intervals obtained from the Caliper Reference Interval project. http://www.[employer]ca/caliperproject/index.html Blood specimen (specimen) 01/26/2021 9:00 AM EDT 01/26/2021 9:06 AM EDT Narrative Resulting Agency Comment Spec In Lab Josiah Nickerson RETAIL COVERAGE MERCHANDISER LEAD CHEMISTRY ORDERABLE S [facility] [place] [address] * IgA (01/26/2021 9:00 AM EDT) IgA 242 70 - 400 mg/dL [facility] Blood specimen (specimen) 01/26/2021 9:00 AM EDT 01/26/2021 9:06 AM EDT Narrative Resulting Agency Comment Spec In Lab Josiah Nickerson RETAIL COVERAGE MERCHANDISER LEAD CHEMISTRY ORDERABLE S Performing Organization Address City/[facility]/ZIP Co de Phone Number [facility] [place] [address] documented in this encounter Visit Diagnoses Diagnosis [...] quadrant documented in this encounter Care Teams Phy Therapist Relationship Specialty Start Date End Date Yesica Goff APRN [address] [place] [address] PCP - General Family Medicine 09/19/19 documented as of this encounter
--- OUTSIDE RECORDS SUMMARY | 2024-09-22 15:03 | XMS_ITS | Encounter Summary ---
[place] [address] Care Team Providers Care Casing Puller Name Role Phone Yesica Goff APRN Primary Care Provider +1 -[phone] Reason for Referral * Consultation (Routine) - Closed Specialty Diagnoses / Procedures Referred By Boyd ren Referred To Contact Otolaryngology Diagnoses Painful swallowing Lona Snowden APRN [facility] [place] [address] [facility] [address] [place] [address] Referral ID Status Reason Start Date Expiration Date V isits Requested Visits Authorized [id number] Closed Consult, Test & Treat 04/09/2020 04/09/2021 1 1 Encounter Details Date Type Department Care Team (Latest Contact Info) Description 04/09/2020 11:20 AM EDT Office [place] [address] Lona Snowden APRN [facility] [place] [address] Painful swallowing; S/P partial thyroidectomy [...] of this encounter Progress Notes * Lona Snowedn, SAS SQL DEVELOPER - 04/09/2020 11:20 AM EDT Thyroid Lobectomy [...] had a repeat ultrasound in March at [facility]. Both ultrasounds do not show any gross [...] status documented in this encounter Care Teams Casing Puller Relationship Specialty Start Date End Date Yesica Goff APRN [address] [place] [address] PCP - General Family Medicine 09/19/19 documented as of this encounter
--- OUTSIDE RECORDS SUMMARY | 2024-09-22 15:03 | XMS_ITS | Encounter Summary ---
Author Organization [facility] [place] [address] Care Team Providers Care Record Filing Clerk Name Role Phone Yesica Goff APRN Primary Care Provider +1 -[phone] Reason for Visit * Reason Onset Date Comments Reminder Appointment 12/15/2020 Encounter Details Date Type Department Care Team (Late st Contact Info) Description 12/15/2020 Telephone [place] [address] Jade Coker MD [facility] [place] [address] Reminder Appointment Social History Tobacco Use Types [...] on filedocumented in this encounter Care Teams Record Filing Clerk Relationship Specialty Start Date End Date Yesica Goff APRN [address] [place] [address] PCP - General Family Medicine 09/19/19 documented as of this encounter
--- OUTSIDE RECORDS SUMMARY | 2024-09-22 15:03 | XMS_ITS | Encounter Summary ---
Author Organization [facility] [place] [address] Care Team Providers Care Soap Inspector Name Role Phone Yesica Goff APRN Primary Care Provider [phone] -[phone] Reason for Visit * Diagnostic Test (Routine) - Closed Specialty Diagnoses / Procedures Referred By Boyd t Referred To Contact Radiology Diagnoses Nausea without vomiting LUQ abdominal pain Procedures NM Gastric Emptying Scan Josiah Nickerson HEALTH INFORMATION TECH [facility] [place] [address] [place] [address] Referral ID Status Reason Start Date Expiration Date V isits Requested Visits Authorized [id number] Closed Specialty Service Requested 02/11/2021 09/30/2021 1 1 Encounter Details Date Type Department Care Team (Latest Contact Info) Description 02/11/2021 9:04 AM EDT Hospital Encounter [place] [address] Josiah Nickerson [facility] [address] Discharge Disposition: Home Social History [...] who have questions please contact the health animal care supervisor that requested your imaging first. ? Electronically signed by: Arsh Blackmon MD, [facility] ([phone]), at 02/11/2021 2:09 PM Narrative 02/11/2021 2:09 [...] patients who have questions please contactthe health animal care supervisor that requested your imaging first. Josiah Nickerson APRN IMG [place] ORDERABLES documented in this encounter Visit Diagnoses Not on filedocumented in this encounter Care Teams Soap Inspector Relationship Specialty Start Date End Date Yesica Goff APRN [address] [place] [address] PCP - General Family Medicine 09/19/19 documented as of this encounter
--- OUTSIDE RECORDS SUMMARY | 2024-09-22 15:03 | XMS_ITS | Encounter Summary ---
Author Organization [facility] [address] Care Team Providers Care Credit Interviewer Name Role Phone Yesica Goff APRN Primary Care Provider [phone] -[phone] Reason for Visit * Diagnostic Test (Routine) - Closed Specialty Diagnoses / Procedures Referred By Boyd t Referred To Contact Radiology Diagnoses Nausea without vomiting LUQ abdominal pain Procedures NM Gastric Emptying Scan Josiah Nickerson ORACLE BPM CONSULTANT [facility] [place] [address] [place] [address] Referral ID Status Reason Start Date Expiration Date V isits Requested Visits Authorized [id number] Closed Specialty Service Requested 02/11/2021 09/30/2021 1 1 Encounter Details Date Type Department Care Team (Latest Contact Info) Description 02/11/2021 9:04 AM EDT Hospital Encounter [place] [address] [facility] [address] Discharge Disposition: Home Social History [...] who have questions please contact the health palliative care nurse that requested your imaging first. ? Electronically signed by: Arsh Blackmon MD, [facility] ([phone]), at 02/11/2021 2:09 PM Narrative 02/11/2021 2:09 [...] patients who have questions please contactthe health palliative care nurse that requested your imaging first. Josiah Nickerson APRN IMG [place] ORDERABLES documented in this encounter Visit Diagnoses Not on filedocumented in this encounter Care Teams Credit Interviewer Relationship Specialty Start Date End Date Yesica Goff APRN [address] [place] [address] PCP - General Family Medicine 09/19/19 documented as of this encounter
--- OUTSIDE RECORDS SUMMARY | 2024-09-22 15:03 | XMS_ITS | Encounter Summary ---
Author Organization [facility] Address [facility] [place] [address] Care Team Providers Care Warranty Clerk Name Role Phone Yesica Goff APRN Primary Care Provider +1 -[phone] Encounter Details Date Type Department Care Team (Latest Contact Info) Description 03/25/2021 9:27 AM EDT - 03/25/2021 11:59 PM EDT Hospital Encounter XRay at [address] [place] [address] Josiah Nickerson APRN [facility] [place] [address] Nausea without vomiting; LUQ abdominal pain Discharge [...] who have questions please contact the health professional healthcare representative that requested your imaging first. ? Narrative 03/25/2021 10:44 AM EDT EXAMINATION: XR [...] patients who have questions please contactthe health professional healthcare representative that requested your imaging first. Josiah Nickerson APRN IMG FLUORO ORDERABL ES [...] mLs documented in this encounter Care Teams Warranty Clerk Relationship Specialty Start Date End Date Yesica Goff APRN [address] [place] [address] PCP - General Family Medicine 09/19/19 documented as of this encounter
--- OUTSIDE RECORDS SUMMARY | 2024-09-22 15:03 | XMS_ITS | Encounter Summary ---
Author Organization [facility] [place] [address] Care Team Providers Care Skeiner Name Role Phone Yesica Goff APRN Primary Care Provider +1 [phone] Encounter Details Date Type Department Care Team (Late st Contact Info) Description 12/31/2020 Telephone [place] [address] Romero Gao Social History Tobacco Use Types [...] Romero Gao - 12/31/2020 10:30 AM EDT [facility]/31/[address] [place] [id number] : 1975 REFERRING PROVIDER: Josiah Nickerson PRIMARY CARE PROVIDER: Yesica Goff APRN PRIMARY SYMPTOM (PROCEDURE INDICATION): nausea/vomiting SAFETY QUESTIONS FOR THE PATIENT IS THE PATIENT'S PRIMARY INSURANCE CARRIER [place] MEDICAID, [employer], [employer], AETNA, OR [place]? YES (if so, test is not covered; notify RMD and cancel referral) documented in this encounter Plan of Treatment Not on file documented as of this encounter Visit Diagnoses Not on filedocumented in this encounter Care Teams Skeiner Relationship Specialty Start Date End Date Yesica Goff APRN [address] [place] [address] PCP - General Family Medicine 09/19/19 documented as of this encounter
--- OUTSIDE RECORDS SUMMARY | 2024-09-22 15:03 | XMS_ITS | Encounter Summary ---
Author Organization [facility] [place] [address] Care Team Providers Care Supply Assistant Name Role Phone Yesica Goff APRN Primary Care Provider +1 -[phone] Encounter Details Date Type Department Care Team (Late st Contact Info) Description 09/12/2021 Telephone [place] [phone] Sury Salazar Social History Tobacco Use Types [...] for a 6 mo (overdue) gif with LOCAL OWNER OPERATOR TRUCK DRIVER Krishan following testing. GI will schedule the [...] on filedocumented in this encounter Care Teams Supply Assistant Relationship Specialty Start Date End Date Yesica Goff APRN [address] [place] [address] PCP - General Family Medicine 09/19/19 documented as of this encounter
--- OUTSIDE RECORDS SUMMARY | 2024-09-22 15:03 | XMS_ITS | Encounter Summary ---
Author Organization Formerly [facility] Address [facility] [place] [address] Care Team Providers Care Registered Sales Assistant Name Role Phone Yesica Goff APRN Primary Care Provider +1 -[phone] Reason for Visit * Consultation (Routine) - Closed Specialty Diagnoses / Procedures Referred By Boyd ren Referred To Contact Otolaryngology Diagnoses Painful swallowing Lona Snowden [facility] [place] [address] [facility] Otolaryngology [address] [place] [phone] Referral ID Status Reason Start Date Expiration Date V isits Requested Visits Authorized [id number] Closed Consult, Test & Treat 04/09/2020 04/09/2021 1 1 Encounter Details Date Type Department Care Team (Late st Contact Info) Description 07/29/2020 4:30 PM EDT Office [place] [address] Dionna Bhardwaj [facility] [place] [address] Hoarseness Social History Tobacco Use [...] Visit: 07/29/2020 Location of Visit: Otolaryngology Clinic, [facility] Patient: Jennifer Nunn ([id number] ; 1975 Primary Care Provider: Yesica Goff [...] 1.57) performed by Amina Baldwin MD at [facility] MAIN OR ??? PRG EMG, LARYNX N/A 04/30/2020 FACIAL NERVE MONITORING, SETUP LARYNGEAL (WRVU 1.57) performed by Amina Baldwin MD at [facility] OSC ??? PRO THYROID LOBECTOMY, UNILAT Right 11/07/2019 THYROIDECTOMY, LOBECTOMY, TOTAL, UNILATERAL (WRVU 11.19) performed by Amina Baldwin MD at [facility] MAIN OR ??? PRO THYROIDECTOMY POST PREV THYR SURG Left 04/30/2020 THYROIDECTOMY, REMOVE REMAINING TISSUE (WRVU 18.26) performed by Amina Baldwin MD at [facility] OSC ??? TUBAL LIGATION Medications: Current [...] allergies. Social History: Jennifer Nunn lives in [place] [address], Review of Systems: Pertinent positive findings discussed [...] Voice is clear. RTC prn. Dionna ALDANA [place], [place] [address] Office documented in this encounter Plan of Treatment Scheduled Referrals Name Type Priority Associated Diagnoses Orde r Schedule Referral to ENT Outpatient Referral Routine Painful swallowing Ordered: 04/09/2020 documented as of this encounter Visit Diagnoses Diagnosis Hoarseness Dysphonia documented in this encounter Care Teams Registered Sales Assistant Relationship Specialty Start Date End Date Yesica Goff APRN [address] [place] [address] PCP - General Family Medicine 09/19/19 documented as of this encounter
--- OUTSIDE RECORDS SUMMARY | 2024-09-22 15:03 | XMS_ITS | Encounter Summary ---
Author Organization [facility] [place] [address] Care Team Providers Care Regulatory Compliance Manager Name Role Phone Yesica Goff APRN Primary Care Provider +1 [phone] Encounter Details Date Type Department Care Team (Late st Contact Info) Description 03/16/2020 Telephone [place] [phone] Cristal Luke RN Social History Tobacco Use [...] Signed Encounter Date: 11/26/2019 I called Ms. Jennifer Huynh today to discuss the results of [...] on filedocumented in this encounter Care Teams Regulatory Compliance Manager Relationship Specialty Start Date End Date Yesica Goff APRN [address] [place] [address] PCP - General Family Medicine 09/19/19 documented as of this encounter
--- OUTSIDE RECORDS SUMMARY | 2024-09-22 15:03 | XMS_ITS | Encounter Summary ---
[place] [address] Care Team Providers Care Bake Room Worker Name Role Phone Yesica Goff APRN Primary Care Provider +1 [phone] Encounter Details Date Type Department Care Team (Latest Contact Info) Description 02/01/2021 9:30 AM EDT Procedure visit [place] [address] Jay Krause PA [address] [place] [address] Chronic abdominal pain; Constipation, unspecified constipation type; [...] without vomiting; Hepatic steatosis; LUQ abdominal pain [facility] Liver Fibrosis Assessment Report Indication: Fatty liver Performed by: MERARY Encarnacion Procedure: Vibration Controlled Transient Elastography (VCTE) or Fibroscan [place] Protocol: Patient's identity, procedure and site were [...] Procedure Name Priority Date/Time Associated Diagnosis Comments [id number] Routine 02/01/2021 9:30 AM EDT Chronic abdominal pain Constipation, unspecified constipation type Abdominal bloating Abdominal distention Nausea without vomiting Hepatic steatosis LUQ abdominal pain documented in this encounter Results * [id number] (02/01/2021 9:30 AM EDT) Narrative Jay Krause PA - 02/01/2021 9:30 AM EDT Jay Krause PA ? 02/01/2021 ??9:47 AM [facility] Liver Fibrosis Assessment Report Indication: ?? Fatty liver Performed by: ??MERARY Encarnacion Procedure: Vibration Controlled Transient Elastography (VCTE) or Fibroscan [place] Protocol: Patient's identity, procedure and site were [...] quadrant documented in this encounter Care Teams Bake Room Worker Relationship Specialty Start Date End Date Yesica Goff APRN [address] [place] [address] PCP - General Family Medicine 09/19/19 documented as of this encounter
--- OUTSIDE RECORDS SUMMARY | 2024-09-22 15:03 | XMS_ITS | Encounter Summary ---
Author Organization [facility] Address [facility] [place] [address] Care Team Providers Care System Consultant Name Role Phone Yesica Goff APRN Primary Care Provider +1 [phone] Encounter Details Date Type Department Care Team (Late st Contact Info) Description 06/10/2020 Notes [place] [address] Asad Song MD [facility] [place] [address] Social History Tobacco Use Types Packs/Day Years [...] on filedocumented in this encounter Care Teams System Consultant Relationship Specialty Start Date End Date Yesica Goff, BAGGAGE HANDLING SUPERVISOR [address] [place] [address] PCP - General Family Medicine 09/19/19 documented as of this encounter
--- OUTSIDE RECORDS SUMMARY | 2024-09-22 15:03 | XMS_ITS | Encounter Summary ---
[place] [address] Care Team Providers Care Automobile Relocation Engineer Name Role Phone Yesica Goff APRN Primary Care Provider +1 -[phone] Encounter Details Date Type Department Care Team (Late st Contact Info) Description 01/15/2021 [place] [address] Lis Rosas Social History Tobacco Use Types [...] MANOMETRY CLINICAL SAFETY CHECKLIST 01/15/2021 Lis Lovettest [address] [place] [address] [id number] : 1975 REFERRING PROVIDER: Susie REAGAN PRIMARY [...] their provider to consider alternative testing. The chief crew scheduler should also contact the provider's office directly [...] on filedocumented in this encounter Care Teams Automobile Relocation Engineer Relationship Specialty Start Date End Date Yesica Goff APRN [address] [place] [address] PCP - General Family Medicine 09/19/19 documented as of this encounter
--- OUTSIDE RECORDS SUMMARY | 2024-09-22 15:03 | XMS_ITS | Encounter Summary ---
[place] [address] Care Team Providers Care Sales Support Rep Name Role Phone Yesica Goff APRN Primary Care Provider +1 -[phone] Encounter Details Date Type Department Care Team (Latest Contact Info) Description 01/26/2021 8:55 AM EDT Laboratory Appointment Lab [address] [place] [phone] Chronic abdominal pain; Constipation, unspecified constipation type; [...] EDT) IgA 242 70 - 400 mg/dL [facility] Blood specimen (specimen) 01/26/2021 9:00 AM EDT 01/26/2021 9:06 AM EDT Narrative Resulting Agency Comment Spec In Lab Josiah Nickerson APRN CHEMISTRY ORDERABLE S [facility] [place] [address] * IgG (01/26/2021 9:00 AM EDT) Immunoglobulin G 1,227 700 - 1,600 mg/dL [facility] Comment: Pediatric Reference Intervals obtained from the Caliper Reference Interval project. http://www.sickkids.ca/caliperproject/index.html Blood specimen (specimen) 01/26/2021 9:00 AM EDT 01/26/2021 9:06 AM EDT Narrative Resulting Agency Comment Spec In Lab Josiha D Krishan TELESERVICES REPRESENTATIVE CHEMISTRY ORDERABLE S Performing Organization Address [facility]/ZIP Co de Phone Number [facility] [place] [address] * Tissue transglutaminase, IgA (01/26/2021 9:00 AM EDT) Pathologist [facility] TTG IgA Ab 0.4 0.1 - 10.0 u/ml [facility] Comment: Negative = <7 U/mL Equivocal = 7-10 U/mL Positive = >10 U/mL Blood specimen (specimen) 01/26/2021 9:00 AM EDT 01/26/2021 2:59 PM EDT Narrative Resulting Agency Comment Spec In Lab Josiah Nickerson APRN IMMUNOLOGY ORDERABL ES Performing Organization Address [facility] Co de Phone Number [facility] [place] [address] * TSH [place] (01/26/2021 9:00 AM EDT) [facility] Thyroid Stimulating Hormone 3.80 0.27 - 4.20 mcIU/mL [facility] Blood specimen (specimen) 01/26/2021 9:00 AM EDT 01/26/2021 9:06 AM EDT Narrative Resulting Agency Comment Spec In Lab Josiah Nickerson APRN CHEMISTRY ORDERABLE S Performing Organization Address [facility] Co de Phone Number [facility] [place] [address] * (ABNORMAL) Comprehensive metabolic panel (non-fasting) (01/26/2021 9:00 AM EDT) Pathologist [facility] Glucose 121 65 - 199 mg/dL [facility] Comment:Diabetes: >=200 mg/d L plus symptoms Blood Urea Nitrogen 11 8 - 18 mg/dL [facility] Creatinine 0.82 0.70 - 1.20 mg/dL [facility] Sodium 138 135 - 145 mmol/L [facility] Potassium 4.1 3.5 - 5.0 mmol/L [facility] Comment: Please note: ??Patients with WBC >100,000 may have falsely elevated Potassium levels. ??For accurate Potassium quantification in these patients send serum separator tube (gold top) for subsequent determinations. ??Contact the Clinical Chemistry Laboratory if there are any questions. Chloride 103 98 - 107 mmol/L [facility] Carbon Dioxide 26 22 - 31 mmol/L [facility] Anion Gap 9 5 - 15 mmol/L [facility] Calcium 8.9 8.5 - 10.5 mg/dL [facility] Protein, Total 7.0 6.1 - 8.0 gm/dL [facility] Albumin 4.2 3.2 - 5.2 gm/dL [facility] Aspartate Aminotransferase 26 0 - 30 unit/L [facility] Alanine Aminotransferase 34(H) 0 - 30 unit/L [facility] Alkaline Phosphatase 79 35 - 105 unit/L [facility] Bilirubin, Total 0.2 0.2 - 1.3 mg/dL [facility] Est Glomerular Filtration Rate 88 >=60 mL/min/1. 73 m?? [facility] Comment: This patient? s estimated glomerular [...] Lab Josiah Nickerson APRN CHEMISTRY ORDERABLE S [facility] [place] [address] * Cortisol (01/26/2021 9:00 AM EDT) Cortisol 9.8 mcg/dL [facility] Comment: Reference ranges: ??AM (6-10am): ??4.8-19.5 mcg/dL ??PM (4-8pm) : ??2.5-11.9 mcg/dL Blood specimen (specimen) 01/26/2021 9:00 AM EDT 01/26/2021 9:06 AM EDT Narrative Resulting Agency Comment Spec In Lab Josiah Nickerson APRN CHEMISTRY ORDERABLE S Performing Organization Address City/State/[facility] Co de Phone Number [facility] [place] [address] documented in this encounter Visit Diagnoses Diagnosis Chronic abdominal pain Abdominal pain, unspecified site Constipation, unspecified constipation type Abdominal bloating Flatulence, eructation, and gas pain Abdominal distention Flatulence, eructation, and gas pain Nausea without vomiting Hepatic steatosis Other chronic nonalcoholic liver disease LUQ abdominal pain Abdominal pain, left upper quadrant documented in this encounter Care Teams Sales Support Rep Relationship Specialty Start Date End Date Yesica Goff APRN [address] [place] [address] PCP - General Family Medicine 09/19/19 documented as of this encounter
--- OUTSIDE RECORDS SUMMARY | 2024-09-22 15:03 | XMS_ITS | Encounter Summary ---
Author Organization [facility] [place] [address] Care Team Providers Care Chief Nursing Executive Name Role Phone Yesica Goff APRN Primary Care Provider +1 -[phone] Reason for Visit * Diagnostic Test (Routine) - Closed Specialty Diagnoses / Procedures Referred By Contlaura t Referred To Contact Radiology Diagnoses Nausea without vomiting LUQ abdominal pain Procedures NM Gastric Emptying Scan Josiah Nickerson REAL ESTATE INTERN [facility] [place] [address] [place] [address] Referral ID Status Reason Start Date Expiration Date V isits Requested Visits Authorized [id number] Closed Specialty Service Requested 02/11/2021 09/30/2021 1 1 Encounter Details Date Type Department Care Team (Latest Contact Info) Description 02/11/2021 9:05 AM EDT - 02/11/2021 11:59 PM EDT Hospital Encounter [place] [address] Josiah Nickerson REAL ESTATE INTERN [facility] [place] [address] Discharge Disposition: Home Social History [...] who have questions please contact the health health care liaison that requested your imaging first. ? Electronically signed by: Arsh Blackmon MD, [facility] ([phone]), at 02/11/2021 2:09 PM Narrative 02/11/2021 2:09 [...] patients who have questions please contactthe health health care liaison that requested your imaging first. Electronically signed by: Arsh Blackmon MD, [facility]([phone]), at 02/11/2021 2:09 PM Josiah Nickerson APRN IMG NM ORDERABLES documented in this encounter Visit Diagnoses Not on filedocumented in this encounter Care Teams Chief Nursing Executive Relationship Specialty Start Date End Date Yesica Goff APRN [address] [place] [address] PCP - General Family Medicine 09/19/19 documented as of this encounter
--- OUTSIDE RECORDS SUMMARY | 2024-09-22 15:03 | XMS_ITS | Encounter Summary ---
Author Organization [facility] [place] [address] Care Team Providers Care Supervisor Parking Lot Name Role Phone Yesica Goff APRN Primary Care Provider +1 -[phone] Reason for Referral * Diagnostic Test (Routine) - Closed Specialty Diagnoses / Procedures Referred By Contac t Referred To Contact Radiology Diagnoses Nausea without vomiting LUQ abdominal pain Procedures NM Gastric Emptying Scan Josiah Nickerson APRN [facility] [place] [address] [place] [address] Referral ID Status Reason Start Date Expiration Date V isits Requested Visits Authorized [id number] Closed Specialty Service Requested 02/11/2021 09/30/2021 1 1 Reason for Visit * Diagnostic Test (Routine) - Closed Specialty Diagnoses / Procedures Referred By Contac t Referred To Contact Radiology Diagnoses Nausea without vomiting LUQ abdominal pain Procedures NM Gastric Emptying Scan Josiah Nickerson APRN [facility] [place] [address] [place] [address] Referral ID Status Reason Start Date Expiration Date V isits Requested Visits Authorized [id number] Closed Specialty Service Requested 02/11/2021 09/30/2021 1 1 Encounter Details Date Type Department Care Team (Latest Contact Info) Description 02/11/2021 9:03 AM EDT Hospital Encounter Nuclear Medicine [place] [address] Josiah Nickerson APRN [facility] [place] [address] Nausea without vomiting; LUQ abdominal pain Discharge [...] questions please contact the health health care analyst that requested your imaging first. ? Narrative [...] have questions please contactthe health health care analyst that requested your imaging first. Josiah Nickerson COMMUNICATIONS PROGRAMMER IMG NM ORDERABLES documented in this encounter [...] mCi documented in this encounter Care Teams Supervisor Parking Lot Relationship Specialty Start Date End Date Yesica Goff APRN [address] [place] [address] PCP - General Family Medicine 09/19/19 documented as of this encounter
--- OUTSIDE RECORDS SUMMARY | 2024-09-22 15:03 | XMS_ITS | Encounter Summary ---
Author Organization [facility] Address [facility] [place] [address] Care Team Providers Care General Freight Agent Name Role Phone Yesica Goff APRN Primary Care Provider [phone] -[phone] Encounter Details Date Type Department Care Team (Late st Contact Info) Description 01/05/2021 4:00 PM EDT - 01/05/2021 5:15 PM EDT Surgery [place] [address] Rashawn Springer MD [facility] [place] [address] COLONOSCOPY, DIAGNOSTIC (WRVU 3.26) Social History Tobacco [...] of this encounter H&P Notes * Rashawn pSringer MD - 01/05/2021 3:22 PM EDT Patient [...] 3:58 PM EDT Upper Gi Endoscopy, Biopsy ([id number]) 01/05/2021 3:35 PM EDT Chronic abdominal pain Constipation, unspecified constipation type Abdominal bloating Abdominal distention Nausea without vomiting Hepatic steatosis LUQ abdominal pain Colonoscopy, Diagnostic ([id number]) 01/05/2021 3:35 PM EDT Chronic abdominal pain Constipation, unspecified constipation type Abdominal bloating Abdominal distention Nausea without vomiting Hepatic steatosis LUQ abdominal pain COLONOSCOPY Routine 01/05/2021 3:24 PM EDT UPPER GI ENDOSCOPY Routine 01/05/2021 3: 23 PM EDT documented in this encounter Results * Specimen to Pathology (01/05/2021 4:25 PM EDT) AP Specimen 01/05/2021 4:25 PM EDT 01/05/2021 4:25 PM EDT Narrative [facility] - 01/05/2021 4:25 PM EDT Specimen requisition ordered. ??Separate Pathology report to follow Can Nicholson MD PATHOLOGY/CYTOLOGY O KANU Performing Organization Address [facility] [place] [address] * Specimen to Pathology (01/05/2021 4:25 PM EDT) AP Specimen 01/05/2021 4:25 PM EDT 01/05/2021 4:25 PM EDT Narrative [facility] - 01/05/2021 4:25 PM EDT Specimen requisition ordered. ??Separate Pathology report to follow Can Nicholson MD PATHOLOGY/CYTOLOGY Nathaniel BOBBY Performing Organization Address [facility] [place] [address] * Surgical Pathology Report (01/05/2021 3:58 PM EDT) Pathologist [facility] Final Diagnosis [id number] ? Location: 4T; [facility]; A The signing pathologist has (i) [...] MD Verified: ??01/10/2021 16:35 ??Pathologist Performed at: ??-[facility] Dept. of Pathology, [place], [place] SPECIMEN(S) SUBMITTED A - duodenum biopsies [...] labeled B1. ??pps 01/10/2021 4:35 PM EDT [facility] GI Biopsy 01/05/2021 3:58 PM EDT 01/05/2021 3:58 PM EDT GI Biopsy 01/05/2021 3:58 PM EDT 01/05/2021 3:58 PM EDT Rashawn Springer MD PATHOLOGY/CYTOLOGY O RDERABLES [facility] [place] [address] * COLONOSCOPY (01/05/2021 3:24 PM EDT) COLONOSCOPY [facility] Endoscopy Procedure Date: 01/05/2021 3:24 PM ? Patient Name: Jennifer Nunn ? Date of : 1975 ? Age: 45 ? Order #: [id number] ? Instrument Name: [id number] ? Procedure: ? Colonoscopy Indications: ? Generalized abdominal pain Providers: ? Rashawn Springer, Yordan Santos, ? Merline Ibrahim, Cover Machine Operator Referring MD: ?Yesica Goff Medicines: ? [...] preparation was ? evaluated using the BBPS ([place] ? Bowel Preparation Scale) with scores ? [...] UPPER GI ENDOSCOPY (01/05/2021 3:23 PM EDT) [facility] UPPER GI ENDOSCOPY [facility] Endoscopy ___ Procedure Date: 01/05/2021 3:23 PM ? Patient Name: Jennifer Nunn ? N: [id number] ? Date of : 1975 ? Age: 45 ? Order #: [id number] ? Instrument Name: [id number] ? ___ Procedure: ? Upper GI endoscopy Indications: ? nausea Providers: ? Rashawn Springer, Yordan Santos, ? Merline Ibrahim, Cover Machine Operator Referring MD: ?Yesica Goff Medicines: ? [...] APRN GENERAL SURGICAL ORDERABLES Performing Organization Address City/State/[facility] Co de Phone Number PROVATION [...] RN) documented in this encounter Care Teams General Freight Agent Relationship Specialty Start Date End Date Yesica Goff APRN [address] [place] [address] PCP - General Family Medicine 09/19/19 documented as of this encounter
--- OUTSIDE RECORDS SUMMARY | 2024-09-22 15:03 | XMS_ITS | Encounter Summary ---
Author Organization [facility] [place] [address] Care Team Providers Care Nursing Faculty Name Role Phone Yesica Goff APRN Primary Care Provider +1 -[phone] Reason for Visit * Auth/Cert Specialty Diagnoses / Procedures Referred By Boyd ren Referred To Contact Diagnoses papillary carcinoma Procedures PRO THYROIDECTOMY POST PREV THYR SURG PRG EMG, LARYNX THYROIDECTOMY, REMOVE REMAINING TISSUE (WRVU 18.26) FACIAL NERVE MONITORING, SETUP LARYNGEAL (WRVU 1.57) Referral ID Status Reason Start Date Expiration Date Visits Re quested Visits Authorized [id number] 1 1 Encounter Details Date Type Department Care Team (Late st Contact Info) Description 04/30/2020 1:40 PM EDT - 04/30/2020 3:59 PM EDT Surgery [place] [address] Maria Mcghee MD [facility] [place] [address] THYROIDECTOMY, REMOVE REMAINING TISSUE (WRVU 18.26) Social [...] closest emergency room or call the hospital cutting machine operator at [phone] and ask for physician qualifications examiner covering for your physician. Questions or problems after 5pm or on a weekend: Call the [facility] cutting machine operator at and ask for the physician qualifications examiner covering for your doctor. * Patient Instructions* [...] Take NSAIDS and/or Tylenol every 6 hours apbexv-rgv-qxnso for the first 3-5 days following surgery [...] will be mailed to you Please call [phone] to confirm the date and time of your appointment if you do not hear from us in the next 2 weeks Call Doctor for: Call if you have trouble talking or breathing (call 1 if this is severe) Call if you [...] is just fine. Phone number for questions: [phone] before 5 PM on weekdays [phone] after 5 PM and on weekends/holidays. Ask for the general surgery resident qualifications examiner. documented in this encounter Medications at Time [...] again, temperature will be taken, patient and caregiver/national flatbed truck driver will be given a mask to [...] 1.57) performed by Maria Mcghee MD at [facility] MAIN OR ??? PRO THYROID LOBECTOMY, UNILAT Right 11/07/2019 THYROIDECTOMY, LOBECTOMY, TOTAL, UNILATERAL (WRVU 11.19) performed by Maria Mcghee MD at [facility] MAIN OR ??? TUBAL LIGATION MEDS: [...] Normal Block(s): ?? A4 Prior Cytology Specimen: ?[id number] [facility] November 2018 Annual Release Electronically signed by: ??David CARSON, Tiny Flores Verified: ??11/15/2019 ?Pathologist Performed at: ??-[facility] Dept. of Pathology, [place], [place] CLINICAL INFORMATION Specimen Submitted: A - Right thyroid lobe - stitch on upper pole Clinical History and Diagnosis: Thyroid cancer Assessment/Plan: Jennifer Nunn is a 44 y.o. female presenting today for planned completion thyroidectomy due to positive margin after right hemithyroidectomy for papillary thyroid carcinoma on 11/07/19. Consent signed and confirmed in chart. Questions addressed. Will proceed with planned surgery. Balir Thornton MD 04/30/2020 documented in this encounter Miscellaneous Notes * Op Note - Maria Mcghee MD - 04/30/2020 2:27 PM EDT [facility] Operative Note Patient Name: Jennifer Nunn : [id number] MR#: [id number] Case Date: 04/30/2020 Surgeon: Surgeon(s) and Role: [...] anesthesia was achieved by anesthesiology with the [employer] recurrent laryngeal nerve monitoring system. Her prior [...] Operative Note Patient Name: Jennifer Nunn : [id number] MR#: [id number] Case Date: 04/30/2020 Surgeon: Surgeon(s) and Role: [...] 2:09 PM EDT Needle Electromyography, Larynx Global ([id number]) Yes 04/30/2020 12:45 PM EDT papillary carcinoma Thyroidectomy Post Prev Thyr Surg ([id number]) Yes 04/30/2020 12:45 PM EDT papillary carcinoma documented in this encounter Results * Specimen to Pathology (04/30/2020 2:11 PM EDT) AP Specimen 04/30/2020 2:11 PM EDT 04/30/2020 2:11 PM EDT Narrative [facility] - 04/30/2020 2:11 PM EDT Specimen requisition ordered. ??Separate Pathology report to follow Maria Mcghee MD PATHOLOGY/CYTOLOG Y ORDERABLES [facility] [place] [address] * Surgical Pathology Report (04/30/2020 2:09 PM EDT) Final Diagnosis [id number] ? Location: [facility] The signing pathologist has (i) examined the relevant preparation(s) for the specimen(s) and (ii) rendered or confirmed the diagnosis(es). . ?Surgical Pathology DIAGNOSIS A - Left thyroid lobe, excision: ?? - Benign thyroid parenchyma. Electronically signed by: ??MD Reynold, Champ Cha Verified: ??05/05/2020 ?Pathologist Performed at: ??-[facility] Dept. of Pathology, [place], [place] SPECIMEN(S) SUBMITTED A - left thyroid [...] lower pole ??AJ 05/05/2020 9:21 AM EDT [facility] THYROID STRUCTURE / Unknown 04/30/2020 2:09 PM EDT 04/30/2020 2:09 PM EDT Maria Mcghee MD PATHOLOGY/CYTOLOG Y ORDERABLES [facility] [place] [address] documented in this encounter Visit Diagnoses Not [...] Routine documented in this encounter Care Teams Nursing Faculty Relationship Specialty Start Date End Date Yesica Goff APRN [address] [place] [id number] PCP - General Family Medicine 09/19/19 documented as of this encounter
--- OUTSIDE RECORDS SUMMARY | 2024-09-22 15:03 | XMS_ITS | Encounter Summary ---
Author Organization [facility] Address [facility] [place] [address] Care Team Providers Care Hydrotel Operator Name Role Phone Yesica Goff APRN Primary Care Provider +1 [phone] Encounter Details Date Type Department Care Team (Latest Contact Info) Description 01/05/2021 2:04 PM EDT - 01/05/2021 5:19 PM EDT Hospital Encounter [place] [address] Can Nicholson MD [facility] [place] [address] Chronic abdominal pain; Constipation; Abdominal bloating; Abdominal [...] 3:58 PM EDT Upper Gi Endoscopy, Biopsy ([id number]) 01/05/2021 3:35 PM EDT Chronic abdominal pain Constipation, unspecified constipation type Abdominal bloating Abdominal distention Nausea without vomiting Hepatic steatosis LUQ abdominal pain Colonoscopy, Diagnostic ([id number]) 01/05/2021 3:35 PM EDT Chronic abdominal pain Constipation, unspecified constipation type Abdominal bloating Abdominal distention Nausea without vomiting Hepatic steatosis LUQ abdominal pain COLONOSCOPY Routine 01/05/2021 3:24 PM EDT UPPER GI ENDOSCOPY Routine 01/05/2021 3: 23 PM EDT documented in this encounter Results * Specimen to Pathology (01/05/2021 4:25 PM EDT) AP Specimen 01/05/2021 4:25 PM EDT 01/05/2021 4:25 PM EDT Narrative [facility] - 01/05/2021 4:25 PM EDT Specimen requisition ordered. ??Separate Pathology report to follow Can Nicholson MD PATHOLOGY/CYTOLOGY O KANU Performing Organization Address [facility] [place] [address] * Specimen to Pathology (01/05/2021 4:25 PM EDT) AP Specimen 01/05/2021 4:25 PM EDT 01/05/2021 4:25 PM EDT Narrative [facility] - 01/05/2021 4:25 PM EDT Specimen requisition ordered. ??Separate Pathology report to follow Can Nicholson MD PATHOLOGY/CYTOLOGY Nathaniel BOBBY Performing Organization Address [facility] de Phone Number [facility] [place] [address] * Surgical Pathology Report (01/05/2021 3:58 PM EDT) Pathologist [facility] Final Diagnosis [id number] ? Location: 4; [facility]; The signing pathologist has (i) examined the relevant preparation(s) for the specimen(s) and (ii) rendered or confirmed the diagnosis(es). . ?Surgical Pathology DIAGNOSIS A - Duodenum, ??biopsy: - ??Duodenal mucosa, negative for diagnostic abnormality ??. B - Stomach, ??biopsy: - ??Gastric antrum-type and body/fundic-typ e mucosa, negative for diagnostic abnormality. Electronically signed by: ?Marcello Rocha MD Verified: ??01/10/2021 16:35 ??Pathologist Performed at: ??-[facility] Dept. of Pathology, [place], [place] SPECIMEN(S) SUBMITTED A - duodenum biopsies [...] labeled B1. ??pps 01/10/2021 4:35 PM EDT [facility] GI Biopsy 01/05/2021 3:58 PM EDT 01/05/2021 3:58 PM EDT GI Biopsy 01/05/2021 3:58 PM EDT 01/05/2021 3:58 PM EDT Rashawn Springer MD PATHOLOGY/CYTOLOGY O RDERABLES [facility] [place] [address] * COLONOSCOPY (01/05/2021 3:24 PM EDT) COLONOSCOPY [facility] Endoscopy Procedure Date: 01/05/2021 3:24 PM ? Patient Name: Jennifer Nunn ? Date of : 1975 ? Age: 45 ? Order #: [id number] ? Instrument Name: [id number] ? Procedure: ? Colonoscopy Indications: ? Generalized abdominal pain Providers: ? Yordan Riggins, ? Merline Ibrahim, Insurance Underwriting Assistant Referring MD: ?Yesica Goff Medicines: ? Midazolam [...] preparation was ? evaluated using the BBPS ([place] ? Bowel Preparation Scale) with scores ? [...] 3:23 PM EDT) UPPER GI ENDOSCOPY [facility] Endoscopy ___ Procedure Date: 01/05/2021 3:23 PM ? Patient Name: Jennifer Nunn ? N: [id number] ? Date of : 1975 ? Age: 45 ? Order #: [id number] ? Instrument Name: [id number] ? ___ Procedure: ? Upper GI endoscopy Indications: ? nausea Providers: ? Rashawn Springer, Yordan Santos, ? Merline Ibrahim, Insurance Underwriting Assistant Referring MD: ?Yesica Goff Medicines: ? Fentanyl [...] PROVATION 01/05/2021 3:23 PM EDT Yesica Goff SENIOR GRANTS OFFICER GENERAL SURGICAL ORDERABLES PROVATION documented in this [...] RN) documented in this encounter Care Teams Hydrotel Operator Relationship Specialty Start Date End Date Yesica Goff APRN [address] [place] [address] PCP - General Family Medicine 09/19/19 documented as of this encounter
--- OUTSIDE RECORDS SUMMARY | 2024-09-22 15:03 | XMS_ITS | Encounter Summary ---
Author Organization [facility] Address [facility] [place] [address] Care Team Providers Care Calendering Supervisor Name Role Phone Yesica Goff APRN Primary Care Provider +1 -[phone] Reason for Visit * Auth/Cert Specialty Diagnoses / Procedures Referred By Boyd ren Referred To Contact Diagnoses papillary carcinoma Procedures PRO THYROIDECTOMY POST PREV THYR SURG PRG EMG, LARYNX THYROIDECTOMY, REMOVE REMAINING TISSUE (WRVU 18.26) FACIAL NERVE MONITORING, SETUP LARYNGEAL (WRVU 1.57) Referral ID Status Reason Start Date Expiration Date Visits Re quested Visits Authorized [id number] 1 1 Encounter Details Date Type Department Care Team (Latest Contact Info) Description 04/30/2020 11:57 AM EDT - 04/30/2020 3:49 PM EDT Hospital Encounter [place]patient [place] [address] Maria Mcghee MD [facility] [place] [address] Thyroid cancer Discharge Disposition: Home Social History [...] closest emergency room or call the hospital tapering machine operator at [phone] and ask for physician application systems architect covering for your physician. Questions or problems after 5pm or on a weekend: Call the [facility] tapering machine operator at and ask for the physician application systems architect covering for your doctor. * Patient Instructions* [...] Take NSAIDS and/or Tylenol every 6 hours dqnxxl-stv-ymssw for the first 3-5 days following surgery [...] will be mailed to you Please call [phone] to confirm the date and time of your appointment if you do not hear from us in the next 2 weeks Call Doctor for: Call if you have trouble talking or breathing (call 191 if this is severe) Call if you [...] is just fine. Phone number for questions: [phone] before 5 PM on weekdays [phone] after 5 PM and on weekends/holidays. Ask for the general surgery resident application systems architect. documented in this encounter Medications at Time [...] temperature will be taken, patient and caregiver/national dedicated truck driver will be given a mask [...] 1.57) performed by Maria Mcghee MD at [facility] MAIN OR ??? PRO THYROID LOBECTOMY, UNILAT Right 11/07/2019 THYROIDECTOMY, LOBECTOMY, TOTAL, UNILATERAL (WRVU 11.19) performed by Maria Mcghee MD at [facility] MAIN OR ??? TUBAL LIGATION MEDS: [...] Normal Block(s): ?? A4 Prior Cytology Specimen: ?[id number] [facility] November 2018 Annual Release Electronically signed by: ??David CARSON, Tiny Flores Verified: ??11/15/2019 ?Pathologist Performed at: ??-[facility] Dept. of Pathology, [place], [place] CLINICAL INFORMATION Specimen Submitted: A - [...] Operative Note Patient Name: Jennifer Nunn : [id number] MR#: [id number] Case Date: 04/30/2020 Surgeon: Surgeon(s) and Role: [...] anesthesia was achieved by anesthesiology with the [employer] recurrent laryngeal nerve monitoring system. Her prior [...] Operative Note Patient Name: Jennifer Nunn : [id number] MR#: [id number] Case Date: 04/30/2020 Surgeon: Surgeon(s) and Role: [...] 2:09 PM EDT Needle Electromyography, Larynx Global ([id number]) Yes 04/30/2020 12:45 PM EDT papillary carcinoma Thyroidectomy Post Prev Thyr Surg ([id number]) Yes 04/30/2020 12:45 PM EDT papillary carcinoma documented in this encounter Results * Specimen to Pathology (04/30/2020 2:11 PM EDT) AP Specimen 04/30/2020 2:11 PM EDT 04/30/2020 2:11 PM EDT Narrative [facility] - 04/30/2020 2:11 PM EDT Specimen requisition ordered. ??Separate Pathology report to follow Maria Mcghee MD PATHOLOGY/CYTOLOG Y ORDERABLES [facility] [place] [address] * Surgical Pathology Report (04/30/2020 2:09 PM EDT) Final Diagnosis [id number] ? Location: [facility] The signing pathologist has (i) examined the relevant preparation(s) for the specimen(s) and (ii) rendered or confirmed the diagnosis(es). . ?Surgical Pathology DIAGNOSIS A - Left thyroid lobe, excision: ?? - Benign thyroid parenchyma. Electronically signed by: ??MD Reynold, Champ Cha Verified: ??05/05/2020 ?Pathologist Performed at: ??-[facility] Dept. of Pathology, [place], [place] SPECIMEN(S) SUBMITTED A - left thyroid [...] lower pole ??AJ 05/05/2020 9:21 AM EDT [facility] THYROID STRUCTURE / Unknown 04/30/2020 2:09 PM EDT 04/30/2020 2:09 PM EDT Maria Mcghee MD PATHOLOGY/CYTOLOG Y ORDERABLES [facility] [place] [address] documented in this encounter Visit Diagnoses Diagnosis [...] Routine documented in this encounter Care Teams Calendering Supervisor Relationship Specialty Start Date End Date Yesica Goff APRN [address] [place] [address] PCP - General Family Medicine 09/19/19 documented as of this encounter
--- OUTSIDE RECORDS SUMMARY | 2024-09-22 15:03 | XMS_ITS | Encounter Summary ---
[place] [address] Care Team Providers Care Maintenance Mechanic Engine Name Role Phone Yesica Goff APRN Primary Care Provider +1 -[phone] Encounter Details Date Type Department Care Team (Latest Contact Info) Description 04/09/2020 10:20 AM EDT Laboratory Appointment Lab [address] [place] [id number] Thyroid nodule Social History Tobacco Use Types [...] Stimulating Hormone 4.37(H) 0.27 - 4.20 mcIU/mL [facility] Blood specimen (specimen) 04/09/2020 8:50 AM EDT 04/09/2020 8:55 AM EDT Narrative Resulting Agency Comment Spec In Lab Amina Baldwin MD CHEMISTRY ORDERAB LES [facility] [place] [address] documented in this encounter Visit Diagnoses Diagnosis Thyroid nodule Nontoxic uninodular goiter documented in this encounter Care Teams Maintenance Mechanic Engine Relationship Specialty Start Date End Date Yesica Goff APRN [address] [place] [address] PCP - General Family Medicine 09/19/19 documented as of this encounter
--- OUTSIDE RECORDS SUMMARY | 2024-09-22 15:03 | XMS_ITS | Encounter Summary ---
Author Organization [facility] Address [facility] [place] [address] Care Team Providers Care Web Analyst Name Role Phone Yesica Goff APRN Primary Care Provider +1 -[phone] Reason for Visit * Reason Comments Medication Refill Encounter Details Date Type Department Care Team (Late st Contact Info) Description 06/21/2021 [place]ill [place] [address] Blair Thornton MD [facility] [place] [address] Hypothyroidism, unspecified type; History of thyroid cancer [...] thyroid documented in this encounter Care Teams Web Analyst Relationship Specialty Start Date End Date Yesica Goff APRN [address] [place] [address] PCP - General Family Medicine 09/19/19 documented as of this encounter
--- OUTSIDE RECORDS SUMMARY | 2024-09-22 15:03 | XMS_ITS | Encounter Summary ---
Author Organization [facility] [place] [address] Care Team Providers Care Roll Former Name Role Phone Yesica Goff APRN Primary Care Provider +1 -[phone] Encounter Details Date Type Department Care Team (Late st Contact Info) Description 05/07/2020 Telephone [place] [address] Lona Snowden APRN [facility] [address] Social History Tobacco Use Types Packs/Day Years [...] on filedocumented in this encounter Care Teams Roll Former Relationship Specialty Start Date End Date Yesica Goff APRN [address] [place] [address] PCP - General Family Medicine 09/19/19 documented as of this encounter
--- OUTSIDE RECORDS SUMMARY | 2024-09-22 15:03 | XMS_ITS | Encounter Summary ---
[place] [address] Care Team Providers Care Spare Hand Name Role Phone [place] Yesica Henson APRN Primary Care Provider +1 -[phone] Reason for Visit * Auth/Cert Specialty Diagnoses / Procedures Referred By Boyd ren Referred To Contact Diagnoses papillary carcinoma Procedures PRO THYROIDECTOMY POST PREV THYR SURG PRG EMG, LARYNX THYROIDECTOMY, REMOVE REMAINING TISSUE (WRVU 18.26) FACIAL NERVE MONITORING, SETUP LARYNGEAL (WRVU 1.57) Referral ID Status Reason Start Date Expiration Date Visits Re quested Visits Authorized [id number] 1 1 Encounter Details Date Type Department Care Team (Late st Contact Info) Description 04/30/2020 12:46 PM EDT Anesthesia Event [facility] [place] [address] Romero Holbrook MD [facility] [place] [address] Rashawn Benitez MD Anesthesia Record Procedure Summary Procedure Name Responsible [...] Procedure Summary Date: 04/30/20 Room / Location: [facility] OR [address] [place] [address] [facility] Anesthesia Start: 1246 Anesthesia Stop: 1456 Procedures: THYROIDECTOMY, REMOVE REMAINING TISSUE (WRVU 18.26) (Left Neck) FACIAL NERVE MONITORING, SETUP LARYNGEAL (WRVU 1.57) (N/A Neck) Diagnosis: (papillary carcinoma) Surgeon: Amina Baldwin MD Responsible Provider: Romero Holbrook MD Anesthesia Type: general ASA Status: 2 All Anesthesia Providers: Anesthesiologist: Romero Holbrook MD INFECTIOUS WASTE TECHNICIAN: Martita Braun CRNA Rolls Baker: Carlos Carballo MD Vitals Value Taken Time BP 142/81 04/30/20 1516 Temp 36.1 ??C (97 ??F) 04/30/20 1449 Pulse 64 04/30/20 1516 Resp 16 04/30/20 1516 SpO2 99 % 04/30/20 1516 Pain Level Patient Location: PACU/[facility] Level of Consciousness: Awake and Alert Pain [...] 1.57) performed by Amina Baldwin MD at [facility] MAIN OR ??? PRO THYROID LOBECTOMY, UNILAT Right 11/07/2019 THYROIDECTOMY, LOBECTOMY, TOTAL, UNILATERAL (WRVU 11.19) performed by Amina Baldwin MD at [facility] MAIN OR ??? TUBAL LIGATION Social [...] monitors Carlos Carballo MD Anesthesiology CA-2 Pager [phone] Attending Add: No issues with prior anesthetics Appropriately npo Plan for [facility] Region - Other Informed Consent: Anesthetic plan and risks discussed with patient. Plan discussed with INFECTIOUS WASTE TECHNICIAN. PAT Clinic Note documented in this encounter [...] mg documented in this encounter Care Teams Spare Hand Relationship Specialty Start Date End Date Yesica Goff APRN [address] [place] [address] PCP - General Family Medicine 09/19/19 documented as of this encounter
--- OUTSIDE RECORDS SUMMARY | 2024-09-22 15:03 | XMS_ITS | Encounter Summary ---
Author Organization [facility] [place] [address] Care Team Providers Care Production Metal Sprayer Name Role Phone Yesica Goff APRN Primary Care Provider +1 -[phone] Reason for Referral * Diagnostic Test (Routine) - Closed Specialty Diagnoses / Procedures Referred By Contac t Referred To Contact Radiology Diagnoses Chronic abdominal pain Constipation, unspecified constipation type Abdominal bloating Abdominal distention Nausea without vomiting Hepatic steatosis LUQ abdominal pain Procedures CT Abdomen & Pelvis w Contrast Josiah Nickerson APRN [facility] [place] [address] [facility] [place] [address] Referral ID Status Reason Start Date Expiration Date V isits Requested Visits Authorized [id number] Closed Specialty Service Requested 12/15/2020 06/17/2022 1 1 Reason for Visit * Diagnostic Test (Routine) - Closed Specialty Diagnoses / Procedures Referred By Contac t Referred To Contact Radiology Diagnoses Chronic abdominal pain Constipation, unspecified constipation type Abdominal bloating Abdominal distention Nausea without vomiting Hepatic steatosis LUQ abdominal pain Procedures CT Abdomen & Pelvis w Contrast Josiah Nickerson APRN [facility] [place] [address] [facility] [place] [address] Referral ID Status Reason Start Date Expiration Date V isits Requested Visits Authorized [id number] Closed Specialty Service Requested 12/15/2020 06/17/2022 1 1 Encounter Details Date Type Department Care Team (Latest Contact Info) Description 01/26/2021 9:10 AM EDT - 01/26/2021 11:59 PM EDT Hospital Encounter CT Scan at [facility] [place] [address] Josiah Nickerson, PETROLEUM PRODUCTION ENGINEER [facility] DR GASTROENTER[place] [address] Chronic abdominal pain; Constipation, unspecified constipation type; [...] have questions please contact the health care director that requested your imaging first. ? Electronically signed by: Jerardo Barrera MD, [facility] ([phone]), at 01/26/2021 12:29 PM Narrative 01/26/2021 12:29 [...] who have questions please contactthe health care director that requested your imaging first. Electronically signed by: Jerardo Barrera MD, [facility]([phone]), at 01/26/2021 12:29 PM Josiah Nickerson APRN [facility] CT ORDERABLES documented in this encounter Visit [...] mLs documented in this encounter Care Teams Production Metal Sprayer Relationship Specialty Start Date End Date Yesica Goff APRN [address] [place] [address] PCP - General Family Medicine 09/19/19 documented as of this encounter
--- OUTSIDE RECORDS SUMMARY | 2024-09-22 15:03 | XMS_ITS | Clinical Summary ---
Author Organization [facility] Address [facility] [place] [address] Care Team Providers Care Desktop Support Technician Name Role Phone Yesica Goff APRN Primary Care Provider +1 [phone] Allergies No known active allergies Medications Medication [...] (12/15/2020): Added automatically from request for surgery [id number] Constipation 12/15/2020 Overview (12/15/2020): Added automatically from request for surgery [id number] Abdominal bloating 12/15/2020 Overview (12/15/2020): Added automatically from request for surgery [id number] Abdominal distention 12/15/2020 Overview (12/15/2020): Added automatically from request for surgery [id number] Nausea without vomiting 12/15/2020 Overview (12/15/2020): Added automatically from request for surgery [id number] Hepatic steatosis 12/15/2020 Overview (12/15/2020): Added automatically from request for surgery [id number] LUQ abdominal pain 12/15/2020 Overview (12/15/2020): Added automatically from request for surgery [id number] Thyroid cancer 12/18/2019 Risk of chromosome ano [...] virus) anogenital infection 03/08/2011 Overview (06/30/2012): Last [id number] Bladder stones 03/08/2011 Overview (06/30/2012): Required surgical [...] EDT) Glucose 121 65 - 199 mg/dL [facility] Comment:Diabetes: >=200 mg/d L plus symptoms Blood Urea Nitrogen 11 8 - 18 mg/dL [facility] Creatinine 0.82 0.70 - 1.20 mg/dL [facility] Sodium 138 135 - 145 mmol/L [facility] Potassium 4.1 3.5 - 5.0 mmol/L [facility] Comment: Please note: ??Patients with WBC >100,000 may have falsely elevated Potassium levels. ??For accurate Potassium quantification in these patients send serum separator tube (gold top) for subsequent determinations. ??Contact the Clinical Chemistry Laboratory if there are any questions. Chloride 103 98 - 107 mmol/L [facility] Carbon Dioxide 26 22 - 31 mmol/L [facility] Anion Gap 9 5 - 15 mmol/L [facility] Calcium 8.9 8.5 - 10.5 mg/dL [facility] Protein, Total 7.0 6.1 - 8.0 gm/dL [facility] Albumin 4.2 3.2 - 5.2 gm/dL [facility] Aspartate Aminotransferase 26 0 - 30 unit/L [facility] Alanine Aminotransferase 34(H) 0 - 30 unit/L [facility] Alkaline Phosphatase 79 35 - 105 unit/L [facility] Bilirubin, Total 0.2 0.2 - 1.3 mg/dL [facility] Est Glomerular Filtration Rate 88 >=60 mL/min/1. 73 m?? [facility] Comment: This patient? s [...] APRN CHEMISTRY ORDERABLE S Performing Organization Address City/State/[facility] Co de Phone Number [facility] [place] [address] * COLONOSCOPY (01/05/2021 3:24 PM EDT) COLONOSCOPY [facility] Endoscopy Procedure Date: 01/05/2021 3:24 PM ? Patient Name: Jennifer Nunn ? Date of : 1975 ? Age: 45 ? Order #: [id number] ? Instrument Name: [id number] ? Procedure: ? Colonoscopy Indications: ? Generalized abdominal pain Providers: ? Rashawn Springer, Yordan Santos, ? Merline Ibrahim, Media Relations Manager Referring MD: ?Yesica Goff Medicines: ? [...] preparation was ? evaluated using the BBPS (Lula ? Bowel Preparation Scale) with scores ? [...] Documents on File Type Date Recorded Patient Teacher Education Director Expl anation Advance Directives and Livin g Will 11/07/2019 1:16 PM * Attempt Cardiopulmonary Resuscitation - Inpatient (Latest Code Status on File) Date Activated Date Inactivated Comments 04/30/2020 12:37 PM 04/30/2020 5:58 PM Question Answer Comments Code Status decision made by: Patient Care Teams Desktop Support Technician Relationship Specialty Start Date End Date Yesica Goff APRN [address] [place] [address] PCP - General Family Medicine 09/19/19
--- OUTSIDE RECORDS SUMMARY | 2024-09-22 15:03 | XMS_ITS | Encounter Summary ---
Author Organization [facility] Address [facility] [place] [address] Care Team Providers Care Cotton Cleaner Name Role Phone Yesica Goff APRN Primary Care Provider [phone] [phone] Reason for Visit * Consultation (Routine) - [...] for constipation and nausea Josiah Nickerson, LEONARD [facility] [place] [address] [facility] [address] [place] [address] Referral ID Status Reason Start Date Expiration Date V isits Requested Visits Authorized [id number] Closed Consult, Test & Treat 12/15/2020 12/15/2021 1 1 Encounter Details Date Type Department Care Team (Latest Contact Info) Description 01/17/2021 2:00 PM EDT Procedure [place] [address] Constipation, unspecified constipation type Social History Tobacco [...] 01/17/2021 2:00 PM EDT Re: Jennifer Huynh Glove Maker Reg No:[id number] : 1975 Date of Service: 01/17/21 ANORECTAL MANOMETRY w/BALLOON EXPULSION Referring provider:Josiah Nickerson Dear: Dr. Nickerson We had the pleasure of performing a high resolution anorectal manometry on your patient in the GI Motility Laboratory at [facility]. CLINICAL HISTORY AND INDICATION As you [...] MD, ISABELLA Section of Gastroenterology and Hepatology Formerly [facility] [place] [address] V: [phone] F: [phone] CC/EC: Yesica Goff APRN [address] [place] [address] documented in this encounter Plan of Treatment Scheduled Referrals Name Type Priority Associated Diagnoses Order Schedule Referral to Gastroenterology Outpatient Referral Routine Chronic abdominal pain Constipation, unspecified constipation type Abdominal bloating Abdominal distention Nausea without vomiting Hepatic steatosis LUQ abdominal pain Ordered: 12/15/2020 documented as of this encounter Visit Diagnoses Diagnosis Constipation, unspecified constipation type documented in this encounter Care Teams Cotton Cleaner Relationship Specialty Start Date End Date Yesica Goff APRN [address] [place] [address] PCP - General Family Medicine 09/19/19 documented as of this encounter
--- OUTSIDE RECORDS SUMMARY | 2024-09-22 15:03 | XMS_ITS | Encounter Summary ---
[place] [address] Care Team Providers Care Director Of Corporate Responsibility Name Role Phone Yesica Goff APRN Primary Care Provider [phone] [phone] Encounter Details Date Type Department Care Team (Late st Contact Info) Description 12/31/2020 Telephone [place] [phone] Radha Ascencio, CCMA Social History Tobacco Use [...] - 12/31/2020 10:51 AM EDT Jennifer Nunn [id number] Diagnosis/Indication: abdominal pain, nausea, constipation, bloating/distention 1. [...] to patient: You must have a responsible green party who will drive you to your procedure, [...] on filedocumented in this encounter Care Teams Director Of Corporate Responsibility Relationship Specialty Start Date End Date Yesica Goff APRN [address] [place] [address] PCP - General Family Medicine 09/19/19 documented as of this encounter
--- OUTSIDE RECORDS SUMMARY | 2024-09-22 15:03 | XMS_ITS | Encounter Summary ---
Author Organization [facility] [place] [address] Care Team Providers Care Mixer Operator Helper Hot Metal Name Role Phone Yesica Goff APRN Primary Care Provider [phone] [phone] Reason for Visit * Diagnostic Test (Routine) - Closed Specialty Diagnoses / Procedures Referred By Contlaura t Referred To Contact Radiology Diagnoses Nausea without vomiting LUQ abdominal pain Procedures NM Gastric Emptying Scan Josiah Nickerson LOGISTICS ASSISTANT [facility] [address] [place] [address] Referral ID Status Reason Start Date Expiration Date V isits Requested Visits Authorized [id number] Closed Specialty Service Requested 02/11/2021 09/30/2021 1 1 Encounter Details Date Type Department Care Team (Latest Contact Info) Description 02/11/2021 9:05 AM EDT - 02/11/2021 11:59 PM EDT Hospital Encounter Nuclear [place] [address] Josiah Nickerson LOGISTICS ASSISTANT [facility] [place] [address] Discharge Disposition: Home Social History [...] who have questions please contact the health primary care coordinator that requested your imaging first. ? Electronically signed by: Arsh Blackmon MD, [facility] ([phone]), at 02/11/2021 2:09 PM Narrative 02/11/2021 2:09 [...] patients who have questions please contactthe health primary care coordinator that requested your imaging first. Electronically signed by: Arsh Blackmon MD, [facility]([phone]), at 02/11/2021 2:09 PM Josiah Nickerson APRN IMG NM ORDERABLES documented in this encounter Visit Diagnoses Not on filedocumented in this encounter Care Teams Mixer Operator Helper Hot Metal Relationship Specialty Start Date End Date Yesica Goff APRN [address] [place] [address] PCP - General Family Medicine 09/19/19 documented as of this encounter
--- OUTSIDE RECORDS SUMMARY | 2024-09-22 15:04 | XMS_ITS | Encounter Summary ---
Author Organization [facility] [place] [address] Care Team Providers Care Highballer Name Role Phone Yesica Goff APRN Primary Care Provider [phone] [phone] Encounter Details Date Type Department Care Team (Latest Contact Info) Description 09/23/2019 9:15 AM EST - 09/23/2019 11:59 PM EST Hospital [place] [phone] Discharge Disposition: Home Social History Tobacco Use [...] AND AT BEDTIME 08/25/2019 vitamin 27 & xijxspr-ujhe-UN 60 mg (Iron)-1 mg tablet Take 1 tablet by mouth daily. 10/30/2019 documented as of this encounter Plan of Treatment Not on file documented as of this encounter Procedures Procedure Name Priority Date/Time Associated Diagnosis Comments NON-POULTRY BUYER FINAL REPORT Routine 09/23/2019 9:15 AM EST documented in this encounter Results * Non-Scuba Diver Final Report (09/23/2019 9:15 AM EST) Non-Scuba Diver Final Report [id number] ? Location: OPW The signing pathologist has (i) examined the relevant preparation(s) for the specimen(s) and (ii) rendered or confirmed the diagnosis(es). . ? Non-Scuba Diver Final DIAGNOSIS Positive for Malignancy Electronically signed by: ??Medhat CARSON, Aristides Tyler Verified: ??09/23/2019 ?Pathologist Performed at: ??-[facility] Dept. [place], [place], [place] DISCUSSION Thyroid, right lobe (FNA): Papillary thyroid carcinoma. Cellular aspirate comprised of atypical follicular epithelial cells arranged in sheets, crowded groups, and papillae. Nuclear grooves, nuclear hypochromasia, and numerous intranuclear pseudoinclusions are present. Reference: Rosey SANTA, [place]. The [employer] System for Reporting Thyroid Cytopathology. [place]: Fong; 2018. CLINICAL INFORMATION CONSULTATION CASE Source: ??Thyroid, right (FNA) Clinical History: ??Right thyroid nodule Received 1 slide(s) labeled [id number] Received 0 block(s). Specimen collection date: ??09/10/2019. For the full text of the [facility] report(s), please refer to eD - Chart Review scanned documents tab. [facility] Tracking #: ??[id number]. Report to: [facility] Surgical Pathology Department [facility], [facility], 2nd Floor [address] [place], [place] ??[address] [facility] 09/23/2019 9:15 AM EST Amina Baldwin MD PATHOLOGY/CYTOLOG Y ORDERABLES [facility] [place] [address] documented in this encounter Visit Diagnoses Not on filedocumented in this encounter Care Teams Highballer Relationship Specialty Start Date End Date Yesica Goff APRN [address] [place] [address] PCP - General Family Medicine 09/19/19 documented as of this encounter
--- OUTSIDE RECORDS SUMMARY | 2024-09-22 15:04 | XMS_ITS | Encounter Summary ---
Author Organization [facility] [place] [address] Care Team Providers Care Hand Sole Sewer Name Role Phone Yesica Goff APRN Primary Care Provider [phone] [phone] Reason for Visit * Consultation (Routine) - Closed Specialty Diagnoses / Procedures Referred By Boyd ren Referred To Contact Endocrinology Diagnoses Primary thyroid cancer Amina Baldwin MD [facility] [place] [address] [facility] Endocrinology [address] [place] [phone] Referral ID Status Reason Start Date Expiration Date V isits Requested Visits Authorized [id number] Closed Specialty Service Requested 11/26/2019 11/25/2020 1 1 Encounter Details Date Type Department Care Team (Late st Contact Info) Description 12/18/2019 8:00 AM EDT Office [place] [address] Priscilla Nuno MD [facility] [place] [address] History of thyroid cancer Social History Tobacco [...] 1.57) performed by Amina Baldwin MD at [facility] MAIN OR ??? PRO THYROID LOBECTOMY, UNILAT Right 11/07/2019 THYROIDECTOMY, LOBECTOMY, TOTAL, UNILATERAL (WRVU 11.19) performed by Amina Baldwin MD at [facility] MAIN OR ??? TUBAL LIGATION [facility]: mother--thyroid lobectomy for benign nodule Social history: Works at [employer] No smoking No EtOH Review of Systems: [...] Office Visit from 12/18/2019 in Endocrinology at [facility] Admission (Discharged) from 11/07/2019 in Same Day Program at [facility] Weight 76.3 kg (168 lb 3.2 [...] 10/30/19 US (Dr Baldwin) Right hypoechoic nodule [id number] 11/07/19 Dr Baldwin Right lobectomy: 1.3 cm PTC, (-) LVSI, (-) ETE. +positive margin Assessment / Plan: 1) Papillary thyroid cancer PT1b, NX, MX Intermediate risk given positive margin margins No evidence of residual right sided thyroid cancer or irregular lymph nodes. Completion thyroidectomy would give best chance of detention remission. I will contact Dr Baldwin to [...] to contact me. Sincerely, Priscilla Nuno MD [employer] Operatordental services director Endocrinology Section [facility] * Priscilla Nuno MD - 12/18/2019 8:00 AM EDT ENDOCRINOLOGY THYROID ULTRASOUND REPORT Patient:Jennifer Nunn, [id number] Date of exam: 12/13/2019 Indication: history of [...] EDT) Calcium 9.1 8.5 - 10.5 mg/dL [facility] Blood specimen (specimen) 12/18/2019 12:36 PM EDT 12/18/2019 12:42 PM EDT Narrative Resulting Agency Comment Spec In Lab Priscilla Nuno MD CHEMISTRY ORDERABLE S Performing Organization Address [facility]/ZIP Co de Phone Number [facility] [place] [address] * Thyroglobulin (12/18/2019 12:36 PM EDT) Thyroglobulin 17.2 <=54.9 ng/mL [facility] Thyroglob Ab <20.0 0.0 - 40.0 IU/mL [facility] Blood specimen (specimen) 12/18/2019 12:36 PM EDT 12/18/2019 1:44 PM EDT Narrative Resulting Agency Comment Spec In Lab Priscilla Nuno MD LAB SEND OUT ORDERA BLES Performing Organization Address City/[facility]/ZIP Co de Phone Number [facility] [place] [address] * TSH (12/18/2019 12:36 PM EDT) Thyroid Stimulating Hormone 1.97 0.27 - 4.20 mcIU/mL [facility] Blood specimen (specimen) 12/18/2019 12:36 PM EDT 12/18/2019 12:42 PM EDT Narrative Resulting Agency Comment Spec In Lab Priscilla Nuno MD CHEMISTRY ORDERABLE S [facility] [place] [address] documented in this encounter Visit Diagnoses Diagnosis History of thyroid cancer Personal history of malignant neoplasm of thyroid documented in this encounter Care Teams Hand Sole Sewer Relationship Specialty Start Date End Date Yesica Goff APRN [address] [place] [address] PCP - General Family Medicine 09/19/19 documented as of this encounter
--- OUTSIDE RECORDS SUMMARY | 2024-09-22 15:04 | XMS_ITS | Encounter Summary ---
Author Organization [facility] [place] [address] Care Team Providers Care Merry Go Round Attendant Name Role Phone Yesica Goff APRN Primary Care Provider +1 -[phone] Encounter Details Date Type Department Care Team (Late st Contact Info) Description 12/16/2019 Telephone General [place] [phone] Leeann Mcghee Social History Tobacco Use Types [...] on filedocumented in this encounter Care Teams Merry Go Round Attendant Relationship Specialty Start Date End Date Yesica Goff APRN [address] [place] [address] PCP - General Family Medicine 09/19/19 documented as of this encounter
--- OUTSIDE RECORDS SUMMARY | 2024-09-22 15:04 | XMS_ITS | Encounter Summary ---
Author Organization [place] [address] Care Team Providers Care Room Service Runner Name Role Phone Yesica Goff APRN Primary Care Provider [phone] [phone] Reason for Visit * Auth/Cert Specialty Diagnoses / Procedures Referred By Boyd ren Referred To Contact Diagnoses THYROID CANCER Procedures PRO THYROID LOBECTOMY, UNILAT PRG EMG, LARYNX THYROIDECTOMY, LOBECTOMY, TOTAL, UNILATERAL (WRVU 11.19) FACIAL NERVE MONITORING, SETUP LARYNGEAL (WRVU 1.57) Referral ID Status Reason Start Date Expiration Date Visits Re quested Visits Authorized [id number] 1 1 Encounter Details Date Type Department Care Team (Late st Contact Info) Description 11/07/2019 12:56 PM EST - 11/07/2019 2:54 PM EST Surgery [place] [address] Maria Mcghee MD [facility] [place] [place] [address] THYROIDECTOMY, LOBECTOMY, TOTAL, UNILATERAL (WRVU 11.19) Social [...] Take NSAIDS or Tylenol every 6 hours unonwu-prt-ozvvp for the first 3-5 days following surgery [...] weeks. Future Appointments Date Time Provider Department [place] 12/18/2019 12:45 PM LAB, THREE L Lab 3L [facility] 12/18/2019 2:00 PM Lona Snowden APRN [facility] SURG [facility] Please call [phone] to confirm the date and time of [...] days after surgery. Phone number for questions: [phone] before 5 PM on weekdays [phone] after 5 PM and on weekends/holidays. Ask for the general surgery resident java front end web developer. documented in this encounter Medications at Time [...] a right-sided nodule with FNA demonstrating malignant ([place] 6) cytology. She reports no interval change [...] Mcghee MD - 11/07/2019 3:15 PM EST [facility] Operative Note Patient Name: Jennifer Nunn : [id number] MR#: [id number] Case Date: 11/07/2019 Surgeon: Surgeon(s) and Role: [...] right-sided thyroid nodule and FNA demonstrating malignant ([place] 6) cytology. We had a long discussion [...] anesthesia was achieved by anesthesiology with the Liquefied Natural Gastronic recurrent laryngeal nerve monitoring system. A natural [...] Operative Note Patient Name: Jennifer Nunn : [id number] MR#: [id number] Case Date: 11/07/2019 Surgeon: Surgeon(s) and Role: [...] 3:06 PM EST Needle Electromyography, Larynx Global ([id number]) 11/07/2019 1:53 PM EST THYROID CANCER Total Thyroid Lobectomy Unilateral W/Wo Isthmusectomy ([id number]) 11/07/2019 1:53 PM EST THYROID CANCER documented in this encounter Results * (ABNORMAL) TSH (04/09/2020 8:50 AM EDT) Thyroid Stimulating Hormone 4.37(H) 0.27 - 4.20 mcIU/mL [facility] Blood specimen (specimen) 04/09/2020 8:50 AM EDT 04/09/2020 8:55 AM EDT Narrative Resulting Agency Comment Spec In Lab Maria Mcghee MD CHEMISTRY ORDERAB LES [facility] [place] [address] * Specimen to Pathology (11/07/2019 3:12 PM EST) AP Specimen 11/07/2019 3:12 PM EST 11/07/2019 3:12 PM EST Narrative [facility] - 11/07/2019 3:12 PM EST Specimen requisition ordered. ??Separate Pathology report to follow Maria Mcghee MD PATHOLOGY/CYTOLOG Y ORDERABLES [facility] [place] [address] * Surgical Pathology Report (11/07/2019 3:06 PM EST) Final Diagnosis [id number] ? Location: SDP; SD38; A The signing [...] Normal Block(s): ?? A4 Prior Cytology Specimen: ?[id number] [facility] November 2018 Annual Release Electronically signed by: ??David CARSON, Tiny Flores Verified: ??11/15/2019 ?Pathologist Performed at: ??-[facility] Dept. of Pathology, [place], [place] CLINICAL INFORMATION Specimen Submitted: A - [...] margin is inked red. . SPECIMEN PROCESSING Seismometer Operator sections in 10 cassettes as follows: ?A1-A5: ??Thyroid parenchyma, inside technical sales representative sections (every other slice, superior ? to inferior) ?A6-A10: ??Thyroid lesion, entirely submitted, superior to inferior ??AJD 11/15/2019 1:54 PM EST [facility] THYROID STRUCTURE / Unknown 11/07/2019 3:06 PM EST 11/07/2019 3:06 PM EST Maria Mcghee MD PATHOLOGY/CYTOLOG Y ORDERABLES [facility] [place] [address] documented in this encounter Visit Diagnoses Not [...] Yang CRNA)1514 (Anesthesia Volume Adjustment - Provider: Carols Carballo) PRN Medication Order 11/05/2019 11/06/2019 11/07/2019 [...] RN) documented in this encounter Care Teams Room Service Runner Relationship Specialty Start Date End Date Yesica Goff, MISSION MANAGER [address] [place] [address] PCP - General Family Medicine 09/19/19 documented as of this encounter
--- OUTSIDE RECORDS SUMMARY | 2024-09-22 15:04 | XMS_ITS | Encounter Summary ---
Author Organization [facility] [place] [address] Care Team Providers Care Enforcement Officer Name Role Phone Unknown Primary Care Provider Unavailabl e Reason for Visit * Reason Comments Positive Screen For Down Syndrome Encounter Details Date Type Department Care Team (Late st Contact Info) Description 03/08/2011 9:00 AM EDT Office Visit [address] [address] Noman [place], [facility] DR OBSTETRICS & [place] [address] Abnormal findings on screening (Primary Dx); Genetic [...] screen negative for open spina bifida (risk 1:54332) and trisomy 18(risk 1:29689). Family history Jennifer's family history was unremarkable [...] counseling documented in this encounter Care Teams Enforcement Officer Relationship Specialty Start Date End Date Unknown None PCP - General 08/23/10 03/15/11 documented as of this encounter
--- OUTSIDE RECORDS SUMMARY | 2024-09-22 15:04 | XMS_ITS | Encounter Summary ---
Author Organization [place] [address] Care Team Providers Care Recovery Unit Operator Name Role Phone Unknown Primary Care Provider Unavailabl e Reason for Visit * Reason Comments Positive Screen For Down Syndrome Encounter Details Date Type Department Care Team (Late st Contact Info) Description 03/08/2011 10:30 AM EDT Office Visit [address] [address] Erica Edmonds MD Risk of chromosome anomaly affecting care of [...] ultrasound evaluation and genetic counseling with Noman [place], [place]. Review of Systems Constitutional:feels well Movement: [...] Dispense Refill ? ? vitamin 27 & zfldzub-lzzs-HF 60 mg (Iron)-1 mg tablet Take 1 [...] MS Professor Obstetrics & Gynecology and Radiology [facility] 03/08/2011 documented in this encounter Miscellaneous [...] bladder documented in this encounter Care Teams Recovery Unit Operator Relationship Specialty Start Date End Date Unknown None PCP - General 08/23/10 03/15/11 documented as of this encounter
--- OUTSIDE RECORDS SUMMARY | 2024-09-22 15:04 | XMS_ITS | Encounter Summary ---
[place] [address] Care Team Providers Care Transport Manager Name Role Phone Yesica Goff APRN Primary Care Provider +1 -[phone] Encounter Details Date Type Department Care Team (Latest Contact Info) Description 12/18/2019 12:45 PM EDT Laboratory Appointment Lab 3L [place] [phone] History of thyroid cancer Social History Tobacco [...] Stimulating Hormone 1.97 0.27 - 4.20 mcIU/mL [facility] Blood specimen (specimen) 12/18/2019 12:36 PM EDT 12/18/2019 12:42 PM EDT Narrative Resulting Agency Comment Spec In Lab Asad Song MD CHEMISTRY ORDERABLE S [facility] [place] [address] * Thyroglobulin (12/18/2019 12:36 PM EDT) Thyroglobulin 17.2 <=54.9 ng/mL [facility] Thyroglob Ab <20.0 0.0 - 40.0 IU/mL [facility] Blood specimen (specimen) 12/18/2019 12:36 PM EDT 12/18/2019 1:44 PM EDT Narrative Resulting Agency Comment Spec In Lab Asad Song MD LAB SEND OUT ORDERA BLES [facility] [place] [address] * Calcium (12/18/2019 12:36 PM EDT) Calcium 9.1 8.5 - 10.5 mg/dL [facility] Blood specimen (specimen) 12/18/2019 12:36 PM EDT 12/18/2019 12:42 PM EDT Narrative Resulting Agency Comment Spec In Lab Asad Song MD CHEMISTRY ORDERABLE S [facility] [place] [address] documented in this encounter Visit Diagnoses Diagnosis History of thyroid cancer Personal history of malignant neoplasm of thyroid documented in this encounter Care Teams Transport Manager Relationship Specialty Start Date End Date Yesica Goff APRN [address] [place] [address] PCP - General Family Medicine 09/19/19 documented as of this encounter
--- OUTSIDE RECORDS SUMMARY | 2024-09-22 15:04 | XMS_ITS | Encounter Summary ---
Author Organization [facility] [place] [address] Care Team Providers Care Fleet Salesperson Name Role Phone Yesica Goff APRN Primary Care Provider +1 -[phone] Reason for Visit * Reason Comments Establish Care * Consultation (Routine) - Specialty Diagnoses / Procedures Referred By Contac t Referred To Contact General Surgery Procedures Papillary thyroid cancer; right thyroid nodule Jd Levine MD [address] [place] [address] [place] [address] Amina Baldwin MD [facility] [place] [address] Referral ID Status Reason Start Date Expiration Date V isits Requested Visits Authorized [id number] 09/19/2019 09/18/2020 1 1 Encounter Details Date Type Department Care Team (Late st Contact Info) Description 10/30/2019 11:00 AM EST Office [place] [address] Amina Baldwin MD [facility] [place] [address] Primary thyroid cancer Social History Tobacco Use [...] to date include thyroid ultrasound performed in [place] which demonstrated a 1 x 1 x [...] disease. Social History: nonsmoker. 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 Lives with her mother, [...] right-sided thyroid nodule and FNA demonstrating malignant ([employer]) cytology. We had a long discussion [...] of compression: no FNA: yes FNA Classification: [employer] documented in this encounter Plan of Treatment Not on file documented as of this encounter Visit Diagnoses Diagnosis Primary thyroid cancer Malignant neoplasm of thyroid gland documented in this encounter Care Teams Fleet Salesperson Relationship Specialty Start Date End Date Yesica Goff APRN [address] [place] [address] PCP - General Family Medicine 09/19/19 documented as of this encounter
--- OUTSIDE RECORDS SUMMARY | 2024-09-22 15:04 | XMS_ITS | Encounter Summary ---
Author Organization [facility] [place] [address] Care Team Providers Care Automation Driver Name Role Phone Yesica Goff APRN Primary Care Provider +1 -[phone] Reason for Referral * Consultation (Routine) - Closed Specialty Diagnoses / Procedures Referred By Boyd ren Referred To Contact Endocrinology Diagnoses Primary thyroid cancer Amina Baldwin MD [facility] [place] [address] [facility] Endocrinology [address] [place] [address] Referral ID Status Reason Start Date Expiration Date V isits Requested Visits Authorized [id number] Closed Specialty Service Requested 11/26/2019 11/25/2020 1 1 Encounter Details Date Type Department Care Team (Late st Contact Info) Description 11/26/2019 Telephone [place] [phone] Amina Baldwin MD [facility] [place] [address] Social History Tobacco Use Types Packs/Day Years [...] gland documented in this encounter Care Teams Automation Driver Relationship Specialty Start Date End Date Yesica Goff APRN [address] [place] [address] PCP - General Family Medicine 09/19/19 documented as of this encounter
--- OUTSIDE RECORDS SUMMARY | 2024-09-22 15:04 | XMS_ITS | Encounter Summary ---
Author Organization [facility] [place] [address] Care Team Providers Care Computer Education Teacher Name Role Phone Unknown Primary Care Provider Unavailabl e Encounter Details Date Type Department Care Team (Late st Contact Info) Description 03/08/2011 8:24 AM EDT - 03/08/2011 11:59 PM EDT Hospital En[place] [phone] Social History Tobacco Use Types Packs/Day Years [...] Start Date End Date vitamin 27 & vcjptzx-qutv-VB 60 mg (Iron)-1 mg tablet Take 1 [...] Final 03/08/2011 01:17 pm) Patient Info ID: ?[id number] ?: ??[birth year] (35 yrs) Name: ?JENNIFER NUNN ? Visit Date: 03/08/2011 10:55 am Performed By Performed By: ?? Miley Murillo RDMS Attending: ?Radha CARSON, Ignacio Cha Referred By: ?[facility] Accession#: ? [id number] OB History : ??4 Living: ? 3 Procedures [facility] - Targeted Morphology - Genetics - ? [id number] Indications Abnormal Quad Screen Evaluation Heart Rate: [...] Tract: ?Visualized L Outflow Tract: ?Visualized Cardiac [place]arthen: ? Visualized Diaphragm: ?Visualized Abdomen Ventral Wall: [...] Final 03/08/2011 01:17 pm) Patient Info ID: [id number] : [birth year] (35 yrs) Name: JENNIFER NUNN Visit Date: 03/08/2011 10:55 am Performed By Performed By: Miley Murillo RDMS Attending: Ignacio Garcia MD Referred By: MIKE HERNA[facility] OB History : 4 Livin Procedures [facility] - Targeted Morphology - Genetics - [id number] Indications Abnormal Quad Screen Evaluation Heart Rate: [...] Tract: Visualized L Outflow Tract: Visualized Cardiac [place]arthen: Visualized Diaphragm: Visualized Abdomen Ventral Wall: Visualized [...] filedocumented in this encounter Care Teams Computer Education Teacher Relationship Specialty Start Date End Date Unknown None PCP - General 08/23/10 03/15/11 documented as of this encounter
--- OUTSIDE RECORDS SUMMARY | 2024-09-22 15:04 | XMS_ITS | Encounter Summary ---
Author Organization [facility] [place] [address] Care Team Providers Care Warehouse Operations Associate Name Role Phone Yesica Goff APRN Primary Care Provider +1 [phone] Reason for Visit * Auth/Cert Specialty Diagnoses / Procedures Referred By Boyd ren Referred To Contact Diagnoses THYROID CANCER Procedures PRO THYROID LOBECTOMY, UNILAT PRG EMG, LARYNX THYROIDECTOMY, LOBECTOMY, TOTAL, UNILATERAL (WRVU 11.19) FACIAL NERVE MONITORING, SETUP LARYNGEAL (WRVU 1.57) Referral ID Status Reason Start Date Expiration Date Visits Re quested Visits Authorized [id number] 1 1 Encounter Details Date Type Department Care Team (Latest Contact Info) Description 11/07/2019 11:21 AM EST - 11/07/2019 6:[address] [facility] Hospital [place] [address] Maria Mcghee MD [facility] [place] [place] [address] Thyroid nodule Discharge Disposition: Home Social History [...] Take NSAIDS or Tylenol every 6 hours alzjan-iqu-pugpv for the first 3-5 days following surgery [...] approximately 6 weeks. Future Appointments Date Time [facility] [place] 12/18/2019 12:45 PM LAB, THREE L Lab 3L [facility] 12/18/2019 2:00 PM Lona Snowden APRN [facility] Please call [phone] to confirm the date and time of [...] days after surgery. Phone number for questions: [phone] before 5 PM on weekdays [phone] after 5 PM and on weekends/holidays. Ask for the general surgery resident semiconductor wafers tester. documented in this encounter Medications at Time [...] a right-sided nodule with FNA demonstrating malignant ([place]) cytology. She reports no interval change [...] Mcghee MD - 11/07/2019 3:15 PM EST [facility] Operative Note Patient Name: Jennifer Nunn : [id number] MR#: [id number] Case Date: 11/07/2019 Surgeon: Surgeon(s) and Role: [...] right-sided thyroid nodule and FNA demonstrating malignant ([place] 6) cytology. We had a long discussion [...] anesthesia was achieved by anesthesiology with the [employer] recurrent laryngeal nerve monitoring system. A natural [...] Operative Note Patient Name: Jennifer Nunn : [id number] MR#: [id number] Case Date: 11/07/2019 Surgeon: Surgeon(s) and Role: [...] 3:06 PM EST Needle Electromyography, Larynx Global (08964) 11/07/2019 1:53 PM EST THYROID CANCER Total Thyroid Lobectomy Unilateral W/Wo Isthmusectomy (17656) 11/07/2019 1:53 PM EST THYROID CANCER documented in this encounter Results * (ABNORMAL) TSH (04/09/2020 8:50 AM EDT) Thyroid Stimulating Hormone 4.37(H) 0.27 - 4.20 mcIU/mL [facility] Blood specimen (specimen) 04/09/2020 8:50 AM EDT 04/09/2020 8:55 AM EDT Narrative Resulting Agency Comment Spec In Lab Maria Mcghee MD CHEMISTRY ORDERAB LES [facility] [place] [address] * Specimen to Pathology (11/07/2019 3:12 PM EST) AP Specimen 11/07/2019 3:12 PM EST 11/07/2019 3:12 PM EST Narrative [facility] - 11/07/2019 3:12 PM EST Specimen requisition ordered. ??Separate Pathology report to follow Maria Mcghee MD PATHOLOGY/CYTOLOG Y ORDERABLES [facility] [place] [address] * Surgical Pathology Report (11/07/2019 3:06 PM EST) Final Diagnosis [id number] ? Location: [facility]; SD38; A The signing pathologist has (i) [...] Normal Block(s): ?? A4 Prior Cytology Specimen: ?[id number] [facility] November 2018 Annual Release Electronically signed by: ??David CARSON, Tiny Flores Verified: ??11/15/2019 ?Pathologist Performed at: ??-[facility] Dept. of Pathology, [place], [place] CLINICAL INFORMATION Specimen Submitted: A - [...] margin is inked red. . SPECIMEN PROCESSING [place] sections in 10 cassettes as follows: ?A1-A5: ??Thyroid parenchyma, leasing representative sections (every other slice, superior ? to inferior) ?A6-A10: ??Thyroid lesion, entirely submitted, superior to inferior ??AJD 11/15/2019 1:54 PM EST [facility] THYROID STRUCTURE / Unknown 11/07/2019 3:06 PM EST 11/07/2019 3:06 PM EST Maria Mcghee MD PATHOLOGY/CYTOLOG Y ORDERABLES [facility] [place] [address] documented in this encounter Visit Diagnoses Diagnosis [...] RN) documented in this encounter Care Teams Warehouse Operations Associate Relationship Specialty Start Date End Date Yesica Goff APRN [address] [place] [address] PCP - General Family Medicine 09/19/19 documented as of this encounter
--- OUTSIDE RECORDS SUMMARY | 2024-09-22 15:04 | XMS_ITS | Encounter Summary ---
Author Organization [facility] Address [facility] [place] [address] Care Team Providers Care Neonatal Pediatric Nurse Name Role Phone Dionna Gaston MD Primary Care Provider [phone] Encounter Details Date Type Department Care Team (Late st Contact Info) Description 09/10/2019 Ancillary Procedure Radiology Library [place] [address] Dionna Gaston MD [address] [place] [address] Social History Tobacco Use Types Packs/Day Years [...] Ultrasound Study (09/10/2019 12:00 AM EST) Narrative [facility] - 09/17/2019 4:39 PM EST This exam is auto-finalizing. It's purpose is for storage only. Dionna Gaston MD IMG FILM LIBRARY ORD ERABLES [facility] [place], [place] documented in this encounter Visit Diagnoses Not on filedocumented in this encounter Care Teams Neonatal Pediatric Nurse Relationship Specialty Start Date End Date Dionna Gaston MD [address] [place] [address] PCP - General 03/16/11 09/18/19 documented as of this encounter
--- OUTSIDE RECORDS SUMMARY | 2024-09-22 15:04 | XMS_ITS | Encounter Summary ---
Author Organization [facility] [place] [address] Care Team Providers Care Office Nurse Practitioner Name Role Phone Yesica Goff APRN Primary Care Provider [phone] [phone] Encounter Details Date Type Department Care Team (Late st Contact Info) Description 11/26/2019 Telephone [place] [address] Amina Baldwin MD [facility] [place] [address] Social History Tobacco Use Types Packs/Day Years [...] on filedocumented in this encounter Care Teams Office Nurse Practitioner Relationship Specialty Start Date End Date Yesica Goff APRN [address] [place] [address] PCP - General Family Medicine 09/19/19 documented as of this encounter
--- OUTSIDE RECORDS SUMMARY | 2024-09-22 15:04 | XMS_ITS | Encounter Summary ---
[place] [address] Care Team Providers Care Closed Circuit Screen Watcher Name Role Phone Yesica Goff APRN Primary Care Provider [phone] Reason for Visit * Auth/Cert Specialty Diagnoses / Procedures Referred By Boyd t Referred To Contact Diagnoses THYROID CANCER Procedures PRO THYROID LOBECTOMY, UNILAT PRG EMG, LARYNX THYROIDECTOMY, LOBECTOMY, TOTAL, UNILATERAL (WRVU 11.19) FACIAL NERVE MONITORING, SETUP LARYNGEAL (WRVU 1.57) Referral ID Status Reason Start Date Expiration Date Visits Re quested Visits Authorized [id number] 1 1 Encounter Details Date Type Department Care Team (Late st Contact Info) Description 11/07/2019 1:51 PM EST Anesthesia Event [place] [address] Elena Baum MD [facility] [place] [address] Anesthesia Record Procedure Summary Procedure Name Responsible [...] 1247; metacarpal vein (top of hand), left; kxgx-mla-uqcytt catheter system; 20 gauge, 1 in length; [...] Procedure Summary Date: 11/07/19 Room / Location: [address] MAIN OR Anesthesia Start: 1351 Anesthesia Stop: 1550 Procedures: THYROIDECTOMY, LOBECTOMY, TOTAL, UNILATERAL (WRVU 11.19) (Right Neck) FACIAL NERVE MONITORING, SETUP LARYNGEAL (WRVU 1.57) (N/A Neck) Diagnosis: (THYROID CANCER) Surgeon: Amina Baldwin MD Responsible Provider: Elena Baum MD Anesthesia Type: general ASA Status: 2 All Anesthesia Providers: Anesthesiologist: Elena Baum MD PRIMARY MONTESSORI TEACHER: Larisa Yang CRNA Pizza Maker: Carlos Carballo MD Vitals Value Taken Time BP 110/67 11/07/2019 4:00 PM Temp 36 ??C (96.8 ??F) 11/07/2019 3:47 PM Pulse 66 11/07/2019 3:47 PM Resp 18 11/07/2019 3:47 PM SpO2 96 % 11/07/2019 3:47 PM Pain Level 0 11/07/2019 3:47 PM Vitals shown include unvalidated device data. Patient Location: PACU/[facility] Level of Consciousness: Conscious but Sleepy Pain [...] risks discussed with patient. Plan discussed with PRIMARY MONTESSORI TEACHER and attending. PAT Clinic Note documented in [...] mg documented in this encounter Care Teams Closed Circuit Screen Watcher Relationship Specialty Start Date End Date Yesica Goff APRN [address] [place] [address] PCP - General Family Medicine 09/19/19 documented as of this encounter
[2024-09-22 16:13] LABS: FREE T4 1.11 ng/dL (0.76-1.46); TSH 1.34 uIU/mL (0.36-3.74)
== END 2024-09-22 15:00 | disposition home or self-care (01) ==
LOC: NCHCN 14:59
PROVIDERS: PCP Nurse Practitioner Family; Visit Provider Nurse Practitioner Family
DX: E03.9 Hypothyroidism, unspecified (principal)
CPT/HCPCS: 84439; 84443

== ENCOUNTER 2024-10-14 16:36 | Outpatient (REF) | payer MEDICAID, SELFPAY ==
--- OUTSIDE RECORDS SUMMARY | 2024-10-14 17:23 | XMS_ITS | Encounter Summary ---
Author Organization Counts Include [facility] Address [facility] [place] [address] Care Team Providers Care Preschool Teacher Aide Name Role Phone Yesica Goff APRN Primary Care Provider [phone] [phone] Encounter Details Date Type Department Care Team (Latest Contact Info) Description 01/05/2021 2:04 PM EDT - 01/05/2021 5:19 PM EDT Hospital En[place] [address] Can Nicholson MD [facility] [place] [address] Chronic abdominal pain; Constipation; Abdominal bloating; Abdominal [...] 3:58 PM EDT Upper Gi Endoscopy, Biopsy ([id number]) 01/05/2021 3:35 PM EDT Chronic abdominal pain Constipation, unspecified constipation type Abdominal bloating Abdominal distention Nausea without vomiting Hepatic steatosis LUQ abdominal pain Colonoscopy, Diagnostic ([id number]) 01/05/2021 3:35 PM EDT Chronic abdominal pain [...] MD PATHOLOGY/CYTOLOGY O KANU Performing Organization Address [facility] [place] [address] * Specimen to Pathology (01/05/2021 4:25 PM EDT) AP Specimen 01/05/2021 4:25 PM EDT 01/05/2021 4:25 PM EDT Narrative [facility] - 01/05/2021 4:25 PM EDT Specimen requisition ordered. ??Separate Pathology report to follow Can Nicholson MD PATHOLOGY/CYTOLOGY Nathaniel BOBBY Performing Organization Address [facility] de Phone Number [facility] [place] [address] * Surgical Pathology Report (01/05/2021 3:58 PM EDT) Pathologist [facility] Final Diagnosis [id number] ? Location: 4; [facility]; The signing pathologist has (i) examined the relevant preparation(s) for the specimen(s) and (ii) rendered or confirmed the diagnosis(es). . ?Surgical Pathology DIAGNOSIS A - Duodenum, ??biopsy: - ??Duodenal mucosa, negative for diagnostic abnormality ??. B - Stomach, ??biopsy: - ??Gastric antrum-type and body/fundic-typ e mucosa, negative for diagnostic abnormality. Electronically signed by: ?Marcello Rocha MD Verified: ??01/10/2021 16:35 ??Pathologist Performed at: ??-[facility] Dept. [place], [place], [place] SPECIMEN(S) SUBMITTED A - duodenum biopsies [...] MD PATHOLOGY/CYTOLOGY O RDERABLES [facility] [place] [address] * COLONOSCOPY (01/05/2021 3:24 PM EDT) COLONOSCOPY [facility] Procedure Date: 01/05/2021 3:24 PM ? Patient Name: Jennifer Nunn ? Date of : 1975 ? Age: 45 ? Order #: [id number] ? Instrument Name: [id number] ? Procedure: ? Colonoscopy Indications: ? Generalized abdominal pain Providers: ? Yordan Riggins, ? Merline Ibrahim, Hoop Bending Machine Operator Referring MD: ?Yesica Goff Medicines: [...] preparation was ? evaluated using the BBPS ([place] ? Bowel Preparation Scale) with scores ? [...] (01/05/2021 3:23 PM EDT) UPPER GI ENDOSCOPY [facility] Endoscopy ___ Procedure Date: 01/05/2021 3:23 PM ? Patient Name: Jennifer Nunn ? N: [id number] ? Date of : 1975 ? Age: 45 ? Order #: [id number] ? Instrument Name: [id number] ? ___ Procedure: ? Upper GI endoscopy Indications: ? nausea Providers: ? Rashawn Springer, Yordan Santos, ? Merline Ibrahim, Hoop Bending Machine Operator Referring MD: ?Yesica Goff Medicines: [...] PROVATION 01/05/2021 3:23 PM EDT Yesica Goff AUTOMOBILE RENTAL REPRESENTATIVE GENERAL SURGICAL ORDERABLES PROVATION documented in this [...] RN) documented in this encounter Care Teams Preschool Teacher Aide Relationship Specialty Start Date End Date Yesica Goff APRN [address] [place] [address] PCP - General Family Medicine 09/19/19 documented as of this encounter
--- OUTSIDE RECORDS SUMMARY | 2024-10-14 17:23 | XMS_ITS | Encounter Summary ---
[place] [address] Care Team Providers Care Student Assistance Counselor Name Role Phone Yesica Goff APRN Primary Care Provider [phone] [phone] Encounter Details Date Type Department Care Team (Latest Contact Info) Description 02/01/2021 9:30 AM EDT Procedure visit [place] [address] Jay Krause PA [address] [place] [address] Chronic abdominal pain; Constipation, unspecified constipation type; [...] without vomiting; Hepatic steatosis; LUQ abdominal pain [facility] Liver Fibrosis Assessment Report Indication: Fatty liver Performed by: MERARY Encarnacion Procedure: Vibration Controlled Transient Elastography (VCTE) or Fibroscan [place] Protocol: Patient's identity, procedure and site were [...] Procedure Name Priority Date/Time Associated Diagnosis Comments [id number] Routine 02/01/2021 9:30 AM EDT Chronic abdominal pain Constipation, unspecified constipation type Abdominal bloating Abdominal distention Nausea without vomiting Hepatic steatosis LUQ abdominal pain documented in this encounter Results * [id number] (02/01/2021 9:30 AM EDT) Narrative Jay Krause PA - 02/01/2021 9:30 AM EDT Jay Krause PA ? 02/01/2021 ??9:47 AM [facility] Liver Fibrosis Assessment Report Indication: ?? Fatty liver Performed by: ??MERARY Encarnacion Procedure: Vibration Controlled Transient Elastography (VCTE) or Fibroscan [place] Protocol: Patient's identity, procedure and site were [...] quadrant documented in this encounter Care Teams Student Assistance Counselor Relationship Specialty Start Date End Date Yesica Goff APRN [address] [place] [address] PCP - General Family Medicine 09/19/19 documented as of this encounter
--- OUTSIDE RECORDS SUMMARY | 2024-10-14 17:23 | XMS_ITS | Encounter Summary ---
Author Organization [facility] [place] [address] Care Team Providers Care Foreclosure Home Inspector Name Role Phone Yesica Goff APRN Primary Care Provider +1 -[phone] Reason for Visit * Consultation (Routine) - Closed Specialty Diagnoses / Procedures Referred By Boyd ren Referred To Contact Endocrinology Diagnoses Primary thyroid cancer Amina Baldwin MD [facility] [place] [address] [facility] [address] [place] [phone] Referral ID Status Reason Start Date Expiration Date V isits Requested Visits Authorized [id number] Closed Specialty Service Requested 11/26/2019 11/25/2020 1 1 Encounter Details Date Type Department Care Team (Late st Contact Info) Description 12/18/2019 8:00 AM EDT Office [place] [address] Priscilla Nuno MD [facility] [address] History of thyroid cancer Social History Tobacco [...] 1.57) performed by Amina Baldwin MD at [facility] MAIN OR ??? PRO THYROID LOBECTOMY, UNILAT Right 11/07/2019 THYROIDECTOMY, LOBECTOMY, TOTAL, UNILATERAL (WRVU 11.19) performed by Amina Baldwin MD at [facility] MAIN OR ??? TUBAL LIGATION FMH: mother--thyroid lobectomy for benign nodule Social history: Works at [employer] No smoking No EtOH Review of Systems: [...] [place] 12/18[place] [facility] [place] (Dis[place]) from 11/07/2019 in Same Day Program at [facility] Weight 76.3 kg (168 lb 3.2 [...] 10/30/19 US (Dr Baldwin) Right hypoechoic nodule [id number] 11/07/19 Dr Baldwin Right lobectomy: 1.3 cm PTC, (-) LVSI, (-) ETE. +positive margin Assessment / Plan: 1) Papillary thyroid cancer PT1b, NX, MX Intermediate risk given positive margin margins No evidence of residual right sided thyroid cancer or irregular lymph nodes. Completion thyroidectomy would give best chance of mcc remission. I will contact Dr Baldwin to [...] to contact me. Sincerely, Priscilla Nuno MD Tractor Operator Batterytubing machine operator Endocrinology Section [facility] * Priscilla Nuno MD - 12/18/2019 8:00 AM EDT ENDOCRINOLOGY THYROID ULTRASOUND REPORT Patient:Jennifer Nunn, [id number] Date of exam: 12/13/2019 Indication: history of [...] MD CHEMISTRY ORDERABLE S Performing Organization Address [facility] [place] [facility]/ZIP Co de Phone Number [facility] [place] [address] * Thyroglobulin (12/18/2019 12:36 PM EDT) Thyroglobulin 17.2 <=54.9 ng/mL [facility] Thyroglob Ab <20.0 0.0 - 40.0 IU/mL [facility] Blood specimen (specimen) 12/18/2019 12:36 PM EDT 12/18/2019 1:44 PM EDT Narrative Resulting Agency Comment Spec In Lab Priscilla Nuno MD LAB SEND OUT ORDERA BLES Performing Organization Address City/[facility] [place] [facility]/ZIP Co de Phone Number [facility] [place] [address] * TSH (12/18/2019 12:36 PM EDT) Thyroid Stimulating Hormone 1.97 0.27 - 4.20 mcIU/mL [facility] Blood specimen (specimen) 12/18/2019 12:36 PM EDT 12/18/2019 12:42 PM EDT Narrative Resulting Agency Comment Spec In Lab Priscilla Nuno MD CHEMISTRY ORDERABLE S [facility] [place] [address] documented in this encounter Visit Diagnoses Diagnosis History of thyroid cancer Personal history of malignant neoplasm of thyroid documented in this encounter Care Teams Foreclosure Home Inspector Relationship Specialty Start Date End Date Yesica Goff APRN [address] [place] [address] PCP - General Family Medicine 09/19/19 documented as of this encounter
--- OUTSIDE RECORDS SUMMARY | 2024-10-14 17:23 | XMS_ITS | Encounter Summary ---
Author Organization [facility] [place] [address] Care Team Providers Care Folder Hand Name Role Phone Yesica Goff APRN Primary Care Provider +1 -[phone] Encounter Details Date Type Department Care Team (Late st Contact Info) Description 03/16/2020 Telephone [place] [phone] Cristal Luek RN Social History Tobacco Use Types Packs/Day [...] on filedocumented in this encounter Care Teams Folder Hand Relationship Specialty Start Date End Date Yesica Goff APRN [address] [place] [address] PCP - General Family Medicine 09/19/19 documented as of this encounter
--- OUTSIDE RECORDS SUMMARY | 2024-10-14 17:23 | XMS_ITS | Encounter Summary ---
Author Organization [facility] [place] [address] Care Team Providers Care Tool And Fixture Repairer Name Role Phone Yesica Goff APRN Primary Care Provider +1 -[phone] Reason for Referral * Diagnostic Test (Routine) - Closed Specialty Diagnoses / Procedures Referred By Contac t Referred To Contact Radiology Diagnoses Chronic abdominal pain Constipation, unspecified constipation type Abdominal bloating Abdominal distention Nausea without vomiting Hepatic steatosis LUQ abdominal pain Procedures CT Abdomen & Pelvis w Contrast Josiah Nickerson APRN [facility] [place] [address] [facility] [place] [address] Referral ID Status Reason Start Date Expiration Date V isits Requested Visits Authorized [id number] Closed Specialty Service Requested 12/15/2020 06/17/2022 1 1 Reason for Visit * Diagnostic Test (Routine) - Closed Specialty Diagnoses / Procedures Referred By Contac t Referred To Contact Radiology Diagnoses Chronic abdominal pain Constipation, unspecified constipation type Abdominal bloating Abdominal distention Nausea without vomiting Hepatic steatosis LUQ abdominal pain Procedures CT Abdomen & Pelvis w Contrast Josiah Nickerson APRN [facility] [place] [address] [facility] [place] [address] Referral ID Status Reason Start Date Expiration Date V isits Requested Visits Authorized [id number] Closed Specialty Service Requested 12/15/2020 06/17/2022 1 1 Encounter Details Date Type Department Care Team (Latest Contact Info) Description 01/26/2021 9:10 AM EDT - 01/26/2021 11:59 PM EDT Hospital Encounter CT Scan at [facility] [place] [address] Josiah Nickerson, FLAME ANNEALING MACHINE OPERATOR [facility] DR [place] [address] Chronic abdominal pain; Constipation, unspecified constipation type; [...] who have questions please contact the health urgent care that requested your imaging first. ? Electronically signed by: Jerardo Barrera MD, [facility] ([phone]), at 01/26/2021 12:29 PM Narrative 01/26/2021 12:29 [...] patients who have questions please contactthe health urgent care that requested your imaging first. Electronically signed by: Jerardo Barrera MD, [facility]([phone]), at 01/26/2021 12:29 PM Josiah Nickerson APRN [facility] ORDERABLES documented in this encounter Visit [...] mLs documented in this encounter Care Teams Tool And Fixture Repairer Relationship Specialty Start Date End Date Yesica Goff APRN [address] [place] [address] PCP - General Family Medicine 09/19/19 documented as of this encounter
--- OUTSIDE RECORDS SUMMARY | 2024-10-14 17:23 | XMS_ITS | Encounter Summary ---
Author Organization [facility] Address [facility] [place] [address] Care Team Providers Care Water Service Dispatcher Name Role Phone Yesica Goff APRN Primary Care Provider +1 -[phone] Reason for Visit * Reason Comments Medication Refill Encounter Details Date Type Department Care Team (Late st Contact Info) Description 06/21/2021 Refill [place] [address] Blair Thornton MD [facility] DR [place] [address] Hypothyroidism, unspecified type; History of thyroid cancer [...] thyroid documented in this encounter Care Teams Water Service Dispatcher Relationship Specialty Start Date End Date Yesica Goff APRN [address] [place] [address] PCP - General Family Medicine 09/19/19 documented as of this encounter
--- OUTSIDE RECORDS SUMMARY | 2024-10-14 17:23 | XMS_ITS | Encounter Summary ---
[place] [address] Care Team Providers Care Freight Weigher Name Role Phone Yesica Goff APRN Primary Care Provider +1 -[phone] Encounter Details Date Type Department Care Team (Late st Contact Info) Description 01/15/2021 Telephone [place] [address] Lis Rosas Social History Tobacco Use Types [...] ANORECTAL MANOMETRY CLINICAL SAFETY CHECKLIST 01/15/2021 Lis Huynh [address] [place] [address] [id number] : 1975 REFERRING PROVIDER: Susie REAGAN PRIMARY [...] their provider to consider alternative testing. The tmr teacher should also contact the provider's office directly [...] on filedocumented in this encounter Care Teams Freight Weigher Relationship Specialty Start Date End Date Yesica Goff APRN [address] [place] [address] PCP - General Family Medicine 09/19/19 documented as of this encounter
--- OUTSIDE RECORDS SUMMARY | 2024-10-14 17:23 | XMS_ITS | Encounter Summary ---
Author Organization [facility] [place] [address] Care Team Providers Care Wire Saw Operator Name Role Phone Yesica Goff APRN Primary Care Provider +1 -[phone] Reason for Visit * Reason Onset Date Comments Reminder Appointment 12/15/2020 Encounter Details Date Type Department Care Team (Late st Contact Info) Description 12/15/2020 Telephone [place]astro[place] [phone] Jade Coker MD [facility] [place] [address] Reminder Appointment Social History Tobacco Use Types [...] on filedocumented in this encounter Care Teams Wire Saw Operator Relationship Specialty Start Date End Date Yesica Goff APRN [address] [place] [address] PCP - General Family Medicine 09/19/19 documented as of this encounter
--- OUTSIDE RECORDS SUMMARY | 2024-10-14 17:23 | XMS_ITS | Encounter Summary ---
Author Organization [facility] [place] [address] Care Team Providers Care Field Operator Name Role Phone Yesica Goff APRN Primary Care Provider +1 -[phone] Encounter Details Date Type Department Care Team (Late st Contact Info) Description 09/12/2021 Telephone [place] [phone] Sury Salazar Social History Tobacco Use Types [...] for a 6 mo (overdue) gif with RESIDENTIAL LEASING MANAGER Krishan following testing. GI will schedule the [...] on filedocumented in this encounter Care Teams Field Operator Relationship Specialty Start Date End Date Yesica Goff APRN [address] [place] [address] PCP - General Family Medicine 09/19/19 documented as of this encounter
--- OUTSIDE RECORDS SUMMARY | 2024-10-14 17:23 | XMS_ITS | Encounter Summary ---
Author Organization [place] [address] Care Team Providers Care Cashier And Salesperson Name Role Phone Yesica Goff APRN Primary Care Provider +1 -[phone] Reason for Visit * Auth/Cert Specialty Diagnoses / Procedures Referred By Boyd ren Referred To Contact Diagnoses papillary carcinoma Procedures PRO THYROIDECTOMY POST PREV THYR SURG PRG EMG, LARYNX THYROIDECTOMY, REMOVE REMAINING TISSUE (WRVU 18.26) FACIAL NERVE MONITORING, SETUP LARYNGEAL (WRVU 1.57) Referral ID Status Reason Start Date Expiration Date Visits Re quested Visits Authorized [id number] 1 1 Encounter Details Date Type Department Care Team (Late st Contact Info) Description 04/30/2020 1:40 PM EDT - 04/30/2020 3:59 PM EDT Surgery [facility] [place] [address] Maria Mcghee MD [facility] [place] [address] THYROIDECTOMY, REMOVE REMAINING TISSUE (WRVU 18.26) Social [...] closest emergency room or call the hospital page makeup system operator at [phone] and ask for physician nurse practitioner per diem covering for your physician. Questions or problems after 5pm or on a weekend: Call the [facility] page makeup system operator at and ask for the physician nurse practitioner per diem covering for your doctor. * Patient Instructions* [...] Take NSAIDS and/or Tylenol every 6 hours [id number] for the first 3-5 days following surgery [...] will be mailed to you Please call [phone] to confirm the date and time of your appointment if you do not hear from us in the next 2 weeks Call Doctor for: Call if you have trouble talking or breathing (call [phone] if this is severe) Call if you [...] is just fine. Phone number for questions: [phone] before 5 PM on weekdays [phone] after 5 PM and on weekends/holidays. Ask for the general surgery resident nurse practitioner per diem. documented in this encounter Medications at Time [...] again, temperature will be taken, patient and caregiver/roll off driver will be given a mask to [...] 1.57) performed by Maria Mcghee MD at [facility] MAIN OR ??? PRO THYROID LOBECTOMY, UNILAT Right 11/07/2019 THYROIDECTOMY, LOBECTOMY, TOTAL, UNILATERAL (WRVU 11.19) performed by Maria Mcghee MD at [facility] MAIN OR ??? TUBAL LIGATION [...] Normal Block(s): ?? A4 Prior Cytology Specimen: ?[id number] [facility] November 2018 Annual Release Electronically signed by: ??David CARSON, Tiny Flores Verified: ??11/15/2019 ?Pathologist Performed at: ??-[facility] Dept. of Pathology, [place], [place] CLINICAL INFORMATION Specimen Submitted: A - [...] Mcghee MD - 04/30/2020 2:27 PM EDT [facility] Operative Note Patient Name: Jennifer Nunn : [id number] MR#: [id number] Case Date: 04/30/2020 Surgeon: Surgeon(s) and Role: [...] anesthesia was achieved by anesthesiology with the Flazio recurrent laryngeal nerve monitoring system. Her prior [...] Operative Note Patient Name: Jennifer Nunn : [id number] MR#: [id number] Case Date: 04/30/2020 Surgeon: Surgeon(s) and Role: [...] 2:09 PM EDT Needle Electromyography, Larynx Global ([id number]) Yes 04/30/2020 12:45 PM EDT papillary carcinoma Thyroidectomy Post Prev Thyr Surg ([id number]) Yes 04/30/2020 12:45 PM EDT papillary carcinoma documented in this encounter Results * Specimen to Pathology (04/30/2020 2:11 PM EDT) AP Specimen 04/30/2020 2:11 PM EDT 04/30/2020 2:11 PM EDT Narrative [facility] - 04/30/2020 2:11 PM EDT Specimen requisition ordered. ??Separate Pathology report to follow Maria Mcghee MD PATHOLOGY/CYTOLOG Y ORDERABLES [facility] [place] [address] * Surgical Pathology Report (04/30/2020 2:09 PM EDT) Final Diagnosis [id number] ? Location: [facility] The signing pathologist has (i) examined the relevant preparation(s) for the specimen(s) and (ii) rendered or confirmed the diagnosis(es). . ?Surgical Pathology DIAGNOSIS A - Left thyroid lobe, excision: ?? - Benign thyroid parenchyma. Electronically signed by: ??MD Reynold, Champ Cha Verified: ??05/05/2020 ?Pathologist Performed at: ??-[facility] Dept. of Pathology, [place], [place] SPECIMEN(S) SUBMITTED A - left thyroid [...] lower pole ??AJ 05/05/2020 9:21 AM EDT [facility] THYROID STRUCTURE / Unknown 04/30/2020 2:09 PM EDT 04/30/2020 2:09 PM EDT Maria Mcghee MD PATHOLOGY/CYTOLOG Y ORDERABLES [facility] [place] [address] documented in this encounter Visit Diagnoses Not [...] Routine documented in this encounter Care Teams Cashier And Salesperson Relationship Specialty Start Date End Date Yesica Goff APRN [address] [place] [address] PCP - General Family Medicine 09/19/19 documented as of this encounter
--- OUTSIDE RECORDS SUMMARY | 2024-10-14 17:23 | XMS_ITS | Encounter Summary ---
Author Organization [facility] Address [facility] [place] [address] Care Team Providers Care Seamstress Fitter Name Role Phone Yesica Goff APRN Primary Care Provider +1 -[phone] Encounter Details Date Type Department Care Team (Latest Contact Info) Description 03/25/2021 9:27 AM EDT - 03/25/2021 11:59 PM EDT Hospital Encounter XRay at [address] [place] [address] Josiah Nickerson APRN [facility] [place] [address] Nausea without vomiting; LUQ abdominal pain Discharge [...] who have questions please contact the health managed care coordinator that requested your imaging first. ? Electronically signed by: Jerardo Barrera MD, [facility] ([phone]), at 03/25/2021 10:44 AM Narrative 03/25/2021 10:44 [...] patients who have questions please contactthe health managed care coordinator that requested your imaging first. Electronically signed by: Jerardo Barrera MD, [facility]([phone]), at 03/25/2021 10:44 AM Josiah Nickerson APRN [...] mLs documented in this encounter Care Teams Seamstress Fitter Relationship Specialty Start Date End Date Yesica Goff APRN [address] [place] [address] PCP - General Family Medicine 09/19/19 documented as of this encounter
--- OUTSIDE RECORDS SUMMARY | 2024-10-14 17:23 | XMS_ITS | Encounter Summary ---
Author Organization [facility] Address [facility] [place] [address] Care Team Providers Care Measurement Operator Name Role Phone Yesica Goff APRN Primary Care Provider +1 -[phone] Encounter Details Date Type Department Care Team (Late st Contact Info) Description 06/10/2020 Notes [place] [address] Asad Song MD [facility] [place] [address] Social History Tobacco Use Types Packs/Day Years [...] on filedocumented in this encounter Care Teams Measurement Operator Relationship Specialty Start Date End Date Yesica Goff, HL7 INTERFACE DEVELOPER [address] [place] [address] PCP - General Family Medicine 09/19/19 documented as of this encounter
--- OUTSIDE RECORDS SUMMARY | 2024-10-14 17:23 | XMS_ITS | Encounter Summary ---
Author Organization [facility] Address [facility] [place] [address] Care Team Providers Care Air Conditioning Service Technician Name Role Phone Yesica Goff APRN Primary Care Provider +1 -[phone] Reason for Visit * Consultation (Routine) - Closed Specialty Diagnoses / Procedures Referred By Boyd ren Referred To Contact Otolaryngology Diagnoses Painful swallowing Lona Snowden [facility] [place] [address] [facility] Otolaryngology [address] [place] [phone] Referral ID Status Reason Start Date Expiration Date V isits Requested Visits Authorized [id number] Closed Consult, Test & Treat 04/09/2020 04/09/2021 1 1 Encounter Details Date Type Department Care Team (Late st Contact Info) Description 07/29/2020 4:30 PM EDT Office Visit [place] [address] Dionna Bhardwaj [facility] [place] [address] Hoarseness Social History Tobacco Use [...] Clinic, [facility] Patient: Jennifer Nunn ([id number] ; 1975 Primary Care Provider: Yesica Goff [...] 1.57) performed by Amina Baldwin MD at [facility] MAIN OR ??? PRG EMG, LARYNX N/A 04/30/2020 FACIAL NERVE MONITORING, SETUP LARYNGEAL (WRVU 1.57) performed by Amina Baldwin MD at [facility] ??? PRO THYROID LOBECTOMY, UNILAT Right 11/07/2019 THYROIDECTOMY, LOBECTOMY, TOTAL, UNILATERAL (WRVU 11.19) performed by Amina Baldwin MD at [facility] MAIN OR ??? PRO THYROIDECTOMY POST PREV THYR SURG Left 04/30/2020 THYROIDECTOMY, REMOVE REMAINING TISSUE (WRVU 18.26) performed by Amina Baldwin MD at [facility] ??? TUBAL LIGATION Medications: Current Outpatient [...] allergies. Social History: Jennifer Nunn lives in [place] [address], Review of Systems: Pertinent positive findings discussed [...] Voice is clear. RTC prn. Dionna ALDANA [place], [place] [address] Office documented in this encounter Plan of Treatment Scheduled Referrals Name Type Priority Associated Diagnoses Orde r Schedule Referral to ENT Outpatient Referral Routine Painful swallowing Ordered: 04/09/2020 documented as of this encounter Visit Diagnoses Diagnosis Hoarseness Dysphonia documented in this encounter Care Teams Air Conditioning Service Technician Relationship Specialty Start Date End Date Yesica Goff APRN [address] [place] [address] PCP - General Family Medicine 09/19/19 documented as of this encounter
--- OUTSIDE RECORDS SUMMARY | 2024-10-14 17:23 | XMS_ITS | Encounter Summary ---
Author Organization [facility] Address [facility] [place] [address] Care Team Providers Care Saw Repairer Name Role Phone Yesica Goff APRN Primary Care Provider +1 -[phone] Encounter Details Date Type Department Care Team (Late st Contact Info) Description 01/05/2021 4:00 PM EDT - 01/05/2021 5:15 PM EDT [place] [address] Rashawn Springer MD [facility] [place] [address] COLONOSCOPY, DIAGNOSTIC (WRVU 3.26) Social History Tobacco [...] - 01/05/2021 3:22 PM EDT Patient Name: Jnenifer Nunn Patient Age: 45 y.o. Birthdate: 1975 [...] 3:58 PM EDT Upper Gi Endoscopy, Biopsy ([id number]) 01/05/2021 3:35 PM EDT Chronic abdominal pain Constipation, unspecified constipation type Abdominal bloating Abdominal distention Nausea without vomiting Hepatic steatosis LUQ abdominal pain Colonoscopy, Diagnostic ([id number]) 01/05/2021 3:35 PM EDT Chronic abdominal pain Constipation, unspecified constipation type Abdominal bloating Abdominal distention Nausea without vomiting Hepatic steatosis LUQ abdominal pain COLONOSCOPY Routine 01/05/2021 3:24 PM EDT UPPER GI ENDOSCOPY Routine 01/05/2021 3: 23 PM EDT documented in this encounter Results * Specimen to Pathology (01/05/2021 4:25 PM EDT) AP Specimen 01/05/2021 4:25 PM EDT 01/05/2021 4:25 PM EDT Narrative [facility] - 01/05/2021 4:25 PM EDT Specimen requisition ordered. ??Separate Pathology report to follow Can Nicholson MD PATHOLOGY/CYTOLOGY O KANU Performing Organization Address [facility] [place] [address] * Specimen to Pathology (01/05/2021 4:25 PM EDT) AP Specimen 01/05/2021 4:25 PM EDT 01/05/2021 4:25 PM EDT Narrative [facility] - 01/05/2021 4:25 PM EDT Specimen requisition ordered. ??Separate Pathology report to follow Can Nicholson MD PATHOLOGY/CYTOLOGY Nathaniel BOBBY Performing Organization Address [facility] [place] [address] * Surgical Pathology Report (01/05/2021 3:58 PM EDT) Pathologist [facility] Final Diagnosis [id number] ? Location: 4T; [facility]; A The signing pathologist has (i) examined the relevant preparation(s) for the specimen(s) and (ii) rendered or confirmed the diagnosis(es). . ?Surgical Pathology DIAGNOSIS A - Duodenum, ??biopsy: - ??Duodenal mucosa, negative for diagnostic abnormality ??. B - Stomach, ??biopsy: - ??Gastric antrum-type and body/fundic-typ e mucosa, negative for diagnostic abnormality. Electronically signed by: ?Marcello Rocha MD Verified: ??01/10/2021 16:35 ??Pathologist Performed at: ??-[facility] Dept. of Pathology, [place], [place] SPECIMEN(S) SUBMITTED A - duodenum biopsies [...] labeled B1. ??pps 01/10/2021 4:35 PM EDT [facility] GI Biopsy 01/05/2021 3:58 PM EDT 01/05/2021 3:58 PM EDT GI Biopsy 01/05/2021 3:58 PM EDT 01/05/2021 3:58 PM EDT Rashawn Springer MD PATHOLOGY/CYTOLOGY O RDERABLES [facility] [place] [address] * COLONOSCOPY (01/05/2021 3:24 PM EDT) COLONOSCOPY [facility] Endoscopy Procedure Date: 01/05/2021 3:24 PM ? Patient Name: Jennifer Nunn ? Date of : 1975 ? Age: 45 ? Order #: [id number] ? Instrument Name: [id number] ? Procedure: ? Colonoscopy Indications: ? Generalized abdominal pain Providers: ? Rashawn Springer, Yordan Santos, ? Merline Ibrahim, Elevators Inspector Referring MD: ?Yesica Goff Medicines: ? Midazolam [...] preparation was ? evaluated using the BBPS ([place] ? Bowel Preparation Scale) with scores ? [...] UPPER GI ENDOSCOPY (01/05/2021 3:23 PM EDT) [facility] UPPER GI ENDOSCOPY [facility] Endoscopy ___ Procedure Date: 01/05/2021 3:23 PM ? Patient Name: Jennifer Nunn ? N: [id number] ? Date of : 1975 ? Age: 45 ? Order #: [id number] ? Instrument Name: [id number] ? ___ Procedure: ? Upper GI endoscopy Indications: ? nausea Providers: ? Rashawn Springer, Yordan Santos, ? Merline Ibrahim, Elevators Inspector Referring MD: ?Yesica Goff Medicines: ? Fentanyl [...] APRN GENERAL SURGICAL ORDERABLES Performing Organization Address City/State/[facility] Co de Phone Number [employer]OVATION documented in [...] RN) documented in this encounter Care Teams Saw Repairer Relationship Specialty Start Date End Date Yesica Goff APRN [address] [place] [address] PCP - General Family Medicine 09/19/19 documented as of this encounter
--- OUTSIDE RECORDS SUMMARY | 2024-10-14 17:23 | XMS_ITS | Encounter Summary ---
[place] [address] Care Team Providers Care Brim Curler Name Role Phone Yesica Goff APRN Primary Care Provider +1 -[phone] Encounter Details Date Type Department Care Team (Latest Contact Info) Description 12/18/2019 12:45 PM EDT Laboratory Appointment Lab [address] [place] [address] History of thyroid cancer Social History Tobacco [...] Stimulating Hormone 1.97 0.27 - 4.20 mcIU/mL [facility] Blood specimen (specimen) 12/18/2019 12:36 PM EDT 12/18/2019 12:42 PM EDT Narrative Resulting Agency Comment Spec In Lab Asad Song MD CHEMISTRY ORDERABLE S [facility] [place] [address] * Thyroglobulin (12/18/2019 12:36 PM EDT) Thyroglobulin 17.2 <=54.9 ng/mL [facility] Thyroglob Ab <20.0 0.0 - 40.0 IU/mL [facility] Blood specimen (specimen) 12/18/2019 12:36 PM EDT 12/18/2019 1:44 PM EDT Narrative Resulting Agency Comment Spec In Lab Asad Song MD LAB SEND OUT ORDERA BLES [facility] [place] [address] * Calcium (12/18/2019 12:36 PM EDT) Calcium 9.1 8.5 - 10.5 mg/dL [facility] Blood specimen (specimen) 12/18/2019 12:36 PM EDT 12/18/2019 12:42 PM EDT Narrative Resulting Agency Comment Spec In Lab Asad Song MD CHEMISTRY ORDERABLE S [facility] [place] [address] documented in this encounter Visit Diagnoses Diagnosis History of thyroid cancer Personal history of malignant neoplasm of thyroid documented in this encounter Care Teams Brim Curler Relationship Specialty Start Date End Date Yesica Goff APRN [address] [place] [address] PCP - General Family Medicine 09/19/19 documented as of this encounter
--- OUTSIDE RECORDS SUMMARY | 2024-10-14 17:23 | XMS_ITS | Encounter Summary ---
Author Organization [facility] [place] [address] Care Team Providers Care Window Display Designer Name Role Phone Yesica Goff APRN Primary Care Provider +1 -[phone] Reason for Visit * Diagnostic Test (Routine) - Closed Specialty Diagnoses / Procedures Referred By Boyd t Referred To Contact Radiology Diagnoses Nausea without vomiting LUQ abdominal pain Procedures NM Gastric Emptying Scan Josiah Nickerson STOCKROOM ASSOCIATE [facility] GASTROENTER[place] [address] [place] [address] Referral ID Status Reason Start Date Expiration Date V isits Requested Visits Authorized [id number] Closed Specialty Service Requested 02/11/2021 09/30/2021 1 1 Encounter Details Date Type Department Care Team (Latest Contact Info) Description 02/11/2021 9:04 AM EDT Hospital Encounter [place] [address] Josiah Nickerson [facility] [address] [place] [address] Discharge Disposition: Home Social History [...] who have questions please contact the health progressive care manager that requested your imaging first. ? Electronically signed by: Arsh Blackmon MD, [facility] ([phone]), at 02/11/2021 2:09 PM Narrative 02/11/2021 2:09 [...] patients who have questions please contactthe health progressive care manager that requested your imaging first. Josiah Nickerson APRN IMG NM ORDERABLES documented in this encounter Visit Diagnoses Not on filedocumented in this encounter Care Teams Window Display Designer Relationship Specialty Start Date End Date Yesica Goff APRN [address] [place] [address] PCP - General Family Medicine 09/19/19 documented as of this encounter
--- OUTSIDE RECORDS SUMMARY | 2024-10-14 17:23 | XMS_ITS | Clinical Summary ---
Author Organization [facility] Address [facility] [place] [address] Care Team Providers Care Timber Mill Worker Name Role Phone Yesica Goff APRN Primary Care Provider +1 -[phone] Allergies No known active allergies Medications Medication [...] (12/15/2020): Added automatically from request for surgery [id number] Constipation 12/15/2020 Overview (12/15/2020): Added automatically from request for surgery [id number] Abdominal bloating 12/15/2020 Overview (12/15/2020): Added automatically from request for surgery [id number] Abdominal distention 12/15/2020 Overview (12/15/2020): Added automatically from request for surgery [id number] Nausea without vomiting 12/15/2020 Overview (12/15/2020): Added automatically from request for surgery [id number] Hepatic steatosis 12/15/2020 Overview (12/15/2020): Added automatically from request for surgery [id number] LUQ abdominal pain 12/15/2020 Overview (12/15/2020): Added automatically from request for surgery [id number] Thyroid cancer 12/18/2019 Risk of chromosome ano [...] virus) anogenital infection 03/08/2011 Overview (06/30/2012): Last [id number] Bladder stones 03/08/2011 Overview (06/30/2012): Required surgical [...] EDT) Glucose 121 65 - 199 mg/dL [facility] Comment:Diabetes: >=200 mg/d L plus symptoms Blood Urea Nitrogen 11 8 - 18 mg/dL [facility] Creatinine 0.82 0.70 - 1.20 mg/dL [facility] Sodium 138 135 - 145 mmol/L [facility] Potassium 4.1 3.5 - 5.0 mmol/L [facility] Comment: Please note: ??Patients with WBC >100,000 may have falsely elevated Potassium levels. ??For accurate Potassium quantification in these patients send serum separator tube (gold top) for subsequent determinations. ??Contact the Clinical Chemistry Laboratory if there are any questions. Chloride 103 98 - 107 mmol/L [facility] Carbon Dioxide 26 22 - 31 mmol/L [facility] Anion Gap 9 5 - 15 mmol/L [facility] Calcium 8.9 8.5 - 10.5 mg/dL [facility] Protein, Total 7.0 6.1 - 8.0 gm/dL [facility] Albumin 4.2 3.2 - 5.2 gm/dL [facility] Aspartate Aminotransferase 26 0 - 30 unit/L [facility] Alanine Aminotransferase 34(H) 0 - 30 unit/L [facility] Alkaline Phosphatase 79 35 - 105 unit/L [facility] Bilirubin, Total 0.2 0.2 - 1.3 mg/dL [facility] Est Glomerular Filtration Rate 88 >=60 mL/min/1. 73 m?? [facility] Comment: This patient? s estimated [...] APRN CHEMISTRY ORDERABLE S Performing Organization Address City/State/[facility] Co de Phone Number [facility] [place] [address] * COLONOSCOPY (01/05/2021 3:24 PM EDT) COLONOSCOPY [facility] Endoscopy Procedure Date: 01/05/2021 3:24 PM ? Patient Name: Jennifer Nunn ? Date of : 1975 ? Age: 45 ? Order #: [id number] ? Instrument Name: [id number] ? Procedure: ? Colonoscopy Indications: ? Generalized abdominal pain Providers: ? Rashawn Springer, Yordan Santos, ? Merline Ibrahim, Hide Splitter Referring MD: ?Yesica Goff Medicines: ? Midazolam [...] preparation was ? evaluated using the BBPS ([place] ? Bowel Preparation Scale) with scores ? [...] Documents on File Type Date Recorded Patient Director Of Accreditation Expl anation Advance Directives and Livin g Will 11/07/2019 1:16 PM * Attempt Cardiopulmonary Resuscitation - Inpatient (Latest Code Status on File) Date Activated Date Inactivated Comments 04/30/2020 12:37 PM 04/30/2020 5:58 PM Question Answer Comments Code Status decision made by: Patient Care Teams Timber Mill Worker Relationship Specialty Start Date End Date Yesica Goff APRN [address] [place] [address] PCP - General Family Medicine 09/19/19
--- OUTSIDE RECORDS SUMMARY | 2024-10-14 17:23 | XMS_ITS | Encounter Summary ---
Author Organization [facility] [place] [address] Care Team Providers Care Receiver/Laborer Name Role Phone Yesica Goff APRN Primary Care Provider +1 -[phone] Reason for Visit * Diagnostic Test (Routine) - Closed Specialty Diagnoses / Procedures Referred By Contlaura t Referred To Contact Radiology Diagnoses Nausea without vomiting LUQ abdominal pain Procedures NM Gastric Emptying Scan Josiah Nickerson BIOMEDICAL ENGINEER [facility] [place] [address] [place] [address] Referral ID Status Reason Start Date Expiration Date V isits Requested Visits Authorized [id number] Closed Specialty Service Requested 02/11/2021 09/30/2021 1 1 Encounter Details Date Type Department Care Team (Latest Contact Info) Description 02/11/2021 9:05 AM EDT - 02/11/2021 11:59 PM EDT Hospital En[place] [address] Josiah Nickerson BIOMEDICAL ENGINEER [facility] [place] [address] Discharge Disposition: Home Social History [...] who have questions please contact the health home visit field care manager that requested your imaging first. ? Electronically signed by: Arsh Blackmon MD, [facility] ([phone]), at 02/11/2021 2:09 PM Narrative 02/11/2021 2:09 [...] patients who have questions please contactthe health home visit field care manager that requested your imaging first. Electronically signed by: Arsh Blackmon MD, [facility]([phone]), at 02/11/2021 2:09 PM Josiah Nickerson APRN IMG NM ORDERABLES documented in this encounter Visit Diagnoses Not on filedocumented in this encounter Care Teams Receiver/Laborer Relationship Specialty Start Date End Date Yesica Goff APRN [address] [place] [address] PCP - General Family Medicine 09/19/19 documented as of this encounter
--- OUTSIDE RECORDS SUMMARY | 2024-10-14 17:23 | XMS_ITS | Encounter Summary ---
Author Organization [facility] [place] [address] Care Team Providers Care Director Of Cardiology Service Line Name Role Phone Yesica Goff APRN Primary Care Provider +1 -[phone] Reason for Visit * Diagnostic Test (Routine) - Closed Specialty Diagnoses / Procedures Referred By Boyd t Referred To Contact Radiology Diagnoses Nausea without vomiting LUQ abdominal pain Procedures NM Gastric Emptying Scan Josiah Nickerson SEDIMENTATIONIST [facility] [place] [address] [place] [address] Referral ID Status Reason Start Date Expiration Date V isits Requested Visits Authorized [id number] Closed Specialty Service Requested 02/11/2021 09/30/2021 1 1 Encounter Details Date Type Department Care Team (Latest Contact Info) Description 02/11/2021 9:04 AM EDT Hospital En[place] [address] Josiah Nickerson [facility] [place] [address] Discharge Disposition: Home Social History [...] have questions please contact the health patient centered care specialist that requested your imaging first. ? Electronically signed by: Arsh Blackmon MD, [facility] ([phone]), at 02/11/2021 2:09 PM Narrative 02/11/2021 2:09 [...] who have questions please contactthe health patient centered care specialist that requested your imaging first. Josiah Nickerson APRN IMG NM ORDERABLES documented in this encounter Visit Diagnoses Not on filedocumented in this encounter Care Teams Director Of Cardiology Service Line Relationship Specialty Start Date End Date Yesica Goff APRN [address] [place] [address] PCP - General Family Medicine 09/19/19 documented as of this encounter
--- OUTSIDE RECORDS SUMMARY | 2024-10-14 17:23 | XMS_ITS | Encounter Summary ---
Author Organization [facility] [place] [address] Care Team Providers Care Supervisor Line Department Name Role Phone Yesica Goff APRN Primary Care Provider +1 -[phone] Reason for Visit * Diagnostic Test (Routine) - Closed Specialty Diagnoses / Procedures Referred By Contlaura t Referred To Contact Radiology Diagnoses Nausea without vomiting LUQ abdominal pain Procedures NM Gastric Emptying Scan Josiah Nickerson KENNEL OPERATOR [facility] [place] [address] [place] [address] Referral ID Status Reason Start Date Expiration Date V isits Requested Visits Authorized [id number] Closed Specialty Service Requested 02/11/2021 09/30/2021 1 1 Encounter Details Date Type Department Care Team (Latest Contact Info) Description 02/11/2021 9:05 AM EDT - 02/11/2021 11:59 PM EDT Hospital Encounter [place] [address] Josiah Nickerson KENNEL OPERATOR [facility] [place] [address] Discharge Disposition: Home Social History [...] have questions please contact the health care trainer that requested your imaging first. ? Electronically signed by: Arsh Blackmon MD, [facility] ([phone]), at 02/11/2021 2:09 PM Narrative 02/11/2021 2:09 [...] who have questions please contactthe health care trainer that requested your imaging first. Electronically signed by: Arsh Blackmon MD, [facility]([phone]), at 02/11/2021 2:09 PM Josiah Nickerson APRN IMG NM ORDERABLES documented in this encounter Visit Diagnoses Not on filedocumented in this encounter Care Teams Supervisor Line Department Relationship Specialty Start Date End Date Yesica Goff APRN [address] [place] [address] PCP - General Family Medicine 09/19/19 documented as of this encounter
--- OUTSIDE RECORDS SUMMARY | 2024-10-14 17:23 | XMS_ITS | Encounter Summary ---
[place] [address] Care Team Providers Care Precinct Commanding Officer Name Role Phone [place] Yesica Henson APRN Primary Care Provider +1 -[phone] Reason for Visit * Auth/Cert Specialty Diagnoses / Procedures Referred By Boyd ren Referred To Contact Diagnoses papillary carcinoma Procedures PRO THYROIDECTOMY POST PREV THYR SURG PRG EMG, LARYNX THYROIDECTOMY, REMOVE REMAINING TISSUE (WRVU 18.26) FACIAL NERVE MONITORING, SETUP LARYNGEAL (WRVU 1.57) Referral ID Status Reason Start Date Expiration Date Visits Re quested Visits Authorized [id number] 1 1 Encounter Details Date Type Department Care Team (Late st Contact Info) Description 04/30/2020 12:46 PM EDT Anesthesia Event [facility] [place] [address] Romero Holbrook MD [facility] DR ANESTHESIOLOGY [place] [address] Rashawn Benitez MD Anesthesia Record Procedure Summary [...] Ana Maria Patel RN 05/29/22 1715 by rTu [place] ETT Mask Ventilation: Ad junct (2); [...] Procedure Summary Date: 04/30/20 Room / Location: [facility] [address] [place] [address] OSC Anesthesia Start: 1246 Anesthesia Stop: 1456 Procedures: THYROIDECTOMY, REMOVE REMAINING TISSUE (WRVU 18.26) (Left Neck) FACIAL NERVE MONITORING, SETUP LARYNGEAL (WRVU 1.57) (N/A Neck) Diagnosis: (papillary carcinoma) Surgeon: Amina Baldwin MD Responsible Provider: Romero Holbrook MD Anesthesia Type: general ASA Status: 2 All Anesthesia Providers: Anesthesiologist: Romero Holbrook MD TRAVEL MED SURG RN: Martita Braun CRNA Director Of Operations Support: Carlos Carballo MD Vitals Value Taken Time BP 142/81 04/30/20 1516 Temp 36.1 ??C (97 ??F) 04/30/20 1449 Pulse 64 04/30/20 1516 Resp 16 04/30/20 1516 SpO2 99 % 04/30/20 1516 Pain Level Patient Location: PACU/[facility] Level of Consciousness: Awake and Alert [...] 1.57) performed by Amina Baldwin MD at [facility] MAIN OR ??? PRO THYROID LOBECTOMY, UNILAT Right 11/07/2019 THYROIDECTOMY, LOBECTOMY, TOTAL, UNILATERAL (WRVU 11.19) performed by Amina Baldwin MD at [facility] MAIN OR ??? TUBAL LIGATION Social [...] monitors Carlos Carballo MD Anesthesiology CA-2 Pager [phone] Attending Add: No issues with prior anesthetics Appropriately npo Plan for [facility] - Other Informed Consent: Anesthetic plan and risks discussed with patient. Plan discussed with TRAVEL MED SURG RN. PAT Clinic Note documented in this encounter [...] mg documented in this encounter Care Teams Precinct Commanding Officer Relationship Specialty Start Date End Date Yesica Goff APRN [address] [place] [address] PCP - General Family Medicine 09/19/19 documented as of this encounter
--- OUTSIDE RECORDS SUMMARY | 2024-10-14 17:23 | XMS_ITS | Encounter Summary ---
Author Organization [facility] [place] [address] Care Team Providers Care Furnace Tender Name Role Phone Yesica Goff APRN Primary Care Provider +1 -[phone] Encounter Details Date Type Department Care Team (Late st Contact Info) Description 05/07/2020 Telephone [place] [phone] Lona Snowden APRN [facility] [place] [address] Social History Tobacco Use Types Packs/Day Years [...] on filedocumented in this encounter Care Teams Furnace Tender Relationship Specialty Start Date End Date Yesica Goff APRN [address] [place] [address] PCP - General Family Medicine 09/19/19 documented as of this encounter
--- OUTSIDE RECORDS SUMMARY | 2024-10-14 17:23 | XMS_ITS | Encounter Summary ---
[place] [address] Care Team Providers Care Single Pass Soil Stabilizer Operator Name Role Phone Yesica Goff APRN Primary Care Provider +1 -[phone] Reason for Referral * Consultation (Routine) - Closed Specialty Diagnoses / Procedures Referred By Boyd ren Referred To Contact Otolaryngology Diagnoses Painful swallowing Lona Snowden APRN [facility] [place] [address] [facility] [place] [place] Otolaryngology [address] [place] [phone] Referral ID Status Reason Start Date Expiration Date V isits Requested Visits Authorized [id number] Closed Consult, Test & Treat 04/09/2020 04/09/2021 1 1 Encounter Details Date Type Department Care Team (Latest Contact Info) Description 04/09/2020 11:20 AM EDT Office [place] [phone] Lona Snowden APRN [facility] [place] [address] Painful swallowing; S/P partial thyroidectomy [...] this encounter Progress Notes * Lona Snowden, OR MANAGER - 04/09/2020 11:20 AM EDT Thyroid Lobectomy [...] had a repeat ultrasound in March at [facility]. Both ultrasounds do not show any gross [...] status documented in this encounter Care Teams Single Pass Soil Stabilizer Operator Relationship Specialty Start Date End Date Yesica Goff APRN [address] [place] [address] PCP - General Family Medicine 09/19/19 documented as of this encounter
--- OUTSIDE RECORDS SUMMARY | 2024-10-14 17:23 | XMS_ITS | Encounter Summary ---
Author Organization [facility] [place] [address] Care Team Providers Care Decorating Consultant Name Role Phone Yesica Goff APRN Primary Care Provider +1 -[phone] Encounter Details Date Type Department Care Team (Late st Contact Info) Description 12/16/2019 Telephone [place] [phone] Leeann Mcghee Social History Tobacco Use Types [...] on filedocumented in this encounter Care Teams Decorating Consultant Relationship Specialty Start Date End Date Yesica Goff APRN [address] [place] [address] PCP - General Family Medicine 09/19/19 documented as of this encounter
--- OUTSIDE RECORDS SUMMARY | 2024-10-14 17:23 | XMS_ITS | Encounter Summary ---
[place] [address] Care Team Providers Care Public Relations Studies Director Name Role Phone Yesica Goff APRN Primary Care Provider +1 [phone] Encounter Details Date Type Department Care Team (Late st Contact Info) Description 12/31/2020 Telephone [place] [phone] Radha Ascencio, CCMA Social History Tobacco Use [...] - 12/31/2020 10:51 AM EDT Jennifer Nunn [id number] Diagnosis/Indication: abdominal pain, nausea, constipation, bloating/distention 1. [...] on filedocumented in this encounter Care Teams Public Relations Studies Director Relationship Specialty Start Date End Date Yesica Goff APRN [address] [place] [address] PCP - General Family Medicine 09/19/19 documented as of this encounter
--- OUTSIDE RECORDS SUMMARY | 2024-10-14 17:23 | XMS_ITS | Encounter Summary ---
[place] [address] Care Team Providers Care Medical Anthropology Director Name Role Phone Yesica Goff APRN Primary Care Provider +1 [phone] Encounter Details Date Type Department Care Team (Latest Contact Info) Description 01/26/2021 8:55 AM EDT Laboratory Appointment Lab [address] [place] [phone] Chronic abdominal pain; Constipation, unspecified constipation type; [...] EDT) IgA 242 70 - 400 mg/dL [facility] Blood specimen (specimen) 01/26/2021 9:00 AM EDT 01/26/2021 9:06 AM EDT Narrative Resulting Agency Comment Spec In Lab Josiah Nickerson APRN CHEMISTRY ORDERABLE S [facility] [place] [address] * IgG (01/26/2021 9:00 AM EDT) Immunoglobulin G 1,227 700 - 1,600 mg/dL [facility] Comment: Pediatric Reference Intervals obtained from the Caliper Reference Interval project. http://www.sickkids.ca/caliperproject/index.html Blood specimen (specimen) 01/26/2021 9:00 AM EDT 01/26/2021 9:06 AM EDT Narrative Resulting Agency Comment Spec In Lab Josiah D Krishan GASTROINTESTINAL TECHNICIAN CHEMISTRY ORDERABLE S Performing Organization Address [facility]/ZIP Co de Phone Number [facility] [place] [address] * Tissue transglutaminase, IgA (01/26/2021 9:00 AM EDT) Pathologist [facility] TTG IgA Ab 0.4 0.1 - 10.0 u/ml [facility] Comment: Negative = <7 U/mL Equivocal = 7-10 U/mL Positive = >10 U/mL Blood specimen (specimen) 01/26/2021 9:00 AM EDT 01/26/2021 2:59 PM EDT Narrative Resulting Agency Comment Spec In Lab Josiah Nickerson APRN IMMUNOLOGY ORDERABL ES Performing Organization Address [facility] Co de Phone Number [facility] [place] [address] * TSH Mower (01/26/2021 9:00 AM EDT) [facility] Thyroid Stimulating Hormone 3.80 0.27 - 4.20 mcIU/mL [facility] Blood specimen (specimen) 01/26/2021 9:00 AM EDT 01/26/2021 9:06 AM EDT Narrative Resulting Agency Comment Spec In Lab Josiah Nickerson APRN CHEMISTRY ORDERABLE S Performing Organization Address [facility] Co de Phone Number [facility] [place] [address] * (ABNORMAL) Comprehensive metabolic panel (non-fasting) (01/26/2021 9:00 AM EDT) Pathologist [facility] Glucose 121 65 - 199 mg/dL [facility] Comment:Diabetes: >=200 mg/d L plus symptoms Blood Urea Nitrogen 11 8 - 18 mg/dL [facility] Creatinine 0.82 0.70 - 1.20 mg/dL [facility] Sodium 138 135 - 145 mmol/L [facility] Potassium 4.1 3.5 - 5.0 mmol/L [facility] Comment: Please note: ??Patients with WBC >100,000 may have falsely elevated Potassium levels. ??For accurate Potassium quantification in these patients send serum separator tube (gold top) for subsequent determinations. ??Contact the Clinical Chemistry Laboratory if there are any questions. Chloride 103 98 - 107 mmol/L [facility] Carbon Dioxide 26 22 - 31 mmol/L [facility] Anion Gap 9 5 - 15 mmol/L [facility] Calcium 8.9 8.5 - 10.5 mg/dL [facility] Protein, Total 7.0 6.1 - 8.0 gm/dL [facility] Albumin 4.2 3.2 - 5.2 gm/dL [facility] Aspartate Aminotransferase 26 0 - 30 unit/L [facility] Alanine Aminotransferase 34(H) 0 - 30 unit/L [facility] Alkaline Phosphatase 79 35 - 105 unit/L [facility] Bilirubin, Total 0.2 0.2 - 1.3 mg/dL [facility] Est Glomerular Filtration Rate 88 >=60 mL/min/1. 73 m?? [facility] Comment: This patient? s estimated [...] Lab Josiah Nickerson APRN CHEMISTRY ORDERABLE S [facility] [place] [address] * Cortisol (01/26/2021 9:00 AM EDT) Cortisol 9.8 mcg/dL [facility] Comment: Reference ranges: ??AM (6-10am): ??4.8-19.5 mcg/dL ??PM (4-8pm) : ??2.5-11.9 mcg/dL Blood specimen (specimen) 01/26/2021 9:00 AM EDT 01/26/2021 9:06 AM EDT Narrative Resulting Agency Comment Spec In Lab Josiah Nickerson APRN CHEMISTRY ORDERABLE S Performing Organization Address City/State/[facility] Co de Phone Number [facility] [place] [address] documented in this encounter Visit Diagnoses Diagnosis Chronic abdominal pain Abdominal pain, unspecified site Constipation, unspecified constipation type Abdominal bloating Flatulence, eructation, and gas pain Abdominal distention Flatulence, eructation, and gas pain Nausea without vomiting Hepatic steatosis Other chronic nonalcoholic liver disease LUQ abdominal pain Abdominal pain, left upper quadrant documented in this encounter Care Teams Medical Anthropology Director Relationship Specialty Start Date End Date Yesica Goff APRN [address] [place] [address] PCP - General Family Medicine 09/19/19 documented as of this encounter
--- OUTSIDE RECORDS SUMMARY | 2024-10-14 17:23 | XMS_ITS | Encounter Summary ---
Author Organization [facility] [place] [address] Care Team Providers Care Real Estate Account Executive Name Role Phone Yesica Goff APRN Primary Care Provider [phone] [phone] Reason for Referral * Diagnostic Test (Routine) - Closed Specialty Diagnoses / Procedures Referred By Contac t Referred To Contact Radiology Diagnoses Nausea without vomiting LUQ abdominal pain Procedures NM Gastric Emptying Scan Josiah Nickerson APRN [facility] [place] [address] [place] [address] Referral ID Status Reason Start Date Expiration Date V isits Requested Visits Authorized [id number] Closed Specialty Service Requested 02/11/2021 09/30/2021 1 1 Reason for Visit * Diagnostic Test (Routine) - Closed Specialty Diagnoses / Procedures Referred By Contac t Referred To Contact Radiology Diagnoses Nausea without vomiting LUQ abdominal pain Procedures NM Gastric Emptying Scan Josiah Nickerson APRN [facility] [place] [address] [place] [address] Referral ID Status Reason Start Date Expiration Date V isits Requested Visits Authorized [id number] Closed Specialty Service Requested 02/11/2021 09/30/2021 1 1 Encounter Details Date Type Department Care Team (Latest Contact Info) Description 02/11/2021 9:03 AM EDT Hospital Encounter Nuclear Medicine [place] [address] Josiah Nickerson APRN [facility] [place] [address] Nausea without vomiting; LUQ abdominal pain Discharge [...] who have questions please contact the health career placement specialist that requested your imaging first. ? Electronically signed by: Arsh Blackmon MD, [facility] ([phone]), at 02/11/2021 2:09 PM Narrative 02/11/2021 2:09 [...] patients who have questions please contactthe health career placement specialist that requested your imaging first. Josiah Nickerson SUPERVISOR MILL IMG NM ORDERABLES documented in this encounter [...] mCi documented in this encounter Care Teams Real Estate Account Executive Relationship Specialty Start Date End Date Yesica Goff APRN [address] [place] [address] PCP - General Family Medicine 09/19/19 documented as of this encounter
--- OUTSIDE RECORDS SUMMARY | 2024-10-14 17:23 | XMS_ITS | Encounter Summary ---
Author Organization [facility] [place] [address] Care Team Providers Care Systems Checkout Mechanic Name Role Phone Yesica Goff APRN Primary Care Provider +1 [phone] Reason for Referral * Diagnostic Test (Routine) - Closed Specialty Diagnoses / Procedures Referred By Contac t Referred To Contact Radiology Diagnoses Chronic abdominal pain Constipation, unspecified constipation type Abdominal bloating Abdominal distention Nausea without vomiting Hepatic steatosis LUQ abdominal pain Procedures CT Abdomen & Pelvis w Contrast Josiah Nickerson APRN [facility] [place] [address] [facility] [place] [address] Referral ID Status Reason Start Date Expiration Date V isits Requested Visits Authorized [id number] Closed Specialty Service Requested 12/15/2020 06/17/2022 1 [...] for constipation and nausea Josiah Nickerson APRN [facility] [place] [address] [facility] [place] [address] [address] Referral ID Status Reason Start Date Expiration Date V isits Requested Visits Authorized [id number] Closed Consult, Test & Treat 12/15/2020 12/15/2021 1 1 Reason for Visit * Consultation (Routine) - Closed Specialty Diagnoses / Procedures Referred By Boyd ren Referred To Contact Gastroenterology Diagnoses Left upper quadrant pain Other specified symptoms and signs involving the digestive system and abdomen Fatty (change of) liver, not elsewhere classified Yesica Goff APRN [address] [place] [address] [facility] [place] [address] [address] Referral ID Status Reason Start Date Expiration Date V isits Requested Visits Authorized [id number] Closed Consult, Test & Treat [facility] PCP Updated and/or Approved 10/21/2020 10/21/2021 6 6 Encounter Details Date Type Department Care Team (Latest Contact Info) Description 12/15/2020 8:30 AM EDT TH Visit (TeleHealth) [place] [address] Josiah Nickerson APRN [facility] [place] [address] Chronic abdominal pain; Constipation, unspecified [...] Patient Instructions * Patient Instructions* Josiah Nickerson, INSPECTOR [employer] - 12/15/2020 8:30 AM EDT Dear Jennifer, It was nice to meet you today. I have listed the recommendations we discussed below. Please call the Radiology department to schedule imaging test at [phone] (option 2). -Upper Endoscopy and Colonoscopy -CT abdomen and pelvis -Anorectal manometry -Smart pill -FibroScan -Labs (3L at [facility] or [facility]). One of the labs will need to [...] a BM. Last BM 3 days ago. [place] type 1-2. Denies bloody stool and melena. [...] includes Lithotripsy; Tubal ligation; Thyroid Lobectomy, Unilat (60223) (Right, 11/07/2019); Needle Electromyography, Larynx Global (41885) (N/A,11/07/2019); Thyroidectomy Post Prev Thyr Surg (36677) (Left, 04/30/2020); and Needle Electromyography, Larynx Global (53140) (N/A, 04/30/2020). Family History: family history is [...] for years. Last BM 3 days ago. [place] type I-2. Endorses abdominal pain worsening with [...] the patient to establish with a local internal revenue agent for continuity of care, so that we [...] single encounter: 68 minutes Josiah Nickerson APRN [facility] [place] [address] documented in this encounter Plan of Treatment [...] documented as of this encounter Results * [id number] (02/01/2021 9:30 AM EDT) Narrative Jay Krause PA - 02/01/2021 9:30 AM EDT Jay Krause PA ? 02/01/2021 ??9:47 AM [facility] Liver Fibrosis Assessment Report Indication: ?? Fatty liver Performed by: ??MERARY Encarnacion Procedure: Vibration Controlled Transient Elastography (VCTE) or Fibroscan [place] Protocol: Patient's identity, procedure and site were [...] Jerardo Barrera MD, [facility] ([phone]), at 01/26/2021 12:29 PM Narrative 01/26/2021 12:29 [...] care director that requested your imaging first. Josiah Nickerson APRN IMG CT ORDERABLES * Cortisol (01/26/2021 9:00 AM EDT) Cortisol 9.8 mcg/dL [facility] Comment: Reference ranges: ??AM (6-10am): ??4.8-19.5 mcg/dL ??PM (4-8pm) : ??2.5-11.9 mcg/dL Blood specimen (specimen) 01/26/2021 9:00 AM EDT 01/26/2021 9:06 AM EDT Narrative Resulting Agency Comment Spec In Lab Josiah Nickerson APRN CHEMISTRY ORDERABLE S [facility] [place] [address] * (ABNORMAL) Comprehensive metabolic panel (non-fasting) (01/26/2021 9:00 AM EDT) Glucose 121 65 - 199 mg/dL [facility] Comment:Diabetes: >=200 mg/d L plus symptoms Blood Urea Nitrogen 11 8 - 18 mg/dL [facility] Creatinine 0.82 0.70 - 1.20 mg/dL [facility] Sodium 138 135 - 145 mmol/L [facility] Potassium 4.1 3.5 - 5.0 mmol/L [facility] Comment: Please note: ??Patients with WBC >100,000 may have falsely elevated Potassium levels. ??For accurate Potassium quantification in these patients send serum separator tube (gold top) for subsequent determinations. ??Contact the Clinical Chemistry Laboratory if there are any questions. Chloride 103 98 - 107 mmol/L [facility] Carbon Dioxide 26 22 - 31 mmol/L [facility] Anion Gap 9 5 - 15 mmol/L [facility] Calcium 8.9 8.5 - 10.5 mg/dL [facility] Protein, Total 7.0 6.1 - 8.0 gm/dL [facility] Albumin 4.2 3.2 - 5.2 gm/dL [facility] Aspartate Aminotransferase 26 0 - 30 unit/L [facility] Alanine Aminotransferase 34(H) 0 - 30 unit/L [facility] Alkaline Phosphatase 79 35 - 105 unit/L [facility] Bilirubin, Total 0.2 0.2 - 1.3 mg/dL [facility] Est Glomerular Filtration Rate 88 >=60 mL/min/1. 73 m?? [facility] Comment: This patient? s estimated [...] APRN CHEMISTRY ORDERABLE S Performing Organization Address [facility]/ZIP Co de Phone Number [facility] [place] [address] * TSH [place] (01/26/2021 9:00 AM EDT) Thyroid Stimulating Hormone 3.80 0.27 - 4.20 mcIU/mL [facility] Blood specimen (specimen) 01/26/2021 9:00 AM EDT 01/26/2021 9:06 AM EDT Narrative Resulting Agency Comment Spec In Lab Josiah Nickerson APRN CHEMISTRY ORDERABLE S Performing Organization Address [facility] Co de Phone Number [facility] [place] [address] * Tissue transglutaminase, IgA (01/26/2021 9:00 AM EDT) TTG IgA Ab 0.4 0.1 - 10.0 u/ml [facility] Comment: Negative = <7 U/mL Equivocal = 7-10 U/mL Positive = >10 U/mL Blood specimen (specimen) 01/26/2021 9:00 AM EDT 01/26/2021 2:59 PM EDT Narrative Resulting Agency Comment Spec In Lab Josiah Nickerson APRN IMMUNOLOGY ORDERABL ES Performing Organization Address [facility] Co de Phone Number [facility] [place] [address] * IgG (01/26/2021 9:00 AM EDT) Immunoglobulin G 1,227 700 - 1,600 mg/dL [facility] Comment: Pediatric Reference Intervals obtained from the Caliper Reference Interval project. http://www.AlumniFunder.ca/caliperproject/index.html Blood specimen (specimen) 01/26/2021 9:00 AM EDT 01/26/2021 9:06 AM EDT Narrative Resulting Agency Comment Spec In Lab Josiah Nickerson INSPECTOR [employer]S CHEMISTRY ORDERABLE S [facility] [place] [address] * IgA (01/26/2021 9:00 AM EDT) IgA 242 70 - 400 mg/dL [facility] Blood specimen (specimen) 01/26/2021 9:00 AM EDT 01/26/2021 9:06 AM EDT Narrative Resulting Agency Comment Spec In Lab Josiah Nickerson INSPECTOR [employer] CHEMISTRY ORDERABLE S Performing Organization Address City/[facility]/ZIP Co de Phone Number [facility] [place] [address] documented in this encounter Visit Diagnoses Diagnosis [...] documented in this encounter Care Teams Systems Checkout Mechanic Relationship Specialty Start Date End Date Yesica Goff APRN [address] [place] [address] PCP - General Family Medicine 09/19/19 documented as of this encounter
--- OUTSIDE RECORDS SUMMARY | 2024-10-14 17:23 | XMS_ITS | Encounter Summary ---
Author Organization [facility] Address [facility] [place] [address] Care Team Providers Care Stiff Straw Hat Washer Name Role Phone Yesica Goff APRN Primary Care Provider +1 -[phone] Reason for Visit * Consultation (Routine) - [...] for constipation and nausea Josiah Nickerson, [facility] [place] [address] [facility] [place] [address] [place] [address] Referral ID Status Reason Start Date Expiration Date V isits Requested Visits Authorized [id number] Closed Consult, Test & Treat 12/15/2020 12/15/2021 1 1 Encounter Details Date Type Department Care Team (Latest Contact Info) Description 01/17/2021 2:00 PM EDT Procedure [place] [address] Constipation, unspecified constipation type Social History Tobacco [...] 01/17/2021 2:00 PM EDT Re: Jennifer Huynh Fuel House Attendant Reg No:[id number] : 1975 Date of Service: 01/17/21 ANORECTAL MANOMETRY w/BALLOON EXPULSION Referring provider:Josiah Nickerson Dear: Dr. Nickerson We had the pleasure of performing a high resolution anorectal manometry on your patient in the GI Motility Laboratory at [facility]. CLINICAL HISTORY AND INDICATION As you know, [...] MD, ISABELLA Section of Gastroenterology and Hepatology [facility] [place] [address] [address] V: [phone] F: [phone] CC/EC: Yesica Goff APRN [address] [place] [address] documented in this encounter Plan of Treatment Scheduled Referrals Name Type Priority Associated Diagnoses Order Schedule Referral to Gastroenterology Outpatient Referral Routine Chronic abdominal pain Constipation, unspecified constipation type Abdominal bloating Abdominal distention Nausea without vomiting Hepatic steatosis LUQ abdominal pain Ordered: 12/15/2020 documented as of this encounter Visit Diagnoses Diagnosis Constipation, unspecified constipation type documented in this encounter Care Teams Stiff Straw Hat Washer Relationship Specialty Start Date End Date Yesica Goff APRN [address] [place] [address] PCP - General Family Medicine 09/19/19 documented as of this encounter
--- OUTSIDE RECORDS SUMMARY | 2024-10-14 17:23 | XMS_ITS | Encounter Summary ---
[place] [address] Care Team Providers Care Milking Machine Mechanic Name Role Phone Yesica Goff APRN Primary Care Provider [phone] -[phone] Encounter Details Date Type Department Care Team (Latest Contact Info) Description 04/09/2020 10:20 AM EDT Laboratory Appointment Lab [address] [place] [address] Thyroid nodule Social History Tobacco Use Types [...] Stimulating Hormone 4.37(H) 0.27 - 4.20 mcIU/mL [facility] Blood specimen (specimen) 04/09/2020 8:50 AM EDT 04/09/2020 8:55 AM EDT Narrative Resulting Agency Comment Spec In Lab Amina Baldwin MD CHEMISTRY ORDERAB LES [facility] [place] [address] documented in this encounter Visit Diagnoses Diagnosis Thyroid nodule Nontoxic uninodular goiter documented in this encounter Care Teams Milking Machine Mechanic Relationship Specialty Start Date End Date Yesica Goff APRN [address] [place] [address] PCP - General Family Medicine 09/19/19 documented as of this encounter
--- OUTSIDE RECORDS SUMMARY | 2024-10-14 17:23 | XMS_ITS | Encounter Summary ---
Author Organization [facility] [place] [address] Care Team Providers Care Nursing Coordinator Name Role Phone Yesica Goff APRN Primary Care Provider [phone] -[phone] Encounter Details Date Type Department Care Team (Late st Contact Info) Description 12/31/2020 [place]phone [place] [address] Romero Gao Social History Tobacco Use Types [...] Romero Gao - 12/31/2020 10:30 AM EDT [facility] 12/31/[address] [place] [address] [id number] : 1975 REFERRING PROVIDER: Josiah Nickerson PRIMARY CARE PROVIDER: Yesica Goff APRN PRIMARY SYMPTOM (PROCEDURE INDICATION): nausea/vomiting SAFETY QUESTIONS FOR THE PATIENT IS THE PATIENT'S PRIMARY INSURANCE CARRIER [place] [employer], [place] [employer], [employer], [employer], OR BLUES[employer] BLUE SHIELD? YES (if so, test is not covered; notify RMD and cancel referral) documented in this encounter Plan of Treatment Not on file documented as of this encounter Visit Diagnoses Not on filedocumented in this encounter Care Teams Nursing Coordinator Relationship Specialty Start Date End Date Yesica Goff APRN [address] [place] [address] PCP - General Family Medicine 09/19/19 documented as of this encounter
--- OUTSIDE RECORDS SUMMARY | 2024-10-14 17:23 | XMS_ITS | Encounter Summary ---
Author Organization [facility] [place] [address] Care Team Providers Care Bakery Worker Name Role Phone Yesica Goff APRN Primary Care Provider +1 [phone] Reason for Referral * Diagnostic Test (Routine) - Closed Specialty Diagnoses / Procedures Referred By Contlaura t Referred To Contact Radiology Diagnoses Nausea without vomiting LUQ abdominal pain Procedures NM Gastric Emptying Scan Josiah Nickerson APRN [facility] [place] [address] [place] [address] Referral ID Status Reason Start Date Expiration Date V isits Requested Visits Authorized [id number] Closed Specialty Service Requested 02/11/2021 09/30/2021 1 1 Encounter Details Date Type Department Care Team (Late st Contact Info) Description 12/31/2020 Orders [place] [address] Josiah Nickerson APRN [facility] [place] [address] Nausea without vomiting; LUQ abdominal [...] who have questions please contact the health rn progressive care unit that requested your imaging first. ? Electronically signed by: Jerardo Barrera MD, [facility] ([phone]), at 03/25/2021 10:44 AM Narrative 03/25/2021 10:44 [...] patients who have questions please contactthe health rn progressive care unit that requested your imaging first. Electronically signed by: Jerardo Barrera MD, [facility]([phone]), at 03/25/2021 10:44 AM Josiah Nickerson DISCOVERY GUIDE IMG FLUORO ORDERABL ES * NM Gastric [...] who have questions please contact the health rn progressive care unit that requested your imaging first. ? Electronically signed by: Arsh Blackmon MD, [facility] ([phone]), at 02/11/2021 2:09 PM Narrative 02/11/2021 2:09 [...] patients who have questions please contactthe health rn progressive care unit that requested your imaging first. Electronically signed by: Arsh Blackmon MD, [facility]([phone]), at 02/11/2021 2:09 PM Josiah Nickerson APRN [facility] ORDERABLES documented in this encounter Visit Diagnoses Diagnosis Nausea without vomiting LUQ abdominal pain Abdominal pain, left upper quadrant Nausea without vomiting LUQ abdominal pain Abdominal pain, left upper quadrant Nausea without vomiting LUQ abdominal pain Abdominal pain, left upper quadrant documented in this encounter Care Teams Bakery Worker Relationship Specialty Start Date End Date Yesica Goff, LEONARD [address] [place] [address] PCP - General Family Medicine 09/19/19 documented as of this encounter
--- OUTSIDE RECORDS SUMMARY | 2024-10-14 17:23 | XMS_ITS | Encounter Summary ---
Author Organization [facility] Address [facility] [place] [address] Care Team Providers Care Beer Coil Cleaner Name Role Phone Yesica Goff APRN Primary Care Provider +1 [phone] Reason for Visit * Auth/Cert Specialty Diagnoses / Procedures Referred By Boyd ren Referred To Contact Diagnoses papillary carcinoma Procedures PRO THYROIDECTOMY POST PREV THYR SURG PRG EMG, LARYNX THYROIDECTOMY, REMOVE REMAINING TISSUE (WRVU 18.26) FACIAL NERVE MONITORING, SETUP LARYNGEAL (WRVU 1.57) Referral ID Status Reason Start Date Expiration Date Visits Re quested Visits Authorized [id number] 1 1 Encounter Details Date Type Department Care Team (Latest Contact Info) Description 04/30/2020 11:57 AM EDT - 04/30/2020 3:49 PM EDT Hospital Encounter [place] [address] Maria Mcghee MD [facility] [place] [address] Thyroid cancer Discharge Disposition: Home Social History [...] closest emergency room or call the hospital apple press operator at [phone] and ask for physician non destructive testing inspector covering for your physician. Questions or problems after 5pm or on a weekend: Call the [facility] apple press operator at and ask for the physician non destructive testing inspector covering for your doctor. * Patient Instructions* [...] Take NSAIDS and/or Tylenol every 6 hours ejxdlr-cnt-dwity for the first 3-5 days following surgery [...] will be mailed to you Please call [phone] to confirm the date and time of your appointment if you do not hear from us in the next 2 weeks Call Doctor for: Call if you have trouble talking or breathing (call [phone] if this is severe) Call if you [...] is just fine. Phone number for questions: [phone] before 5 PM on weekdays [phone] after 5 PM and on weekends/holidays. Ask for the general surgery resident non destructive testing inspector. 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 PRO THYROID LOBECTOMY, UNILAT Right 11/07/2019 THYROIDECTOMY, LOBECTOMY, TOTAL, UNILATERAL (WRVU 11.19) performed by Maria Mcghee MD at [facility] MAIN OR ??? TUBAL LIGATION MEDS: [...] Normal Block(s): ?? A4 Prior Cytology Specimen: ?[id number] [facility] November 2018 Annual Release Electronically signed by: ??David CARSON, Tiny Flores Verified: ??11/15/2019 ?Pathologist Performed at: ??-[facility] Dept. of Pathology, [place], [place] CLINICAL INFORMATION Specimen Submitted: A - [...] Mcghee MD - 04/30/2020 2:27 PM EDT [facility] Operative Note Patient Name: Jennifer Nunn : [id number] MR#: [id number] Case Date: 04/30/2020 Surgeon: Surgeon(s) and Role: [...] anesthesia was achieved by anesthesiology with the [employer] recurrent laryngeal nerve monitoring system. Her prior [...] Operative Note Patient Name: Jennifer Nunn : [id number] MR#: [id number] Case Date: 04/30/2020 Surgeon: Surgeon(s) and Role: [...] 2:09 PM EDT Needle Electromyography, Larynx Global ([id number]) Yes 04/30/2020 12:45 PM EDT papillary carcinoma Thyroidectomy Post Prev Thyr Surg ([id number]) Yes 04/30/2020 12:45 PM EDT papillary carcinoma documented in this encounter Results * Specimen to Pathology (04/30/2020 2:11 PM EDT) AP Specimen 04/30/2020 2:11 PM EDT 04/30/2020 2:11 PM EDT Narrative [facility] - 04/30/2020 2:11 PM EDT Specimen requisition ordered. ??Separate Pathology report to follow Maria Mcghee MD PATHOLOGY/CYTOLOG Y ORDERABLES [facility] [place] [address] * Surgical Pathology Report (04/30/2020 2:09 PM EDT) Final Diagnosis [id number] ? Location: [facility] The signing pathologist has (i) examined the relevant preparation(s) for the specimen(s) and (ii) rendered or confirmed the diagnosis(es). . ?Surgical Pathology DIAGNOSIS A - Left thyroid lobe, excision: ?? - Benign thyroid parenchyma. Electronically signed by: ??MD Reynold, Champ Cha Verified: ??05/05/2020 ?Pathologist Performed at: ??-[facility] Dept. of Pathology, [place], [place] SPECIMEN(S) SUBMITTED A - left thyroid [...] lower pole ??AJ 05/05/2020 9:21 AM EDT [facility] THYROID STRUCTURE / Unknown 04/30/2020 2:09 PM EDT 04/30/2020 2:09 PM EDT Maria Mcghee MD PATHOLOGY/CYTOLOG Y ORDERABLES [facility] [place] [address] documented in this encounter Visit Diagnoses Diagnosis [...] Routine documented in this encounter Care Teams Beer Coil Cleaner Relationship Specialty Start Date End Date Yesica Goff APRN [address] [place] [address] PCP - General Family Medicine 09/19/19 documented as of this encounter
--- OUTSIDE RECORDS SUMMARY | 2024-10-14 17:24 | XMS_ITS | Encounter Summary ---
Author Organization [facility] [place] [address] Care Team Providers Care Manager Play Name Role Phone Unknown Primary Care Provider Unavailabl e Encounter Details Date Type Department Care Team (Late st Contact Info) Description 03/08/2011 8:24 AM EDT - 03/08/2011 11:59 PM EDT Hospital En[place] [id number] Social History Tobacco Use Types Packs/Day Years [...] Start Date End Date vitamin 27 & khbhbav-rwxe-YD 60 mg (Iron)-1 mg tablet Take 1 [...] Final 03/08/2011 01:17 pm) Patient Info ID: ?[id number] ?: ??[birth year] (35 yrs) Name: ?JENNIFER NUNN ? Visit Date: 03/08/2011 10:55 am Performed By Performed By: ?? Miley Murillo RDMS Attending: ?Radha CARSON, Ignacio Cha Referred By: ?MIKE HERNANDEZ [facility] Accession#: ? [id number] OB History : ??4 Living: ? 3 Procedures [facility] - Targeted Morphology - Genetics - ? [id number] Indications Abnormal Quad Screen Evaluation Heart Rate: [...] Tract: ?Visualized L Outflow Tract: ?Visualized Cardiac [place]: ? Visualized Diaphragm: ?Visualized Abdomen Ventral Wall: [...] Final 03/08/2011 01:17 pm) Patient Info ID: [id number] : [birth year] (35 yrs) Name: JENNIFER NUNN Visit Date: 03/08/2011 10:55 am Performed By Performed By: Miley Murillo RDMS Attending: Ignacio Garcia MD Referred By: MIKE HERNANDEZ [facility] OB History : 4 Livin Procedures [facility] - Targeted Morphology - Genetics - [id number] Indications Abnormal Quad Screen Evaluation Heart Rate: [...] Tract: Visualized L Outflow Tract: Visualized Cardiac [place]: Visualized Diaphragm: Visualized Abdomen Ventral Wall: Visualized [...] on filedocumented in this encounter Care Teams Manager Play Relationship Specialty Start Date End Date Unknown None PCP - General 08/23/10 03/15/11 documented as of this encounter
--- OUTSIDE RECORDS SUMMARY | 2024-10-14 17:24 | XMS_ITS | Encounter Summary ---
Author Organization [facility] [place] [address] Care Team Providers Care Oil Field Roustabout Name Role Phone Unknown Primary Care Provider Unavailabl e Reason for Visit * Reason Comments Positive Screen For Down Syndrome Encounter Details Date Type Department Care Team (Late st Contact Info) Description 03/08/2011 9:00 AM EDT Office Visit [address] [address] [place], [facility] & [place] [address] Abnormal findings on screening (Primary Dx); Genetic [...] screen negative for open spina bifida (risk 1:78616) and trisomy 18(risk 1:35357). Family history Jennifer's family history was unremarkable [...] counseling documented in this encounter Care Teams Oil Field Roustabout Relationship Specialty Start Date End Date Unknown None PCP - General 08/23/10 03/15/11 documented as of this encounter
--- OUTSIDE RECORDS SUMMARY | 2024-10-14 17:24 | XMS_ITS | Encounter Summary ---
Author Organization [facility] [place] [address] Care Team Providers Care Bar Roller Name Role Phone Yesica Goff APRN Primary Care Provider +1 [phone] Reason for Referral * Consultation (Routine) - Closed Specialty Diagnoses / Procedures Referred By Boyd ren Referred To Contact Endocrinology Diagnoses Primary thyroid cancer Amina Baldwin MD [facility] [place] [address] [facility] [address] [place] [address] Referral ID Status Reason Start Date Expiration Date V isits Requested Visits Authorized [id number] Closed Specialty Service Requested 11/26/2019 11/25/2020 1 1 Encounter Details Date Type Department Care Team (Late st Contact Info) Description 11/26/2019 Telephone [place] [address] Amina Baldwin MD [facility] [place] [address] Social History Tobacco Use Types Packs/Day Years [...] gland documented in this encounter Care Teams Bar Roller Relationship Specialty Start Date End Date Yesica Goff APRN [address] [place] [address] PCP - General Family Medicine 09/19/19 documented as of this encounter
--- OUTSIDE RECORDS SUMMARY | 2024-10-14 17:24 | XMS_ITS | Encounter Summary ---
[place] [address] Care Team Providers Care Graphics Coordinator Name Role Phone Yesica Goff APRN Primary Care Provider +1 -[phone] Reason for Visit * Auth/Cert Specialty Diagnoses / Procedures Referred By Boyd t Referred To Contact Diagnoses THYROID CANCER Procedures PRO THYROID LOBECTOMY, UNILAT PRG EMG, LARYNX THYROIDECTOMY, LOBECTOMY, TOTAL, UNILATERAL (WRVU 11.19) FACIAL NERVE MONITORING, SETUP LARYNGEAL (WRVU 1.57) Referral ID Status Reason Start Date Expiration Date Visits Re quested Visits Authorized [id number] 1 1 Encounter Details Date Type Department Care Team (Late st Contact Info) Description 11/07/2019 1:51 PM EST Anesthesia [place] [address] Elena Baum MD [facility] [place] [address] Anesthesia Record Procedure Summary Procedure Name Responsible [...] 1247; metacarpal vein (top of hand), left; uehi-htx-xfdbqe catheter system; 20 gauge, 1 in length; [...] Procedure Summary Date: 11/07/19 Room / Location: [address] MAIN OR Anesthesia Start: 1351 Anesthesia Stop: 1550 Procedures: THYROIDECTOMY, LOBECTOMY, TOTAL, UNILATERAL (WRVU 11.19) (Right Neck) FACIAL NERVE MONITORING, SETUP LARYNGEAL (WRVU 1.57) (N/A Neck) Diagnosis: (THYROID CANCER) Surgeon: Amina Baldwin MD Responsible Provider: Elena Baum MD Anesthesia Type: general ASA Status: 2 All Anesthesia Providers: Anesthesiologist: Elena Baum MD AIR BAG STRIPPER: Larisa Yang CRNA Import/Export Analyst: Carlos Carballo MD Vitals Value Taken Time BP 110/67 11/07/2019 4:00 PM Temp 36 ??C (96.8 ??F) 11/07/2019 3:47 PM Pulse 66 11/07/2019 3:47 PM Resp 18 11/07/2019 3:47 PM SpO2 96 % 11/07/2019 3:47 PM Pain Level 0 11/07/2019 3:47 PM Vitals shown include unvalidated device data. Patient Location: PACU/[facility] Level of Consciousness: Conscious but Sleepy Pain [...] risks discussed with patient. Plan discussed with AIR BAG STRIPPER and attending. PAT Clinic Note documented in [...] mg documented in this encounter Care Teams Graphics Coordinator Relationship Specialty Start Date End Date Yesica Goff APRN [address] [place] [address] PCP - General Family Medicine 09/19/19 documented as of this encounter
--- OUTSIDE RECORDS SUMMARY | 2024-10-14 17:24 | XMS_ITS | Encounter Summary ---
Author Organization [facility] [place] [address] Care Team Providers Care Stitcher Tape Controlled Machine Name Role Phone Yesica Goff APRN Primary Care Provider +1 [phone] Encounter Details Date Type Department Care Team (Latest Contact Info) Description 09/23/2019 9:15 AM EST - 09/23/2019 11:59 PM EST Hospital [place] [phone] Discharge Disposition: Home Social History Tobacco Use [...] AND AT BEDTIME 08/25/2019 vitamin 27 & yrprplu-jlyd-BU 60 mg (Iron)-1 mg tablet Take 1 tablet by mouth daily. 10/30/2019 documented as of this encounter Plan of Treatment Not on file documented as of this encounter Procedures Procedure Name Priority Date/Time Associated Diagnosis Comments NON-CAR TRIMMER FINAL REPORT Routine 09/23/2019 9:15 AM EST documented in this encounter Results * Non-Membership Advisor Final Report (09/23/2019 9:15 AM EST) Non-Membership Advisor Final Report [id number] ? Location: [facility]W The signing pathologist has (i) examined the relevant preparation(s) for the specimen(s) and (ii) rendered or confirmed the diagnosis(es). . ? Non-Membership Advisor Final DIAGNOSIS Positive for Malignancy Electronically signed by: ??Medhat CARSON, Aristides Tyler Verified: ??09/23/2019 ?Pathologist Performed at: ??-[facility] Dept. of Pathology, [place], [place] DISCUSSION Thyroid, right lobe (FNA): Papillary thyroid carcinoma. Cellular aspirate comprised of atypical follicular epithelial cells arranged in sheets, crowded groups, and papillae. Nuclear grooves, nuclear hypochromasia, and numerous intranuclear pseudoinclusions are present. Reference: Rosey SANTA, [place]. The [place] System for Reporting Thyroid Cytopathology. [place]: Fong; 2018. CLINICAL INFORMATION CONSULTATION CASE Source: ??Thyroid, right (FNA) Clinical History: ??Right thyroid nodule Received 1 slide(s) labeled [id number] Received 0 block(s). Specimen collection date: ??09/10/2019. For the full text of the [facility] report(s), please refer to eD - Chart Review scanned documents tab. [facility] Tracking #: ??[id number]. Report to: [facility] Surgical Pathology Department [facility], 2nd Floor [address] [place], [place] ??[address] [facility] 09/23/2019 9:15 AM EST Amina Baldwin MD PATHOLOGY/CYTOLOG Y ORDERABLES [facility] [place] [address] documented in this encounter Visit Diagnoses Not on filedocumented in this encounter Care Teams Stitcher Tape Controlled Machine Relationship Specialty Start Date End Date Yesica Goff APRN [address] [place] [address] PCP - General Family Medicine 09/19/19 documented as of this encounter
--- OUTSIDE RECORDS SUMMARY | 2024-10-14 17:24 | XMS_ITS | Encounter Summary ---
Author Organization [facility] [place] [address] Care Team Providers Care Ice Cream Van Vendor Name Role Phone Yeisca Goff APRN Primary Care Provider [phone] [phone] Reason for Visit * Auth/Cert Specialty Diagnoses / Procedures Referred By Boyd ren Referred To Contact Diagnoses THYROID CANCER Procedures PRO THYROID LOBECTOMY, UNILAT PRG EMG, LARYNX THYROIDECTOMY, LOBECTOMY, TOTAL, UNILATERAL (WRVU 11.19) FACIAL NERVE MONITORING, SETUP LARYNGEAL (WRVU 1.57) Referral ID Status Reason Start Date Expiration Date Visits Re quested Visits Authorized [id number] 1 1 Encounter Details Date Type Department Care Team (Late st Contact Info) Description 11/07/2019 12:56 PM EST - 11/07/2019 2:54 PM EST Surgery [place] [address] Maria Mcghee MD [facility] [place] [address] THYROIDECTOMY, LOBECTOMY, TOTAL, UNILATERAL (WRVU 11.19) Social [...] Take NSAIDS or Tylenol every 6 hours qhmdjt-huv-rwijs for the first 3-5 days following surgery [...] weeks. Future Appointments Date Time Provider Department [place] 12/18/2019 12:45 PM LAB, THREE L Lab [address] [facility] 12/18/2019 2:00 PM Lona Snowden APRN [facility] SURG [facility] Please call [phone] to confirm the date and time of [...] days after surgery. Phone number for questions: [phone] before 5 PM on weekdays [phone] after 5 PM and on weekends/holidays. Ask for the general surgery resident search engine optimization analyst. documented in this encounter Medications at Time [...] a right-sided nodule with FNA demonstrating malignant (Sebastian 6) cytology. She reports no interval change [...] Mcghee MD - 11/07/2019 3:15 PM EST [facility] Operative Note Patient Name: Jennifer Nunn : [id number] MR#: [id number] Case Date: 11/07/2019 Surgeon: Surgeon(s) and Role: [...] right-sided thyroid nodule and FNA demonstrating malignant (Sebastian 6) cytology. We had a long discussion [...] anesthesia was achieved by anesthesiology with the [email or web address] recurrent laryngeal nerve monitoring system. A natural [...] Operative Note Patient Name: Jennifer Nunn : [id number] MR#: [id number] Case Date: 11/07/2019 Surgeon: Surgeon(s) and Role: [...] 3:06 PM EST Needle Electromyography, Larynx Global ([id number]) 11/07/2019 1:53 PM EST THYROID CANCER Total Thyroid Lobectomy Unilateral W/Wo Isthmusectomy (35017) 11/07/2019 1:53 PM EST THYROID CANCER documented in this encounter Results * (ABNORMAL) TSH (04/09/2020 8:50 AM EDT) Thyroid Stimulating Hormone 4.37(H) 0.27 - 4.20 mcIU/mL [facility] Blood specimen (specimen) 04/09/2020 8:50 AM EDT 04/09/2020 8:55 AM EDT Narrative Resulting Agency Comment Spec In Lab Maria Mcghee MD CHEMISTRY ORDERAB LES [facility] [place] [address] * Specimen to Pathology (11/07/2019 3:12 PM EST) AP Specimen 11/07/2019 3:12 PM EST 11/07/2019 3:12 PM EST Narrative [facility] - 11/07/2019 3:12 PM EST Specimen requisition ordered. ??Separate Pathology report to follow Maria Mcghee MD PATHOLOGY/CYTOLOG Y ORDERABLES [facility] [place] [address] * Surgical Pathology Report (11/07/2019 3:06 PM EST) Final Diagnosis [id number] ? Location: SDP; SD38; A The signing [...] Normal Block(s): ?? A4 Prior Cytology Specimen: ?[id number] [facility] November 2018 Annual Release Electronically signed by: ??David CARSON, Tiny Flores Verified: ??11/15/2019 ?Pathologist Performed at: ??-[facility] Dept. of Pathology, [place], [place] CLINICAL INFORMATION Specimen Submitted: A - [...] margin is inked red. . SPECIMEN PROCESSING Superintendent General sections in 10 cassettes as follows: ?A1-A5: ??Thyroid parenchyma, digital sales representative sections (every other slice, superior ? to inferior) ?A6-A10: ??Thyroid lesion, entirely submitted, superior to inferior ??AJD 11/15/2019 1:54 PM EST [facility] THYROID STRUCTURE / Unknown 11/07/2019 3:06 PM EST 11/07/2019 3:06 PM EST Maria Mcghee MD PATHOLOGY/CYTOLOG Y ORDERABLES [facility] [place] [address] documented in this encounter Visit Diagnoses Not [...] RN) documented in this encounter Care Teams Ice Cream Van Vendor Relationship Specialty Start Date End Date Yesica Goff, STRETCH PRESS OPERATOR [address] [place] [address] PCP - General Family Medicine 09/19/19 documented as of this encounter
--- OUTSIDE RECORDS SUMMARY | 2024-10-14 17:24 | XMS_ITS | Encounter Summary ---
Author Organization [facility] [place] [address] Care Team Providers Care Protection Agent Name Role Phone Yesica Goff APRN Primary Care Provider [phone] [phone] Reason for Visit * Reason Comments Establish Care * Consultation (Routine) - Specialty Diagnoses / Procedures Referred By Contac t Referred To Contact General Surgery Procedures Papillary thyroid cancer; right thyroid nodule Jd Levine MD [address] [place] [address] [place] [address] Amina Baldwin MD [facility] [place] [address] Referral ID Status Reason Start Date Expiration Date V isits Requested Visits Authorized [id number] 09/19/2019 09/18/2020 1 1 Encounter Details Date Type Department Care Team (Late st Contact Info) Description 10/30/2019 11:00 AM EST Office [place] [address] Amina Baldwin MD [facility] [place] [address] Primary thyroid cancer Social History Tobacco Use [...] to date include thyroid ultrasound performed in [place] which demonstrated a 1 x 1 x [...] disease. Social History: nonsmoker. 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 Lives with her mother, [...] right-sided thyroid nodule and FNA demonstrating malignant (Rives 6) cytology. We had a long discussion [...] of compression: no FNA: yes FNA Classification: Rives 6 documented in this encounter Plan of Treatment Not on file documented as of this encounter Visit Diagnoses Diagnosis Primary thyroid cancer Malignant neoplasm of thyroid gland documented in this encounter Care Teams Protection Agent Relationship Specialty Start Date End Date Yesica Goff APRN [address] [place] [address] PCP - General Family Medicine 09/19/19 documented as of this encounter
--- OUTSIDE RECORDS SUMMARY | 2024-10-14 17:24 | XMS_ITS | Encounter Summary ---
Author Organization [facility] Address [facility] [place] [address] Care Team Providers Care Lag Screwer Name Role Phone Dionna Gaston MD Primary Care Provider [phone] Encounter Details Date Type Department Care Team (Late st Contact Info) Description 09/10/2019 Ancillary Procedure Radiology Library at [facility] [place] [address] Dionna Gaston MD [address] [place] [address] Social History Tobacco Use Types Packs/Day Years [...] Ultrasound Study (09/10/2019 12:00 AM EST) Narrative [facility] - 09/17/2019 4:39 PM EST This exam is auto-finalizing. It's purpose is for storage only. Dionna Gaston MD IMG FILM LIBRARY ORD ERABLES [facility] [place], [place] documented in this encounter Visit Diagnoses Not on filedocumented in this encounter Care Teams Lag Screwer Relationship Specialty Start Date End Date Dionna Gaston MD [address] [place] [address] PCP - General 03/16/11 09/18/19 documented as of this encounter
--- OUTSIDE RECORDS SUMMARY | 2024-10-14 17:24 | XMS_ITS | Encounter Summary ---
Author Organization [facility] [place] [address] Care Team Providers Care Harness And Bag Inspector Name Role Phone Yesica Goff APRN Primary Care Provider [phone] Reason for Visit * Auth/Cert Specialty Diagnoses / Procedures Referred By Boyd ren Referred To Contact Diagnoses THYROID CANCER Procedures PRO THYROID LOBECTOMY, UNILAT PRG EMG, LARYNX THYROIDECTOMY, LOBECTOMY, TOTAL, UNILATERAL (WRVU 11.19) FACIAL NERVE MONITORING, SETUP LARYNGEAL (WRVU 1.57) Referral ID Status Reason Start Date Expiration Date Visits Re quested Visits Authorized [id number] 1 1 Encounter Details Date Type Department Care Team (Latest Contact Info) Description 11/07/2019 11:21 AM EST - 11/07/2019 6:16 PM [facility] Hospital [place] [address] Maria Mcghee MD [facility] [place] [address] Thyroid nodule Discharge Disposition: Home Social History [...] Take NSAIDS or Tylenol every 6 hours [id number] for the first 3-5 days following surgery [...] approximately 6 weeks. Future Appointments Date Time [facility] Department [place] 12/18/2019 12:45 PM LAB, THREE L Lab 3L [facility] 12/18/2019 2:00 PM Lona Snowdne APRN [facility] [place] [facility] Please call [phone] to confirm the date and time of [...] days after surgery. Phone number for questions: [phone] before 5 PM on weekdays [phone] after 5 PM and on weekends/holidays. Ask for the general surgery resident citrix consultant. documented in this encounter Medications at [...] a right-sided nodule with FNA demonstrating malignant ([place] 6) cytology. She reports no interval change [...] Mcghee MD - 11/07/2019 3:15 PM EST [facility] Note Patient Name: Jennifer Nunn : [id number] MR#: [id number] Case Date: 11/07/2019 Surgeon: Surgeon(s) and Role: [...] right-sided thyroid nodule and FNA demonstrating malignant ([place] 6) cytology. We had a long discussion [...] anesthesia was achieved by anesthesiology with the MiiPharostronic recurrent laryngeal nerve monitoring system. A natural [...] Operative Note Patient Name: Jennifer Nunn : [id number] MR#: [id number] Case Date: 11/07/2019 Surgeon: Surgeon(s) and Role: [...] 3:06 PM EST Needle Electromyography, Larynx Global ([id number]) 11/07/2019 1:53 PM EST THYROID CANCER Total Thyroid Lobectomy Unilateral W/Wo Isthmusectomy ([id number]) 11/07/2019 1:53 PM EST THYROID CANCER documented in this encounter Results * (ABNORMAL) TSH (04/09/2020 8:50 AM EDT) Thyroid Stimulating Hormone 4.37(H) 0.27 - 4.20 mcIU/mL [facility] Blood specimen (specimen) 04/09/2020 8:50 AM EDT 04/09/2020 8:55 AM EDT Narrative Resulting Agency Comment Spec In Lab Maria Mcghee MD CHEMISTRY ORDERAB LES [facility] [place] [address] * Specimen to Pathology (11/07/2019 3:12 PM EST) AP Specimen 11/07/2019 3:12 PM EST 11/07/2019 3:12 PM EST Narrative [facility] - 11/07/2019 3:12 PM EST Specimen requisition ordered. ??Separate Pathology report to follow Maria Mcghee MD PATHOLOGY/CYTOLOG Y ORDERABLES [facility] [place] [address] * Surgical Pathology Report (11/07/2019 3:06 PM EST) Final Diagnosis [id number] ? Location: [facility]; SD38; A The signing pathologist has (i) [...] Normal Block(s): ?? A4 Prior Cytology Specimen: ?[id number] [facility] November 2018 Annual Release Electronically signed by: ??David CARSON, Tiny Flores Verified: ??11/15/2019 ?Pathologist Performed at: ??-[facility] [place], [place], [place] CLINICAL INFORMATION Specimen Submitted: A - [...] margin is inked red. . SPECIMEN PROCESSING Smeller sections in 10 cassettes as follows: ?A1-A5: ??Thyroid parenchyma, technical service representative sections (every other slice, superior ? to inferior) ?A6-A10: ??Thyroid lesion, entirely submitted, superior to inferior ??AJD 11/15/2019 1:54 PM EST [facility] THYROID STRUCTURE / Unknown 11/07/2019 3:06 PM EST 11/07/2019 3:06 PM EST Maria Mcghee MD PATHOLOGY/CYTOLOG Y ORDERABLES [facility] [place] [address] documented in this encounter Visit Diagnoses Diagnosis [...] RN) documented in this encounter Care Teams Harness And Bag Inspector Relationship Specialty Start Date End Date Yesica Goff APRN [address] [place] [address] PCP - General Family Medicine 09/19/19 documented as of this encounter
--- OUTSIDE RECORDS SUMMARY | 2024-10-14 17:24 | XMS_ITS | Encounter Summary ---
[facility] [place] [address] Care Team Providers Care Sand Conditioner Machine Name Role Phone Yesica Goff APRN Primary Care Provider [phone] Encounter Details Date Type Department Care Team (Late st Contact Info) Description 11/26/2019 Telephone [place] [address] Amina Baldwin MD [facility] [place] [address] Social History Tobacco Use Types Packs/Day Years [...] encounter Miscellaneous Notes * Telephone Encounter - mAina Baldwin MD - 11/26/2019 12:59 PM EST [...] on filedocumented in this encounter Care Teams Sand Conditioner Machine Relationship Specialty Start Date End Date Yesica Goff APRN [address] [place] [address] PCP - General Family Medicine 09/19/19 documented as of this encounter
--- OUTSIDE RECORDS SUMMARY | 2024-10-14 17:24 | XMS_ITS | Encounter Summary ---
[facility] [place] [address] Care Team Providers Care Damaged Freight Inspector Name Role Phone Unknown Primary Care Provider Unavailabl e Reason for Visit * Reason Comments Positive Screen For Down Syndrome Encounter Details Date Type Department Care Team (Late st Contact Info) Description 03/08/2011 10:30 AM EDT Office Visit [address] [address] Erica Edmonds MD Risk of chromosome anomaly [...] Dispense Refill ? ? vitamin 27 & [id number]-zgms-HC 60 mg (Iron)-1 mg tablet Take 1 [...] MS Professor Obstetrics & Gynecology and Radiology [facility] 03/08/2011 documented in this encounter Miscellaneous Notes [...] bladder documented in this encounter Care Teams Damaged Freight Inspector Relationship Specialty Start Date End Date Unknown None PCP - General 08/23/10 03/15/11 documented as of this encounter
[2024-10-14 21:23] LABS: Abs Immature Grans 0.03 10^3/uL (0.0-0.06); Absolute Basophil Count 0.07 10^3/uL (0.0-0.2); Absolute Eosinophil Count 0.32 10^3/uL (0.0-0.7); Absolute Lymphocyte Count 4.07 10^3/uL (1.2-3.4); Absolute Monocyte Count 0.48 10^3/uL (0.1-0.8); Absolute Neutrophil Count 4.68 10^3/uL (1.2-6.7); Basophils % 0.7 %; Eosinophils % 3.3 %; HCT 38.5 % (36.0-46.0); HGB 12.6 g/dL (11.2-15.7); Immature Grans % 0.3 %; Lymphocytes % 42.2 %; MCH 28.9 pg (27.0-33.0); MCHC 32.7 % (32.0-36.0); MCV 88 fL (80-95); Neutrophils % 48.5 %; Platelet Count 205 10^3/uL (130-400); RBC 4.36 10^6/uL (3.93-5.22); RDW 12.3 % (11.7-14.6); RDW-SD 39.2 fL; WBC 9.65 10^3/uL (4.4-10.8)
[2024-10-14 21:36] LABS: Hemoglobin A1C 5.7 % (<5.7)
[2024-10-14 21:42] LABS: ALT 34 U/L (14-59); AST 21 U/L (15-37); Albumin 3.8 g/dL (3.4-5.0); Alkaline Phosphatase 68 U/L (46-116); Anion Gap 8.7 mmol/L (3-11); BUN 14 mg/dL (7-18); Bilirubin, Total 0.24 mg/dL (0.2-1.0); CO2 26.3 mmol/L (21.0-32.0); CREATININE 0.8 mg/dL (0.55-1.02); Chloride 104 mmol/L (98-107); Glucose 121 mg/dL (74-106); Potassium 3.9 mmol/L (3.5-5.1); Sodium 139 mmol/L (136-145); TSH (W/Ref FT4) 2.88 uIU/mL (0.36-3.74); Total Protein 7.4 g/dL (6.4-8.2)
== END 2024-10-14 16:37 | disposition home or self-care (01) ==
LOC: NCHCN 16:36
PROVIDERS: PCP Nurse Practitioner Family; Visit Provider Nurse Practitioner Family
DX: R73.03 Prediabetes (principal); R07.9 Chest pain, unspecified
CPT/HCPCS: 80053; 83036; 83735; 84443; 85025

== ENCOUNTER 2024-10-20 01:19 | Outpatient (CLI) | payer MEDICAID, SELFPAY ==
--- NOTE | 2024-10-20 | ETT_ITS ---
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 Rest Stress HR Resting HR Supine: 77 bpm Max Heart Rate (APMHR): 173 bpm Resting HR Standin bpm Target HR (85% APMHR): 147 bpm Max HR Achieved: 152 bpm % of APMHR: 88 Recovery HR: 87 bpm HR response to stress: Normal HR response to stress BP Resting BP Supine: 122/80 mmHg Resting BP Standin/82 mmHg Max BP: 160/88 mmHg Recovery BP: 122/82 mmHg BP response to stress: Normal blood pressure response to stress. ECG Resting ECG: Sinus Rhythm Ectopy: none Stress ECG: Sinus Tachycardia ST Change: No significant ST segment changes noted Arrhythmia: None Recovery ECG: Sinus Rhythm Recovery ST Change: No significant ST segment changes noted Recovery Arrhythmia: None Clinical Reason for Termination: Target HR Achieved Stress Symptoms: mild CP Exercise duration: 05 min51 sec Highest Stage Reached: Stage 2: 2.5 mph at 12% grade. Exercise capacity: 7.05 METs Angina Score: Non-Limiting Stearns Treadmill Score: 1.3 Rate Pressure Product: 52006 Stress ECG Conclusion 1. Resting electrocardiogram was normal 2. Patient exercised on the Evan protocol and completed workload of 7 METS 3. Normal heart rate and blood pressure response to exercise. The patient achieved 88% of maximal pr edicted heart rate for age 4. There was no electrocardiographic evidence of myocardial ischemia 5. There were no significant dysrhythmias Stearns Treadmill Score is 1.3 which is Moderate risk. Stress Test Summary STAGE Time (mins) Speed (mph) Grade (%) HR BP SpO2 SYMPTOMS METS Supine 77 122/80 95 5/10 CP at rest Standing 91 100/82 5/10 CP at rest 1 3 1.7 10 145 2/10 CP 4.5 2 6 2.5 12 150 7 1 min recovery 126 160/88 97 symptoms resolved 3 min recovery 92 140/82 6 min recovery 87 122/82 95 Pt with 5/10 pretest chest pain, chest pain improved as patient exercised, no accompanying symptoms; chest pain resolved by end of test; patient left ambulatory in no acute distress, VSS
== END 2024-10-20 01:39 ==
LOC: DI 01:19
PROVIDERS: PCP Nurse Practitioner Family; Visit Provider Internal Medicine Cardiovascular Disease
DX: R76.0 Raised antibody titer (principal)
CPT/HCPCS: 93017

== ENCOUNTER 2024-10-30 02:59 | Outpatient (CLI) | payer MEDICAID, SELFPAY ==
--- NOTE | 2024-10-30 | DI.US_ITS ---
Exam(s) US ABDOMEN LIMITED EXAM: US ABDOMEN LIMITED CLINICAL HISTORY: Steatosis of liver, K76.0 TECHNIQUE: Ultrasound abdomen performed using standard protocol. COMPARISON: US US ABDOMEN LIMITED from 01/29/2024 FINDINGS: PANCREAS: Normal where visualized. LIVER: There is diffuse increased echogenicity of the liver consistent with fatty infiltration. Hepa topetal flow in the Portal Vein. The liver measures in 15.2 cm length. No evidence of a hepatic mass. GALLBLADDER:Status post cholecystectomy. BILIARY SYSTEM: Common bile duct measures < 7 mm. No intrahepatic biliary ductal dilation. RIGHT KIDNEY: Kidney is normal in size. No evidence of renal calculi. No evidence of hydronephrosis. No renal mass or cyst identified. ASCITES: None seen. IMPRESSION: Hepatic steatosis. DATA REPOSITORY:
--- NOTE | 2024-10-30 08:59 | DI.MAMMO_ITS ---
Exam(s) MAMMO SCREENING EXAM: MAMMO SCREENING CLINICAL HISTORY: Screening, Z12.31,family h/o breast ca,z80.3 TECHNIQUE: Bilateral full field digital CC and MLO mammographic images were obtained with 3D tomosyn thesis and utilizing computer aided detection (CAD). COMPARISON: Available for comparison. FINDINGS: Masses/Architectural Distortion: None seen. Microcalcifications: No suspicious pleomorphic-type are seen. Skin Thickening/Nipple Retraction: None. IMPRESSION: 1. No significant interval change with no specific features of malignancy noted. 2. Unless there is more urgent need, screening mammography is recommended, as per [employer] guidelines. BI-RADS Category 1 - Negative Breast Density - Category B - Scattered areas of fibroglandular density Breast density category C or D implies that the patient has dense breast tissue. Dense breast tissue is very common and is not abnormal but dense breast tissue can make it harder to find cancer on a ma mmogram. Also, dense breast tissue may increase their breast cancer risk. This information about the result of the mammogram report was provided to the patient to raise their awareness. Use this report when you speak with the patient about their risks for breast cancer, which includes their family hist ory. At that time, you may recommend for more screening tests (Ultrasound or MRI) as they might be us eful based on their risk. A negative radiographic report should not delay biopsy if a dominant or clinically suspicious mass is present. Up to ten percent of cancers are not identified on mammography. A negative report may reinforce clinical impression. Adenosis and dense breasts may obscure an underlying neoplasm. False positive reports average 6 to 10%. Patient will receive a letter notifying them of these results.
== END 2024-10-30 03:19 ==
LOC: DI 02:59
PROVIDERS: PCP Nurse Practitioner Family; Visit Provider Nurse Practitioner Family
DX: K76.0 Fatty (change of) liver, not elsewhere classified (principal); R07.9 Chest pain, unspecified; Z12.31 Encounter for screening mammogram for malignant neoplasm of breast; Z80.3 Family history of malignant neoplasm of breast
CPT/HCPCS: 77063; 77067; 76705

== ENCOUNTER 2024-11-27 12:39 | Outpatient (RCR) | payer MEDICAID, SELFPAY | END 2024-11-28 23:59 | disposition home or self-care (01) | LOC: CARDOPNVT 12:39 | PROVIDERS: PCP Nurse Practitioner Family; Visit Provider Internal Medicine Cardiovascular Disease | DX: R00.2 Palpitations (principal); I49.3 Ventricular premature depolarization | CPT/HCPCS: 93225 ==

== ENCOUNTER 2024-11-29 10:02 | Outpatient (RCR) | payer MEDICAID, SELFPAY ==
--- NOTE | 2024-12-04 08:48 | W.HOLTRPT ---
Date of service: 12/04/24 Time of Service: 08:48 Holter Monitor Report Referring Provider:: Yesica Goff Indications:: Palpitations Holter Monitor Note: This is a 48-hour Holter monitor. Rhythm throughout was sinus with an average heart rate of 81. Minimum was 30, maximum 140. A total of 3 premature ventricular contractions were recorded. There was no atrial fibrillation, no high-grade AV block, no pauses greater than 3 seconds. Symptoms were reported which had no correlation to any dysrhythmia
== END 2024-12-29 23:59 | disposition home or self-care (01) ==
LOC: CARDOPNVT 10:02
PROVIDERS: PCP Nurse Practitioner Family; Visit Provider Nurse Practitioner Family
DX: R07.9 Chest pain, unspecified (principal)
CPT/HCPCS: 93226

== ENCOUNTER 2025-01-19 16:38 | Outpatient (REF) | payer MEDICAID, SELFPAY ==
--- NOTE | 2025-01-19 13:50 | PAPFT_PTH ---
PATIENT: Jennifer Nunn (Betsy) LOC: [facility] U#:[id number] AGE/SX: 49/F ROOM: RE01/19/[address]: Yesica Goff : 1975 BED: DIS: 01/19/2025 SPEC #: [id number] RECD: 01/20/25 12:50 STATUS: JENNIFER REQ #: [id number] NATA: 01/19/25 13:[address]: Yesica Goff DEPT: [facility] Cytology RECD BY: Juani Antony Tissues: 1 - CX/ENDOCX FOR PAP SMEARS Procedures: PAP THIN PREP/UVM Screening HPV DNA PROBE Comments: [id number] (HPV 16 & 18/45) (CHLAMYDIA/GC)
[2025-01-21 10:03] LABS: HIV-1/2 Ag & Ab Screen Negative (Negative)
[2025-01-21 10:24] LABS: Hepatitis C Ab w Rflx HCV PCR Negative (Negative)
[2025-01-21 13:06] LABS: Chlamydia Result Negative (Negative); GC Result Negative (Negative)
== END 2025-01-19 16:39 | disposition home or self-care (01) ==
LOC: NCHCN 16:38
PROVIDERS: PCP Nurse Practitioner Family; Visit Provider Nurse Practitioner Family
DX: Z11.59 Encounter for screening for other viral diseases (principal); Z11.4 Encounter for screening for human immunodeficiency virus [HIV]; Z01.419 Encounter for gynecological examination (general) (routine) without abnormal findings
CPT/HCPCS: 86803; 87389; 87491; 87591; 88142; 87624

== ENCOUNTER 2025-02-16 02:50 | Outpatient (CLI) | payer MEDICAID, SELFPAY ==
--- NOTE | 2025-02-16 | DI.US_ITS ---
Exam(s) US THYROID EXAM: US THYROID CLINICAL HISTORY: MALIGNANT TUMOR THYROID GLAND C73. TECHNIQUE: Ultrasound thyroid performed using standard protocol. COMPARISON: US US SOFT TISSUE HEAD OR NECK from 03/17/2020 FINDINGS: No thyroid tissue is demonstrated. No mass or fluid collection. Normal appearing lymph nodes, large st on the right measuring 7 millimeters in the largest on the left measuring 1.2 cm. IMPRESSION: Status post thyroidectomy. No visible mass in the thyroid bed. DATA REPOSITORY:
== END 2025-02-16 03:10 ==
LOC: DI 02:50
PROVIDERS: PCP Nurse Practitioner Family; Visit Provider Nurse Practitioner Family
DX: C73 Malignant neoplasm of thyroid gland (principal)
CPT/HCPCS: 76536